=== PATIENT | male | born 1950 | race Caucasian/White ===

== ENCOUNTER → 2020-04-28 13:59 | Outpatient (CLI) | payer MEDICARE, SELFPAY ==
[2020-04-28 15:04] LABS: Basophils % 0.6 % (0.1-2.0); Eosinophils # 0.1 K/mm3 (0.0-0.4); Eosinophils % 2.4 % (0.1-12.0); Hematocrit 38.5 % (42.0-52.0); Hemoglobin 12.7 g/dL (14.1-18.0); Lymphocytes # 1.1 K/mm3 (0.7-4.5); Lymphocytes % 23.8 % (10-50); Mean Corpuscular HGB Conc 33.1 g/dL (31.8-35.4); Mean Corpuscular Hemoglobin 32.3 pg (27.0-31.2); Mean Corpuscular Volume 97.6 fl (80-94); Mean Platelet Volume 7.7 fl (7.4-10.4); Monocytes # 0.2 K/mm3 (0.1-1.0); Monocytes % 5.3 % (1.7-9.3); Platelet Count 144 K/mm3 (142-424); Red Blood Count 3.94 M/mm3 (4.60-6.20); White Blood Count 4.5 K/mm3 (4.8-10.8)
[2020-04-28 15:38] LABS: Alanine Aminotransferase 34 U/L (12-78); Albumin Level 4.3 g/dl (3.5-5.0); Albumin/Globulin Ratio 1.7 (1.1-1.8); Alkaline Phosphatase 72 U/L (38-126); Aspartate Amino Transferase 39 U/L (17-59); Bilirubin,Total 0.7 mg/dl (0.2-1.3); Blood Urea Nitrogen 26 mg/dl (9-20); Calcium 9.6 mg/dl (8.4-10.2); Carbon Dioxide 28 mmol/L (22.0-30.0); Chloride 102 mmol/L (98-107); Cholesterol 132 mg/dl (140-200); Estimated Glomerular Filt Rate 54 ml/min (>60); GFR (African American) 66 ML/MIN (>60); Globulin 2.6 g/dL (1.3-3.2); Glucose 106 mg/dl (74-100); HDL Cholesterol 44 mg/dl (40-60); Sodium 140 mmol/L (136-145); Total Protein,Serum 6.9 g/dl (6.3-8.2); Triglycerides 302 mg/dl (30-150); VLDL Cholesterol 60 mg/dL (0-40)
[2020-04-28 15:49] LABS: Direct LDL Cholesterol 58.26 mg/dL (100-129)
[2020-04-28 16:09] LABS: Prostate Specific Ag Screen 0.8 ng/ml (0.0-4.0)
[2020-04-28 17:48] LABS: Hemoglobin A1C 6.7 % (4.0-6.0)
[2020-04-28 21:55] LABS: INR 2.05 (0.9-1.1); Prothrombin Time 20.4 seconds (9.4-11.8)
== END ==
PROVIDERS: Visit Provider Family Medicine
DX: E11.9 Type 2 diabetes mellitus without complications (principal); I10 Essential (primary) hypertension; Z79.01 Long term (current) use of anticoagulants; N40.0 Benign prostatic hyperplasia without lower urinary tract symptoms; Z12.5 Encounter for screening for malignant neoplasm of prostate; Z79.84 Long term (current) use of oral hypoglycemic drugs
CPT/HCPCS: 36415; 80053; 80061; 83036; 85025; 85610; G0103

== ENCOUNTER → 2020-07-21 15:27 | Outpatient (CLI) | payer MEDICARE, SELFPAY | PROVIDERS: Visit Provider Family Medicine | DX: R10.30 Lower abdominal pain, unspecified (principal) | CPT/HCPCS: 87086 ==

== ENCOUNTER → 2020-07-30 08:19 | Outpatient (CLI) | payer MEDICARE, SELFPAY ==
--- NOTE | 2020-07-30 08:25 | CT_ITS ---
PROCEDURE: CT ABDOMEN PELVIS WO CON CLINICAL INDICATION: lower abd pain LLQ PAIN NO PRIOR COMPARISON: No exams were available for comparison TECHNIQUE: Axial images obtained with sagittal and coronal reformats. All CT scans at the facility use one or more dose reduction, viz: automated exposure control, ma/kV adjustment per patient size (including targeted exams where dose is matched to indication, i.e. head), or iterative reconstruction technique. FINDINGS: LOWER THORAX: Prior CABG. Coronary artery calcifications are noted. ABDOMEN & PELVIS: The liver, spleen, and pancreas has an unremarkable appearance. Minimal nodularity noted involving the right adrenal gland at 12 mm which may represent an adenoma. No renal or ureteral calculi. No hydronephrosis. No evidence of appendicitis. No intestinal obstruction or free air. There is diverticulosis of the descending and sigmoid colon. No evidence of diverticulitis. The prostate is prominent at 5 cm. No pelvic mass or abnormal fluid collection. There is a small umbilical hernia containing fat IMPRESSION: 1. No acute finding. 2. Colonic diverticulosis. No evidence of diverticulitis Dictated by: Tyron De Souza MD 07/31/2020 10:45 Tyron De Souza MD in [facility] 07/31/2020 10:45
== END ==
PROVIDERS: PCP Family Medicine; Visit Provider Family Medicine
DX: R10.30 Lower abdominal pain, unspecified (principal)
CPT/HCPCS: 74176

== ENCOUNTER → 2020-08-11 12:15 | Outpatient (CLI) | payer MEDICARE, SELFPAY ==
[2020-08-11 12:59] LABS: INR 1.54 (0.9-1.1); Prothrombin Time 16.4 seconds (9.4-11.8)
== END ==
PROVIDERS: Visit Provider Family Medicine
DX: R10.30 Lower abdominal pain, unspecified (principal); Z51.81 Encounter for therapeutic drug level monitoring; Z79.01 Long term (current) use of anticoagulants
CPT/HCPCS: 36415; 85610

== ENCOUNTER → 2020-11-11 12:22 | Outpatient (CLI) | payer MEDICARE, SELFPAY ==
[2020-11-11 14:57] LABS: INR 6.46 (0.9-1.1); Prothrombin Time 66.4 seconds (10.1-12.5)
== END ==
PROVIDERS: Visit Provider Family Medicine
DX: Z51.81 Encounter for therapeutic drug level monitoring (principal); Z79.01 Long term (current) use of anticoagulants; I48.91 Unspecified atrial fibrillation
CPT/HCPCS: 36415; 85610

== ENCOUNTER → 2020-11-17 10:53 | Outpatient (CLI) | payer MEDICARE, SELFPAY ==
[2020-11-17 11:30] LABS: Prothrombin Time 37.6 seconds (10.1-12.5)
== END ==
PROVIDERS: Visit Provider Family Medicine
DX: I48.91 Unspecified atrial fibrillation (principal)
CPT/HCPCS: 36415; 85610

== ENCOUNTER → 2020-11-24 14:05 | Outpatient (CLI) | payer MEDICARE, SELFPAY ==
[2020-11-24 15:30] LABS: INR 2.09 (0.9-1.1); Prothrombin Time 23.4 seconds (10.1-12.5)
== END ==
PROVIDERS: Visit Provider Emergency Medicine
DX: I48.91 Unspecified atrial fibrillation (principal); Z79.01 Long term (current) use of anticoagulants; Z51.81 Encounter for therapeutic drug level monitoring
CPT/HCPCS: 36415; 85610

== ENCOUNTER → 2020-12-24 15:04 | Outpatient (CLI) | payer MEDICARE, SELFPAY ==
[2020-12-24 18:35] LABS: INR 2.49 (0.9-1.1); Prothrombin Time 27.5 seconds (10.1-12.5)
== END ==
PROVIDERS: Visit Provider Family Medicine
DX: I48.91 Unspecified atrial fibrillation (principal); Z79.01 Long term (current) use of anticoagulants; Z51.81 Encounter for therapeutic drug level monitoring
CPT/HCPCS: 36415; 85610

== ENCOUNTER → 2021-04-23 16:56 | Outpatient (CLI) | payer MEDICARE, SELFPAY ==
[2021-04-23 18:05] LABS: Chloride 112 mmol/L (98-107)
[2021-04-23 18:06] LABS: Potassium 5.2 mmoL/L (3.5-5.1); Sodium 142 mmol/L (136-145)
[2021-04-23 18:08] LABS: Alanine Aminotransferase 33 U/L (12-78); Alkaline Phosphatase 86 U/L (38-126); Anion Gap 13.2 mEq/L (5-15); Aspartate Amino Transferase 32 U/L (17-59); Bilirubin,Total 0.4 mg/dl (0.2-1.3); Blood Urea Nitrogen 37 mg/dl (9-20); Carbon Dioxide 22 mmol/L (22.0-30.0); Estimated Glomerular Filt Rate 46 ml/min (>60); GFR (African American) 56 ML/MIN (>60)
[2021-04-23 18:09] LABS: Albumin Level 4.2 g/dl (3.5-5.0); Albumin/Globulin Ratio 1.5 (1.1-1.8); Calcium 9.6 mg/dl (8.4-10.2); Chol/HDL Ratio 3.3 (1-3.5); Cholesterol 140 mg/dl (140-200); Globulin 2.8 g/dL (1.3-3.2); Glucose 96 mg/dl (74-100); HDL Cholesterol 42 mg/dl (40-60); Triglycerides 349 mg/dl (30-150); VLDL Cholesterol 70 mg/dL (0-40)
[2021-04-23 18:15] LABS: Prothrombin Time 29.3 seconds (10.1-12.5)
[2021-04-23 18:16] LABS: INR 2.67 (0.9-1.1)
[2021-04-23 18:20] LABS: Direct LDL Cholesterol 52.11 mg/dL (100-129)
[2021-04-23 18:24] LABS: Hemoglobin A1C 7.1 % (4.0-6.0)
[2021-04-23 18:36] LABS: Basophils % 0.8 % (0.1-2.0); Eosinophils # 0.1 K/mm3 (0.0-0.4); Eosinophils % 1.7 % (0.1-12.0); Hemoglobin 11.9 g/dL (14.1-18.0); Lymphocytes # 0.9 K/mm3 (0.7-4.5); Lymphocytes % 17.8 % (10-50); Mean Corpuscular HGB Conc 39.7 g/dL (31.8-35.4); Mean Corpuscular Hemoglobin 38.3 pg (27.0-31.2); Mean Corpuscular Volume 96.4 fl (80-94); Mean Platelet Volume 9.6 fl (7.4-10.4); Monocytes # 0.3 K/mm3 (0.1-1.0); Monocytes % 5.6 % (1.7-9.3); Neutrophils # 3.6 K/mm3 (1.8-7.8); Neutrophils % 74.1 % (37.0-80.0); Platelet Count 137 K/mm3 (142-424); Red Blood Count 3.11 M/mm3 (4.60-6.20); Red Cell Distribution Width 15.3 % (11.5-17.5); White Blood Count 4.8 K/mm3 (4.8-10.8)
== END ==
PROVIDERS: Visit Provider Family Medicine
DX: E11.9 Type 2 diabetes mellitus without complications (principal); Z79.01 Long term (current) use of anticoagulants; Z01.89 Encounter for other specified special examinations; Z79.84 Long term (current) use of oral hypoglycemic drugs
CPT/HCPCS: 36415; 80053; 80061; 83036; 85025; 85610

== ENCOUNTER → 2021-06-17 14:08 | Outpatient (CLI) | payer MEDICARE, SELFPAY ==
--- NOTE | 2021-06-17 14:19 | XR_ITS ---
PROCEDURE: XR KNEE RT 4V CLINICAL INDICATION: knee pain COMPARISON: No exams were available for comparison FINDINGS: There are mild osteoarthritic changes involving all 3 compartments. Prominent prepatellar soft tissue swelling is noted the. Faint opacities are present in the prepatellar region the largest at 7 mm. These could be due to soft tissue areas of calcification versus foreign bodies. Along the anterior aspect of the patella laterally there is an area of bony exostosis measuring 13 x 6 mm. On the lateral view there are faint opacities in the popliteal region. This could be due to vascular calcification or small loose bodies in the popliteal region. There is mild chondrocalcinosis No obvious fracture or dislocation. Surgical clips are present along the medial and distal aspect of the thigh. IMPRESSION: Tricompartmental osteoarthritis with chondrocalcinosis No acute fracture. Prepatellar soft tissue swelling consistent with hematoma with faint soft tissue calcifications versus foreign bodies Dictated by: Tyron De Souza MD 06/17/2021 16:18 Tyron De Souza MD in [facility] 06/17/2021 16:18
--- NOTE | 2021-06-17 14:19 | XR_ITS ---
PROCEDURE: XR CHEST 2V CLINICAL HISTORY: weakness and fatigue COMPARISON: No exams were available for comparison FINDINGS: There has been a prior median sternotomy/CABG. Calcified granuloma is present in the left lower lobe. The lungs are clear without infiltrates, suspicious nodules, or pleural effusions. Degenerative changes thoracic spine IMPRESSION: No acute findings. Dictated by: Tyron De Souza MD 06/17/2021 16:00 Tyron De Souza MD in [facility] 06/17/2021 16:00
[2021-06-17 14:32] LABS: Basophils % 0.5 % (0.1-2.0); Eosinophils # 0.1 K/mm3 (0.0-0.4); Eosinophils % 1.1 % (0.1-12.0); Hematocrit 37.6 % (42.0-52.0); Hemoglobin 11.6 g/dL (14.1-18.0); Lymphocytes # 1.1 K/mm3 (0.7-4.5); Lymphocytes % 18.1 % (10-50); Mean Corpuscular HGB Conc 30.9 g/dL (31.8-35.4); Mean Corpuscular Hemoglobin 31.2 pg (27.0-31.2); Mean Corpuscular Volume 101.2 fl (80-94); Mean Platelet Volume 7.6 fl (7.4-10.4); Monocytes # 0.3 K/mm3 (0.1-1.0); Monocytes % 5.2 % (1.7-9.3); Neutrophils # 4.8 K/mm3 (1.8-7.8); Neutrophils % 75.1 % (37.0-80.0); Platelet Count 178 K/mm3 (142-424); Red Blood Count 3.71 M/mm3 (4.60-6.20); Red Cell Distribution Width 15.3 % (11.5-17.5); White Blood Count 6.3 K/mm3 (4.8-10.8)
[2021-06-17 14:54] LABS: INR 3.48 (0.9-1.1); Prothrombin Time 35.9 seconds (10.1-12.5)
[2021-06-17 15:49] LABS: Prostate Specific Ag Screen 0.4 ng/ml (0.0-4.0); Thyroid Stimulating Hormone 3.98 uIU/mL (0.465-4.68)
[2021-06-17 16:09] LABS: Alanine Aminotransferase 25 U/L (12-78); Albumin Level 4.2 g/dl (3.5-5.0); Albumin/Globulin Ratio 1.6 (1.1-1.8); Alkaline Phosphatase 66 U/L (38-126); Aspartate Amino Transferase 30 U/L (17-59); Bilirubin,Total 0.7 mg/dl (0.2-1.3); Blood Urea Nitrogen 49 mg/dl (9-20); Calcium 9.5 mg/dl (8.4-10.2); Carbon Dioxide 19 mmol/L (22.0-30.0); Chloride 110 mmol/L (98-107); Estimated Glomerular Filt Rate 31 ml/min (>60); GFR (African American) 38 ML/MIN (>60); Globulin 2.7 g/dL (1.3-3.2); Glucose 103 mg/dl (74-100); Sodium 135 mmol/L (136-145); Total Protein,Serum 6.9 g/dl (6.3-8.2)
[2021-06-17 16:19] LABS: NT Pro Brain Natriuretic Pep. 56.2 pg/mL (0-125)
[2021-06-17 16:51] LABS: Iron 84 ug/dL (49-181)
[2021-06-17 16:52] LABS: Anion Gap 12.9 mEq/L (5-15)
[2021-06-17 17:00] LABS: Potassium 6.9 mmoL/L (3.5-5.1)
== END ==
PROVIDERS: Visit Provider Family Medicine
DX: E11.9 Type 2 diabetes mellitus without complications (principal); Z12.5 Encounter for screening for malignant neoplasm of prostate; E87.6 Hypokalemia; I50.9 Heart failure, unspecified; R53.1 Weakness; M25.561 Pain in right knee; Z20.822 Contact with and (suspected) exposure to COVID-19; Z79.84 Long term (current) use of oral hypoglycemic drugs
CPT/HCPCS: 36415; 71046; 73564; 80053; 83540; 83880; 84443; 84550; 85025; 85610; 87086; G0103; C9803; U0003; U0005

== ENCOUNTER → 2021-06-29 16:56 | Outpatient (CLI) | payer MEDICARE, SELFPAY ==
[2021-06-29 18:38] LABS: Alanine Aminotransferase 32 U/L (12-78); Albumin/Globulin Ratio 1.5 (1.1-1.8); Alkaline Phosphatase 78 U/L (38-126); Aspartate Amino Transferase 34 U/L (17-59); Bilirubin,Total 0.6 mg/dl (0.2-1.3); Blood Urea Nitrogen 24 mg/dl (9-20); Calcium 8.9 mg/dl (8.4-10.2); Carbon Dioxide 26 mmol/L (22.0-30.0); Chloride 103 mmol/L (98-107); Estimated Glomerular Filt Rate 60 ml/min (>60); GFR (African American) 72 ML/MIN (>60); Globulin 2.6 g/dL (1.3-3.2); Glucose 106 mg/dl (74-100); Sodium 137 mmol/L (136-145); Total Protein,Serum 6.6 g/dl (6.3-8.2)
== END ==
PROVIDERS: Visit Provider Family Medicine
DX: E87.5 Hyperkalemia (principal)
CPT/HCPCS: 80053

== ENCOUNTER 2021-07-22 17:33 | Observation (INO) | payer MEDICARE, SELFPAY ==
[2021-07-22] VITALS (7 sets, daily range): BP systolic 140–180; BP diastolic 45–117; PULSE 59–74; RESP 16; TEMP 36.8–37.2; O2SAT 95–98; BMI 40.6; BMI 42.3
--- NOTE | 2021-07-22 17:49 | ECG_ITS ---
APPROVED REPORT Exam: Resting ECG HR:68 bpm ECG Measurements Heart Rate 68 AXES ID 146 P 54 QRSd 72 QRS -13 QT 398 T 63 QTc 423 Conclusion Normal sinus rhythm Nonspecific ST and T wave abnormality Abnormal ECG Electronically signed by : Jose Alberto Peterson MD 07/24/2021 08:38:59
--- NOTE | 2021-07-22 18:08 | HMH.EDGENADL ---
ED Disposition Clinical Impression: Congestive heart failure Qualifiers: Heart failure type: unspecified Heart failure chronicity: acute on chronic Qualified Code(s): I50.9 - Heart failure, unspecified Disposition: Admitted as Observation Condition on Discharge: Good Referrals: Dylon Izaguirre MD [Primary Care Provider] - - Critical Care Critical Care Time: No Attestation: On 07/22/21, the high probability of a clinically significant, sudden or life threatening deterioration of the following system(s) required my full and direct attention, intervention and personal management. The time I documented below is in addition to time spent performing reported procedures but includes the following listed in this critical care notation. Medical Decision Making - Ruben Inquiry Pt receiving controlled substance: No Vital Signs: 07/22/21 17:34 07/22/21 18:40 Temperature 98.9 F Temperature Source Oral Pulse Rate 74 Pulse Rate [Right] 71 Respiratory Rate 16 16 Blood Pressure 180/90 H Blood Pressure [Right Arm] 180/75 H Blood Pressure Mean [Right Arm] 110 Blood Pressure Source Automatic Cuff Blood Pressure Source [Right Arm] Automatic Cuff Blood Pressure Position Sitting Blood Pressure Position [Right Arm] Sitting 02 Sat by Pulse Oximetry 98 98 Oxygen Delivery Method Room Air Room Air - Lab Data Lab Results 07/22/21 18:03: SARS-CoV-2 (PCR) Not detected, Influenza A Untype (PCR) Not detected, Influenza Type B (PCR) Not detected 07/22/21 18:07: WBC 4.7 L, RBC 3.88 L, Hgb 11.9 L, Hct 35.6 L, MCV 91.8, MCH 30.7, MCHC 33.4, RDW 15.9, Plt Count 211, MPV 8.1, Neut % (Auto) 73.8, Lymph % (Auto) 18.4, [place] % (Auto) 5.0, Eos % (Auto) 2.2, Baso % (Auto) 0.7, Neut # (Auto) 3.5, Lymph # (Auto) 0.9, [place] # (Auto) 0.2, Eos # (Auto) 0.1, Baso # (Auto) 0.0 07/22/21 18:07: PT 22.4 H, INR 2.09 H, APTT 32.6 H 07/22/21 18:07: Sodium 141, Potassium 3.7, Chloride 105, Carbon Dioxide 31 H, Anion Gap 8.7, BUN 19, Creatinine 1.20, Estimated Creat Clear 98, Estimated GFR 60, Est GFR ( Amer) 72, Glucose 153 H, Calcium 9.3, Total Bilirubin 0.6, AST 43, ALT 39, Alkaline Phosphatase 88, Troponin I < 0.01, Total Protein 7.0, Albumin 4.2, Globulin 2.8, Albumin/Globulin Ratio 1.5 07/22/21 18:07: NT-Pro-B Natriuret Pep 422 H Result diagrams: 07/22/21 18:07 07/22/21 18:07 Orders (Tests/Meds): ED MEDICATIONS Discontinued Medications Generic Name Dose Route Start Last Admin Trade Name Freq PRN Reason Stop Dose Admin Furosemide 40 mg 07/22/21 20:09 07/22/21 20:10 Furosemide 40mg/4ml Vial IV 07/22/21 20:10 40 mg ONCE ONE Administration ORDERS Category Date Time Status Troponin I Q3H Lab 07/22/21 21:30 Ordered Troponin I Q3H Lab 07/23/21 00:30 Ordered - Radiology Data #1 Image(s): Chest Image Reviewed: Yes I reviewed the patient's radiology image Preliminary Findings: Abnormal (Prior sternotomy. Vascular congestion.) PROCEDURE INFORMATION: Exam: XR Chest Exam date and time: 07/22/2021 6:28 PM Age: 71 years old Clinical indication: Shortness of breath; Additional info: Soa/swelling feet and legs TECHNIQUE: Imaging protocol: XR of the chest. Views: 2 views. COMPARISON: CR XR CHEST 2V 06/17/2021 2:29 PM FINDINGS: Lungs: Central vascular congestion with mild interstitial edema. Mild left basilar atelectasis. No consolidation. Pleural spaces: No pleural effusion. No pneumothorax. Heart/Mediastinum: Mild cardiomegaly, similar to prior. Sequela of prior CABG. Aortic atherosclerosis. Bones/joints: Degenerative changes. IMPRESSION: Central vascular congestion with mild interstitial pulmonary edema. - ECG Data Tracing #1 EKG interpreted by Steven Cervantes MD: Rhythm: sinus Rate: 68 Sanders: normal Ectopy: none Conduction: normal ST Segment Changes: none T Wave Changes: Nonspecific Q Waves:
--- NOTE | 2021-07-22 18:28 | XR_ITS ---
PROCEDURE INFORMATION: Exam: XR Chest Exam date and time: 07/22/2021 6:28 PM Age: 71 years old Clinical indication: Shortness of breath; Additional info: Soa/swelling feet and legs TECHNIQUE: Imaging protocol: XR of the chest. Views: 2 views. COMPARISON: CR XR CHEST 2V 06/17/2021 2:29 PM FINDINGS: Lungs: Central vascular congestion with mild interstitial edema. Mild left basilar atelectasis. No consolidation. Pleural spaces: No pleural effusion. No pneumothorax. Heart/Mediastinum: Mild cardiomegaly, similar to prior. Sequela of prior CABG. Aortic atherosclerosis. Bones/joints: Degenerative changes. IMPRESSION: Central vascular congestion with mild interstitial pulmonary edema.
[2021-07-22 18:37] LABS: Basophils % 0.7 % (0.1-2.0); Eosinophils # 0.1 K/mm3 (0.0-0.4); Eosinophils % 2.2 % (0.1-12.0); Hematocrit 35.6 % (42.0-52.0); Hemoglobin 11.9 g/dL (14.1-18.0); Lymphocytes # 0.9 K/mm3 (0.7-4.5); Lymphocytes % 18.4 % (10-50); Mean Corpuscular HGB Conc 33.4 g/dL (31.8-35.4); Mean Corpuscular Hemoglobin 30.7 pg (27.0-31.2); Mean Corpuscular Volume 91.8 fl (80-94); Mean Platelet Volume 8.1 fl (7.4-10.4); Monocytes # 0.2 K/mm3 (0.1-1.0); Neutrophils # 3.5 K/mm3 (1.8-7.8); Neutrophils % 73.8 % (37.0-80.0); Platelet Count 211 K/mm3 (142-424); Red Blood Count 3.88 M/mm3 (4.60-6.20); Red Cell Distribution Width 15.9 % (11.5-17.5); White Blood Count 4.7 K/mm3 (4.8-10.8)
[2021-07-22 18:37] LABS: Coronavirus 19, PCR Not Detected (NotDetected); Influenza A, PCR Not Detected (NotDetected); Influenza B, PCR Not Detected (NotDetected)
[2021-07-22 18:42] LABS: Activated Partial Thrombo Time 32.6 seconds (22.8-30.6); INR 2.09 (0.9-1.1); Prothrombin Time 22.4 seconds (10.1-12.5)
[2021-07-22 18:54] LABS: Alanine Aminotransferase 39 U/L (12-78); Albumin Level 4.2 g/dl (3.5-5.0); Albumin/Globulin Ratio 1.5 (1.1-1.8); Alkaline Phosphatase 88 U/L (38-126); Anion Gap 8.7 mEq/L (5-15); Aspartate Amino Transferase 43 U/L (17-59); Bilirubin,Total 0.6 mg/dl (0.2-1.3); Blood Urea Nitrogen 19 mg/dl (9-20); Calcium 9.3 mg/dl (8.4-10.2); Carbon Dioxide 31 mmol/L (22.0-30.0); Chloride 105 mmol/L (98-107); Creatinine Clearance Estimated 98 mL/min (50-200); Estimated Glomerular Filt Rate 60 ml/min (>60); GFR (African American) 72 ML/MIN (>60); Globulin 2.8 g/dL (1.3-3.2); Glucose 153 mg/dl (74-100); Potassium 3.7 mmoL/L (3.5-5.1); Sodium 141 mmol/L (136-145)
[2021-07-22 19:05] LABS: NT Pro Brain Natriuretic Pep. 422 pg/mL (0-125)
[2021-07-22 19:16] LABS: Troponin I < 0.01 ng/ml (0.00-0.034)
--- NOTE | 2021-07-22 20:38 | PC.NURSE ---
house notified of need for admit
[2021-07-22 22:17] LABS: Troponin I < 0.01 ng/ml (0.00-0.034)
--- NOTE | 2021-07-22 22:32 | PC.NURSE ---
pt arrived to the floor at this time
[2021-07-23] VITALS: PULSE 50
[2021-07-23 04:00] VITALS: BP 161/87; PULSE 60; PULSE 61; RESP 16; TEMP 36.6; O2SAT 96
[2021-07-23 04:32] VITALS: BMI 42.0
[2021-07-23 05:31] LABS: POC Glucose,Bedside 158 (70-110)
--- NOTE | 2021-07-23 06:57 | P.CONPHA_ITS ---
[facility] Pharmacy VTE Monitoring - Patient Demographics Admission date: 07/22/21 Report Date: 07/23/21 Time: 06:57 Allergies/Adverse Reactions: Patient Allergies ciprofloxacin [From Cipro] Allergy (Unknown, Verified 06/29/21 13:21) ofloxacin [From Floxin] Allergy (Unknown, Verified 06/29/21 13:21) Pzqfbig-Bpt-Xgb Reductase Inhibitor Allergy (Unknown, Verified 06/29/21 13:21) penicillin V Adverse Reaction (Severe, Verified 06/29/21 13:21) Unknown allergy reaction Height: 1.75 m Weight: 128.82 kg Patient Problems: Current Active Problems Congestive heart failure (Acute) - VTE Risk Labs: VTE Related Lab Results Hgb 11.9 g/dL (14.1-18.0) L 07/22/21 18:07 Hct 35.6 % (42.0-52.0) L 07/22/21 18:07 Plt Count 211 K/mm3 (142-424) 07/22/21 18:07 PT 22.4 seconds (10.1-12.5) H 07/22/21 18:07 INR 2.09 (0.9-1.1) H 07/22/21 18:07 APTT 32.6 seconds (22.8-30.6) H 07/22/21 18:07 BUN 19 mg/dl (9-20) 07/22/21 18:07 Creatinine 1.20 mg/dl (0.66-1.25) 07/22/21 18:07 Estimated Creat Clear 98 mL/min (50-200) 07/22/21 18:07 - Prophylaxis VTE Prophylaxis Ordered?: Yes Types of VTE Prophylaxis: TEDS Knee High, Pharmacological Location of Applied Device: Bilateral Lower Extremeties Pharmacologic Type: Warfarin
[2021-07-23 07:00] LABS: Chloride 103 mmol/L (98-107); Potassium 3.5 mmoL/L (3.5-5.1); Sodium 143 mmol/L (136-145)
[2021-07-23 07:03] LABS: Anion Gap 12.5 mEq/L (5-15); Blood Urea Nitrogen 18 mg/dl (9-20); Calcium 8.9 mg/dl (8.4-10.2); Carbon Dioxide 31 mmol/L (22.0-30.0); Creatinine Clearance Estimated 59 mL/min (50-200); Estimated Glomerular Filt Rate 66 ml/min (>60); GFR (African American) 80 ML/MIN (>60); Glucose 151 mg/dl (74-100)
[2021-07-23 08:00] VITALS: BP 119/59; PULSE 60; RESP 18; TEMP 36.6; O2SAT 96
--- NOTE | 2021-07-23 08:20 | CA_ITS ---
APPROVED REPORT EXAM: Comprehensive 2D, Doppler, and color-flow Echocardiogram Assistant Professor Of Business: Sara Sanchez RVT Ht: 5 ft 8 in Wt: 284lbs BSA: 2.37 BP: 132/88 mmHg Indications: CHF,CABG,STENT,EDEMA,CAD,HTN,HX ABLATION,HX A-FIB,OBESITY 2D Dimensions LVOT 2.06 cm (M/F) 1.5-2.5 LA Volume 36.30 mL LA Volume Index 15.31 mL/m2 (M/F) 16-34 M-Mode Dimensions RVDd 3.01 cm (0.9-2.6) LA Diam 3.63 cm (1.9-4.0) LVDd 4.79 cm (3.5-5.7) Ao Diam 3.73 cm (2.0-3.7) LVDs 3.05 cm (3.5-5.7) IVSd 1.14 cm (0.6-1.1) PWd 0.97 cm (0.6-1.1) EF (Teich) 66.00% FS 36.30% EDV (Teich) 107.00 mL TAPSE 1.79 (<1.7) ESV (Teich) 36.40 mL LV Diastology E Decel Time 230.00 (160-240 msec) E/A Ratio 2.3 MED E' 6.60 (< 7 cm/sec) E'/MED E' Ratio 17.83 (>14) LAT E' 11.00 (<10 cm/sec) E/LAT E' Ratio 10.70 (>14) Aortic Valve AI PHT 1079.00 ms Mitral Valve MV E Max Kaden. 118.00 (40-130 cm/s) MV A Velocity 52.00 (40-130 cm/s) E/A Ratio 2.28 MV Decel. Time 230.00 (160-240 ms) MV PHT 67.00 ms Pulmonary Valve PV Peak Velocity 113.00 (50-150 cm/s) Tricuspid Valve TR P. Velocity 326.00 cm/s RAP Estimate 10.00 mmHg RVSP 52.60 mmHg Left Ventricle Left atrium is mildly enlarged, left ventricle is normal size, mild concentric left ventricular hypertrophy, visually estimated ejection fraction 55% with no regional wall motion abnormality, grade 1 diastolic dysfunction seen with tissue Doppler evidence of raise left atrial pressure. Right Ventricle Right atrium and right ventricle mildly enlarged with normal contractility. Aortic Valve Aortic valve is minimally thickened and fibrosed, there is no aortic stenosis, there is mild aortic insufficiency. Mitral Valve Mitral valve leaflets are minimally thickened, there is mild mitral regurgitation. Tricuspid Valve Tricuspid valve is grossly normal, there is trace tricuspid regurgitation, tricuspid regurgitation jet velocity is inadequate for calculation of the right ventricular systolic pressure. Pulmonic Valve Pulmonic valve is poorly visualized. Great Vessels Aortic root is normal size. Inferior vena cava is poorly visualized. Pericardium No significant pericardial effusion noted. Conclusion 1. Mild biatrial alignment, normal left ventricular size, mild concentric left ventricular hypertrophy, visually estimated ejection fraction 55% with no regional wall motion abnormality. Grade 1 diastolic dysfunction seen with tissue Doppler evidence of raise left atrial pressure. 2. Mildly enlarged right ventricle with normal contractility. 3. Mild aortic, mild mitral and trace tricuspid regurgitation. 4. No significant pericardial effusion noted. Electronically signed by : Stevie Tom MD 07/23/2021 15:48:29
--- NOTE | 2021-07-23 09:20 | HMH.CNCARD ---
History of Present Illness Consult date: 07/23/21 Requesting physician: Hemal Rutherford Consult reason: shortness of breath Chief complaint: CHF Additional Medical History:: 1. CAD A. 4 vessel CABG, approximately 2010, [facility] in [facility], Dr. Santiago Loredo. Coronary stenting, 2019, [place], [place] 2. History of atrial fibrillation with previous ablation therapy, approximately 2011, Dr. Estrella 3. Diabetes mellitus, type II diagnosed and treated approximately 2019 A. Hemoglobin A1c 7.1, 04/2021 4. Obesity 5. Ex-smoker, greater than 15 years ago 6. Hypertension 7. Chronic kidney disease, stage II with creatinine of 1.1, GFR 66 A. History of hyperkalemia on combination of lisinopril and spironolactone 8. Hyperlipidemia, on Repatha therapy 9. Obstructive sleep apnea, CPAP therapy 10. Congestive heart failure, likely diastolic in origin History of present illness: 71-year-old white male with known coronary artery disease as noted above presented to the emergency department with several days history of increasing shortness of breath and lower extremity edema. Patient was found to have evidence of congestive heart failure by chest x-ray and with elevated BNP and was admitted for evaluation and treatment. Patient did receive IV diuretic therapy overnight with some improvement in his symptoms this morning. He denies any chest pain, pressure or tightness. Troponins have returned normal times 2. EKG is sinus rhythm with no acute ST segment changes. Echocardiogram is in progress at this time. [facility] History Medical History: Reports:: Asthma, Atrial Fibrillation, Congestive Heart Failure, Diabetes Mellitus Type 2, Hyperlipidemia, Hypertension, Renal Insufficiency *Have you ever received a pneumonia vaccine?: No *Have you received a flu vaccine this season?: No Other Medical History: Reports: Arthritis Other Surgeries: Yes: Cardiac Surgery - *Social History Smoking Status: Former smoker Alcohol Intake: never Substance Use Type: denies use *Occupational Status:: employed Housing: house Household Members: none *Travel in the last 8 weeks: None Family Hx:: Cancer, Asthma Meds Home Medications Medication Instructions Recorded Confirmed Type aspirin 81 mg tablet,delayed 81 mg PO DAILY 04/28/20 07/22/21 History release evolocumab 140 mg/mL subcutaneous 140 mg SQ QOW 04/28/20 07/23/21 History pen injector furosemide 40 mg tablet 20 mg PO DAILY tab 04/28/20 07/23/21 History isosorbide mononitrate 30 mg 30 mg PO DAILY 04/28/20 07/23/21 History tablet,extended release 24 hr metoprolol succinate 25 mg 25 mg PO DAILY 04/28/20 07/23/21 History tablet,extended release 24 hr nitroglycerin 0.4 mg sublingual 0.4 mg SUBLINGUAL Q5-15M PRN 04/28/20 07/22/21 History tablet hydrocodone 5 mg-acetaminophen 325 1 tab PO QHS PRN #30 tab 06/17/21 07/22/21 Rx mg tablet Metformin HCl 500 mg PO BID 07/22/21 07/23/21 History Warfarin Sodium 2.5 mg PO DAILY 07/22/21 07/23/21 History Empagliflozin [Jardiance] 10 mg PO DAILY 07/23/21 07/23/21 History Spironolactone [Aldactone 25mg 50 mg PO DAILY 07/23/21 07/23/21 History Tab] Tamsulosin HCl 0.4 mg PO DAILY 07/23/21 07/23/21 History allopurinoL [Allopurinol 100mg 100 mg PO DAILY 07/23/21 07/23/21 History tablet] lisinopriL [Lisinopril] 20 mg PO BID 07/23/21 07/23/21 History Allergies Allergy/AdvReac Type Severity Reaction Status Date / Time ciprofloxacin [From Cipro] Allergy Unknown Verified 06/29/21 13:21 ofloxacin [From Floxin] Allergy Unknown Verified 06/29/21 13:21 Mmxyqsa-Xgh-Pmi Reductase Allergy Unknown Verified 06/29/21 13:21 Inhibitor penicillin V AdvReac Severe Unknown Verified 06/29/21 13:21 allergy reaction Exam Vital signs and Labs for Last 24 Hours: Temp Pulse Resp BP Pulse Ox 97.9 F 61 16 161/87 H 96 07/23/21 04:00 07/23/21 04:00 07/23/21 04:00 07/23/21 04:00
[2021-07-23 10:30] LABS: Magnesium 1.5 mg/dl (1.6-2.3)
[2021-07-23 11:09] VITALS: BMI 42.0
--- NOTE | 2021-07-23 11:43 | HMH.PHAINT ---
Confirmed home medications with [facility]
--- NOTE | 2021-07-23 12:30 | HMH.HP ---
*Admission Date: 07/22/21 *Chief complaint: congestive heart failure *History of present illness: Patient is a 71-year-old white male, well-known to my practice, who presented to the emergency room with increased peripheral edema dyspnea with exertion. 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 Patient has a history of coronary artery disease, status post four-vessel bypass in 2010. He has had subsequent stent deployments at [facility] in [place]. Patient also has history of atrial fibrillation, is status post cardioversion at [facility] in [place]. On a recent office visit here the patient was noted to be markedly weak, staggering gait, mental status changes. His lab work on that occasion marked aberrations in electrolyte status, marked hyperkalemia with evidence of renal failure. He was kept as an inpatient at [facility], seen in consultation with nephrology. He was given Kayexalate with a subsequent resolution of his hyperkalemia. His kidney function also markedly improved at that point. Patient has a history of significant gout with tophus formation. This has presented a dilemma with regard to his diuretic regimen. He knows to avoid NSAIDs. Upon presentation to the emergency room chest film was done subjective volume overload. Patient received IV Lasix with good output and some improvement in his symptoms. He is admitted for further evaluation and treatment. We will have cardiology look at him today, will look at an echo and await further recommendations. His congestive heart failure likely has a diastolic component. Patient has longstanding history of PATRICIA and is on CPAP. [facility] History Medical History: Reports:: Asthma, Atrial Fibrillation, Congestive Heart Failure, Diabetes Mellitus Type 2, Hyperlipidemia, Hypertension, Renal Insufficiency *Have you ever received a pneumonia vaccine?: No *Have you received a flu vaccine this season?: No Other Medical History: Reports: Arthritis Other Surgeries: Yes: Cardiac Surgery - *Social History Smoking Status: Former smoker Alcohol Intake: never Substance Use Type: denies use *Occupational Status:: employed Housing: house Household Members: none *Travel in the last 8 weeks: None Family Hx:: Cancer, Asthma Review of Systems - Constitutional Reports fatigue, Reports lack of energy, Reports weakness, Reports weight gain - Eyes Denies change in vision - ENT Denies dry mouth - *Cardiovascular Reports shortness of breath, Reports shortness of breath with activity, Reports generalized swelling, Reports irregular heart rhythm, Reports leg swelling, Denies chest pain - *Respiratory Reports shortness of breath, Denies chest congestion - *Gastrointestinal Denies abdominal pain - *Genitourinary Denies painful urination - *Musculoskeletal Reports abnormal walking, Reports joint pain, Reports muscle weakness, Reports stiffness - Integumentary/Breasts Reports change in skin color, Denies yellowing of the skin - *Neurologic Reports unsteadiness, Denies behavioral changes - Psychiatric Denies lack of enjoyment, Denies anxiety, Denies behavioral changes - Endocrine Denies cold intolerance - Hematologic/Lymphatic Reports easy bleeding, Reports easy bruising - Allergic/Immunologic Denies hives Meds Home Medications Medication Instructions Recorded Confirmed Type aspirin 81 mg tablet,delayed 81 mg PO DAILY 04/28/20 07/22/21 History release evolocumab 140 mg/mL subcutaneous 140 mg SQ QOW 04/28/20 07/23/21 History pen injector furosemide 40 mg tablet 20 mg PO DAILY tab 04/28/20 07/23/21 History isosorbide mononitrate 30 mg 30 mg PO DAILY 04/28/20 07/23/21 History tablet,extended release 24 hr metoprolol succinate 25 mg 25 mg PO DAILY 04/28/20 07/23/21 History tablet,extended release 24 hr nitroglycerin
--- NOTE | 2021-07-23 13:05 | CA_ITS ---
APPROVED REPORT Bilateral Lower Extremity Venous Study for Machine I Coremaker: CT Indications Lower Extremity Pain: Right Lower Extremity Edema: Right edema Risk Factors Obesity Medications Coumadin Aspirin Vein Imaging CFV (R): compressive, spontaneous, phasic, augmentation SFJ (R): compressive, spontaneous, phasic, augmentation FEM (R): compressive, spontaneous, phasic, augmentation POP (R): compressive, spontaneous, phasic, augmentation DFV (R): compressive, spontaneous, phasic, augmentation PTV (R): compressive, spontaneous, phasic, augmentation GSV (R): Not Visualized, harvested for CABG SSV (R): compressive, spontaneous, phasic, augmentation Peroneals (R):compressive, spontaneous, phasic, augmentation GAS (R): compressive, spontaneous, phasic, augmentation Findings RLE negative for DVT/SVT Vessels compressible No reflux noted. Conclusion RLE negative for DVT/SVT Vessels compressible No reflux noted. Electronically signed by : Tyron De Souza MD 07/23/2021 16:06:07
[2021-07-23 16:00] VITALS: BP 150/75; PULSE 62; RESP 24; TEMP 36.8; O2SAT 94
[2021-07-23 16:18] VITALS: PULSE 71
--- NOTE | 2021-07-23 17:41 | HMH.DCSUM ---
General - General Admission date:: 07/22/21 Discharge date: 07/23/21 HPI HPI: Patient is a 71-year-old white male, well-known to my practice, who presented to the emergency room with increased peripheral edema dyspnea with exertion. 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 Patient has a history of coronary artery disease, status post four-vessel bypass in 2010. He has had subsequent stent deployments at [facility] in [place]. Patient also has history of atrial fibrillation, is status post cardioversion at [facility] in [place]. On a recent office visit here the patient was noted to be markedly weak, staggering gait, mental status changes. His lab work on that occasion marked aberrations in electrolyte status, marked hyperkalemia with evidence of renal failure. He was kept as an inpatient at [facility], seen in consultation with nephrology. He was given Kayexalate with a subsequent resolution of his hyperkalemia. His kidney function also markedly improved at that point. Patient has a history of significant gout with tophus formation. This has presented a dilemma with regard to his diuretic regimen. He knows to avoid NSAIDs. Upon presentation to the emergency room chest film was done subjective volume overload. Patient received IV Lasix with good output and some improvement in his symptoms. He is admitted for further evaluation and treatment. We will have cardiology look at him today, will look at an echo and await further recommendations. His congestive heart failure likely has a diastolic component. Patient has longstanding history of PATRICIA and is on CPAP. Hospital Course Hospital Course: Patient was admitted to our service and diuresed with IV Lasix. He was seen in consultation by cardiology services, and an echo was performed. Showed an ejection fraction of 55%, mild biatrial enlargement and a grade 1 diastolic dysfunction. Patient is noted to have peripheral edema, discrepancies in calf circumference right greater than left. This is a chronic finding. We did a venous duplex which did not reveal evidence of venous thrombosis. Patient was noted to have low magnesium, this was replaced. Cardiology had discussed adding Farxiga and Avapro to the regimen. Both for cardiovascular risk reduction and afterload reduction. Patient is status post four-vessel bypass in 2010 with a subsequent stent deployment. He has had no ischemic chest pain. Patient has history of atrial fibrillation, status post epilation at [facility]. He was maintained in normal sinus rhythm at a controlled rate. In terms of discharge planning we discussed patient changes as delineated above. We also discussed undulation of sodium intake and cardiac rehab. We also discussed the importance of regular follow-up to fine-tune his volume and electrolyte status. Objective Vital signs: Temp Pulse Resp BP Pulse Ox 97.8 F 71 18 119/59 L 96 07/23/21 08:00 07/23/21 16:18 07/23/21 08:00 07/23/21 08:00 07/23/21 08:00 no acute distress, morbidly obese, chronically ill appearing - *Routine HEENT Exam Head: Present: normocephalic Eye: Present: EOMI, PERRL ENT: Present: mucous membranes moist - *Routine Neck Exam Present: supple - *Routine Respiratory Exam Present: CTA bilaterally - *Routine Cardiovascular Exam Present: RRR - *Routine Abdominal Exam Present: soft, normoactive bowel sounds. Absent: tenderness - *Routine Extremities Exam Present: edema. Absent: cyanosis, extremity cold to touch - *Routine Skin Exam Present: warm. Absent: rash Results Labs on day of discharge: Labs from last 24 hours 07/23/21 07/23/21 07/23/21 06:40 06:40 05:19 WBC RBC Hgb Hct MCV MCH MCHC RDW Plt Count MPV Neut % (Auto) Lymph % (Auto
[2021-07-24 21:33] LABS: POC Glucose,Bedside 230 (70-110)
[2021-07-24 21:33] LABS: POC Glucose,Bedside 171 (70-110)
== END 2021-07-23 19:05 | disposition home or self-care (01) ==
LOC: ER 20:33 → 2ND 21:27
PROVIDERS: Physician Assistant; Admitting Provider Family Medicine; Emergency Provider Emergency Medicine; PCP Family Medicine; Visit Provider Family Medicine
DX: I13.0 Hypertensive heart and chronic kidney disease with heart failure and stage 1 through stage 4 chronic kidney disease, or unspecified chronic kidney disease (principal); I50.33 Acute on chronic diastolic (congestive) heart failure; Z95.5 Presence of coronary angioplasty implant and graft; Z95.1 Presence of aortocoronary bypass graft; I48.0 Paroxysmal atrial fibrillation; Z79.01 Long term (current) use of anticoagulants; E11.22 Type 2 diabetes mellitus with diabetic chronic kidney disease; Z87.891 Personal history of nicotine dependence; N18.2 Chronic kidney disease, stage 2 (mild); E66.01 Morbid (severe) obesity due to excess calories; Z68.41 Body mass index [BMI] 40.0-44.9, adult; Z79.84 Long term (current) use of oral hypoglycemic drugs; Z79.899 Other long term (current) drug therapy; Z20.822 Contact with and (suspected) exposure to COVID-19; R06.9 Unspecified abnormalities of breathing
CPT/HCPCS: G0378; 71046; 80048; 80053; 82962; 83735; 83880; 84484; 85025; 85610; 85730; 93005; 93306; 93971; 96374; 96375; 99284; C9803; U0003; U0005

== ENCOUNTER → 2021-08-03 19:52 | Outpatient (CLI) | payer MEDICARE, SELFPAY ==
[2021-08-03 20:47] LABS: Anion Gap 11.9 mEq/L (5-15); Blood Urea Nitrogen 25 mg/dl (9-20); Calcium 9.4 mg/dl (8.4-10.2); Carbon Dioxide 30 mmol/L (22.0-30.0); Chloride 99 mmol/L (98-107); Estimated Glomerular Filt Rate 66 ml/min (>60); GFR (African American) 80 ML/MIN (>60); Glucose 204 mg/dl (74-100); Potassium 3.9 mmoL/L (3.5-5.1); Sodium 137 mmol/L (136-145)
== END ==
PROVIDERS: Visit Provider Family Medicine
DX: I50.9 Heart failure, unspecified (principal)
CPT/HCPCS: 80048

== ENCOUNTER → 2021-10-05 13:53 | Outpatient (CLI) | payer MEDICARE, SELFPAY ==
[2021-10-05 15:24] LABS: INR 1.41 (0.9-1.1); Prothrombin Time 15.5 seconds (10.1-12.5)
[2021-10-05 15:48] LABS: Chloride 102 mmol/L (98-107); Sodium 137 mmol/L (136-145)
[2021-10-05 15:51] LABS: Alanine Aminotransferase 51 U/L (12-78); Albumin Level 4.2 g/dl (3.5-5.0); Albumin/Globulin Ratio 1.6 (1.1-1.8); Alkaline Phosphatase 95 U/L (38-126); Aspartate Amino Transferase 60 U/L (17-59); Bilirubin,Total 0.7 mg/dl (0.2-1.3); Blood Urea Nitrogen 24 mg/dl (9-20); Calcium 8.6 mg/dl (8.4-10.2); Carbon Dioxide 29 mmol/L (22.0-30.0); Estimated Glomerular Filt Rate 66 ml/min (>60); GFR (African American) 80 ML/MIN (>60); Globulin 2.7 g/dL (1.3-3.2); Glucose 116 mg/dl (74-100); Total Protein,Serum 6.9 g/dl (6.3-8.2)
[2021-10-05 16:55] LABS: Uric Acid 7.6 mg/dl (3.5-8.5)
[2021-10-05 18:46] LABS: Hemoglobin A1C 7.2 % (4.0-6.0)
== END ==
PROVIDERS: Visit Provider Family Medicine
DX: K29.70 Gastritis, unspecified, without bleeding (principal); I10 Essential (primary) hypertension; E11.9 Type 2 diabetes mellitus without complications; Z79.84 Long term (current) use of oral hypoglycemic drugs
CPT/HCPCS: 36415; 80053; 83036; 84550; 85610

== ENCOUNTER → 2021-11-11 13:17 | Outpatient (CLI) | payer MEDICARE, SELFPAY ==
[2021-11-11 15:03] LABS: INR 2.74 (0.9-1.1); Prothrombin Time 28.7 seconds (10.1-12.5)
== END ==
PROVIDERS: Visit Provider Family Medicine
DX: K29.70 Gastritis, unspecified, without bleeding (principal); Z51.81 Encounter for therapeutic drug level monitoring; Z79.01 Long term (current) use of anticoagulants
CPT/HCPCS: 36415; 85610

== ENCOUNTER → 2022-05-10 15:07 | Outpatient (CLI) | payer MEDICARE, SELFPAY ==
--- NOTE | 2022-05-10 15:13 | XR_ITS ---
FINAL REPORT CLINICAL HISTORY: pain, no injury FINDINGS: LUMBAR SPINE Four views were obtained. There is no acute fracture. There is mild anterolisthesis of L4 on L5. There is mild diffuse degenerative disc disease. There is severe facet arthropathy in the lower lumbar spine. There is no soft tissue abnormality. IMPRESSION: Diffuse degenerative disc disease with severe facet arthropathy in the lower lumbar spine. Reviewed, Interpreted and Dictated by Megan Brasher MD Transcribed by Diane Spicer Authenticated and [facility]
--- NOTE | 2022-05-10 15:13 | XR_ITS ---
FINAL REPORT CLINICAL HISTORY: pain x 2 weeks, no injury FINDINGS: RIGHT HIP Two views of the right hi including an AP pelvis p demonstrate no acute fracture or dislocation. The joint spaces appear normal. The visualized bony structures are well aligned. No soft tissue abnormality is seen. IMPRESSION: No acute bony abnormality. Reviewed, Interpreted and Dictated by Megan Brasher MD Transcribed by Diane Spicer Authenticated and [facility]
== END ==
PROVIDERS: PCP Family Medicine; Visit Provider Family Medicine
DX: M15.4 Erosive (osteo)arthritis (principal)
CPT/HCPCS: 72110; 73502

== ENCOUNTER → 2022-09-06 07:24 | Outpatient (CLI) | payer MEDICARE, SELFPAY ==
[2022-09-06 07:53] LABS: Prothrombin Time 23.7 seconds (10.1-12.5)
== END ==
PROVIDERS: Specialist; PCP Family Medicine; Visit Provider Family Medicine
DX: Z51.81 Encounter for therapeutic drug level monitoring (principal); Z79.01 Long term (current) use of anticoagulants
CPT/HCPCS: 36415; 85610

== ENCOUNTER → 2022-09-26 19:57 | Outpatient (CLI) | payer MEDICARE, SELFPAY ==
--- NOTE | 2022-09-26 20:33 | XR_ITS ---
PROCEDURE INFORMATION: Exam: XR Right Hand Exam date and time: 09/26/2022 8:26 PM Age: 72 years old Clinical indication: Pain; Hand; Right; Additional info: Hand pain TECHNIQUE: Imaging protocol: Radiologic exam of the Right hand. Views: 3 or more views. COMPARISON: No relevant prior studies available. FINDINGS: Bones/joints: Large circumscribed erosions involve the 3rd distal interphalangeal joint. Smaller marginal erosions are seen throughout the hand, most severely affecting the proximal interphalangeal joints and 5th metacarpophalangeal joint. There are subtle periarticular calcifications surrounding the 5th MCP. There appears to be a large erosive process centered at the scapholunate interval. Erosion noted at the tip of the radial styloid, and involving the ulnar fovea. Heterogeneous calcifications are seen in the region the triangular fibrocartilage complex. Soft tissues: Fusiform soft tissue swelling. IMPRESSION: Exam demonstrates multifocal erosive disease most severely affecting the 3rd distal interphalangeal joint. In contrast images of the contralateral hand, there are periarticular calcifications visible which change the differential diagnosis. Crystalline arthropathy such as gout is considered the leading differential consideration followed by inflammatory or infectious arthropathies.
--- NOTE | 2022-09-26 20:33 | XR_ITS ---
PROCEDURE INFORMATION: Exam: XR Left Hand Exam date and time: 09/26/2022 8:24 PM Age: 72 years old Clinical indication: Pain; Hand; Left; Additional info: Hand pain TECHNIQUE: Imaging protocol: Radiologic exam of the Left hand. Views: 3 or more views. COMPARISON: No relevant prior studies available. FINDINGS: Bones/joints: Subtle demineralization and articular erosions are seen along the proximal phalangeal heads most prominent laterally. There is widening of the scapholunate interval with regional demineralization which may reflect erosive disease and scapholunate ligament laxity. No fracture. No abnormal calcifications. Soft tissues: There is fusiform soft tissue swelling of the fingers, most prominently affecting the 2nd and 4th fingers. IMPRESSION: Exam demonstrates findings of erosive arthropathy. Differential diagnosis includes atypical psoriatic arthritis and gout. Infectious arthropathy or amyloidosis are considered less likely.
== END ==
PROVIDERS: PCP Family Medicine; Visit Provider Orthopaedic Surgery
DX: M79.642 Pain in left hand (principal); M79.641 Pain in right hand
CPT/HCPCS: 73130

== ENCOUNTER → 2022-10-17 20:25 | Outpatient (CLI) | payer MEDICARE, SELFPAY ==
[2022-10-17 21:18] LABS: Microscopic, Urine URINE MICROSCOPIC (MICROSCOPIC)
[2022-10-17 21:20] LABS: Appearance,Urine CLEAR (Clear); Bilirubin,Urine Negative (Negative); Blood, Urine Negative (Negative); Color,Urine YELLOW (Yellow); Glucose,Urine (UA) 3+ (Negative); Ketones,Urine Negative (Negative); Leukocyte Esterase,Urine Negative (Negative); Nitrate,Urine Negative (Negative); PH,Urine 5.5 (5.0-8.5); Protein,Urine Negative (Negative); Specific Gravity, Urine 1.015 (1.005-1.030); Urobilinogen,Urine 0.2 EU/dl (0.2)
[2022-10-17 21:21] LABS: Basophils # 0.1 K/mm3 (0-0.2); Basophils % 1.1 % (0.1-2.0); Eosinophils # 0.1 K/mm3 (0.0-0.4); Hematocrit 42.7 % (42.0-52.0); Hemoglobin 13.9 g/dL (14.1-18.0); Lymphocytes # 0.9 K/mm3 (0.7-4.5); Lymphocytes % 21.3 % (10-50); Mean Corpuscular HGB Conc 32.6 g/dL (31.8-35.4); Mean Platelet Volume 7.8 fl (7.4-10.4); Monocytes # 0.2 K/mm3 (0.1-1.0); Monocytes % 5.2 % (1.7-9.3); Neutrophils % 70.4 % (37.0-80.0); Platelet Count 160 K/mm3 (142-424); Red Blood Count 4.49 M/mm3 (4.60-6.20); White Blood Count 4.2 K/mm3 (4.8-10.8)
[2022-10-17 21:28] LABS: Chloride 104 mmol/L (98-107); Sodium 140 mmol/L (136-145)
[2022-10-17 21:30] LABS: Alanine Aminotransferase 71 U/L (12-78); Blood Urea Nitrogen 25 mg/dl (9-20); Estimated Glomerular Filt Rate 54 ml/min (>60); GFR (African American) 65 ML/MIN (>60)
[2022-10-17 21:31] LABS: Albumin Level 4.1 g/dl (3.5-5.0); Albumin/Globulin Ratio 1.3 (1.1-1.8); Alkaline Phosphatase 116 U/L (38-126); Aspartate Amino Transferase 58 U/L (17-59); Bilirubin,Total 0.6 mg/dl (0.2-1.3); Calcium 8.8 mg/dl (8.4-10.2); Carbon Dioxide 29 mmol/L (22.0-30.0); Globulin 3.1 g/dL (1.3-3.2); Glucose 171 mg/dl (74-100); Total Protein,Serum 7.2 g/dl (6.3-8.2)
[2022-10-17 21:57] LABS: Squamous Epithelial Cell,Urine Occasional #/hpf (0-5); WBC,Urine Occasional #/hpf (0-3)
== END ==
PROVIDERS: PCP Family Medicine; Visit Provider Orthopaedic Surgery
DX: Z01.818 Encounter for other preprocedural examination (principal); I25.10 Atherosclerotic heart disease of native coronary artery without angina pectoris
CPT/HCPCS: 36415; 80053; 81001; 85025

== ENCOUNTER 2022-10-28 07:13 | Day surgery (SDC) | payer MEDICARE, SELFPAY ==
[2022-10-28] VITALS (10 sets, daily range): BP systolic 146–192; BP diastolic 58–96; PULSE 53–66; RESP 12–18; TEMP 36.2–37.2; O2SAT 92–100; BMI 40.8; BMI 39.4
[2022-10-28 08:13] LABS: POC Glucose,Bedside 177 (70-110)
--- NOTE | 2022-10-28 08:18 | XR_ITS ---
FINAL REPORT CLINICAL HISTORY: pre op testing, HTN, CAD COMPARISON: 07/22/2021 FINDINGS: A single portable view of the chest was obtained. There are postoperative changes from median sternotomy. The heart size and pulmonary vascularity are within normal limits. The mediastinum is within normal limits. No acute pulmonary abnormality is identified. There are degenerative changes of both shoulders. IMPRESSION: No active cardiopulmonary disease. Reviewed, Interpreted and Dictated by lAmas Freeman III, MD Transcribed by Diane Spicer Authenticated and [facility]
--- NOTE | 2022-10-28 08:19 | ECG_ITS ---
APPROVED REPORT Exam: Resting ECG HR:54 bpm ECG Measurements Heart Rate 54 AXES KS 162 P 45 QRSd 102 QRS 23 QT 454 T 110 QTc 441 Conclusion SINUS BRADYCARDIA NONSPECIFIC ST & T-WAVE ABNORMALITY ABNORMAL ECG UNCONFIRMED REPORT Electronically signed by : Jose Alberto Peterson MD 10/28/2022 17:18:38
--- NOTE | 2022-10-28 08:45 | P.PN_ITS ---
[facility] Disclaimer: The information contained in this section may have been updated after the patient was seen, as this information can be updated by other users. Medical History Diabetes mellitus, type 2 Edema History of chest pain Hyperlipidemia Hypertension Surgical History History of colonoscopy Family History Other Family history of COPD (chronic obstructive pulmonary disease) Family history of cancer Family history of congenital heart defect Social History Smoking Status: Former smoker alcohol intake: never substance use type: denies use current occupational status: employed Travel in the last 8 weeks: None household members: none housing: house lives independently: Yes marital status: education level: master's degree service: No alf: No caffeine: Yes special johanna needs: No agree to transfusion: No do you feel safe at home: Yes victim of physical abuse: No victim of emotional abuse: No victim of sexual abuse: No would you like helpful sources: No [facility] Anesthesia Checklist Patient Identification Patient Identification: Arm Band and Verbal (Name & ) Structural Data Admitted From: Home Planned Operative Procedure/s: CTR Consent for Planned Operative Procedure(s) Verified: Yes NPO Status Verified Time NPO: 00:00 Additional verifications Anesthesia Reactions: No Hx Blood Transfusions: No Blood Transfusion Reaction: No Airway Assessment C-Spine Mobility Assessed: Yes TMJ Mobility Assessed: Yes Dentition: Good Dentition Neurological Assessment Level of Consciousness: Awake Hx Seizures: No Numbness or tingling in extremities: No Anesthesia Plan Anesthesia Risk discussed: Yes Anesthesia Plan: Verified ASA Class: III Anesthesia Type: General
--- NOTE | 2022-10-28 10:16 | P.PNANES_ITS ---
[facility] Anesthesia Record Part I Anesthesia Record I Intake, IV Amount: 200 Estimated blood loss (mL): 2 Urine output (mL): 0 Blood Pressure: 152/91 SaO2: 92 Pulse Rate: 66 Respiratory Rate: 12 Temperature: 97.7 F Patient is:: Drowsy and Oral/Nasal airway Stable to PACU at:: 10:16
[2022-10-28 10:51] LABS: POC Glucose,Bedside 166 (70-110)
--- NOTE | 2022-10-28 13:00 | EXP.OP.NOTE ---
Date of procedure: 10/28/22 Pre-op Diagnosis:: Bilateral carpal tunnel syndrome Post-op Diagnosis:: Same Procedure performed:: 47105: Right endoscopic carpal tunnel release 49985: Left endoscopic carpal tunnel release Surgeon:: Ramón Wilson JR, MD COAGULATING DRYING SUPERVISOR:: Ruth Kam Anesthesia: MAC Estimated blood loss (mL): 3 Clinical Note:: 72-year-old male with bilateral carpal tunnel syndrome refractory to conservative measures. He was interested in more durable intervention. After discussion of risk, benefits, alternatives, I recommended bilateral endoscopic carpal tunnel release. We discussed staged procedures, but he cannot take a significant amount of time off work. Plan for bilateral carpal tunnel release. We discussed the risk and benefits of surgery. Risks included but were not limited to pain, bleeding, infection, damage to adjacent structures, need for further surgery, wound healing complications, loss of limb, . Patient expressed verbal consent and written consent was obtained for the above procedure. Operative findings:: Transverse carpal ligaments released confirmed endoscopically, under direct visualization as well as via palpation. Operative note:: Patient was identified in preoperative holding. Operative sites were marked in indelible ink. History, physical, consent were reviewed and updated. Patient was surrendered to the anesthesia team, taken to the operative suite, placed supine on a well-padded operative table. A nonsterile tourniquet placed on the proximal brachium. Anesthesia was induced. The operative extremity was prepped and draped in the usual sterile fashion. The operative team donned sterile gowns and gloves and a timeout was called. All in attendance agreed regarding the patient's identity, procedure, operative site. Weight-based dose of antibiotics was given prior to incision. I turned my attention to the right upper extremity. I made a transverse incision at the proximal wrist crease proximal to the transverse carpal ligament. I bluntly dissected through skin and subcutaneous tissue with care taken to avoid injuring the palmaris longus. I transected the fascia, inserted a dilating probe deep to the transverse carpal ligament and noted its depth distal to the transverse carpal ligament. I then inserted a cannula and scope, visualize the fibers of the transverse carpal ligament. I took to the distal aspect of the transverse carpal ligament to confirm its location, then with a curved blade under endoscopic visualization, transected the fibers of the transverse carpal ligament and noted that they retracted medially and laterally. I removed the cannula, achieved hemostasis, closed with Monocryl, Prineo and Dermabond. I made a transverse incision at the proximal wrist crease proximal to the transverse carpal ligament. I bluntly dissected through skin and subcutaneous tissue with care taken to avoid injuring the palmaris longus. I transected the fascia, inserted a dilating probe deep to the transverse carpal ligament and noted its depth distal to the transverse carpal ligament. I then inserted a cannula and scope, visualize the fibers of the transverse carpal ligament. I took to the distal aspect of the transverse carpal ligament to confirm its location, then with a curved blade under endoscopic visualization, transected the fibers of the transverse carpal ligament and noted that they retracted medially and laterally. I removed the cannula, achieved hemostasis, closed with Monocryl, Prineo and Dermabond. Dressings were applied. Counts were correct x2. There were no apparent complications. I was present scrubbed for the entire case. Postoperatively, plan to leave dressing in place for 5 days, then remove all but Prineo. Okay to shower but do not soak wound at that point. Finger mobility, limit weightbearing to 10 pounds until follow-up in 2 weeks at which point I anticipate initiating physical therapy. Condition
--- NOTE | 2022-10-28 13:05 | P.PNANES_ITS ---
[facility] Anesthesia Record Part II Anesthesia Record Part II Discharge Time: 10:46 Destination: Surgical Day Care (OP Surgery) PACU nurse assessment reviewed?: Yes Patient Condition:: Good Anesthesia Complications:: None Swallowing reflex intact?: Yes Cyanosis?: No Blood Pressure: 162/58 Pulse Rate: 55 Temperature: 97.7 F Mental Status: Alert & Oriented Pain level:: 0 Nausea and/or vomitting:: None Intake, IV Amount: 0
== END 2022-10-28 11:25 | disposition home or self-care (01) ==
PROVIDERS: PCP Family Medicine; Visit Provider Orthopaedic Surgery
PROC: (CPT 64721; principal; 2022-10-28 08:45)
DX: G56.03 Carpal tunnel syndrome, bilateral upper limbs (principal); I25.10 Atherosclerotic heart disease of native coronary artery without angina pectoris; Z79.899 Other long term (current) drug therapy; E11.9 Type 2 diabetes mellitus without complications; Z87.891 Personal history of nicotine dependence
CPT/HCPCS: 64721; 71045; 82962; 93005; 96374

== ENCOUNTER → 2023-04-26 08:42 | Outpatient (CLI) | payer MEDICARE, SELFPAY ==
[2023-04-07 18:25] LABS: Alanine Aminotransferase 52 U/L (12-78); Albumin Level 3.9 g/dl (3.5-5.0); Albumin/Globulin Ratio 1.3 (1.1-1.8); Alkaline Phosphatase 111 U/L (38-126); Aspartate Amino Transferase 59 U/L (17-59); Basophils % 0.2 % (0.1-2.0); Bilirubin,Total 0.7 mg/dl (0.2-1.3); Blood Urea Nitrogen 24 mg/dl (9-20); Calcium 9.1 mg/dl (8.4-10.2); Carbon Dioxide 26 mmol/L (22.0-30.0); Chloride 106 mmol/L (98-107); Chol/HDL Ratio 3.3 (1-3.5); Cholesterol 122 mg/dl (140-200); Eosinophils # 0.1 K/mm3 (0.0-0.4); Eosinophils % 1.4 % (0.1-12.0); Estimated Glomerular Filt Rate 73 ml/min (>60); GFR (African American) 88 ML/MIN (>60); Glucose 132 mg/dl (74-100); HDL Cholesterol 37 mg/dl (40-60); Hematocrit 43.1 % (42.0-52.0); Hemoglobin 14.2 g/dL (14.1-18.0); Lymphocytes % 20.9 % (10-50); Mean Corpuscular HGB Conc 32.8 g/dL (31.8-35.4); Mean Corpuscular Hemoglobin 30.2 pg (27.0-31.2); Monocytes # 0.3 K/mm3 (0.1-1.0); Monocytes % 6.1 % (1.7-9.3); Neutrophils # 3.2 K/mm3 (1.8-7.8); Neutrophils % 71.4 % (37.0-80.0); Platelet Count 133 K/mm3 (142-424); Red Blood Count 4.69 M/mm3 (4.60-6.20); Red Cell Distribution Width 16.4 % (11.5-17.5); Sodium 142 mmol/L (136-145); Total Protein,Serum 6.9 g/dl (6.3-8.2); Triglycerides 331 mg/dl (30-150); Uric Acid 6.4 mg/dl (3.5-8.5); VLDL Cholesterol 66 mg/dL (0-40); White Blood Count 4.5 K/mm3 (4.8-10.8)
[2023-04-07 18:36] LABS: Direct LDL Cholesterol 44.54 mg/dL (100-129)
[2023-04-07 18:55] LABS: Prostate Specific Ag Screen 1.4 ng/ml (0.0-4.0)
== END ==
PROVIDERS: PCP Family Medicine; Visit Provider Family Medicine
DX: I25.10 Atherosclerotic heart disease of native coronary artery without angina pectoris (principal); Z09 Encounter for follow-up examination after completed treatment for conditions other than malignant neoplasm; Z12.5 Encounter for screening for malignant neoplasm of prostate
CPT/HCPCS: 80053; 80061; 84550; 85025; G0103

== ENCOUNTER 2023-09-19 22:07 | Outpatient (CLI) | payer MEDICARE, SELFPAY ==
[2023-09-19 19:23] LABS: Basophils % 0.6 % (0.1-2.0); Eosinophils # 0.1 K/mm3 (0.0-0.4); Eosinophils % 1.2 % (0.1-12.0); Hematocrit 45.1 % (42.0-52.0); Hemoglobin 14.9 g/dL (14.1-18.0); Lymphocytes # 0.9 K/mm3 (0.7-4.5); Lymphocytes % 19.3 % (10-50); Mean Corpuscular HGB Conc 33.1 g/dL (31.8-35.4); Mean Corpuscular Hemoglobin 31.4 pg (27.0-31.2); Mean Corpuscular Volume 94.8 fl (80-94); Mean Platelet Volume 9.4 fl (7.4-10.4); Monocytes # 0.3 K/mm3 (0.1-1.0); Monocytes % 6.7 % (1.7-9.3); Neutrophils # 3.2 K/mm3 (1.8-7.8); Neutrophils % 72.2 % (37.0-80.0); Platelet Count 153 K/mm3 (142-424); Red Blood Count 4.76 M/mm3 (4.60-6.20); Red Cell Distribution Width 15.5 % (11.5-17.5); White Blood Count 4.5 K/mm3 (4.8-10.8)
[2023-09-19 19:37] LABS: Creatinine,Urine Random 105 mg/dL (Not Estab.); Microalbumin < 6.000 mg/L (0-16.7)
[2023-09-19 19:53] LABS: Hemoglobin A1C 6.8 % (4.0-6.0)
[2023-09-19 20:00] LABS: Alanine Aminotransferase 55 U/L (12-78); Albumin Level 3.9 g/dl (3.5-5.0); Albumin/Globulin Ratio 1.4 (1.1-1.8); Alkaline Phosphatase 111 U/L (38-126); Anion Gap 11.1 mEq/L (5-15); Aspartate Amino Transferase 52 U/L (17-59); Bilirubin,Total 0.6 mg/dl (0.2-1.3); Blood Urea Nitrogen 23 mg/dl (9-20); Carbon Dioxide 30 mmol/L (22.0-30.0); Chloride 105 mmol/L (98-107); Chol/HDL Ratio 3.3 (1-3.5); Cholesterol 124 mg/dl (140-200); Estimated Glomerular Filt Rate 59 ml/min (>60); GFR (African American) 72 ML/MIN (>60); Globulin 2.7 g/dL (1.3-3.2); Glucose 117 mg/dl (74-100); HDL Cholesterol 38 mg/dl (40-60); Potassium 4.1 mmoL/L (3.5-5.1); Sodium 142 mmol/L (136-145); Total Protein,Serum 6.6 g/dl (6.3-8.2); Triglycerides 308 mg/dl (30-150); Uric Acid 6.8 mg/dl (3.5-8.5); VLDL Cholesterol 62 mg/dL (0-40)
[2023-09-19 20:12] LABS: Direct LDL Cholesterol 48.45 mg/dL (100-129)
[2023-09-19 20:31] LABS: Thyroid Stimulating Hormone 3.71 uIU/mL (0.465-4.68)
== END 2023-09-19 23:59 ==
LOC: LAB.DROPOF 22:07
PROVIDERS: PCP Nurse Practitioner; Visit Provider Nurse Practitioner
DX: E11.9 Type 2 diabetes mellitus without complications (principal); I10 Essential (primary) hypertension; I25.10 Atherosclerotic heart disease of native coronary artery without angina pectoris; M10.9 Gout, unspecified; Z79.84 Long term (current) use of oral hypoglycemic drugs
CPT/HCPCS: 80053; 80061; 82043; 82570; 83036; 84443; 84550; 85025

== ENCOUNTER 2024-03-05 21:31 | Emergency (ER) | payer MEDICARE, SELFPAY ==
[2024-03-05 21:32] VITALS: BP 123/107; PULSE 63; RESP 20; TEMP 36.9; O2SAT 97; BMI 38.4
--- NOTE | 2024-03-05 22:03 | CT_ITS ---
PROCEDURE INFORMATION: Exam: CT Abdomen And Pelvis With Contrast Exam date and time: 03/05/2024 10:54 PM Age: 73 years old Clinical indication: Other: Difficulty urinating TECHNIQUE: Imaging protocol: Computed tomography of the abdomen and pelvis with contrast. Radiation optimization: All CT scans at this facility use at least one of these dose optimization techniques: automated exposure control; mA and/or kV adjustment per patient size (includes targeted exams where dose is matched to clinical indication); or iterative reconstruction. Contrast material: ISOVUE; Contrast volume: 75 ml; Contrast route: IV; COMPARISON: CT ABDOMEN PELVIS WO CON 07/30/2020 8:45 AM FINDINGS: Lungs: Lung bases are clear. Liver: Fatty liver changes with associated hepatomegaly measuring 17.5 cm. Liver otherwise unremarkable. Gallbladder and biliary ducts: Gallbladder is contracted which limits assessment but otherwise unremarkable. No evident bile duct dilatation. Pancreas: Normal. No ductal dilation. Spleen: Normal. No splenomegaly. Adrenal glands: Normal. No mass. Kidneys and ureters: Indeterminate 12 mm low-density lesion in the lateral midpole of the left kidney on axial image 58 of series 3 with a density of 25. A 11 mm indeterminate low-density lesion posterior mid left kidney on image 54 with a density of 27. Additional fluid density lesions both kidneys compatible with cysts. No follow-up for these lesions advised. Bilateral renal scarring. Stomach and bowel: Unremarkable. No obstruction. No mucosal thickening. Appendix: Appendix is normal. No evidence of appendicitis. Intraperitoneal space: Unremarkable. No free air. No significant fluid collection. Vasculature: Unremarkable. No abdominal aortic aneurysm. Lymph nodes: Unremarkable. No enlarged lymph nodes. Urinary bladder: Unremarkable as visualized. Reproductive: Unremarkable as visualized. Bones/joints: Unremarkable. No acute fracture. Soft tissues: Unremarkable. IMPRESSION: 1. No acute abnormalities of the abdomen and pelvis. Nonemergent findings as above. 2. Indeterminate low-density lesions in the left kidney largest measuring 12 mm. Recommend non-emergent MRI without and with contrast or non-emergent CT without and with contrast. MRI is preferred for masses under 1.5 cm. COMMENTS: Consistent with the [place] [employer]'s Incidental Findings Committee white paper (J Am Charlotte Radiol 2018): Any incidental renal lesion less than 1 cm or classified as too small to characterize, or any incidental cystic renal lesion characterized as simple-appearing, is likely benign. No follow-up imaging is recommended for these lesions per consensus recommendations based on imaging criteria.
[2024-03-05 22:15] VITALS: BP 146/82; PULSE 64; O2SAT 95
[2024-03-05] MEDS: RINGERS SOLUTION,LACTATED 500 ML 999 ML IV (22:20)
--- NOTE | 2024-03-05 22:22 | PC.NURSE ---
M Moreno at bedside with US
[2024-03-05 22:25] LABS: Basophils % 0.9 % (0.1-2.0); Eosinophils % 0.6 % (0.1-12.0); Hematocrit 42.5 % (42.0-52.0); Hemoglobin 13.7 g/dL (14.1-18.0); Lymphocytes # 0.8 K/mm3 (0.7-4.5); Lymphocytes % 15.8 % (10-50); Mean Corpuscular HGB Conc 32.2 g/dL (31.8-35.4); Mean Corpuscular Hemoglobin 31.1 pg (27.0-31.2); Mean Corpuscular Volume 96.4 fl (80-94); Mean Platelet Volume 7.7 fl (7.4-10.4); Monocytes # 0.3 K/mm3 (0.1-1.0); Monocytes % 5.8 % (1.7-9.3); Platelet Count 136 K/mm3 (142-424); Red Cell Distribution Width 16.6 % (11.5-17.5); White Blood Count 5.2 K/mm3 (4.8-10.8)
[2024-03-05 22:30] LABS: Chloride 105 mmol/L (98-107); Sodium 139 mmol/L (136-145)
[2024-03-05 22:33] LABS: Alanine Aminotransferase 39 U/L (12-78); Albumin Level 3.9 g/dl (3.5-5.0); Albumin/Globulin Ratio 1.3 (1.1-1.8); Alkaline Phosphatase 94 U/L (38-126); Aspartate Amino Transferase 44 U/L (17-59); Bilirubin,Total 0.8 mg/dl (0.2-1.3); Blood Urea Nitrogen 31 mg/dl (9-20); Carbon Dioxide 31 mmol/L (22.0-30.0); Creatinine Clearance Estimated 77 mL/min (50-200); Estimated Glomerular Filt Rate 50 ml/min (>60); GFR (African American) 60 ML/MIN (>60); Globulin 3.1 g/dL (1.3-3.2)
[2024-03-05 22:34] LABS: Calcium 8.8 mg/dl (8.4-10.2); Glucose 151 mg/dl (74-100)
[2024-03-05 22:35] LABS: INR 1.34 (0.9-1.1); Prothrombin Time 14.6 seconds (10.1-12.5)
--- NOTE | 2024-03-05 22:36 | ED_ITS ---
Discharge Plan Disposition Patient Disposition: Home, Self-Care Prescriptions Prescriptions: No Action evolocumab 140 mg/mL pen injector 140 mg SQ QOW metoprolol succinate 25 mg tablet extended release 24 hr 25 mg PO DAILY aspirin [Adult Low Dose Aspirin] 81 mg tablet,delayed release (DR/EC) 81 mg PO DAILY nitroglycerin 0.4 mg tablet, sublingual 0.4 mg SUBLINGUAL Q5-15M PRN (Reason: Chest Pain) Rx Instructions: do not exceed 3 doses per episode hydrocodone-acetaminophen 5-325 mg tablet 1 tab PO BID PRN (Reason: pain) Qty: 60 0RF gabapentin 300 mg capsule 300 mg PO TID Qty: 90 5RF allopurinol 100 mg tablet See Rx Instructions .ROUTE .COMPLEX Qty: 90 0RF Dose Instruction: TAKE 1 TABLET BY MOUTH DAILY FOR GOUT. Rx Instructions: TAKE 1 TABLET BY MOUTH DAILY FOR GOUT. metformin 500 mg tablet See Rx Instructions .ROUTE .COMPLEX Qty: 180 0RF Dose Instruction: TAKE ONE (1) TABLET BY MOUTH TWO TIMES A DAY. Rx Instructions: TAKE ONE (1) TABLET BY MOUTH TWO TIMES A DAY. irbesartan 150 mg tablet See Rx Instructions .ROUTE .COMPLEX Qty: 90 0RF Rx Instructions: TAKE 1 qd warfarin 5 mg tablet See Rx Instructions .ROUTE .COMPLEX Qty: 45 0RF Dose Instruction: TAKE 1/2 TABLET BY MOUTH DAILY. Rx Instructions: TAKE 1/2 TABLET BY MOUTH DAILY. furosemide 40 mg tablet See Rx Instructions .ROUTE .COMPLEX Qty: 90 0RF Dose Instruction: TAKE 1 TABLET BY MOUTH ONCE DAILY FOR FLUID. Rx Instructions: TAKE 1 TABLET BY MOUTH ONCE DAILY FOR FLUID. oxycodone-acetaminophen [Percocet] 5-325 mg tablet 1 tab PO TID PRN (Reason: pain) Qty: 90 0RF tamsulosin 0.4 mg capsule See Rx Instructions .ROUTE .COMPLEX Rx Instructions: TAKE 1 CAPSULE BY MOUTH NIGHTLY AT BEDTIME. magnesium oxide 500 mg tablet 500 mg PO BID Farxiga 5 mg tablet See Rx Instructions .ROUTE .COMPLEX Rx Instructions: TAKE 1 TABLET BY MOUTH DAILY. Referrals Follow up/Referrals: Dylon Izaguirre MD [Primary Care Provider] - See instructions Activity Restrictions/Add. Instructions Additional Instructions/Restrictions: You were given a long-acting injectable antibiotic that should treat the cellulitis. Please monitor the area for improvement. Please follow-up with your primary care provider for further assessment of your urinary issues. If you become unable to pee, recommend returning to the ER. The CT scan showed a couple of small spots on the left kidney. It is unclear what they are. Recommend that you follow-up with your PCP for dedicated CT or MRI of the area for further assessment. Clinical Impressions Clinical Impression: Cellulitis, Abnormal finding on diagnostic imaging of left kidney, Urinary hesitancy Instructions Patient Instructions: DI for Cellulitis -- Adult Discharge ED Provider: Ba Wilson General Adult HPI <Lashawn Moreno MD - Last Filed: 03/05/24 23:18> General Chief complaint: Skin/Abscess/Foreign Body Stated complaint: sent by Dr. Izaguirre- cellulitis, poss UTI Time Seen by Provider: 03/05/24 21:51 Mode of Arrival: Ambulatory Source of Information: Patient Limitations: No Limitations Description of Symptoms (Recalled from ER Triage Doc. by RN): pt is here sent from pcp office with concerns of right thigh cellulitis and a possible kidney infection, pt states the area of concern is where he had a vein taken for CABG several years ago History of Present Illness HPI narrative: 73-year-old male presents to the ER for concerns of right thigh cellulitis from primary care physician. He has not actually seen his PCP, however he is called his PCP about developing right thigh redness and pain. PCP directed him to the ER. Patient states he has not had known fever, he does have a history of CAD with CABG and his vein graft came from the area of redness on his thigh several years ago. He has a scar in this location. He denies any trauma or known open wound in the area. No other systemic symptoms. He is a diabetic. This has been slowly developing over the last 2 to 3 weeks. Patient also reports recently having difficulty urinating, he states he feels like he needs to go to the bathroom all the time, however he only urinates a small amount and has difficulty starting his stream. He denies dysuria, no lower abdominal pain, no known history of prostate problems reportedly however review of prescription history demonstrates prescription for tamsulosin. Related Data Home Medications Medication Instructions Recorded Confirmed aspirin 81 mg tablet,delayed 81 mg PO DAILY Blood thinner 04/28/20 10/02/23 release (Adult Low Dose Aspirin) evolocumab 140 mg/mL subcutaneous 140 mg SQ QOW Cholesterol 04/28/20 10/02/23 pen injector metoprolol succinate 25 mg 25 mg PO DAILY beta feliberto 04/28/20 10/02/23 tablet,extended release 24 hr nitroglycerin 0.4 mg sublingual 0.4 mg sublingual Q5-15M PRN Chest 04/28/20 10/02/23 tablet Pain dapagliflozin propanediol 5 mg See Rx Instructions .Route 10/28/22 10/02/23 tablet (Farxiga) .COMPLEX Diabetes magnesium oxide 500 mg PO BID Supplement 10/28/22 10/02/23 tamsulosin 0.4 mg capsule See Rx Instructions .Route 10/28/22 10/02/23 .COMPLEX prostate Previous Rx's Medication Instructions Recorded hydrocodone 5 mg-acetaminophen 325 1 tab PO BID PRN pain #60 tabs 06/30/23 mg tablet gabapentin 300 mg capsule 300 mg PO TID Pain #90 caps 10/02/23 allopurinol 100 mg tablet See Rx Instructions .Route 12/22/23 .COMPLEX #90 tabs furosemide 40 mg tablet See Rx Instructions .Route 01/17/24 .COMPLEX #90 tabs irbesartan 150 mg tablet See Rx Instructions .Route 01/17/24 .COMPLEX htn #90 tabs metformin 500 mg tablet See Rx Instructions .Route 01/17/24 .COMPLEX #180 tabs warfarin 5 mg tablet See Rx Instructions .Route 01/17/24 .COMPLEX #45 tabs oxycodone-acetaminophen 5 mg-325 1 tab PO TID PRN pain #90 tabs 03/01/24 mg tablet (Percocet) Allergies Allergy/AdvReac Type Severity Reaction Status Date / Time ciprofloxacin [From Cipro] Allergy Unknown Verified 10/02/23 08:27 ofloxacin [From Floxin] Allergy Unknown Verified 10/02/23 08:27 Zibesrn-XKU-WgI Reductase Allergy Unknown Verified 10/02/23 08:27 Inhibitor [Hdbdcor-Qod-Isg Reductase Inhibitor] penicillin V AdvReac Severe Unknown Verified 10/02/23 08:27 allergy reaction [facility] <Lashawn Moreno MD - Last Filed: 03/05/24 23:18> [facility] Disclaimer: The information contained in this section may have been updated after the patient was seen, as this information can be updated by other users. Medical History Diabetes mellitus, type 2 Edema History of chest pain Hyperlipidemia Hypertension Surgical History History of colonoscopy Family History Other Family history of COPD (chronic obstructive pulmonary disease) Family history of cancer Family history of congenital heart defect Social History Smoking Status: Never smoker alcohol intake: never substance use type: denies use current occupational status: employed Travel in the last 8 weeks: None household members: none housing: house lives independently: Yes marital status: education level: master's degree service: No intermediate: No caffeine: Yes special johanna needs: No agree to transfusion: No do you feel safe at home: Yes victim of physical abuse: No victim of emotional abuse: No victim of sexual abuse: No would you like helpful sources: No <Lashawn Moreno MD - Last Filed: 03/05/24 23:18> ROS Obtained: Yes All systems reviewed & no additional complaints except as documented Constitutional Constitutional: Denies chills, Denies fever(s), Denies headache(s) and Denies weakness Eyes Eyes: Denies change in vision ENT Ears, Nose, Mouth, and Throat: Denies dizziness, Denies headache(s), Denies nasal congestion and Denies sore throat Cardiovascular Cardiovascular: Denies chest pain, Denies dyspnea and Denies leg edema Respiratory Respiratory: Denies cough and Denies dyspnea Gastrointestinal Gastrointestingal: Denies constipation, diarrhea, nausea or vomiting Genitourinary Male Genitourinary: Reports difficulty urinating Musculoskeletal Musculoskeletal: Denies arthralgias, Denies myalgias, Denies numbness and Denies tingling Integumentary/Breasts Skin/Breast: Denies change in pigmentation, Reports redness, Denies non-healing lesions and Reports rash Neurologic Neurologic: Denies dizziness, Denies headache(s), Denies numbness, Denies tingling and Denies weakness Physical Exam <Lashawn Moreno MD - Last Filed: 03/05/24 23:18> General General appearance: alert and in no apparent distress Head Head exam: atraumatic and normocephalic Eye Eye exam: Present PERRL and EOMI ENT ENT exam: Present mucous membranes moist Neck Neck exam: Present normal inspection and full ROM Chest Chest inspection: Present symmetric chest wall rise Respiratory Respiratory exam: Present normal lung sounds bilaterally; Absent respiratory distress, wheezes or stridor Cardiovascular Cardiovascular exam: Present regular rate and normal rhythm Abdominal Exam Abdominal exam: Present soft; Absent distention or tenderness exam: Absent testicular tenderness Extremities Exam Extremities exam: Present full ROM Neurological Exam Neurological exam: Present alert and oriented X3; Absent motor sensory deficit Psychiatric Psychiatric exam: Present normal affect and normal mood Skin Skin exam: Present warm, dry and erythema (10 cm diameter of erythema with induration on the right distal medial thigh, tender to palpation, warm to the touch, no fluctuance) Medical Decision Making <Lashawn Moreno MD - Last Filed: 03/05/24 23:18> Ruben Inquiry Pt receiving controlled substance: No Vital Signs: 03/05/24 21:32 03/05/24 22:15 Temperature 98.5 F Temperature Source Oral Pulse Rate 64 Pulse Rate [Right Radial] 63 Respiratory Rate 20 Blood Pressure 146/82 H Blood Pressure [Right Arm] 123/107 H Blood Pressure Mean [Right Arm] 112 02 Sat by Pulse Oximetry 97 95 Oxygen Delivery Method Room Air Lab Data Lab Results 03/05/24 22:15: WBC 5.2, RBC 4.40 L, Hgb 13.7 L, Hct 42.5, MCV 96.4 H, MCH 31.1, MCHC 32.2, RDW 16.6, Plt Count 136 L, MPV 7.7, Neut % (Auto) 77.0, Lymph % (Auto) 15.8, [place] % (Auto) 5.8, Eos % (Auto) 0.6, Baso % (Auto) 0.9, Neut # (Auto) 4.0, Lymph # (Auto) 0.8, [place] # (Auto) 0.3, Eos # (Auto) 0.0, Baso # (Auto) 0.0, ESR 42 H, PT 14.6 H, INR 1.34 H, Sodium 139, Potassium 4.0, Chloride 105, Carbon Dioxide 31 H, Anion Gap 7.0, BUN 31 H, Creatinine 1.40 H, Estimated Creat Clear 77, Estimated GFR 50 L, Est GFR ( Amer) 60, Glucose 151 H, Calcium 8.8, Total Bilirubin 0.8, AST 44, ALT 39, Alkaline Phosphatase 94, C- Reactive Protein 53.7 H, Total Protein 7.0, Albumin 3.9, Globulin 3.1, Albumin/Globulin Ratio 1.3 03/05/24 23:11: Urine Color Yellow, Urine Appearance Clear, Urine pH 5.5, Ur Specific [place] 1.020, Urine Protein Negative, Urine Glucose (UA) 2+, Urine Ketones Negative, Urine Blood Negative, Urine Nitrate Negative, Urine Bilirubin Negative, Urine Urobilinogen 0.2, Ur Leukocyte Esterase Negative, Urine RBC 3-5, Urine WBC 3-5, Ur Squamous Epith Cells 5-10, Urine Bacteria 1+, Hyaline Casts Occ, Urine Mucus 1+ 03/05/24 22:15 03/05/24 22:15 Orders (Tests/Meds): ED MEDICATIONS Generic Name Dose Route Start Last Admin Trade Name Freq PRN Reason Stop Dose Admin Vancomycin HCl 2,500 mg/ 250 mls @ 125 mls/hr 03/05/24 22:45 03/05/24 22:45 Sodium Chloride IV 03/06/24 00:44 Not Given ONCE ONE Sodium Chloride 10 ml 03/05/24 22:58 03/05/24 22:59 Sodium Chloride 0.9% 10ml Syr (Rad Only) IV 04/04/24 22:57 10 ml NEEDED PRN Administration Maintain IV Site Discontinued Medications Generic Name Dose Route Start Last Admin Trade Name Freq PRN Reason Stop Dose Admin Lactated Ringer's 500 mls @ 999 mls/hr 03/05/24 22:05 03/05/24 22:20 Lactated Ringer's 500ml IV 03/05/24 22:35 999 mls/hr .Q31M ONE Administration Dalbavancin 1,500 mg/ Dextrose 250 mls @ 500 mls/hr 03/05/24 23:10 03/05/24 23:21 IV 03/05/24 23:11 500 mls/hr ONCE ONE Administration Iopamidol 75 ml 03/05/24 22:58 03/05/24 22:59 Iopamidol-370 (76%);100ml Bottle IV 03/05/24 22:59 75 ml ONCE ONE Administration Miscellaneous 1 each 03/05/24 22:45 03/05/24 22:41 Vancomycin Consult Request NOTAPPLIC 04/04/24 22:44 Not Given [facility] ORDERS Category Date Time Status CT abdomen pelvis w con Stat Cat Scan 03/05/24 22:03 Completed POCUS Point of Care (ER Only) Stat Exams 03/05/24 22:05 Taken CBC w/Auto Diff [Complete Blood Count Auto Diff] Stat Lab 03/05/24 22:15 Completed CMP [Comprehensive Metabolic Panel] Stat Lab 03/05/24 22:15 Completed CRP [C-Reactive Protein] Stat Lab 03/05/24 22:15 Completed ESR [Erythrocyte Sedimentation Rate] Stat Lab 03/05/24 22:15 Completed PT INR [Prothrombin Time INR] Stat Lab 03/05/24 22:15 Completed Urinalysis and Microscopic Stat Lab 03/05/24 23:11 Completed Blood Culture Stat Micro 03/05/24 22:15 Received Medical Decision Narrative: In summary, this 73-year-old male presents to the emergency department today with right thigh redness, pain, difficulty urinating. On initial evaluation patient is hemodynamically stable, afebrile, nontender, nonacute abdomen, findings consistent with cellulitis on the right thigh. Differential diagnosis includes but is not limited to cellulitis, abscess, DVT, superficial thrombophlebitis, subtherapeutic INR, urinary tract infection, prostate enlargement, other urinary obstruction. Based on these concerns, I ordered serum labs, [id number] ultrasound, CT imaging. Patient received IV fluids for treatment. Labs personally reviewed demonstrate no leukocytosis, mild anemia, nonactionable, INR slightly elevated but subtherapeutic, CMP with no actionable electrolyte abnormalities, mildly elevated creatinine however this does not meet criteria for AMY. [id number] ultrasound personally performed and interpreted does not demonstrate findings of DVT, findings are consistent with cellulitis. I considered superficial thrombophlebitis, however patient just has scar tissue in this region, there is not actually a superficial vein here since it has been previously removed for CABG grafting. Patient received Dalvance for treatment of cellulitis. CT imaging and urinalysis pending at the time of physician handoff. Patient handed off to Dr. Wilson for continued management and disposition. <Ba Wilson MD - Last Filed: 03/05/24 23:57> Vital Signs: 03/05/24 21:32 03/05/24 22:15 Temperature 98.5 F Temperature Source Oral Pulse Rate 64 Pulse Rate [Right Radial] 63 Respiratory Rate 20 Blood Pressure 146/82 H Blood Pressure [Right Arm] 123/107 H Blood Pressure Mean [Right Arm] 112 02 Sat by Pulse Oximetry 97 95 Oxygen Delivery Method Room Air Lab Data Lab Results 03/05/24 22:15: WBC 5.2, RBC 4.40 L, Hgb 13.7 L, Hct 42.5, MCV 96.4 H, MCH 31.1, MCHC 32.2, RDW 16.6, Plt Count 136 L, MPV 7.7, Neut % (Auto) 77.0, Lymph % (Auto) 15.8, [place] % (Auto) 5.8, Eos % (Auto) 0.6, Baso % (Auto) 0.9, Neut # (Auto) 4.0, Lymph # (Auto) 0.8, [place] # (Auto) 0.3, Eos # (Auto) 0.0, Baso # (Auto) 0.0, ESR 42 H, PT 14.6 H, INR 1.34 H, Sodium 139, Potassium 4.0, Chloride 105, Carbon Dioxide 31 H, Anion Gap 7.0, BUN 31 H, Creatinine 1.40 H, Estimated Creat Clear 77, Estimated GFR 50 L, Est GFR ( Amer) 60, Glucose 151 H, Calcium 8.8, Total Bilirubin 0.8, AST 44, ALT 39, Alkaline Phosphatase 94, C- Reactive Protein 53.7 H, Total Protein 7.0, Albumin 3.9, Globulin 3.1, Albumin/Globulin Ratio 1.3 03/05/24 23:11: Urine Color Yellow, Urine Appearance Clear, Urine pH 5.5, Ur Specific [place] 1.020, Urine Protein Negative, Urine Glucose (UA) 2+, Urine Ketones Negative, Urine Blood Negative, Urine Nitrate Negative, Urine Bilirubin Negative, Urine Urobilinogen 0.2, Ur Leukocyte Esterase Negative, Urine RBC 3-5, Urine WBC 3-5, Ur Squamous Epith Cells 5-10, Urine Bacteria 1+, Hyaline Casts Occ, Urine Mucus 1+ Orders (Tests/Meds): ED MEDICATIONS Generic Name Dose Route Start Last Admin Trade Name Freq PRN Reason Stop Dose Admin Vancomycin HCl 2,500 mg/ 250 mls @ 125 mls/hr 03/05/24 22:45 03/05/24 22:45 Sodium Chloride IV 03/06/24 00:44 Not Given ONCE ONE Sodium Chloride 10 ml 03/05/24 22:58 03/05/24 22:59 Sodium Chloride 0.9% 10ml Syr (Rad Only) IV 04/04/24 22:57 10 ml NEEDED PRN Administration Maintain IV Site Discontinued Medications Generic Name Dose Route Start Last Admin Trade Name Lucy PRN Reason Stop Dose Admin Lactated Ringer's 500 mls @ 999 mls/hr 03/05/24 22:05 03/05/24 22:20 Lactated Ringer's 500ml IV 03/05/24 22:35 999 mls/hr .Q31M ONE Administration Dalbavancin 1,500 mg/ Dextrose 250 mls @ 500 mls/hr 03/05/24 23:10 03/05/24 23:21 IV 03/05/24 23:11 500 mls/hr ONCE ONE Administration Iopamidol 75 ml 03/05/24 22:58 03/05/24 22:59 Iopamidol-370 (76%);100ml Bottle IV 03/05/24 22:59 75 ml ONCE ONE Administration Miscellaneous 1 each 03/05/24 22:45 03/05/24 22:41 Vancomycin Consult Request NOTAPPLIC 04/04/24 22:44 Not Given [facility]DERS Category Date Time Status CT abdomen pelvis w con Stat Cat Scan 03/05/24 22:03 Completed POCUS Point of Care (ER Only) Stat Exams 03/05/24 22:05 Taken CBC w/Auto Diff [Complete Blood Count Auto Diff] Stat Lab 03/05/24 22:15 Completed CMP [Comprehensive Metabolic Panel] Stat Lab 03/05/24 22:15 Completed CRP [C-Reactive Protein] Stat Lab 03/05/24 22:15 Completed ESR [Erythrocyte Sedimentation Rate] Stat Lab 03/05/24 22:15 Completed PT INR [Prothrombin Time INR] Stat Lab 03/05/24 22:15 Completed Urinalysis and Microscopic Stat Lab 03/05/24 23:11 Completed Blood Culture Stat Micro 03/05/24 22:15 Received Medical Decision Narrative: In summary, this 73-year-old male presents to the emergency department today with right thigh redness, pain, difficulty urinating. On initial evaluation patient is hemodynamically stable, afebrile, nontender, nonacute abdomen, findings consistent with cellulitis on the right thigh. Differential diagnosis includes but is not limited to cellulitis, abscess, DVT, superficial thrombophlebitis, subtherapeutic INR, urinary tract infection, prostate enlargement, other urinary obstruction. Based on these concerns, I ordered serum labs, [id number] ultrasound, CT imaging. Patient received IV fluids for treatment. Labs personally reviewed demonstrate no leukocytosis, mild anemia, nonactionable, INR slightly elevated but subtherapeutic, CMP with no actionable electrolyte abnormalities, mildly elevated creatinine however this does not meet criteria for AMY. [id number] ultrasound personally performed and interpreted does not demonstrate findings of DVT, findings are consistent with cellulitis. I considered superficial thrombophlebitis, however patient just has scar tissue in this region, there is not actually a superficial vein here since it has been previously removed for CABG grafting. Patient received Dalvance for treatment of cellulitis. CT imaging and urinalysis pending at the time of physician handoff. Patient handed off to Dr. Wilson for continued management and disposition. Steve RUSSELL: I assumed care of the patient at the time of handoff from the prior provider. On reassessment, CT imaging independently interpreted by me and shows no evidence of obstructive mass or other lesion in the pelvis. Does show a couple of small spots on the left kidney that will require follow-up imaging. I discussed these results with the patient and he will see PCP regarding them. Urinalysis does not appear consistent with acute infection at this time, especially given patient is not having dysuria fever etc. Patient was discharged in stable condition after completing Dalvance treatment. Procedures <Lashawn Moreno MD - Last Filed: 03/05/24 23:18> Miscellaneous Procedure Procedure Performed: Limited DVT ultrasound Indication: Limited compression ultrasonography of the [right lower extremity was performed to evaluate for non-compressibility of the deep veins in the patient. The ultrasound was performed with the following indications, as noted in the H&P: Right leg redness Identified structures: Right [common femoral vein, femoral vein, popliteal vein were examined.] Findings: Lower extremity Right CFV: Good compressibility Right FV: Good compressibility Right Popliteal vein: Good compressibility Impression: Normal right DVT ultrasound Images were saved to permanent archive The study was technically adequate CPT: 91029-35-IT This study was performed by me, and I personally interpreted all images/videos. Based on my clinical judgement, these images were adequate and did not necessitate further imaging. Indication: Soft tissue redness and swelling Identified structures: Right medial thigh Findings: Cellulitis, no subcu air, no abscess Impression: Cellulitis Images were saved to the permanent archive. The study was technically adequate. Soft tissue CPT codes Lower extremity: 53817-50 This study was performed by me, and I personally interpreted all images/videos. Based on my clinical judgment, these images were adequate and did not necessitate further imaging. Critical Care <Lashawn Moreno MD - Last Filed: 03/05/24 23:18> Critical Care Time Critical Care Time: No
[2024-03-05 22:39] LABS: C-Reactive Protein 53.7 mg/L (0-4)
[2024-03-05] MEDS: IOPAMIDOL-370 (76%);100ML BOTTLE 75 ML IV (22:59)
[2024-03-05] MEDS: SODIUM CHLORIDE 0.9% 10ML SYR (RAD ONLY) 10 ML IV (22:59)
--- NOTE | 2024-03-05 23:12 | PC.NURSE ---
urine specimen obtained and sent to lab at this time
[2024-03-05 23:14] LABS: Erythrocyte Sedimentation Rate 42 mm/hr (0-20)
[2024-03-05 23:17] LABS: Microscopic, Urine URINE MICROSCOPIC (MICROSCOPIC)
[2024-03-05 23:18] LABS: Appearance,Urine CLEAR (Clear); Bilirubin,Urine Negative (Negative); Blood, Urine Negative (Negative); Color,Urine YELLOW (Yellow); Glucose,Urine (UA) 2+ (Negative); Ketones,Urine Negative (Negative); Leukocyte Esterase,Urine Negative (Negative); Nitrate,Urine Negative (Negative); PH,Urine 5.5 (5.0-8.5); Protein,Urine Negative (Negative); Urobilinogen,Urine 0.2 EU/dl (0.2)
[2024-03-05] MEDS: DALBAVANCIN HCL 1,500 MG in DEXTROSE 5 % IN WATER 250 ML 500 MG IV (23:21)
[2024-03-05 23:28] LABS: Bacteria,Urine 1+ /lpf; Hyaline Casts,Urine OCC #/lpf (0); Mucus,Urine 1+ /lpf
--- NOTE | 2024-03-05 23:52 | PC.NURSE ---
Dr. Wilson at bedside to discuss results and POC
[2024-03-05 23:55] VITALS: BP 143/77; PULSE 56; RESP 18; TEMP 36.9; O2SAT 96
== END 2024-03-06 00:25 | disposition home or self-care (01) ==
PROVIDERS: Emergency Medicine; Emergency Provider Emergency Medicine; PCP Family Medicine
DX: L03.115 Cellulitis of right lower limb (principal); M79.651 Pain in right thigh; R39.11 Hesitancy of micturition; R93.422 Abnormal radiologic findings on diagnostic imaging of left kidney; E11.9 Type 2 diabetes mellitus without complications; E78.5 Hyperlipidemia, unspecified; I10 Essential (primary) hypertension; Z95.1 Presence of aortocoronary bypass graft; Z79.84 Long term (current) use of oral hypoglycemic drugs
CPT/HCPCS: 74177; 80053; 81001; 85025; 85610; 85651; 86140; 87040; 96365; 96366; 96375; 99285; J0875; J7060; J7120; Q9967

== ENCOUNTER 2024-04-22 08:08 | Outpatient (CLI) | payer MEDICARE, SELFPAY ==
--- NOTE | 2024-04-22 08:09 | MR_ITS ---
FINAL REPORT CLINICAL HISTORY: Lesions on kidneys COMPARISON: CT abdomen pelvis 03/05/2024 FINDINGS: Multiplanar MR imaging of the abdomen was performed without and with contrast. Multiple artifacts are present, some due to motion, making evaluation more difficult. Images of the liver reveal no evidence of mass. There is no evidence of biliary ductal dilatation. The gallbladder has an unremarkable appearance. There is mild bilateral renal scarring. There is no evidence of hydronephrosis. Multiple small masses are seen in both kidneys. It is difficult to accurately characterize these secondary to artifact, but these do not show evidence of contrast-enhancement and most likely represent multiple small cysts. There is no dominant renal mass. No other mass or adenopathy identified. There are no abnormal fluid collections. No abnormal contrast enhancement is seen on the postcontrast images. IMPRESSION: Multiple small bilateral renal masses, all likely representing small cysts. If indicated, follow-up CT or MRI in 12 months could be obtained to evaluate for stability. Reviewed, Interpreted and Dictated by Almas Freeman III, MD Transcribed by Isela Graff Authenticated and [facility]
[2024-04-22 09:01] LABS: Blood Urea Nitrogen 27 mg/dl (9-20); Estimated Glomerular Filt Rate 65 ml/min (>60); GFR (African American) 79 ML/MIN (>60)
[2024-04-22] MEDS: SODIUM CHLORIDE 0.9% 10ML SYR (RAD ONLY) 10 ML IV (10:12)
[2024-04-22] MEDS: GADOTERIDOL INJ 10ML SYRINGE 5 ML IV (10:12)
[2024-04-22] MEDS: 0.9 % SODIUM CHLORIDE 50 ML VIAL 20 ML IV (10:12)
[2024-04-22] MEDS: GADOTERIDOL INJ 20ML SYRINGE 20 ML IV (10:12)
== END 2024-04-22 23:59 | disposition home or self-care (01) ==
LOC: RAD 08:09
PROVIDERS: PCP Family Medicine; Visit Provider Family Medicine
DX: R93.422 Abnormal radiologic findings on diagnostic imaging of left kidney (principal)
CPT/HCPCS: 36415; 74183; 82565; 84520; A9576

== ENCOUNTER 2024-12-06 07:49 | Outpatient (CLI) | payer MEDICARE, SELFPAY ==
[2024-12-06 18:04] LABS: Albumin Level 3.9 g/dl (3.5-5.0); Chloride 105 mmol/L (98-107); Sodium 143 mmol/L (136-145)
[2024-12-06 18:07] LABS: Alanine Aminotransferase 31 U/L (12-78); Albumin/Globulin Ratio 1.3 (1.1-1.8); Alkaline Phosphatase 97 U/L (38-126); Aspartate Amino Transferase 34 U/L (17-59); Bilirubin,Total 0.5 mg/dl (0.2-1.3); Blood Urea Nitrogen 24 mg/dl (9-20); Calcium 9.2 mg/dl (8.4-10.2); Carbon Dioxide 30 mmol/L (22.0-30.0); Chol/HDL Ratio 2.6 (1-3.5); Cholesterol 123 mg/dl (140-200); Estimated Glomerular Filt Rate 54 ml/min (>60); GFR (African American) 65 ML/MIN (>60); Globulin 3.1 g/dL (1.3-3.2); Glucose 125 mg/dl (74-100); HDL Cholesterol 47 mg/dl (40-60); Triglycerides 310 mg/dl (30-150); VLDL Cholesterol 62 mg/dL (0-40)
[2024-12-06 18:19] LABS: Direct LDL Cholesterol 42.64 mg/dL (100-129)
[2024-12-06 19:57] LABS: Prostate Specific Ag Screen 1.6 ng/ml (0.0-4.0)
== END 2024-12-06 23:59 | disposition home or self-care (01) ==
LOC: LAB.DROPOF 12-07 07:50
PROVIDERS: PCP Family Medicine; Visit Provider Family Medicine
DX: I10 Essential (primary) hypertension (principal); E11.9 Type 2 diabetes mellitus without complications; Z12.5 Encounter for screening for malignant neoplasm of prostate
CPT/HCPCS: 80053; 80061; G0103

== ENCOUNTER 2025-01-24 12:32 | Outpatient (CLI) | payer MEDICARE, SELFPAY ==
--- OUTSIDE RECORDS SUMMARY | 2024-01-23 08:05 | XMS_ITS | Encounter Summary ---
Author Organization [place] [address] Care Team Providers Care Sketch Liner Name Role Phone Dylon Izaguirre MD Primary Care Provider [phone] Encounter Details Date Type Department Care Team (Latest Contact Info) Description 01/23/2024 8:05 AM EDT Hospital Encounter [facility] [address] 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 No 07/22/2024 Overall Financial Resource Strain (CARDIA) Answe r Date Recorded How hard is it for you to pa y for the very basics like food, housing, medical care, and heating? Not very hard 07/22/2024 PHQ-2 Answer Date Recorded PHQ-2 Total Score 1 07/22/2024 [facility] [place] [facility] - Occupational Stress [...] money to get more. Never true 07/22/2024 [facility] IP Transportation Answer D ate Recorded In [...] 07/22/2024 8:54 AM Markos Trent RN * [place] Suicide Severity Rating Scale (Q shift for [...] Care Team (Late st Contact Info) Description 01/28/2025 8:00 AM EDT Appointment [facility] [address] [place] [address] Aleksey Hunt DPM [address] [place] [address] 02/24/2025 1:00 PM EDT Clinical Support [facility] [address] [place] [address] 02/28/2025 8:00 AM EDT Office Visit [facility] [address] [place] [address] Blair Cordon MD [address] [place] [address] documented as of this encounter Goals Goal Patient Goal Type Associated Problems Recent Progress Patient-Stated? Author Wound Healing General Not on track(2024 2:05 PM EDT) Angela Aguilera, RN Note: Wound Care Goals-right medial malleolus [...] peripheral neuropathy weekly. Refer to PCP and/or Plug Cutting Machine Operator, Vascular Specialist as indicated. Monitor patient compliance with wound care, diabetes management and proper offloading. 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, unspecified whether angina present, unspecified whether picayune or transplanted heart documented in this encounter Additional Health Concerns Infection Onset Date Last Indicated Resolved Time R/O COVID-19 07/22/2024 07/22/2024 07/22/2024 2:12 PM EST COVID-19 07/22/2024 07/22/2024 08/11/2024 10:1 3 PM EST Assessment Noted Time A fall risk assessment has been complete d for the patient 02/07/2019 11:25 AM EDT documented as of this encounter Care Teams Sketch Liner Relationship Specialty Start Date End Date Dylon Izaguirre MD [address] [place] [address] PCP - General Family Medicine 09/05/23 documented as of this encounter
--- OUTSIDE RECORDS SUMMARY | 2024-11-29 08:01 | XMS_ITS | Encounter Summary ---
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, with fat layer exposed (HCC) Diabetic ulcer of right lower leg associated with type 2 diabetes mellitus, with fat layer exposed (HCC) Procedures [facility] PRIMARY DRESSING Darek Najera MD [facility] [place] [address] Phone: tel: fax: Referral ID Status Reason Start Date Expiration Date V isits Requested Visits Authorized [id number] Pending Review 11/29/2024 11/29/2025 1 1 Reason for Visit * Reason Comments Dressing Change * Consultation (Routine) - Authorization Not Needed Specialty Diagnoses / Procedures Referred By Patrick amador Referred To Contact Wound Care Diagnoses Wound Care Procedures WI DEBRIDEMENT SUBCUTANEOUS TISSUE 1ST 20 SQ CM/< WI DEBRIDEMENT MUSCLE &/FASCIA 1ST 20 SQ CM/< WI DEBRIDEMENT BONE 1ST 20 SQ CM/< WI DEBRIDEMENT SUBCUTANEOUS TISSUE EA ADDL 20 SQ CM WI DEBRIDEMENT MUSCLE &/FASCIA EA ADDL 20 SQ CM WI DEBRIDEMENT BONE EACH ADDITIONAL 20 SQ CM WI DEBRIDEMENT OPEN WOUND FIRST 20 SQ CM/< WI DEBRIDEMENT OPN WND EA ADDL 20 SQ CM/PRT THEREOF [facility] [address] [place] [address] Phone: tel: fax: Referral ID Status Reason Start Date Expiration Date Visits Requested Visits Authorized [id number] Authorization Not Needed Specialty Services Required 5 09/05/2025 99 99 Encounter Details Date Type Department Care Team (Latest Contact Info) Description 11/29/2024 8:01 AM EDT - 11/29/2024 11:59 PM EDT Hospital Encounter [facility] W[facility] 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, with fat layer exposed (HCC) (Primary Dx); Diabetic ulcer of right lower leg associated with type 2 diabetes mellitus, with fat layer exposed (HCC) Discharge Disposition: Home or Self Care Social History Tobacco Use Types Packs/Day Years Used Date Smoking Tobacco: Former Cigarettes 0.5 9 0 01/17/1973 - 01/17/1982 Smokeless Tobacco: Former Snuff Quit: 01/12/2005 Tobacco Cessation:Counseling Given: Not Answered Alcohol Use Standard Drinks/Week Comments No 0 (1 standard drink = 0.6 oz pur e alcohol) [facility] Utilities Answer Date Recorded In the past 12 months has e [place] gas, oil, or water [employer] threatened to shut off services in your home? No 07/22/2024 Overall Financial Resource Strain (CARDIA) Answe r Date Recorded How hard is it for you to pa y for the very basics like food, housing, medical care, and heating? Not very hard 07/22/2024 PHQ-2 Answer Date Recorded PHQ-2 Total Score 1 07/22/2024 [facility] [place] [facility] - Occupational Stress [...] money to get more. Never true 07/22/2024 [facility] IP Transportation Answer D ate Recorded In [...] on file documented as of this encounter Last Filed Vital Signs Vital Sign Reading Time Taken Comments Blood Pressure 150/83 11/29/2024 8:04 AM EDT Pulse 67 11/29/2024 8:04 AM EDT Temperature 36.5 C (97.7 F) 11/29/2024 8:04 AM EDT Respiratory Rate 16 11/29/2024 8:04 AM EDT Oxygen Saturation - - Inhaled Oxygen Concentration - - Weight - - Height - - Body Mass Index - - documented in this encounter Medications at Time of Discharge acetaminophen (TYLENOL) 500 mg Oral Tablet Take 1 Tablet by mouth as needed for Pain. allopurinoL (ZYLOPRIM) 100 mg Oral Tablet Take 100 mg by mouth daily. 04/26/2022 aspirin 81 mg tablet Take 81 mg by mouth daily. doxycycline monohydrate (MONODOX) 100 mg Oral Capsule Take 1 Capsule by mouth daily. 30 Capsule 11/12/2024 evolocumab 140 mg/mL SubQ Pen Injector Subcutaneous (Inject under the skin) 140 mg every 14 days. FARXIGA 10 mg Oral Tablet Take 10 mg by mouth daily. 03/06/2023 fUROsemide (LASIX) 40 mg Oral Tablet Take 40 mg by mouth daily. gabapentin (NEURONTIN) 300 mg Oral Capsule Take 300 mg by mouth 3 times daily as needed. 10/02/2023 HYDROcodone-aceta minophen (NORCO) 5-325 mg Oral Tablet Take 1 Tablet by mouth every 4 hours as needed for Major Surgery/Trauma (G89.18) for up to 12 doses. 12 Tablet 11/27/2023 irbesartan (AVAPRO) 150 mg Oral Tablet Take 150 mg by mouth daily. metFORMIN (GLUCOPHAGE) 500 mg Oral Tablet Take 500 mg by mouth 2 times daily. 04/26/2022 metoprolol succinate (TOPROL-XL) 25 mg Oral Tablet Sustained Release 24 hr TAKE DOS 01/10/2019 nitroGLYCERIN (NITROSTAT) 0.4 mg SL Tablet, Sublingual Place 0.4 mg under the tongue every 5 minutes as needed for Chest pain. 04/28/2020 oxyCODONE-acetami nophen (PERCOCET) 5-325 mg Oral Tablet 10/05/2024 pentoxifylline (TRENTAL) 400 mg Oral Tablet Sustained Release TAKE 1 TABLET BY MOUTH 2 TIMES DAILY. 60 Tablet 10/17/2024 TRULICITY 0.75 mg/0.5 mL SubQ Pen Injector Subcutaneous (Inject under the skin) 0.75 mg once a week. 07/25/2023 warfarin (COUMADIN) 5 mg tablet Take 1 Tab by mouth daily. 30 Tab 12 04/09/2013 documented as of this encounter Discharge Disposition Disposition Code Departure Means Destination Home or Self Care documented in this encounter Progress Notes * Elyssa Rubio RN - 11/29/2024 8:15 AM EDT Pt presents to the Wound care Center for Nurse visit. Reason for nurse visit: Dressing change: Standard multilayer compression wrap applied per physician order. Lower leg and foot cleaned and dried. Primary dressing applied. Absorptive foam layer applied in spiral technique from top of foot at the base of the 5th digit to the ankle forming 1 figure of 8 around the back of the heel/ankle. Continued 50 % spiral wrapping up the leg to just below knee. Cohesive compression layer applied using spiral technique from the top of the foot at the base of the 5th digit to the ankleforming 2 figure of 8's around the back of the heel/ankle while maintaining even tension by stretching the visual indicators from ovals to circles with 50% overlap to just below knee. Proper fit assessed by gently pressing over entire application to ensure a strong deshpande and reduce slippage. BLE documented in this encounter Miscellaneous Notes * Patient Instructions - Elyssa Rubio RN - 11/29/2024 8:15 AM EDT HOME-CARE INSTRUCTIONS FOLLOWING YOUR WOUND CARE VISIT: Please thoroughly read through your after visit summary for your Home-Care instructions related to your visit with us. Our wound care clinic team strives to heal your wound as quickly as possible with you as a huge part of that team. Phone numbers are listed at the end of your paperwork for who to call if you have any issues at home. We hope your wound care visit was excellent! If there were any issues during your visit, please askto speak with a member of the leadership team. Please keep in mind your follow up visits will take an average of 1 hour per visit from start to finish. Follow up in the Wound Care Center next Monday with Dr. Hunt Nurse visit this Monday for wrap change Continue Doxycycline as directed JUVENAL #4 placed ( 11/12/24) PLEASE DO NOT DISTURB ADAPTIC AND SILVER TO WOUND BEDS- REPLACE THE SILVER AT NURSE VISIT, REPLACE ADAPTIC IF ITS TOO GOOEY Abd pad, kerlix - right and left leg Compression Wraps Location:Coflex Bilaterally Type:MultiLayer Compression Frequency: leave on for 7 days, no more than 10 days Your doctor has ordered compression therapy for your wound. Compression bandages reduce the swelling, or edema, in your legs and prevent it from returning. The wound care staff will apply your compression wrap. It must be removed and re- applied at least weekly. As the swelling decreases, the boot no longer provides adequate compression and you need a new one. Once applied, you need to know how totake care of your compression wrap. The wrap must stay clean and dry. Do not get it wet in the shower or tub. You may do a partial bath; use plastic protectors like the ones made to cover casts, or you can cover the wrap with a large plastic bag, closed at the top, so that no water can get in. If you use plastic ones, be sure the cover has a special bottom so you do not slip Avoid standing in one place for long periods of time. If you must enrobing machine corder one place, shift your weight and change positions often. If you have congestive heart failure, consult your doctor before following the next two recommendations for leg elevation. When sitting, elevate your leg above the level of your heart. A recliner makes this easier. You canalso prop your leg up on a stool with pillows on top to get the correct height. At night, elevate your legs on pillows, or put blocks under the foot of your bed. Your legs should be higher than your heart. Your wrap may need to be changed if the following happens: Your wrap starts falling down. Your wrap gets wet. Drainage from your wound starts coming through the wrap. For any of these reasons call the wound care center for guidance from a nurse. If you are instructed to remove your wrap, take it off by unrolling it one layer at a time or use blunt or round tip scissors. Do not use sharp scissors. If your wrap becomes painful, wound drainage smells very bad, you notice an increase in swelling ofyour toes, numbness or tingling, or purple color to your toes, call the Wound Care Center. If it isafter hours, call your primary doctor for instructions or go to the nearest Emergency Room. Follow Up Instructions Check wound and surrounding skin for signs and symptoms of infection, such as fever, increase in redness, increase in amount of drainage or a foul odor from the drainage. Should you experience any ofthe above symptoms, notice a significant change in the wound, or have questions or problems following these instructions, please contact the Wound Care Center. Phones operate 8:00 am-4:30 pm Monday through Monday. If you call after normal business hours and leave a message; it will not be returned until the next business day. We do not have an on-call answering service or physician. If you have a problem after hours that can not wait, please call your primary doctor, go to urgent care or the nearest emergency room. If you smoke it is important for your wound care to stop smoking. Cigarette smoking and nicotine can restrict blood flow to the wound and slow healing. Take a multivitamin daily as prescribed and follow a nutritious diet. Increase the protein in your diet if you do not have restrictions. You may be contacted by mail or e-mail to participate in a patient satisfaction survey regarding your visit today. We value your opinion and depend on your feedback to make improvements and provide the best possible experience. Your time in completing this survey is greatly appreciated. If you haveany issues during your visit with us please feel free to contact the nursing leadership at any of our offices. We want your visits in outpatient wound care to be excellent. If there are any issues during your visit please ask to speak with a member of the nursing leadership team and we will address issues on the spot. You can also feel free to reach out to our nursing unit coordinator, Yolanda Garcia at [phone] for any discussion. WHO TO CALL FOR PROBLEMS: Please call the OP wound care center with any problems or issues you may have after your visit or though the week. Each patient is assigned a case management assistant who can assist with issues you may be having. Monica Nam is your case management assistant Individual office numbers are listed below. Press 1 for immediate or schedule needs, press 2 for the nursing line. The nurse line is for non-emergent needs and will be answered within 24 hours duringbusiness days. If you have a more immediate concern, press option #1. Office numbers: [phone] [place] [phone] Kristopher- [phone] If you have an urgent or emergent need after hours our office line will direct you to an option fornursing triage. Live nurses can assist you with your wound care issue. Protein is essential for wound healing. Protein can be found in meat, fish, yogurt, nuts, and peanut butter. Try to consume 60-100 grams of protein a day, unless instructed otherwise by your physician. Read your labels carefully. You can find additional information in your wound care information folder. documented in this encounter Plan of Treatment Upcoming Encounters Date Type Department Care Team (Late st Contact Info) Description 01/28/2025 8:00 AM EDT Appointment [facility] Wound Care Center [place] [address] [place] [address] Aleksey Hunt DPM [address] [place] [address] 02/24/2025 1:00 PM EDT Clinical Support [facility] [place] [address] [place] [address] 02/28/2025 8:00 AM EDT Office Visit [facility] [place] [address] [place] [address] Blair Cordon MD [address] [place] [address] documented as of this encounter Goals Goal Patient Goal Type Associated Problems Recent Progress Patient-Stated? Author Wound Healing General Not on track(2024 2:05 PM EDT) Angela Aguilera RN Note: Wound [...] peripheral neuropathy weekly. Refer to PCP and/or Campaign Marketing Specialist, Vascular Specialist as indicated. Monitor patient compliance with wound care, diabetes management and proper offloading. 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, with fat layer exposed (HCC)- Primary Diabetic ulcer of right lower leg associated with type 2 diabetes mellitus, with fat layer exposed (HCC) documented in this encounter Orders Nursing Count Last Ordered Date First Orde red Date AMB WCC PRIMARY DRESSING 1 11/29/2024 documented in this encounter Additional Health Concerns Assessment Noted Time PHQ-9 Depression Total Score: 1 07/22/20 24 3:29 PM EST A fall risk assessment has been complete d for the patient 02/07/2019 11:25 AM EDT PHQ-2 Depression Total Score: 1 07/22/20 24 3:29 PM EST documented as of this encounter Care Teams Rn Er Relationship Specialty Start Date End Date Dylon Izaguirre MD [address] [place] [address] PCP - General Family Medicine 09/05/23 documented as of this encounter
--- OUTSIDE RECORDS SUMMARY | 2024-12-03 07:28 | XMS_ITS | Encounter Summary ---
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, with fat layer exposed (HCC) Venous insufficiency of both lower extremities Diabetic ulcer of right lower leg associated with type 2 diabetes mellitus, with fat layer exposed (HCC) PVD (peripheral vascular disease) Chronic venous htn w ulcer and inflam of bilateral low extrm (HCC) Procedures [facility] PRIMARY DRESSING Aleksey Hunt DPM [address] [address] Phone: tel: fax: Referral ID Status Reason Start Date Expiration Date V isits Requested Visits Authorized [id number] Pending Review 12/03/2024 12/03/2025 1 1 Reason for Visit * Reason Comments Wound Check * Consultation (Routine) - Authorization Not Needed Specialty Diagnoses / Procedures Referred By Patrick amador Referred To Contact Wound Care Diagnoses Wound Care Procedures MI DEBRIDEMENT SUBCUTANEOUS TISSUE 1ST 20 SQ CM/< MI DEBRIDEMENT MUSCLE &/FASCIA 1ST 20 SQ CM/< MI DEBRIDEMENT BONE 1ST 20 SQ CM/< MI DEBRIDEMENT SUBCUTANEOUS TISSUE EA ADDL 20 SQ CM MI DEBRIDEMENT MUSCLE &/FASCIA EA ADDL 20 SQ CM MI DEBRIDEMENT BONE EACH ADDITIONAL 20 SQ CM MI DEBRIDEMENT OPEN WOUND FIRST 20 SQ CM/< MI DEBRIDEMENT OPN WND EA ADDL 20 SQ CM/PRT THEREOF [facility] Wound Care Center [place] [address] [place] [address] Phone: tel: fax: Referral ID Status Reason Start Date Expiration Date Visits Requested Visits Authorized [id number] Authorization Not Needed Specialty Services Required 09/05/2025 99 99 Encounter Details Date Type Department Care Team (Latest Contact Info) Description 12/03/2024 7:28 AM EDT - 12/03/2024 11:59 PM EDT Hospital Encounter [facility] Wound Care Center [place] [address] 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, with fat layer exposed (HCC); Venous insufficiency of both lower extremities; Diabetic ulcer of right lower leg associated with type 2 diabetes mellitus, with fat layer exposed (HCC); PVD (peripheral vascular disease); Chronic venous htn w ulcer and inflam of bilateral low extrm (HCC) Discharge Disposition: Home or Self Care Social History Tobacco Use Types Packs/Day Years Used Date Smoking Tobacco: Former Cigarettes 0.5 9 0 01/17/1973 - 01/17/1982 Smokeless Tobacco: Former Snuff Quit: 01/12/2005 Alcohol Use Standard Drinks/Week Comments No 0 (1 standard drink = 0.6 oz pur e alcohol) [facility] Utilities Answer Date Recorded In the past 12 months has [employer], gas, oil, or water [employer] threatened to shut off services in your home? No 07/22/2024 Overall Financial Resource Strain (CARDIA) Answe r Date Recorded How hard is it for you to pa y for the very basics like food, housing, medical care, and heating? Not very hard 07/22/2024 PHQ-2 Answer Date Recorded PHQ-2 Total Score 1 07/22/2024 [facility] - Occupational Stress Questionnaire Answer Date Recorded [...] money to get more. Never true 07/22/2024 [facility] IP Transportation Answer D ate Recorded In [...] Sign Reading Time Taken Comments Blood Pressure 164/93 12/03/2024 7:52 AM EDT Pulse 66 12/03/2024 7:52 AM EDT Temperature 36.2 C (97.1 F) 12/03/2024 7:52 AM EDT Respiratory Rate 18 12/03/2024 7:52 AM EDT Oxygen Saturation - - Inhaled [...] documented in this encounter Progress Notes * Aleksey Hunt DPM - 12/03/2024 7:45 AM EDT Images from the original note were not included. Date of Visit:12/03/2024 Progress Note HPI Jose Alberto Seaman is a 74 y.o. year old male patient who presents today for wound evaluation and follow-up. Patient has a bilateral ankle combined venous and diabetic ulcer(s) which is (are) located on the each leg. Symptoms include none. Patients past medical, family and social histories were reviewed and updated. There were no changesexcept as noted. ROS See HPI for further details. Relevant review of systems otherwise negative. Physical Exam Vitals: 12/03/24 0752 BP: (!) 164/93 Pulse: 66 Resp: 18 Temp: 97.1 ??F (36.2 ??C) TempSrc: Forehead Ulcer Progress and Procedure Please refer to the LDA for details of ulcer progress and procedure. Assessment and Plan Jose Alberto was seen today for wound check. 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 Continue standard ulcer therapy of this Diabetic ulcer of lower extremity may include lab work: n/a,imaging:n/a, vascular testing:n/a, and interventions of: Staged debridement, Edema control/ compression, Off- loading, and Appropriate dressing selection. 2. If, after 30 days of standard ulcertherapy, no significant wound area reduction has been achieved, potential advanced therapies to be considered for the treatment of this ulcer include:Cellular and tissue based products. 3. Discussed appropriate care of this ulcer: Glucose management and Prevention of reoccurrence. 4. Patient instructions were given 5. Follow- up 1 week. Right almost healed. Left improving. Still with significant amount of graft in place. documented in this encounter Miscellaneous Notes * Patient Instructions - Monica Hu RN - 12/03/2024 7:45 AM EDT HOME-CARE INSTRUCTIONS FOLLOWING YOUR WOUND [...] Once applied, you need to know how to take care of your compression wrap. The wrap [...] long periods of time. If you must interactive art director one place, shift your weight and change [...] this survey is greatly appreciated. If you have any issues during your visit with us please [...] feel free to reach out to our intensive care unit registered nurse, Yolanda Garcia at [phone] for any discussion. WHO TO CALL FOR PROBLEMS: Please call the OP wound care center with any problems or issues you may have after your visit or though the week. Each patient is assigned a supervisor case loading who can assist with issues you may be having. Monica Nam is your supervisor case loading Individual office numbers are listed below. Press 1 for immediate or schedule needs, press 2 for the nursing line. The nurse line is for non-emergent needs and will be answered within 24 hours duringbusiness days. If you have a more immediate concern, press option #1. Office numbers: [phone] [place] [phone] [place]- [phone] If you have an urgent or emergent [...] Info) Description 01/28/2025 8:00 AM EDT Appointment [facility] Wound Care Center [address] [place] [address] Aleksey Hunt, UMESH [address] [place] [address] 02/24/2025 1:00 PM EDT Clinical Support [facility] [place] [address] [place] [address] 02/28/2025 8:00 AM EDT Office Visit [facility] [place] [address] [place] [address] Blair Cordon MD [address] [place] [address] documented as of this encounter [...] peripheral neuropathy weekly. Refer to PCP and/or Self Sealing Fuel Tank Repairer, Vascular Specialist as indicated. Monitor patient compliance with wound care, diabetes management and proper offloading. 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, with fat layer exposed (HCC) Venous insufficiency of both lower extremities Diabetic ulcer of right lower leg associated with type 2 diabetes mellitus, with fat layer exposed (HCC) PVD (peripheral vascular disease) Peripheral vascular disease, unspecified Chronic venous htn w ulcer and inflam of bilateral low extrm (HCC) documented in this encounter Orders Nursing Count Last Ordered Date First Orde red Date [facility] PRIMARY DRESSING 1 12/03/2024 documented in this encounter Additional Health Concerns Assessment Noted Time PHQ-9 Depression Total Score: 1 07/22/20 24 3:29 PM EST A fall risk assessment has been complete d for the patient 02/07/2019 11:25 AM EDT PHQ-2 Depression Total Score: 1 07/22/20 24 3:29 PM EST documented as of this encounter Care Teams Toll Collector Supervisor Relationship Specialty Start Date End Date Dylon Izaguirre MD [address] [place] [address] PCP - General Family Medicine 09/05/23 documented as of this encounter
--- OUTSIDE RECORDS SUMMARY | 2024-12-06 08:03 | XMS_ITS | Encounter Summary ---
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, with fat layer exposed (HCC) Diabetic ulcer of right lower leg associated with type 2 diabetes mellitus, with fat layer exposed (HCC) Venous insufficiency of both lower extremities PVD (peripheral vascular disease) Chronic venous htn w ulcer and inflam of bilateral low extrm (HCC) Procedures AMB [facility] PRIMARY DRESSING Darek Najera MD [facility] [place] [address] Phone: tel: fax: Referral ID Status Reason Start Date Expiration Date V isits Requested Visits Authorized [id number] Pending Review 12/06/2024 12/06/2025 1 1 Reason for Visit * Reason Comments Dressing Change * Consultation (Routine) - Authorization Not Needed Specialty Diagnoses / Procedures Referred By Patrick amador Referred To Contact Wound Care Diagnoses Wound Care Procedures OK DEBRIDEMENT SUBCUTANEOUS TISSUE 1ST 20 SQ CM/< OK DEBRIDEMENT MUSCLE &/FASCIA 1ST 20 SQ CM/< OK DEBRIDEMENT BONE 1ST 20 SQ CM/< OK DEBRIDEMENT SUBCUTANEOUS TISSUE EA ADDL 20 SQ CM OK DEBRIDEMENT MUSCLE &/FASCIA EA ADDL 20 SQ CM OK DEBRIDEMENT BONE EACH ADDITIONAL 20 SQ CM OK DEBRIDEMENT OPEN WOUND FIRST 20 SQ CM/< OK DEBRIDEMENT OPN WND EA ADDL 20 SQ CM/PRT THEREOF [facility] [place] [address] [place] [address] Phone: tel: fax: Referral ID Status Reason Start Date Expiration Date Visits Requested Visits Authorized [id number] Authorization Not Needed Specialty Services Required 09/05/2025 99 99 Encounter Details Date Type Department Care Team (Latest Contact Info) Description 12/06/2024 8:03 AM EDT - 12/06/2024 11:59 PM EDT Hospital Encounter [facility] [place] [address] 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, with fat layer exposed (HCC) (Primary Dx); Diabetic ulcer of right lower leg associated with type 2 diabetes mellitus, with fat layer exposed (HCC); Venous insufficiency of both lower extremities; PVD (peripheral vascular disease); Chronic venous htn w ulcer and inflam of bilateral low extrm (HCC) Discharge Disposition: Home or Self Care Social History Tobacco Use Types Packs/Day Years Used Date Smoking Tobacco: Former Cigarettes 0.5 9 0 01/17/1973 - 01/17/1982 Smokeless Tobacco: Former Snuff Quit: 01/12/2005 Alcohol Use Standard Drinks/Week Comments No 0 (1 standard drink = 0.6 oz pur e alcohol) [facility] Utilities Answer Date Recorded In the past 12 months has [employer], gas, oil, or water [employer] threatened to shut off services in your home? No 07/22/2024 Overall Financial Resource Strain (CARDIA) Answe r Date Recorded How hard is it for you to pa y for the very basics like food, housing, medical care, and heating? Not very hard 07/22/2024 PHQ-2 Answer Date Recorded PHQ-2 Total Score 1 07/22/[address] [facility] - Occupational Stress Questionnaire Answer Date Recorded [...] money to get more. Never true 07/22/2024 [facility] IP Transportation Answer D ate Recorded In [...] Sign Reading Time Taken Comments Blood Pressure 153/79 12/06/2024 8:07 AM EDT Pulse 71 12/06/2024 8:07 AM EDT Temperature 36.1 C (97 F) 12/06/2024 8:07 AM EDT Respiratory Rate 16 12/06/2024 8:07 AM EDT Oxygen Saturation - - Inhaled [...] documented in this encounter Progress Notes * Lily Sanchez LPN - 12/06/2024 8:15 AM EDT Pt presents to the Wound care Center for Nurse visit. Reason for nurse visit:r/t wrap change Dressing change: Standard multilayer compression wrap applied [...] ensure a strong deshpande and reduce slippage. documented in this encounter Miscellaneous Notes * Patient Instructions - Lily Sanchez LPN - 12/06/2024 8:15 AM EDT HOME-CARE INSTRUCTIONS FOLLOWING YOUR [...] long periods of time. If you must saddle stitching machine operator one place, shift your weight and change [...] feel free to reach out to our unit clerk, Yolanda Garcia at [phone] for any discussion. WHO TO CALL FOR PROBLEMS: Please call the OP wound care center with any problems or issues you may have after your visit or though the week. Each patient is assigned a supportive employment case manager who can assist with issues you may be having. Monica Nam is your supportive employment case manager Individual office numbers are listed below. Press 1 for immediate or schedule needs, press 2 for the nursing line. The nurse line is for non-emergent needs and will be answered within 24 hours duringbusiness days. If you have a more immediate concern, press option #1. Office numbers: [phone] Ft[address] DesaiDgnmvi-[phone] [facility] [phone] If you have an urgent or emergent [...] Info) Description 01/28/2025 8:00 AM EDT Appointment [facility] [address] [place] [address] Aleksey Hunt DPM [address] [place], [place] [id number] 02/24/2025 1:00 PM EDT Clinical Support [facility] [place] [address] [place] [address] 02/28/2025 8:00 AM EDT Office Visit [facility] [place] [address] [place] [address] Blair Cordon MD [address] [place] [address] documented as of this encounter [...] peripheral neuropathy weekly. Refer to PCP and/or Hand Therapist, Vascular Specialist as indicated. Monitor patient compliance [...] (HCC) Venous insufficiency of both lower extremities PVD (peripheral vascular disease) Peripheral vascular disease, unspecified Chronic venous htn w ulcer and inflam of bilateral low extrm (HCC) documented in this encounter Orders Nursing Count Last Ordered Date First Orde red Date AMB [facility] PRIMARY DRESSING 1 12/06/2024 documented in this encounter Additional Health Concerns Assessment Noted Time PHQ-9 Depression Total Score: 1 07/22/20 24 3:29 PM EST A fall risk assessment has been complete d for the patient 02/07/2019 11:25 AM EDT PHQ-2 Depression Total Score: 1 07/22/20 24 3:29 PM EST documented as of this encounter Care Teams Lunchroom Supervisor Relationship Specialty Start Date End Date Dylon Izaguirre MD [address] [place] [address] PCP - General Family Medicine 09/05/23 documented as of this encounter
--- OUTSIDE RECORDS SUMMARY | 2024-12-10 07:33 | XMS_ITS | Encounter Summary ---
Author Organization [place] [address] Care Team Providers Care Wallpaper Hanger Name Role Phone Dylon Izaguirre MD Primary Care Provider [phone] Reason for Referral * (Routine) - Pending [...] of bilateral low extrm (HCC) Procedures AMB [facility] PRIMARY DRESSING Aleksey Hunt DPM [address] [address] Phone: tel: fax: Referral ID Status Reason Start Date Expiration Date V isits Requested Visits Authorized [id number] Pending Review 12/10/2024 12/10/2025 1 1 Reason for Visit * Reason Comments Wound Check * Consultation (Routine) - Authorization Not Needed Specialty Diagnoses / Procedures Referred By Patrick amador Referred To Contact Wound Care Diagnoses Wound Care Procedures [place] DEBRIDEMENT SUBCUTANEOUS TISSUE 1ST 20 SQ CM/< UT DEBRIDEMENT MUSCLE &/FASCIA 1ST 20 SQ CM/< UT DEBRIDEMENT BONE 1ST 20 SQ CM/< UT DEBRIDEMENT SUBCUTANEOUS TISSUE EA ADDL 20 SQ CM UT DEBRIDEMENT MUSCLE &/FASCIA EA ADDL 20 SQ CM UT DEBRIDEMENT BONE EACH ADDITIONAL 20 SQ CM UT DEBRIDEMENT OPEN WOUND FIRST 20 SQ CM/< UT DEBRIDEMENT OPN WND EA ADDL 20 SQ CM/PRT THEREOF [facility] [place] [address] [place] [address] Phone: tel: fax: Referral ID Status Reason Start Date Expiration Date Visits Requested Visits Authorized [id number] Authorization Not Needed Specialty Services Required 09/05/2025 99 99 Encounter Details Date Type Department Care Team (Latest Contact Info) Description 12/10/2024 7:33 AM EDT - 12/10/2024 11:59 PM EDT Hospital Encounter [facility] [place] [address] [place] [address] Aleksey Hunt, UMESH [address] [place] [address] Diabetic ulcer of left lower leg associated [...] drink = 0.6 oz pur e alcohol) [facility] Utilities Answer Date Recorded In the past 12 months has e [employer], gas, oil, or water [employer] threatened to shut off services in your home? No 07/22/2024 Overall Financial Resource Strain (CARDIA) Answe r Date Recorded How hard is it for you to pa y for the very basics like food, housing, medical care, and heating? Not very hard 07/22/2024 PHQ-2 Answer Date Recorded PHQ-2 Total Score 1 07/22/2024 [facility] - Occupational Stress Questionnaire Answer Date Recorded [...] Never true 07/22/2024 [facility] IP Transportation Answer D ate [...] Sign Reading Time Taken Comments Blood Pressure 106/64 12/10/2024 7:51 AM EDT Pulse 75 12/10/2024 7:51 AM EDT Temperature 36.3 C (97.3 F) 12/10/2024 7:51 AM EDT Respiratory Rate 16 12/10/2024 7:51 AM EDT Oxygen Saturation - - Inhaled [...] Progress Notes * Aleksey Hunt DPM - 12/10/2024 7:45 AM EDT Images from the original note were not included. Date of Visit:12/10/2024 Progress Note HPI Jose Alberto Seaman is a 74 y.o. year old male patient who presents today for wound evaluation and follow-up. 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 Symptoms include pain reduced especially left. Patients past medical, family and social histories were reviewed and updated. There were no changesexcept as noted. ROS See HPI for further details. Relevant review of systems otherwise negative. Physical Exam Vitals: 12/10/24 0751 BP: 106/64 Pulse: 75 Resp: 16 Temp: 97.3 ??F (36.3 ??C) TempSrc: Forehead Ulcer Progress and Procedure Please refer to the LDA for details of ulcer progress and procedure. Assessment and Plan Jose Alberto was seen today for wound check. 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 Continue standard ulcer therapy of this Diabetic ulcer of lower extremity and Venous ulcer may include lab work: n/a,imaging:n/a, vascular testing:n/a, [...] Follow- up 1 week. Right almost healed. Looks great. May resume compression stockings on the right with daily Xeroform and light gauze bandage. Despite measurements left markedly improved, overall appearance, good graft take. Continue compression wraps. documented in this encounter Miscellaneous Notes * Patient Instructions - Britni Agrawal LPN - 12/10/2024 7:45 AM EDT HOME-CARE INSTRUCTIONS FOLLOWING YOUR [...] ( 11/12/24) PLEASE DO NOT DISTURB ADAPTIC TO RIGHT LOWER LEG,COVER WITH GAUZE AND TAPE-COMPRESSION STOCKING ADAPTIC AND SILVER TO WOUND BEDS- REPLACE THE SILVER AT NURSE VISIT, REPLACE ADAPTIC IF ITS TOO GOOEY Abd pad, kerlix - left leg Compression Wraps Location:Coflex LEFT LEG Type:MultiLayer Compression Frequency: leave on for 7 [...] long periods of time. If you must washing tub operator one place, shift your weight and [...] feel free to reach out to our refinery operator reforming unit, Yolanda Garcia at [phone] for any discussion. WHO TO CALL FOR PROBLEMS: Please call the OP wound care center with any problems or issues you may have after your visit or though the week. Each patient is assigned a caser who can assist with issues you may be having. Monica Nam is your caser Individual office numbers are listed below. Press 1 for immediate or schedule needs, press 2 for the nursing line. The nurse line is for non-emergent needs and will be answered within 24 hours duringbus days. If you have a more immediate concern, press option #1. Office numbers: [phone] [place] DesaiYxpuvy-[phone] Kristopher- [phone] If you have an urgent or emergent [...] [facility] [place] [address] [place] [address] Aleksey Hunt DPM [address] [place] [address] 02/24/2025 1:00 PM EDT Clinical Support [facility] [place] [address] [place] [address] 02/28/2025 8:00 AM EDT Office Visit [facility] [place] [address] [place] [address] Blair Cordon MD [address] [place] [address] documented as of this encounter [...] peripheral neuropathy weekly. Refer to PCP and/or Impregnating Tank Operator, Vascular Specialist as indicated. Monitor patient [...] low extrm (HCC) documented in this encounter Administered Medications Inactive Administered Medications - up to 1 most recent administrations Medication Order MAR Action Action Date Dose Rate Site lidocaine (XYLOCAINE) 5 % ointment Topical, ONCE, 1 dose, On Mon12/10/24 at 0815, Application site: faustino lower legs Given 12/10/2024 8:06 AM EDT documented in this encounter Orders Medications Ordered That Desmond ht Not Have Been Administered Count Last Ordered Date First Ordered Date lidocaine (XYLOCAINE) 5 % ointment 1 2024 Nursing Count Last Ordered Date First Orde red Date AMB [facility] PRIMARY DRESSING 1 12/10/2024 documented in this encounter Additional Health Concerns Assessment Noted Time PHQ-9 Depression Total Score: 1 07/22/20 24 3:29 PM EST A fall risk assessment has been complete d for the patient 02/07/2019 11:25 AM EDT PHQ-2 Depression Total Score: 1 07/22/20 24 3:29 PM EST documented as of this encounter Care Teams Wallpaper Hanger Relationship Specialty Start Date End Date Dylon Izaguirre MD [address] [place] [address] PCP - General Family Medicine 09/05/23 documented as of this encounter
--- OUTSIDE RECORDS SUMMARY | 2024-12-13 08:14 | XMS_ITS | Encounter Summary ---
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 [address] Phone: tel: fax: Referral ID Status Reason Start Date Expiration Date V isits Requested Visits Authorized [id number] Pending Review 12/13/2024 12/13/2025 1 1 Reason for Visit * Reason Comments Wound Check * Consultation (Routine) - Authorization Not Needed Specialty Diagnoses / Procedures Referred By Contac t Referred To Contact Wound Care Diagnoses Wound Care Procedures [place] DEBRIDEMENT SUBCUTANEOUS TISSUE 1ST 20 SQ CM/< IL DEBRIDEMENT MUSCLE &/FASCIA 1ST 20 SQ CM/< IL DEBRIDEMENT BONE 1ST 20 SQ CM/< IL DEBRIDEMENT SUBCUTANEOUS TISSUE EA ADDL 20 SQ CM IL DEBRIDEMENT MUSCLE &/FASCIA EA ADDL 20 SQ CM IL DEBRIDEMENT BONE EACH ADDITIONAL 20 SQ CM IL DEBRIDEMENT OPEN WOUND FIRST 20 SQ CM/< IL DEBRIDEMENT OPN WND EA ADDL 20 SQ CM/PRT THEREOF [facility] Wound Care [facility] [place] [address] [place] [address] Phone: tel: fax: Referral ID Status Reason Start Date Expiration Date Visits Requested Visits Authorized [id number] Authorization Not Needed Specialty Services Required 09/05/2025 99 99 Encounter Details Date Type Department Care Team (Latest Contact Info) Description 12/13/2024 8:14 AM EDT - 12/13/2024 11:59 PM EDT Hospital Encounter [facility] [address] 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, with fat layer exposed (HCC) (Primary Dx); Venous insufficiency of both lower extremities; PVD (peripheral vascular disease) Discharge Disposition: Home or Self Care Social History Tobacco Use Types Packs/Day Years Used Date Smoking Tobacco: Former Cigarettes 0.5 9 0 01/17/1973 - 01/17/1982 Smokeless Tobacco: Former Snuff Quit: 01/12/2005 Alcohol Use Standard Drinks/Week Comments No 0 (1 standard drink = 0.6 oz pur e alcohol) [facility] Utilities Answer Date Recorded In the past 12 months has th e electric, gas, oil, or water company threatened to shut off services in your home? No 07/22/2024 Overall Financial Resource Strain (CARDIA) Answe r Date Recorded How hard is it for you to pa y for the very basics like food, housing, medical care, and heating? Not very hard 07/22/2024 PHQ-2 Answer Date Recorded PHQ-2 Total Score 1 07/22/2024 [facility] - Occupational Stress [...] money to get more. Never true 07/22/2024 [facility] CMS IP Transportation Answer D ate Recorded [...] Sign Reading Time Taken Comments Blood Pressure 148/71 12/13/2024 8:17 AM EDT Pulse 69 12/13/2024 8:17 AM EDT Temperature 36.3 C (97.4 F) 12/13/2024 8:17 AM EDT Respiratory Rate 16 12/13/2024 8:17 AM EDT Oxygen Saturation - - Inhaled [...] documented in this encounter Progress Notes * Monica Hu, RN - 12/13/2024 8:45 AM EDT Pt presents to the Wound [...] Miscellaneous Notes * Patient Instructions - Monica Hu, RN - 12/13/2024 8:45 AM EDT HOME-CARE INSTRUCTIONS FOLLOWING YOUR WOUND [...] Care Center next Monday with Dr. Hunt Continue Doxycycline as directed JUVENAL #4 placed [...] long periods of time. If you must invisible braces orthodontist one place, shift your weight and change [...] free to reach out to our unit support representative, Yolanda Garcia at [phone] for any discussion. WHO TO CALL FOR PROBLEMS: Please call the OP wound care center with any problems or issues you may have after your visit or though the week. Each patient is assigned a case sealer who can assist with issues you may be having. Monica Nam is your case sealer Individual office numbers are listed below. Press 1 for immediate or schedule needs, press 2 for the nursing line. The nurse line is for non-emergent needs and will be answered within 24 hours duringbus days. If you have a more immediate concern, press option #1. Office numbers: [phone] [place]ep Pjilnr-[phone] Kristopher- [phone] If you have an urgent or emergent [...] information in your wound care information folder. * Addendum Note - Ceci Mosqueda RN - 12/13/2024 8:45 AM EDTEncounter addended by: Ceci Mosqueda, RN on: 12/13/2024 1:26 PM Actions taken: Order list changed, Diagnosis association updated documented in this encounter Plan of Treatment Upcoming Encounters Date Type Department Care Team (Late st Contact Info) Description 01/28/2025 8:00 AM EDT Appointment [facility] Wound Care [facility] [place] [address] [place] [address] Aleksey Hunt DPM [address] [place] [address] 02/24/2025 1:00 PM EDT Clinical Support [facility] [place] [address] [place] [id number] 02/28/2025 8:00 AM EDT Office Visit [facility] [place] [address] [place] [address] Blair Cordon MD [address] [place] [address] documented as of this encounter [...] peripheral neuropathy weekly. Refer to PCP and/or Commissary Clerk, Vascular Specialist as indicated. Monitor patient compliance with wound care, diabetes management and proper offloading. 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, with fat layer exposed (HCC)- Primary Venous insufficiency of both lower extremities PVD (peripheral vascular disease) Peripheral vascular disease, unspecified documented in this encounter Orders Nursing Count Last Ordered Date First Orde red Date AMB [facility] PRIMARY DRESSING 2 12/13/2024 documented in this encounter Additional Health Concerns Assessment Noted Time PHQ-9 Depression Total Score: 1 07/22/20 24 3:29 PM EST A fall risk assessment has been complete d for the patient 02/07/2019 11:25 AM EDT PHQ-2 Depression Total Score: 1 07/22/20 24 3:29 PM EST documented as of this encounter Care Teams Lift Builder Whole Relationship Specialty Start Date End Date Dylon Izaguirre MD [address] [place] [address] PCP - General Family Medicine 09/05/23 documented as of this encounter
--- OUTSIDE RECORDS SUMMARY | 2024-12-16 15:00 | XMS_ITS | Encounter Summary ---
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 (CODE) (HCC) Procedures MS INJECTION SCLEROSANT MULTIPLE INCMPTNT VEINS Blair Cordon MD [address] [place] [address] Phone: tel: fax: Referral ID Status Reason Start Date Expiration Date V isits Requested Visits Authorized [id number] Pending Review 12/16/2024 12/16/2025 1 1 Reason for Visit * Consultation (Routine) - Authorization Not Needed Specialty Diagnoses / Procedures Referred By Contac t Referred To Contact Diagnoses Symptomatic varicose veins, bilateral Procedures Left duplicate GSV USGFS Blair Cordon MD [address] [place] [address] Phone: tel: fax: [facility] [address] [place] [address] Referral ID Status Reason Start Date Expiration Date Visits Requested Visits Authorized [id number] Authorization Not Needed 11/11/2024 11/11/2025 1 1 Encounter Details Date Type Department Care Team (Latest Contact Info) Description 12/16/2024 3:00 PM EDT Procedure visit [facility] [address] [place] [address] Blair Cordon MD [address] [place] [id number] 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 No 07/22/2024 Overall Financial Resource Strain (CARDIA) Answe r Date Recorded How hard is it for you to pa y for the very basics like food, housing, medical care, and heating? Not very hard 07/22/2024 PHQ-2 Answer Date Recorded PHQ-2 Total Score 1 07/22/2024 [facility] of Occupat ional Health - Occupational Stress [...] money to get more. Never true 07/22/2024 [facility] IP Transportation Answer D ate Recorded [...] on file documented as of this encounter Progress Notes * Traci Sims MA - 12/16/2024 3:00 PM EDT left GSV -Varithena 18mL of 1% Polidocanol Varithena Compression stockings applied No sedation Instructions reviewed Office will call in 1 week * Blair Cordon MD - 12/16/2024 3:00 PM EDT Images from the original note were not included. ULTRASOUND GUIDED VARITHENA FOAM SCLEROTHERAPY, Left LOWER EXTREMITY INDICATIONS: Painful refluxing varicose veins, Left lower extremity. PROCEDURE: Following discussion of the risks, alternatives, and benefits of the procedure, informedwritten consent was obtained. The left leg was prepped and draped in sterile fashion. The varicose vein was accessed under ultrasound guidance with a 25-gauge butterfly needle. The vein was patent. Apermanent image was obtained. Sterile barrier technique utilized. There was a return of blood when aspirated. This was followed by slow injection of Varithena foam sclerosant. A total of 6mL of sclerosant was injected under ultrasound visualization. Ultrasound compression and leg elevation were utilized to direct flow of sclerosant. Permanent images were obtained. The GSV Varicose vein was then accessed distally with a 25 G butterfly needle. This was followed by slow injection of Varithena foamsclerosant. A total of 6mL of sclerosant was injected under ultrasound visualization. Ultrasound compression and leg elevation were utilized to direct flow of sclerosant. Permanent images were obtained. Attention was then turned to the varicosities in the calf. This was followed by slow injection of Varithena foam sclerosant. A total of 6mL of sclerosant was injected under ultrasound visualization. Ultrasound compression and leg elevation were utilized to direct flow of sclerosant. Permanent images were obtained. The vein was accessed under ultrasound guidance. Permanent images of all accesses were obtained. A compression bandage was applied followed by application of compression stockings. The patient wasambulated. No neurologic issue. The patient was discharged in stable condition. IMPRESSION:Technically successful varithena ultrasound-guided foam sclerotherapy documented in this encounter Miscellaneous Notes * Patient Instructions - Suri Orozco RT - 12/16/2024 3:00 PM EDT Varithena Discharge Instructions DAY OF SURGERY Keep your leg elevated when sitting for the first 3-4 days after the procedure Keep your post-treatment bandages dry and in place for 48 hours Apply ice often for the first 24 hours and then as needed. (This really helps!!!) Resume normal activity except restrictions as described below. Activity: While awake, get up hourly and walk around for 2-4 minutes for the first 5 days after theprocedure. When riding in a car, stop hourly and walk around for 2-4 minutes. Avoid long periods of inactivity. Bathing: Sponge bath only for the first 48 hours. Then you can take showers. Do not soak in a bath or hot tub for 7 days. Return to work/school: When able. Active sports or aerobic exercise: May resume 7 days after the procedure. (Walking is ENCOURAGED!) Avoid heavy exercise for one week Sexual Activity: Whenever comfortable. Lifting Precautions: None DIET: Resume normal diet. SPECIAL INSTRUCTIONS Wear compression hose and compression pads continuously for 48 hours. After 48 hours wear compression hose only around the clock for the next 5 days and then for 7 days just during the day. Bruising of your legs may occur. Any questions or concerns call us at . You may feel a pulling sensation along the course of the vein for 5-7 days after the procedure. documented in this encounter Plan of Treatment Upcoming Encounters Date Type Department Care Team (Late st Contact Info) Description 01/28/2025 8:00 AM EDT Appointment [facility] [place] [address] 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 Refer to PCP and/or Perl Programmer, Vascular Specialist as indicated. Monitor patient compliance with wound care, diabetes management and proper offloading. 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 (CODE) (HCC) Given 12/16/2024 3:10 PM EDT documented in this encounter Orders Medications Ordered That Desmond ht Not Have Been Administered Count Last Ordered Date First Ordered Date polidocanoL 1 % (20 mg/2 mL) Soln 1 025 documented in this encounter Additional Health Concerns Assessment Noted Time PHQ-9 Depression Total Score: 1 07/22/20 3:29 PM EST A fall risk assessment has been complete d for the patient 02/07/2019 11:25 AM EDT PHQ-2 Depression Total Score: 1 07/22/20 3:29 PM EST documented as of this encounter Care Teams Secondary Teacher Relationship Specialty Start Date End Date Dylon Izaguirre MD [address] [place] [address] PCP - General Family Medicine 09/05/23 documented as of this encounter
--- OUTSIDE RECORDS SUMMARY | 2024-12-17 08:28 | XMS_ITS | Encounter Summary ---
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, with fat layer exposed (HCC) Venous insufficiency of both lower extremities PVD (peripheral vascular disease) Procedures [facility] PRIMARY DRESSING Aleksey Hunt DPM [address] [address] Phone: tel: fax: Referral ID Status Reason Start Date Expiration Date V isits Requested Visits Authorized [id number] Pending Review 12/17/2024 12/17/2025 1 1 Reason for Visit * Reason Comments Wound Check * Consultation (Routine) - Authorization Not Needed Specialty Diagnoses / Procedures Referred By Patrick amador Referred To Contact Wound Care Diagnoses Wound Care Procedures OR DEBRIDEMENT SUBCUTANEOUS TISSUE 1ST 20 SQ CM/< OR DEBRIDEMENT MUSCLE &/FASCIA 1ST 20 SQ CM/< OR DEBRIDEMENT BONE 1ST 20 SQ CM/< OR DEBRIDEMENT SUBCUTANEOUS TISSUE EA ADDL 20 SQ CM OR DEBRIDEMENT MUSCLE &/FASCIA EA ADDL 20 SQ CM OR DEBRIDEMENT BONE EACH ADDITIONAL 20 SQ CM OR DEBRIDEMENT OPEN WOUND FIRST 20 SQ CM/< OR DEBRIDEMENT OPN WND EA ADDL 20 SQ CM/PRT THEREOF [facility] [address] [place] [address] Phone: tel: fax: Referral ID Status Reason Start Date Expiration Date Visits Requested Visits Authorized [id number] Authorization Not Needed Specialty Services Required 5 09/05/2025 99 99 Encounter Details Date Type Department Care Team (Latest Contact Info) Description 12/17/2024 8:28 AM EDT - 12/17/2024 11:59 PM EDT Hospital Encounter [facility] [place] [address] [place] [address] Aleksey Hunt, UMESH [address] [place] [address] Diabetic ulcer of left lower leg associated [...] drink = 0.6 oz pur e alcohol) [facility] Utilities Answer Date Recorded In the past 12 months has e [employer], gas, oil, or water [employer] threatened to shut off services in your home? No 07/22/2024 Overall Financial Resource Strain (CARDIA) Answe r Date Recorded How hard is it for you to pa y for the very basics like food, housing, medical care, and heating? Not very hard 07/22/2024 PHQ-2 Answer Date Recorded PHQ-2 Total Score 1 07/22/2024 [facility] [place] of Occupat ional Health - Occupational Stress [...] money to get more. Never true 07/22/2024 [facility] IP Transportation Answer D ate [...] Sign Reading Time Taken Comments Blood Pressure 142/78 12/17/2024 8:38 AM EDT Pulse 65 12/17/2024 8:38 AM EDT Temperature 36.7 C (98 F) 12/17/2024 8:38 AM EDT Respiratory Rate 18 12/17/2024 8:38 AM EDT Oxygen Saturation - - Inhaled [...] Progress Notes * Aleksey Hunt DPM - 12/17/2024 8:30 AM EDT Images from the original note were not included. Date of Visit:12/17/2024 Progress Note HPI Jose Alberto Seaman is a 74 y.o. year old male patient who presents today for wound evaluation and follow-up. Patient has a left ankle combined diabetic and venous ulcer(s) which is (are) located on the left leg. Symptoms include none. Patients past medical, family and social histories were reviewed and updated. There were no changesexcept as noted. ROS See HPI for further details. Relevant review of systems otherwise negative. Physical Exam Vitals: 12/17/24 0838 BP: 142/78 Pulse: 65 Resp: 18 Temp: 98 ??F (36.7 ??C) TempS: Oral Ulcer Progress and Procedure Please refer to the LDA for details of ulcer progress and procedure. Assessment and Plan Jose Alberto was seen today for wound check. 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 PRIMARY DRESSING Venous insufficiency of both lower extremities - [facility] PRIMARY DRESSING PVD (peripheral vascular disease) - [facility] PRIMARY DRESSING 1. Continue [...] given 5. Follow- up 1 week. Right ankle ulcer healed. Continue compression stockings. Left ankle ulcer improved. Will plan on repeat TheraSkin application next week. documented in this encounter Miscellaneous Notes * Patient Instructions - Monica Hu RN - 12/17/2024 8:30 AM EDT HOME-CARE INSTRUCTIONS FOLLOWING YOUR WOUND [...] with Dr. Hunt Continue Doxycycline as directed THERASKIN #4 placed ( 11/12/24) PLEASE DO NOT DISTURB ADAPTIC TO RIGHT LOWER LEG,COVER WITH GAUZE AND TAPE-COMPRESSION STOCKING ADAPTIC AND SILVER TO WOUND BEDS- REPLACE THE SILVER AT NURSE VISIT, REPLACE ADAPTIC IF ITS TOO GOOEY Abd pad, tannerx - left leg Compression Wraps Location:[facility] LEFT [...] long periods of time. If you must purchasing engineer one place, shift your weight and change [...] free to reach out to our unit control clerk, Yolanda Garcia at [phone] for any discussion. WHO TO CALL FOR PROBLEMS: Please call the OP wound care center with any problems or issues you may have after your visit or though the week. Each patient is assigned a rehabilitation caseworker who can assist with issues you may be having. Monica Nam is your rehabilitation caseworker Individual office numbers are listed below. Press 1 for immediate or schedule needs, press 2 for the nursing line. The nurse line is for non-emergent needs and will be answered within 24 hours duringbusiness days. If you have a more immediate concern, press option #1. Office numbers: [phone] [place]-[phone] [facility] [phone] If you have an urgent or emergent [...] care information folder. * Addendum Note - Monica Hu, RN - 12/17/2024 8:30 AM EDTEncounter addended by: Monica Hu, RN on: 12/17/2024 1:46 PM Actions taken: Patient Goal modified, Flowsheet accepted, Charge Capture section accepted documented in this encounter Plan of Treatment Upcoming Encounters Date Type Department Care Team (Late st Contact Info) Description 01/28/2025 8:00 AM EDT Appointment [facility] [address] [place] [address] Aleksey uHnt DPM [address] [place] [address] 02/24/2025 1:00 PM EDT Clinical Support [facility] [place] [address] [place] [address] 02/28/2025 8:00 AM EDT Office Visit [facility] [address] [place] [address] Blair Cordon MD [address] [place] [address] documented as of this encounter [...] peripheral neuropathy weekly. Refer to PCP and/or Strap Cutting Machine Operator, Vascular Specialist as indicated. [...] red Date [facility] PRIMARY DRESSING 1 12/17/2024 documented in this encounter Additional Health Concerns Assessment Noted Time PHQ-9 Depression Total Score: 1 07/22/20 24 3:29 PM EST A fall risk assessment has been complete d for the patient 02/07/2019 11:25 AM EDT PHQ-2 Depression Total Score: 1 07/22/20 24 3:29 PM EST documented as of this encounter Care Teams Rollway Worker Relationship Specialty Start Date End Date Dylon Izaguirre MD [address] [place] [address] PCP - General Family Medicine 09/05/23 documented as of this encounter
--- OUTSIDE RECORDS SUMMARY | 2024-12-20 07:19 | XMS_ITS | Encounter Summary ---
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 [address] Phone: tel: fax: Referral ID Status Reason Start Date Expiration Date V isits Requested Visits Authorized [id number] Pending Review 12/20/2024 12/20/2025 1 1 Reason for Visit * Reason Comments Dressing Change * Consultation (Routine) - Authorization Not Needed Specialty Diagnoses / Procedures Referred By Patrick amador Referred To Contact Wound Care Diagnoses Wound Care Procedures MS DEBRIDEMENT SUBCUTANEOUS TISSUE 1ST 20 SQ CM/< MS DEBRIDEMENT MUSCLE &/FASCIA 1ST 20 SQ CM/< MS DEBRIDEMENT BONE 1ST 20 SQ CM/< MS DEBRIDEMENT SUBCUTANEOUS TISSUE EA ADDL 20 SQ CM MS DEBRIDEMENT MUSCLE &/FASCIA EA ADDL 20 SQ CM MS DEBRIDEMENT BONE EACH ADDITIONAL 20 SQ CM MS DEBRIDEMENT OPEN WOUND FIRST 20 SQ CM/< MS DEBRIDEMENT OPN WND EA ADDL 20 SQ CM/PRT THEREOF [facility] [address] [place] [address] Phone: tel: fax: Referral ID Status Reason Start Date Expiration Date Visits Requested Visits Authorized [id number] Authorization Not Needed Specialty Services Required 5 09/05/2025 99 99 Encounter Details Date Type Department Care Team (Latest Contact Info) Description 12/20/2024 7:19 AM EDT - 12/20/2024 11:59 PM EDT Hospital Encounter [facility] [place] [place] [address] Darek Najera MD [facility] [place] [address] Diabetic ulcer of left lower [...] drink = 0.6 oz pur e alcohol) [facility] Utilities Answer Date Recorded In the past 12 months has e [employer], gas, oil, or water [employer] threatened to shut off services in your home? No 07/22/2024 Overall Financial Resource Strain (CARDIA) Answe r Date Recorded How hard is it for you to pa y for the very basics like food, housing, medical care, and heating? Not very hard 07/22/2024 PHQ-2 Answer Date Recorded PHQ-2 Total Score 1 07/22/2024 [facility] [place] of Occupat ional Health - Occupational Stress [...] money to get more. Never true 07/22/2024 [facility] IP Transportation Answer D ate Recorded In [...] Sign Reading Time Taken Comments Blood Pressure 128/79 12/20/2024 7:52 AM EDT Pulse 73 12/20/2024 7:52 AM EDT Temperature 36.6 C (97.8 F) 12/20/2024 7:52 AM EDT Respiratory Rate 16 12/20/2024 7:52 AM EDT Oxygen Saturation - - [...] in this encounter Progress Notes * Monica Hu RN - 12/20/2024 7:45 AM EDT Pt presents to the Wound [...] Patient Instructions - Monica Hu, RN - 12/20/2024 7:45 AM EDT HOME-CARE INSTRUCTIONS FOLLOWING YOUR [...] long periods of time. If you must ict systems test engineer one place, shift your weight and [...] feel free to reach out to our community health educator, Yolanda Jose at [phone] for any discussion. WHO TO CALL FOR PROBLEMS: Please call the OP wound care center with any problems or issues you may have after your visit or though the week. Each patient is assigned a window caser who can assist with issues you may be having. Monica Nam is your window caser Individual office numbers are listed below. Press 1 for immediate or schedule needs, press 2 for the nursing line. The nurse line is for non-emergent needs and will be answered within 24 hours duringbusiness days. If you have a more immediate concern, press option #1. Office numbers: [phone] Zeynep [place]Viomco-[phone] [facility] [phone] If you have an urgent or emergent [...] Info) Description 01/28/2025 8:00 AM EDT Appointment [facility] [address] [place] [address] Aleksey Hunt DPM [address] [facility] [address] 02/24/2025 1:00 PM EDT Clinical Support [facility] [place] [address] [place] [address] 02/28/2025 8:00 AM EDT Office Visit [facility] [place] [address] [place] [address] Blair Cordon MD [address] [place] [id number] documented as of this encounter Goals Goal [...] peripheral neuropathy weekly. Refer to PCP and/or Transfer Professor, Vascular Specialist as indicated. Monitor patient compliance [...] red Date AMB WCC PRIMARY DRESSING 1 12/20/2024 documented in this encounter Additional Health Concerns Assessment Noted Time PHQ-9 Depression Total Score: 1 07/22/20 24 3:29 PM EST A fall risk assessment has been complete d for the patient 02/07/2019 11:25 AM EDT PHQ-2 Depression Total Score: 1 07/22/20 24 3:29 PM EST documented as of this encounter Care Teams Office Machine Service Supervisor Relationship Specialty Start Date End Date Dylon Izaguirre MD [address] [place] [address] PCP - General Family Medicine 09/05/23 documented as of this encounter
--- OUTSIDE RECORDS SUMMARY | 2024-12-24 08:14 | XMS_ITS | Encounter Summary ---
Author [place] [address] Care Team Providers Care Senior Rd Engineer Name Role Phone Dylon Izaguirre MD Primary Care Provider [phone] Reason for Referral * (Routine) - Pending [...] of bilateral low extrm (HCC) Procedures AMB [facility] PRIMARY DRESSING Aleksey Hunt DPM [address] [place] [address] Phone: tel: fax: Referral ID Status Reason Start Date Expiration Date V isits Requested Visits Authorized [id number] Pending Review 12/24/2024 12/24/2025 1 1 Reason for Visit * Reason Comments Wound Check * Consultation (Routine) - Authorization Not Needed Specialty Diagnoses / Procedures Referred By Patrick amador Referred To Contact Wound Care Diagnoses Wound Care Procedures [place] DEBRIDEMENT SUBCUTANEOUS TISSUE 1ST 20 SQ CM/< [place] DEBRIDEMENT MUSCLE &/FASCIA 1ST 20 SQ CM/< [place] DEBRIDEMENT BONE 1ST 20 SQ CM/< [place] DEBRIDEMENT SUBCUTANEOUS TISSUE EA ADDL 20 SQ CM [place] DE[place]EMENT MUSCLE &/FASCIA EA ADDL 20 SQ CM [place] DE[place]IDEMENT BONE EACH ADDITIONAL 20 SQ CM [place] DE[place]IDEMENT OPEN WOUND FIRST 20 SQ CM/< [place] DEBRIDEMENT OPN WND EA ADDL 20 SQ CM/PRT THEREOF [facility] Wound Care Center [place] [address] [place] [address] Phone: tel: fax: Referral ID Status Reason Start Date Expiration Date Visits Requested Visits Authorized [id number] Authorization Not Needed Specialty Services Required 09/05/2025 99 99 Encounter Details Date Type Department Care Team (Latest Contact Info) Description 12/24/2024 8:14 AM EDT - 12/24/2024 11:59 PM EDT Hospital Encounter [facility] Wound Care Center [address] 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 No 07/22/2024 Overall Financial Resource Strain (CARDIA) Answe r Date Recorded How hard is it for you to pa y for the very basics like food, housing, medical care, and heating? Not very hard 07/22/2024 PHQ-2 Answer Date Recorded PHQ-2 Total Score 1 07/22/2024 [facility] - Occupational Stress Questionnaire Answer Date [...] money to get more. Never true 07/22/2024 [facility] IP Transportation Answer D ate Recorded [...] Sign Reading Time Taken Comments Blood Pressure 150/77 12/24/2024 8:17 AM EDT Pulse 65 12/24/2024 8:17 AM EDT Temperature 36.3 C (97.3 F) 12/24/2024 8:17 AM EDT Respiratory Rate 16 12/24/2024 8:17 AM EDT Oxygen Saturation - - [...] Progress Notes * Aleksey Hunt DPM - 12/24/2024 8:15 AM EDT Images from the original note were not included. Date of Visit:12/24/2024 Progress Note VENKAT Seaman is a 74 y.o. year old male patient who presents today for wound evaluation and follow-up. 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 Symptoms include none. Patients past medical, family and social histories were reviewed and updated. There were no changesexcept as noted. ROS See HPI for further details. Relevant review of systems otherwise negative. Physical Exam Vitals: 12/24/24 0817 BP: 150/77 Pulse: 65 Resp: 16 Temp: 97.3 ??F (36.3 ??C) [...] interventions of: Staged debridement, Edema control/ compression, and Appropriate dressing selection. 2. If, after 30 days of standard ulcertherapy, no significant wound area reduction has been achieved, potential advanced therapies to be considered for the treatment of this ulcer include:Cellular and tissue based products. 3. Discussed appropriate care of this ulcer: Glucose management, Weight loss, and Prevention of reoccurrence. 4. Patient instructions were given 5. Follow- up 1 week. Improving. Repeat TheraSkin. I have discussed the risks, benefits and alternatives of TheraSkin with patient. Patient has agreedto proceed with procedure. Product applied per dockmaster???s recommendation and secured with Dermabond and with non-adherent dressing/ steri-strips and dry, sterile dressing. Patient tolerated procedure well. Advised in post-procedure care. documented in this encounter Miscellaneous Notes * Patient Instructions - Monica Hu RN - 12/24/2024 8:15 AM EDT HOME-CARE INSTRUCTIONS FOLLOWING YOUR [...] Dr. Hunt Continue Doxycycline as directed JUVENAL #5 placed ( 12/24/24) PLEASE DO NOT DISTURB ADAPTIC TO RIGHT [...] long periods of time. If you must chain builder one place, shift your weight and change [...] to reach out to our refinery operator vapor recovery unit, Yolanda Garcia at [phone] for any discussion. WHO TO CALL FOR PROBLEMS: Please call the OP wound care center with any problems or issues you may have after your visit or though the week. Each patient is assigned a medical case manager who can assist with issues you may be having. Monica Nam is your medical case manager Individual office numbers are listed below. Press 1 for immediate or schedule needs, press 2 for the nursing line. The nurse line is for non-emergent needs and will be answered within 24 hours duringbusiness days. If you have a more immediate concern, press option #1. Office numbers: [phone] Ft[place] DesaiFoooyw-[phone] Kristopher- [phone] If you have an urgent or emergent [...] Addendum Note - Monica Hu, RN - 12/24/2024 8:15 AM EDTEncounter addended by: Monica Hu, RN on: 12/24/2024 1:59 PM Actions taken: Patient Goal modified, Flowsheet accepted, Charge Capture section accepted * Addendum Note - Mika Cohen - 12/24/2024 8:15 AM EDTEncounter addended by: Mika Cohen on: 01/07/2025 1:24 PM Actions taken: Charge Capture section accepted documented in this encounter Plan of Treatment Upcoming Encounters Date Type Department Care Team (Late st Contact Info) Description 01/28/2025 8:00 AM EDT Appointment [facility] Wound Care Center [place] [address] 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 Author Wound Healing General Not on track(2024 2:05 PM EDT) Angela Aguilera, MEIR Note: Wound Care Goals-right medial malleolus Patient [...] peripheral neuropathy weekly. Refer to PCP and/or Media Reconciliation Specialist, Vascular Specialist as indicated. Monitor patient compliance with wound care, diabetes management and proper offloading. 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, with fat layer exposed (HCC)- Primary Venous insufficiency of both lower extremities Diabetic [...] % ointment Topical, ONCE, 1 dose, On Mon12/24/24 at 0845, Application site: leg Given 12/24/2024 8:36 AM EDT documented in this encounter Orders Medications Ordered That Desmond ht Not Have Been Administered Count Last Ordered Date First Ordered Date lidocaine (XYLOCAINE) 5 % ointment 1 2024 Nursing Count Last Ordered Date First Orde red Date AMB C PRIMARY DRESSING 1 12/24/2024 documented in this encounter Additional Health Concerns Assessment Noted Time PHQ-9 Depression Total Score: 1 07/22/20 24 3:29 PM EST A fall risk assessment has been complete d for the patient 02/07/2019 11:25 AM EDT PHQ-2 Depression Total Score: 1 07/22/20 24 3:29 PM EST documented as of this encounter Care Teams Senior Rd Engineer Relationship Specialty Start Date End Date Dylon Izaguirre MD [address] [place], [place] [id number] PCP - General Family Medicine 09/05/23 documented as of this encounter
--- OUTSIDE RECORDS SUMMARY | 2024-12-27 07:37 | XMS_ITS | Encounter Summary ---
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 PRIMARY DRESSING Darek Najera MD [facility] [address] [place] [address] Phone: tel: fax: Referral ID Status Reason Start Date Expiration Date V isits Requested Visits Authorized [id number] Pending Review 12/27/2024 12/27/2025 1 1 Reason for Visit * Reason [...] WND EA ADDL 20 SQ CM/PRT THEREOF [facility] Wound Care Center [place] [address] [address] Phone: tel: fax: Referral ID Status Reason Start Date Expiration Date Visits Requested Visits Authorized [id number] Authorization Not Needed Specialty Services Required 5 09/05/2025 99 99 Encounter Details Date Type Department Care Team (Latest Contact Info) Description 12/27/2024 7:37 AM EDT - 12/27/2024 11:59 PM EDT Hospital Encounter [facility] Wound Care [facility] [place] [address] Darek Najera MD [facility] [place] [address] Diabetic ulcer of left lower [...] drink = 0.6 oz pur e alcohol) [facility] Utilities Answer Date Recorded In the past 12 months has e [employer], gas, oil, or water [employer] threatened to shut off services in your home? No 07/22/2024 Overall Financial Resource Strain (CARDIA) Answe r Date Recorded How hard is it for you to pa y for the very basics like food, housing, medical care, and heating? Not very hard 07/22/2024 PHQ-2 Answer Date Recorded PHQ-2 Total Score 1 07/22/2024 [facility] [place] of Occupat ional Health - Occupational Stress [...] money to get more. Never true 07/22/2024 [facility] IP Transportation Answer D ate Recorded [...] Sign Reading Time Taken Comments Blood Pressure 133/74 12/27/2024 7:52 AM EDT Pulse 72 12/27/2024 7:52 AM EDT Temperature 36.7 C (98 F) 12/27/2024 7:52 AM EDT Respiratory Rate 17 12/27/2024 7:52 AM EDT Oxygen Saturation - - [...] documented in this encounter Progress Notes * Catracho Hanley RN - 12/27/2024 7:45 AM EDT Pt presents to the Wound care Center for Nurse visit. Reason for nurse visit: dressing change Dressing change: Standard multilayer compression wrap [...] encounter Miscellaneous Notes * Patient Instructions - Catracho Hanley RN - 12/27/2024 7:45 AM EDT HOME-CARE INSTRUCTIONS FOLLOWING YOUR [...] with Dr. Hunt Continue Doxycycline as directed ABRAHAMASKIN #5 placed ( 12/24/24) PLEASE DO NOT [...] long periods of time. If you must machining manager one place, shift your weight and change [...] feel free to reach out to our united states marshal, Yolanda Garcia at [phone] for any discussion. WHO TO CALL FOR PROBLEMS: Please call the OP wound care center with any problems or issues you may have after your visit or though the week. Each patient is assigned a high risk case manager who can assist with issues you may be having. Monica Nam is your high risk case manager Individual office numbers are listed below. Press 1 for immediate or schedule needs, press 2 for the nursing line. The nurse line is for non-emergent needs and will be answered within 24 hours duringbusiness days. If you have a more immediate concern, press option #1. Office numbers: [phone] . [phone] [facility] [phone] If you have an urgent or emergent [...] Info) Description 01/28/2025 8:00 AM EDT Appointment [facility] Wound Care Center [place] [address] [place] [address] Aleksey Hunt DPM [address] [place], [place] [address] [address] 02/24/2025 1:00 PM EDT Clinical Support [facility] [place] [address] [place] [address] 02/28/2025 8:00 AM EDT Office Visit [facility] [place] [address] [place] [address] Blair Cordon MD [address] [place] [id number] documented as of this encounter Goals Goal [...] peripheral neuropathy weekly. Refer to PCP and/or Timber Mill Worker, Vascular Specialist as indicated. Monitor patient compliance [...] red Date AMB [facility] PRIMARY DRESSING 1 12/27/2024 documented in this encounter Additional Health Concerns Assessment Noted Time PHQ-9 Depression Total Score: 1 07/22/20 24 3:29 PM EST A fall risk assessment has been complete d for the patient 02/07/2019 11:25 AM EDT PHQ-2 Depression Total Score: 1 07/22/20 24 3:29 PM EST documented as of this encounter Care Teams Apiculture Teacher Relationship Specialty Start Date End Date Dylon Izaguirre MD [address] [place] [address] PCP - General Family Medicine 09/05/23 documented as of this encounter
--- OUTSIDE RECORDS SUMMARY | 2024-12-31 07:45 | XMS_ITS | Encounter Summary ---
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, with fat layer exposed (HCC) Venous insufficiency of both lower extremities PVD (peripheral vascular disease) Procedures [facility] PRIMARY DRESSING Aleksey Hunt DPM [address] [place] [address] Phone: tel: fax: Referral ID Status Reason Start Date Expiration Date V isits Requested Visits Authorized [id number] Pending Review 12/31/2024 12/31/2025 1 1 Reason for Visit * Reason Comments Wound Check * Consultation (Routine) - Authorization Not Needed Specialty Diagnoses / Procedures Referred By Patrick amador Referred To Contact Wound Care Diagnoses Wound Care Procedures [place] DEBRIDEMENT SUBCUTANEOUS TISSUE 1ST 20 SQ CM/< [place] DEBRIDEMENT MUSCLE &/FASCIA 1ST 20 SQ CM/< [place] DEBRIDEMENT BONE 1ST 20 SQ CM/< [place] DEBRIDEMENT SUBCUTANEOUS TISSUE EA ADDL 20 SQ CM [place] DEBRIDEMENT MUSCLE &/FASCIA EA ADDL 20 SQ CM [place] DEBRIDEMENT BONE EACH ADDITIONAL 20 SQ CM [place] DEBRIDEMENT OPEN WOUND FIRST 20 SQ CM/< [place] DEBRIDEMENT OPN WND EA ADDL 20 SQ CM/PRT THEREOF [facility] Wound Care Center [place] [address] [place] [address] Phone: tel: fax: Referral ID Status Reason Start Date Expiration Date Visits Requested Visits Authorized [id number] Authorization Not Needed Specialty Services Required 5 09/05/2025 99 99 Encounter Details Date Type Department Care Team (Latest Contact Info) Description 12/31/2024 7:45 AM EDT - 12/31/2024 11:59 PM EDT Hospital Encounter [facility] Wound Care Center [place] [address] Aleksey Hunt, UMESH [address] [place] [address] Diabetic ulcer of left lower leg associated [...] drink = 0.6 oz pur e alcohol) [facility] Utilities Answer Date Recorded In the past 12 months has e [employer], gas, oil, or water [employer] threatened to shut off services in your home? No 07/22/2024 Overall Financial Resource Strain (CARDIA) Answe r Date Recorded How hard is it for you to pa y for the very basics like food, housing, medical care, and heating? Not very hard 07/22/2024 PHQ-2 Answer Date Recorded PHQ-2 Total Score 1 07/22/2024 [facility] [place] of Occupat ional Health - Occupational Stress [...] money to get more. Never true 07/22/2024 [facility] IP Transportation Answer D ate Recorded [...] Sign Reading Time Taken Comments Blood Pressure 129/70 12/31/2024 7:54 AM EDT Pulse 72 12/31/2024 7:54 AM EDT Temperature 36.3 C (97.4 F) 12/31/2024 7:54 AM EDT Respiratory Rate 18 12/31/2024 7:54 AM EDT Oxygen Saturation - - Inhaled [...] Progress Notes * Aleksey Hunt DPM - 12/31/2024 7:45 AM EDT Images from the original note were not included. Date of Visit:12/31/2024 Progress Note HPI Jose Alberto Seaman is a 74 y.o. year old male patient who presents today for wound evaluation and follow-up. Patient has a left ankle chronic Diabetic/venous ulcer(s) which is (are) located on the left leg. Symptoms include none. Patients past medical, family and social histories were reviewed and updated. There were no changesexcept as noted. ROS See HPI for further details. Relevant review of systems otherwise negative. Physical Exam Vitals: 12/31/24 0754 BP: 129/70 Pulse: 72 Resp: 18 Temp: 97.4 ??F (36.3 ??C) TempSrc: Forehead Ulcer Progress [...] vascular disease) - AMB [facility] PRIMARY DRESSING Other orders [...] were given 5. Follow- up 1 week. Some graft take. Applied steristrips. documented in this encounter Miscellaneous Notes * Patient Instructions - Monica Hu RN - 12/31/2024 7:45 AM EDT HOME-CARE INSTRUCTIONS FOLLOWING YOUR [...] next Monday with Dr. Hunt Nurse visit on Monday Continue Doxycycline as directed ABRAHAMASKIN #5 placed ( 12/24/24) PLEASE DO NOT DISTURB ADAPTIC TO RIGHT LOWER LEG,COVER WITH GAUZE AND TAPE-COMPRESSION STOCKING ADAPTIC AND SILVER TO WOUND BEDS- REPLACE THE SILVER AT NURSE VISIT, REPLACE ADAPTIC IF ITS TOO GOOEY -you may replace steri strips too Abd pad, kerlix - left leg Compression [...] long periods of time. If you must cinder crew worker one place, shift your weight and change [...] feel free to reach out to our vulcanized fiber unit operator, Yolanda Garcia at [phone] for any discussion. WHO TO CALL FOR PROBLEMS: Please call the OP wound care center with any problems or issues you may have after your visit or though the week. Each patient is assigned a showcase maker who can assist with issues you may be having. Monica Nam is your showcase maker Individual office numbers are listed below. Press 1 for immediate or schedule needs, press 2 for the nursing line. The nurse line is for non-emergent needs and will be answered within 24 hours duringbusiness days. If you have a more immediate concern, press option #1. Office numbers: [phone] [place]aiYpkngv-[phone] [facility] [phone] If you have an urgent or emergent [...] Info) Description 01/28/2025 8:00 AM EDT Appointment [facility] Wound Care Center [place] [address] [place] [address] Aleksey Hunt DPM [facility] [place] [address] 02/24/2025 1:00 PM EDT Clinical Support [facility] [place] [place] [address] [place] [address] 02/28/2025 8:00 AM EDT Office Visit [facility] [place] [address] [place] [address] Blair Cordon MD [address] [place] [phone] documented as of this encounter Goals Goal [...] peripheral neuropathy weekly. Refer to PCP and/or Chairman, Vascular Specialist as indicated. Monitor patient compliance with wound care, diabetes management and proper offloading. 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, with fat layer exposed (HCC) Venous insufficiency of both lower extremities PVD (peripheral vascular disease) Peripheral vascular disease, unspecified documented in this encounter Orders Medications Ordered That Desmond ht Not Have Been Administered Count Last Ordered Date First Ordered Date lidocaine (XYLOCAINE) 5 % ointment 1 2024 Nursing Count Last Ordered Date First Orde red Date AMB [facility] PRIMARY DRESSING 1 12/31/2024 documented in this encounter Additional Health Concerns Assessment Noted Time PHQ-9 Depression Total Score: 1 07/22/20 24 3:29 PM EST A fall risk assessment has been complete d for the patient 02/07/2019 11:25 AM EDT PHQ-2 Depression Total Score: 1 07/22/20 24 3:29 PM EST documented as of this encounter Care Teams Compensation And Benefits Analyst Relationship Specialty Start Date End Date Dylon Izaguirre MD [address] [place] [address] PCP - General Family Medicine 09/05/23 documented as of this encounter
--- OUTSIDE RECORDS SUMMARY | 2025-01-03 07:43 | XMS_ITS | Encounter Summary ---
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 [address] Phone: tel: fax: Referral ID Status Reason Start Date Expiration Date V isits Requested Visits Authorized [id number] Pending Review 01/03/2025 01/03/2026 1 1 Reason for Visit * Reason Comments Dressing Change * Consultation (Routine) - Authorization Not Needed Specialty Diagnoses / Procedures Referred By Contac t Referred To Contact Wound Care Diagnoses Wound Care Procedures [place] DEBRIDEMENT SUBCUTANEOUS TISSUE 1ST 20 SQ CM/< [place] DEBRIDEMENT MUSCLE &/FASCIA 1ST 20 SQ CM/< [place] DEBRIDEMENT BONE 1ST 20 SQ CM/< [place] DEBRIDEMENT SUBCUTANEOUS TISSUE EA ADDL 20 SQ CM [place] DEBRIDEMENT MUSCLE &/FASCIA EA ADDL 20 SQ CM [place] DEBRIDEMENT BONE EACH ADDITIONAL 20 SQ CM [place] DEBRIDEMENT OPEN WOUND FIRST 20 SQ CM/< [place] DEBRIDEMENT OPN WND EA ADDL 20 SQ CM/PRT THEREOF [facility] [address] [place] [address] Phone: tel: fax: Referral ID Status Reason Start Date Expiration Date Visits Requested Visits Authorized [id number] Authorization Not Needed Specialty Services Required 09/05/2025 99 99 Encounter Details Date Type Department Care Team (Latest Contact Info) Description 01/03/2025 7:43 AM EDT - 01/03/2025 11:59 PM EDT Hospital Encounter [facility] [address] 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 No 07/22/2024 Overall Financial Resource Strain (CARDIA) Answe r Date Recorded How hard is it for you to pa y for the very basics like food, housing, medical care, and heating? Not very hard 07/22/2024 PHQ-2 Answer Date Recorded PHQ-2 Total Score 1 07/22/2024 [facility] - Occupational Stress Questionnaire Answer Date [...] money to get more. Never true 07/22/2024 [facility] IP Transportation Answer D ate Recorded [...] Sign Reading Time Taken Comments Blood Pressure 156/73 01/03/2025 7:46 AM EDT Pulse 66 01/03/2025 7:46 AM EDT Temperature 36.6 C (97.9 F) 01/03/2025 7:46 AM EDT Respiratory Rate 18 01/03/2025 7:46 AM EDT Oxygen Saturation - - Inhaled [...] documented in this encounter Progress Notes * Irlanda Littlejohn LPN - 01/03/2025 7:45 AM EDT Pt presents to the [...] encounter Miscellaneous Notes * Patient Instructions - Irlanda Littlejohn LPN - 01/03/2025 7:45 AM EDT HOME-CARE INSTRUCTIONS FOLLOWING YOUR [...] visit on Monday Continue Doxycycline as directed JUVENAL #5 placed [...] long periods of time. If you must dragline oiler one place, shift your weight and change [...] free to reach out to our community service organization director, Yolanda Garcia at [phone] for any discussion. WHO TO CALL FOR PROBLEMS: Please call the OP wound care center with any problems or issues you may have after your visit or though the week. Each patient is assigned a shoe caser who can assist with issues you may be having. Monica Nam is your shoe caser Individual office numbers are listed below. Press 1 for immediate or schedule needs, press 2 for the nursing line. The nurse line is for non-emergent needs and will be answered within 24 hours duringbus days. If you have a more immediate concern, press option #1. Office numbers: [phone] [place]zcx-[phone] [facility] [phone] If you have an urgent or emergent [...] information folder. * Addendum Note - Ceci Mosqueda, MEIR - 01/03/2025 7:45 AM EDTEncounter addended by: Ceci Mosqueda RN on: 01/03/2025 11:47 AM Actions taken: Order list changed, Diagnosis association updated documented in this encounter Plan of Treatment Upcoming Encounters Date Type Department Care Team (Late st Contact Info) Description 01/28/2025 8:00 AM EDT Appointment [facility] [place] [address] [place] [address] Aleksey Hunt DPM [address] [place] [address] 02/24/2025 1:00 PM EDT Clinical Support [facility] [place] [address] [facility] [address] [place] [address] 02/28/2025 8:00 AM EDT Office Visit [facility] [place] [address] [place] [address] Blair Cordon MD [address] [place] [address] documented as of this encounter [...] peripheral neuropathy weekly. Refer to PCP and/or Primary Class Teacher, Vascular Specialist as indicated. Monitor patient compliance with wound care, diabetes management and proper offloading. 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)- Primary documented in this encounter Orders Nursing Count Last Ordered Date First Orde red Date AMB C PRIMARY DRESSING 2 01/03/2025 documented in this encounter Additional Health Concerns Assessment Noted Time PHQ-9 Depression Total Score: 1 07/22/20 24 3:29 PM EST A fall risk assessment has been complete d for the patient 02/07/2019 11:25 AM EDT PHQ-2 Depression Total Score: 1 07/22/20 24 3:29 PM EST documented as of this encounter Care Teams Buttonholer Relationship Specialty Start Date End Date Dylon Izaguirre MD [address] [place] [address] PCP - General Family Medicine 09/05/23 documented as of this encounter
--- OUTSIDE RECORDS SUMMARY | 2025-01-07 07:45 | XMS_ITS | Encounter Summary ---
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, with fat layer exposed (HCC) Venous insufficiency of both lower extremities PVD (peripheral vascular disease) Procedures AMB [facility] PRIMARY DRESSING Aleksey Hunt DPM [address] [place] [address] Phone: tel: fax: Referral ID Status Reason Start Date Expiration Date V isits Requested Visits Authorized [id number] Pending Review 01/07/2025 01/07/2026 1 1 Reason for Visit * Reason Comments Wound Check * Consultation (Routine) - Authorization Not Needed Specialty Diagnoses / Procedures Referred By Patrick amador Referred To Contact Wound Care Diagnoses Wound Care Procedures [place] DEBRIDEMENT SUBCUTANEOUS TISSUE 1ST 20 SQ CM/< [place] DEBRIDEMENT MUSCLE &/FASCIA 1ST 20 SQ CM/< [place] DEBRIDEMENT BONE 1ST 20 SQ CM/< [place] DEBRIDEMENT SUBCUTANEOUS TISSUE EA ADDL 20 SQ CM [place] DEBRIDEMENT MUSCLE &/FASCIA EA ADDL 20 SQ CM [place] DEBRIDEMENT BONE EACH ADDITIONAL 20 SQ CM [place] DEBRIDEMENT OPEN WOUND FIRST 20 SQ CM/< [place] DEBRIDEMENT OPN WND EA ADDL 20 SQ CM/PRT THEREOF [facility] [address] [place] [address] Phone: tel: fax: Referral ID Status Reason Start Date Expiration Date Visits Requested Visits Authorized [id number] Authorization Not Needed Specialty Services Required 09/05/2025 99 99 Encounter Details Date Type Department Care Team (Latest Contact Info) Description 01/07/2025 7:45 AM EDT - 01/07/2025 11:59 PM EDT Hospital Encounter [facility] [address] [place] [address] Aleksey Hunt, UMESH [address] [place] [address] Diabetic ulcer of left lower leg associated [...] drink = 0.6 oz pur e alcohol) [facility] Utilities Answer Date Recorded In the past 12 months has e [employer], gas, oil, or water [employer] threatened to shut off services in your home? No 07/22/2024 Overall Financial Resource Strain (CARDIA) Answe r Date Recorded How hard is it for you to pa y for the very basics like food, housing, medical care, and heating? Not very hard 07/22/2024 PHQ-2 Answer Date Recorded PHQ-2 Total Score 1 07/22/2024 [facility] [place] [facility] - Occupational Stress [...] to get more. Never true 07/22/2024 [facility] IP Transportation Answer D ate Recorded In [...] Sign Reading Time Taken Comments Blood Pressure 159/72 01/07/2025 7:53 AM EDT Pulse 63 01/07/2025 7:53 AM EDT Temperature 36.2 C (97.2 F) 01/07/2025 7:53 AM EDT Respiratory Rate 18 01/07/2025 7:53 AM EDT Oxygen Saturation - - Inhaled [...] Progress Notes * Aleksey Hunt DPM - 01/07/2025 7:45 AM EDT Images from the original note were not included. Date of Visit:01/07/2025 Progress Note HPI Jose Alberto Seaman is a 74 y.o. year old male patient who presents today for wound evaluation and follow-up. Patient has a left ankle chronic venous leg and diabetic ulcer(s) which is (are) located on the left leg. Symptoms include none. Patients past medical, family and social histories were reviewed and updated. There were no changesexcept as noted. ROS See HPI for further details. Relevant review of systems otherwise negative. Physical Exam Vitals: 01/07/25 0753 BP: 159/72 Pulse: 63 Resp: 18 Temp: 97.2 ??F (36.2 ??C) TempSrc: Temporal Ulcer Progress and Procedure Please refer to [...] were given 5. Follow- up 1 week. Excess drainage. Partial tape. Hopefully the remaining portion of the TheraSkin skin graft substitute will take. documented in this encounter Miscellaneous Notes * Patient Instructions - Monica Hu RN - 01/07/2025 7:45 AM EDT HOME-CARE INSTRUCTIONS FOLLOWING YOUR [...] visit on Monday Continue Doxycycline as directed THERASKIN #5 placed ( 12/24/24) PLEASE DO NOT [...] long periods of time. If you must inspector aligning one place, shift your weight and change [...] feel free to reach out to our loading unit tool setter, Yolanda Garcia at [phone] for any discussion. WHO TO CALL FOR PROBLEMS: Please call the OP wound care center with any problems or issues you may have after your visit or though the week. Each patient is assigned a case checker who can assist with issues you may be having. Monica Nam is your case checker Individual office numbers are listed below. Press 1 for immediate or schedule needs, press 2 for the nursing line. The nurse line is for non-emergent needs and will be answered within 24 hours duringbusiness days. If you have a more immediate concern, press option #1. Office numbers: [phone] [place]upqis-[phone] [place]- [phone] If you have an urgent or emergent [...] Info) Description 01/28/2025 8:00 AM EDT Appointment [facility] [place] [address] [place] [address] Aleksey Hunt DPM [address] [place] [address] 02/24/2025 1:00 PM EDT Clinical Support [facility] [place] [address] [place] [address] 02/28/2025 8:00 AM EDT Office Visit [facility] [place] [address] [place] [address] Blair Cordon MD [address] [place] [address] documented as of this encounter [...] peripheral neuropathy weekly. Refer to PCP and/or Bulk Tank Driver, Vascular Specialist as indicated. Monitor patient compliance [...] red Date AMB [facility] PRIMARY DRESSING 1 01/07/2025 documented in this encounter Additional Health Concerns Assessment Noted Time PHQ-9 Depression Total Score: 1 07/22/20 24 3:29 PM EST A fall risk assessment has been complete d for the patient 02/07/2019 11:25 AM EDT PHQ-2 Depression Total Score: 1 07/22/20 24 3:29 PM EST documented as of this encounter Care Teams Equipment Operat0R Relationship Specialty Start Date End Date Dylon Izaguirre MD [address] [place] [address] PCP - General Family Medicine 09/05/23 documented as of this encounter
--- OUTSIDE RECORDS SUMMARY | 2025-01-10 07:59 | XMS_ITS | Encounter Summary ---
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 [place] [address] Phone: tel: fax: Referral ID Status Reason Start Date Expiration Date V isits Requested Visits Authorized [id number] Pending Review 01/10/2025 01/10/2026 1 1 Reason for Visit * Reason [...] WND EA ADDL 20 SQ CM/PRT THEREOF [facility] [address] [place] [address] Phone: tel: fax: Referral ID Status Reason Start Date Expiration Date Visits Requested Visits Authorized [id number] Authorization Not Needed Specialty Services Required 5 09/05/2025 99 99 Encounter Details Date Type Department Care Team (Latest Contact Info) Description 01/10/2025 7:59 AM EDT - 01/10/2025 11:59 PM EDT Hospital Encounter [facility] [place] [address] Darek Najera MD [facility] [place] [address] Diabetic ulcer of left lower [...] drink = 0.6 oz pur e alcohol) [facility] Utilities Answer Date Recorded In the past 12 months has e [employer], gas, oil, or water [employer] threatened to shut off services in your home? No 07/22/2024 Overall Financial Resource Strain (CARDIA) Answe r Date Recorded How hard is it for you to pa y for the very basics like food, housing, medical care, and heating? Not very hard 07/22/2024 PHQ-2 Answer Date Recorded PHQ-2 Total Score 1 07/22/2024 [facility] [place] [facility] Occupat ional [facility] - Occupational Stress [...] to get more. Never true 07/22/2024 [facility] IP Transportation Answer D ate Recorded [...] Sign Reading Time Taken Comments Blood Pressure 155/75 01/10/2025 8:04 AM EDT Pulse 72 01/10/2025 8:04 AM EDT Temperature 36.3 C (97.4 F) 01/10/2025 8:04 AM EDT Respiratory Rate 16 01/10/2025 8:04 AM EDT Oxygen Saturation - - [...] documented in this encounter Progress Notes * Britni Agrawal LPN - 01/10/2025 8:00 AM EDT Pt presents to the Wound [...] Patient Instructions - Britni Agrawal LPN - 01/10/2025 8:00 AM EDT HOME-CARE INSTRUCTIONS FOLLOWING YOUR WOUND [...] Dr. Hunt Continue Doxycycline as directed THERASKIN #5 placed [...] long periods of time. If you must assistant refinery operator one place, shift your weight and [...] feel free to reach out to our clinical unit coordinator, Yolanda Garcia at [phone] for any discussion. WHO TO CALL FOR PROBLEMS: Please call the OP wound care center with any problems or issues you may have after your visit or though the week. Each patient is assigned a case preparer and liner who can assist with issues you may be having. Monica Nam is your case preparer and liner Individual office numbers are listed below. Press 1 for immediate or schedule needs, press 2 for the nursing line. The nurse line is for non-emergent needs and will be answered within 24 hours duringbusiness days. If you have a more immediate concern, press option #1. Office numbers: [phone] [place]jpbm-[phone] [place]- [phone] If you have an urgent or emergent [...] Info) Description 01/28/2025 8:00 AM EDT Appointment [facility] W[facility] Care [facility] [place] [address] [place] [address] Aleksey Hunt DPM [address] [place] [address] 02/24/2025 1:00 PM EDT Clinical Support [facility] [place] [address] [place] [address] 02/28/2025 8:00 AM EDT Office Visit [facility] [place] [address] [place] [address] Blair Cordon MD [address] [...] peripheral neuropathy weekly. Refer to PCP and/or Chief Engineering Division, Vascular Specialist as indicated. Monitor patient compliance [...] red Date AMB [facility] PRIMARY DRESSING 1 01/10/2025 documented in this encounter Additional Health Concerns Assessment Noted Time PHQ-9 Depression Total Score: 1 07/22/20 24 3:29 PM EST A fall risk assessment has been complete d for the patient 02/07/2019 11:25 AM EDT PHQ-2 Depression Total Score: 1 07/22/20 24 3:29 PM EST documented as of this encounter Care Teams Spooler Rubber Strand Relationship Specialty Start Date End Date Dylon Izaguirre MD [address] [place] [address] PCP - General Family Medicine 09/05/23 documented as of this encounter
--- OUTSIDE RECORDS SUMMARY | 2025-01-14 07:42 | XMS_ITS | Encounter Summary ---
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, with fat layer exposed (HCC) Venous insufficiency of both lower extremities PVD (peripheral vascular disease) Procedures AMB [facility] PRIMARY DRESSING Aleksey Hunt DPM [address] [place] [address] Phone: tel: fax: Referral ID Status Reason Start Date Expiration Date V isits Requested Visits Authorized [id number] Pending Review 01/14/2025 01/14/2026 1 1 * (Routine) - Pending Review Specialty Diagnoses / Procedures [facility] Referred To Contact Diagnoses 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, with fat layer exposed (HCC) Venous insufficiency of both lower extremities PVD (peripheral vascular disease) Procedures AMB [facility] PRIMARY DRESSING Aleksey Hunt DPM [address] [place] [address] Phone: tel: fax: Referral ID Status Reason Start Date Expiration Date V isits Requested Visits Authorized [id number] Pending Review 01/14/2025 01/14/2026 1 1 Reason for Visit * Reason Comments Wound Check * Consultation (Routine) - Authorization Not Needed Specialty Diagnoses / Procedures Referred By Contac t Referred To Contact Wound Care Diagnoses Wound Care Procedures NV DEBRIDEMENT SUBCUTANEOUS TISSUE 1ST 20 SQ CM/< NV DEBRIDEMENT MUSCLE &/FASCIA 1ST 20 SQ CM/< NV DEBRIDEMENT BONE 1ST 20 SQ CM/< NV DEBRIDEMENT SUBCUTANEOUS TISSUE EA ADDL 20 SQ CM NV DEBRIDEMENT MUSCLE &/FASCIA EA ADDL 20 SQ CM NV DEBRIDEMENT BONE EACH ADDITIONAL 20 SQ CM NV DEBRIDEMENT OPEN WOUND FIRST 20 SQ CM/< NV DEBRIDEMENT OPN WND EA ADDL 20 SQ CM/PRT THEREOF [facility] Wound Care [facility] [place] [address] [address] Phone: tel: fax: Referral ID Status Reason Start Date Expiration Date Visits Requested Visits Authorized [id number] Authorization Not Needed Specialty Services Required 09/05/2025 99 99 Encounter Details Date Type Department Care Team (Latest Contact Info) Description 01/14/2025 7:42 AM EDT - 01/14/2025 11:59 PM EDT Hospital Encounter [facility] Wound Care [facility] [place] [address] [address] [place] [address] Aleksey Hunt DPM [address] [place] [address] Diabetic ulcer of left lower leg associated [...] = 0.6 oz pur e alcohol) [facility] Utilities Answer Date Recorded In the past [...] Date Recorded PHQ-2 Total Score 1 07/22/2024 [facility] of Occupat ional [facility] - Occupational Stress Questionnaire Answer Date [...] money to get more. Never true 07/22/2024 [facility] IP Transportation Answer D ate Recorded [...] Sign Reading Time Taken Comments Blood Pressure 147/70 01/14/2025 7:52 AM EDT Pulse 66 01/14/2025 7:52 AM EDT Temperature 36.7 C (98 F) 01/14/2025 7:52 AM EDT Respiratory Rate 16 01/14/2025 7:52 AM EDT Oxygen Saturation - - [...] Progress Notes * Aleksey Hunt DPM - 01/14/2025 8:00 AM EDT Images from the original note were not included. Date of Visit:01/14/2025 Progress Note HPI Jose Alberto Seaman is a 74 y.o. year old male patient who presents today for wound evaluation and follow-up. Patient has a chronic left ankle combined venous and diabetic ulcer(s) which is (are) located on the left leg. Symptoms include pain. Patients past medical, family and social histories were reviewed and updated. There were no changesexcept as noted. ROS See HPI for further details. Relevant review of systems otherwise negative. Physical Exam Vitals: 01/14/25 0752 BP: 147/70 Pulse: 66 Resp: 16 Temp: 98 ??F (36.7 ??C) TempSrc: Temporal Ulcer Progress and Procedure Please refer to the LDA for details of ulcer progress and procedure. Assessment and Plan Jose Alberto was seen today for wound check. 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 Continue [...] were given 5. Follow- up 1 week. Large amount of exudate. Now with granulation tissue. Needs OR debridement. Get that set up for soon as possible. Needs rest and elevation and off loading is much as possible. 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 documented in this encounter Miscellaneous Notes * Patient Instructions - Monica Hu, RN - 01/14/2025 8:00 AM EDT HOME-CARE INSTRUCTIONS FOLLOWING YOUR [...] visit on Monday Continue Doxycycline as directed COMPRESSION STOCKING to right leg ADAPTIC AND SILVER TO WOUND BED, ABD pad and kerlix left lower leg Compression Wraps Location:Coflex LEFT LEG Type:MultiLayer [...] long periods of time. If you must mail inserter one place, shift your weight and change [...] to reach out to our community health specialist, Yolanda Garcia at [phone] for any discussion. WHO TO CALL FOR PROBLEMS: Please call the OP wound care center with any problems or issues you may have after your visit or though the week. Each patient is assigned a gearcase assembler who can assist with issues you may be having. Monica Nam is your gearcase assembler Individual office numbers are listed below. Press 1 for immediate or schedule needs, press 2 for the nursing line. The nurse line is for non-emergent needs and will be answered within 24 hours duringbusiness days. If you have a more immediate concern, press option #1. Office numbers: [phone] [place] [phone] Kristopher- [phone] If you have an urgent or emergent [...] Info) Description 01/28/2025 8:00 AM EDT Appointment [facility] Wound Care Center [address] [address] Aleksey Hunt DPM [address] [place] [address] 02/24/2025 1:00 PM EDT Clinical Support [facility] [place] [address] 02/28/2025 8:00 AM EDT Office Visit [facility] [address] [place] [address] Blair Cordon MD [address] [facility] [address] [place] [address] documented as of this encounter [...] peripheral neuropathy weekly. Refer to PCP and/or Wind Energy Project Manager, Vascular Specialist as indicated. Monitor patient compliance [...] AMB [facility] PRIMARY DRESSING 2 01/14/2025 documented in this encounter Additional Health Concerns Assessment Noted Time PHQ-9 Depression Total Score: 1 07/22/20 24 3:29 PM EST A fall risk assessment has been complete d for the patient 02/07/2019 11:25 AM EDT PHQ-2 Depression Total Score: 1 07/22/20 24 3:29 PM EST documented as of this encounter Care Teams Filter Press Operator Relationship Specialty Start Date End Date Dylon Izaguirre MD [address] [place] [address] PCP - General Family Medicine 09/05/23 documented as of this encounter
--- OUTSIDE RECORDS SUMMARY | 2025-01-17 07:45 | XMS_ITS | Encounter Summary ---
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 [address] Phone: tel: fax: Referral ID Status Reason Start Date Expiration Date V isits Requested Visits Authorized [id number] Pending Review 01/17/2025 01/17/2026 1 1 Reason for Visit * Reason Comments Wound Check * Consultation (Routine) - Authorization Not Needed Specialty Diagnoses / Procedures Referred By Patrick amador Referred To Contact Wound Care Diagnoses Wound Care Procedures IN DEBRIDEMENT SUBCUTANEOUS TISSUE 1ST 20 SQ CM/< IN DEBRIDEMENT MUSCLE &/FASCIA 1ST 20 SQ CM/< IN DEBRIDEMENT BONE 1ST 20 SQ CM/< IN DEBRIDEMENT SUBCUTANEOUS TISSUE EA ADDL 20 SQ CM IN DEBRIDEMENT MUSCLE &/FASCIA EA ADDL 20 SQ CM IN DEBRIDEMENT BONE EACH ADDITIONAL 20 SQ CM IN DEBRIDEMENT OPEN WOUND FIRST 20 SQ CM/< IN DEBRIDEMENT OPN WND EA ADDL 20 SQ CM/PRT THEREOF [facility] Wound Care Center [address] [address] [place] [address] Phone: tel: fax: Referral ID Status Reason Start Date Expiration Date Visits Requested Visits Authorized [id number] Authorization Not Needed Specialty Services Required 09/05/2025 99 99 Encounter Details Date Type Department Care Team (Latest Contact Info) Description 01/17/2025 7:45 AM EDT - 01/17/2025 11:59 PM EDT Hospital Encounter [facility] Wound Care Center [place] [address] [place] [address] Darek Najera MD [facility] [place] [address] Diabetic ulcer of left lower [...] drink = 0.6 oz pur e alcohol) [place] Utilities Answer Date Recorded In the past 12 months has [facility], gas, oil, or water [employer] threatened to shut off services in your home? No 07/22/2024 Overall Financial Resource Strain (CARDIA) Answe r Date Recorded How hard is it for you to pa y for the very basics like food, housing, medical care, and heating? Not very hard 07/22/2024 PHQ-2 Answer Date Recorded PHQ-2 Total Score 1 07/22/2024 [facility] [place] of Occupat ional Health - Occupational [...] money to get more. Never true 07/22/2024 [facility] IP Transportation Answer D ate Recorded [...] Sign Reading Time Taken Comments Blood Pressure 129/62 01/17/2025 8:03 AM EDT Pulse 70 01/17/2025 8:03 AM EDT Temperature 36.7 C (98.1 F) 01/17/2025 8:03 AM EDT Respiratory Rate 16 01/17/2025 8:03 AM EDT Oxygen Saturation - - Inhaled [...] Progress Notes * Monica Hu RN - 01/17/2025 7:45 AM EDT Pt presents to the [...] Patient Instructions - Monica Hu RN - 01/17/2025 7:45 AM EDT HOME-CARE INSTRUCTIONS FOLLOWING YOUR [...] long periods of time. 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 WHO TO CALL FOR PROBLEMS: Please call the OP wound care center with any problems or issues you may have after your visit or though the week. Each patient is assigned a returned case inspector who can assist with issues you may be having. Monica Nam is your returned case inspector Individual office numbers are listed below. Press 1 for immediate or schedule needs, press 2 for the nursing line. The nurse line is for non-emergent needs and will be answered within 24 hours during business days. If you have a more immediate concern, press option #1. Office numbers: [phone] [phone] Kristopher- [phone] If you have an urgent or emergent [...] Info) Description 01/28/2025 8:00 AM EDT Appointment [facility] Wound Care Center [place] [address] [place] [address] Aleksey Hunt DPM [address] [facility] [place] [address] 02/24/2025 1:00 PM EDT Clinical Support [facility] [address] [place] [address] 02/28/2025 8:00 AM EDT Office Visit [facility] [place] [address] [place] [address] Blair Cordon MD [address] [place] [id number] documented as of this encounter Goals Goal [...] peripheral neuropathy weekly. Refer to PCP and/or Drainlayer, Vascular Specialist as indicated. Monitor patient compliance [...] red Date AMB [facility] PRIMARY DRESSING 1 01/17/2025 documented in this encounter Additional Health Concerns Assessment Noted Time PHQ-9 Depression Total Score: 1 07/22/20 24 3:29 PM EST A fall risk assessment has been complete d for the patient 02/07/2019 11:25 AM EDT PHQ-2 Depression Total Score: 1 07/22/20 24 3:29 PM EST documented as of this encounter Care Teams Phlebotomy Technologist Relationship Specialty Start Date End Date Dylon Izaguirre MD [address] [place] [address] PCP - General Family Medicine 09/05/23 documented as of this encounter
--- OUTSIDE RECORDS SUMMARY | 2025-01-21 07:45 | XMS_ITS | Encounter Summary ---
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 [address] Phone: tel: fax: Referral ID Status Reason Start Date Expiration Date V isits Requested Visits Authorized [id number] Pending Review 01/21/2025 01/21/2026 1 1 Reason for Visit * Reason Comments Wound Check * Consultation (Routine) - Authorization Not Needed Specialty Diagnoses / Procedures Referred By Patrick amador Referred To Contact Wound Care Diagnoses Wound Care Procedures ND DEBRIDEMENT SUBCUTANEOUS TISSUE 1ST 20 SQ CM/< ND DEBRIDEMENT MUSCLE &/FASCIA 1ST 20 SQ CM/< ND DEBRIDEMENT BONE 1ST 20 SQ CM/< ND DEBRIDEMENT SUBCUTANEOUS TISSUE EA ADDL 20 SQ CM ND DEBRIDEMENT MUSCLE &/FASCIA EA ADDL 20 SQ CM ND DEBRIDEMENT BONE EACH ADDITIONAL 20 SQ CM ND DEBRIDEMENT OPEN WOUND FIRST 20 SQ CM/< ND DEBRIDEMENT OPN WND EA ADDL 20 SQ CM/PRT THEREOF [facility] Wound Care Center [address] [address] Phone: tel: fax: Referral ID Status Reason Start Date Expiration Date Visits Requested Visits Authorized [id number] Authorization Not Needed Specialty Services Required 5 09/05/2025 99 99 Encounter Details Date Type Department Care Team (Latest Contact Info) Description 01/21/2025 7:45 AM EDT - 01/21/2025 11:59 PM EDT Hospital Encounter [facility] Wound Care Center [place] [address] Darek Najera MD [facility] [place] [address] Diabetic ulcer of left lower [...] drink = 0.6 oz pur e alcohol) [facility] Utilities Answer Date Recorded In the past 12 months has [facility] [place], gas, oil, or water [employer] threatened to shut off services in your home? No 07/22/2024 Overall Financial Resource Strain (CARDIA) Answe r Date Recorded How hard is it for you to pa y for the very basics like food, housing, medical care, and heating? Not very hard 07/22/2024 PHQ-2 Answer Date Recorded PHQ-2 Total Score 1 07/22/2024 [facility] [place] of Occupat ional Health - Occupational Stress [...] money to get more. Never true 07/22/2024 [facility] IP Transportation Answer D ate Recorded [...] Sign Reading Time Taken Comments Blood Pressure 126/70 01/21/2025 8:40 AM EDT Pulse 63 01/21/2025 8:40 AM EDT Temperature 36.7 C (98.1 F) 01/21/2025 8:40 AM EDT Respiratory Rate 16 01/21/2025 8:40 AM EDT Oxygen Saturation - - Inhaled [...] oxyCODONE-acetami nophen (PERCOCET) 5-325 mg Oral Tablet Take 1 Tablet by mouth every 4 hours as needed for Major Surgery/Trauma (G89.18) for up to 3 days. 20 Tablet 01/22/2025 1:42 PM EDT 01/22/2025 oxyCODONE-acetami nophen (PERCOCET) 5-325 mg Oral Tablet [...] or Self Care documented in this encounter Miscellaneous Notes * Patient Instructions - Britni Agrawal LPN - 01/21/2025 7:45 AM EDT HOME-CARE INSTRUCTIONS FOLLOWING YOUR [...] with Dr. Hunt Nurse visit on Monday COMPRESSION STOCKING to right leg ADAPTIC AND [...] long periods of time. 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 WHO TO CALL FOR PROBLEMS: Please call the OP wound care center with any problems or issues you may have after your visit or though the week. Each patient is assigned a case planner who can assist with issues you may be having. Monica Nam is your case planner Individual office numbers are listed below. Press 1 for immediate or schedule needs, press 2 for the nursing line. The nurse line is for non-emergent needs and will be answered within 24 hours duringbusiness days. If you have a more immediate concern, press option #1. Office numbers: [phone] [place] [phone]-[phone] Kristopher- [phone] If you have an urgent or emergent [...] Info) Description 01/28/2025 8:00 AM EDT Appointment [facility] Wound Care Center [place] [address] [place] [address] Aleksey Hunt DPM [address] [place] [address] 02/24/2025 1:00 PM EDT Clinical Support [facility] [address] [facility] [address] [address] [place] [address] 02/28/2025 8:00 AM EDT Office Visit [facility] [place] [address] [place] [address] Blair Cordon MD [address] [place] [address] documented as of this encounter [...] neuropathy weekly. Refer to PCP and/or Bulk Cooler Installer, Vascular Specialist as indicated. Monitor patient compliance with wound care, diabetes management and proper offloading. 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, with fat layer exposed (HCC) Venous insufficiency of both lower extremities PVD (peripheral vascular disease) Peripheral vascular disease, unspecified documented in this encounter Administered Medications Inactive Administered Medications - up to 1 most recent administrations Medication Order MAR Action Action Date Dose Rate Site lidocaine (XYLOCAINE) 5 % ointment Topical, ONCE, 1 dose, On Mon01/21/25 at 0900, Application site: leg Given 01/21/2025 8:57 AM EDT documented in this encounter Orders Medications Ordered That Desmond ht Not Have Been Administered Count Last Ordered Date First Ordered Date lidocaine (XYLOCAINE) 5 % ointment 1 2024 Nursing Count Last Ordered Date First Orde red Date AMB [facility] PRIMARY DRESSING 1 01/21/2025 documented in this encounter Additional Health Concerns Assessment Noted Time PHQ-9 Depression Total Score: 1 07/22/20 24 3:29 PM EST A fall risk assessment has been complete d for the patient 02/07/2019 11:25 AM EDT PHQ-2 Depression Total Score: 1 07/22/20 24 3:29 PM EST documented as of this encounter Care Teams Internal Investigator Relationship Specialty Start Date End Date Dylon Izaguirre MD [address] [place] [address] PCP - General Family Medicine 09/05/23 documented as of this encounter
--- OUTSIDE RECORDS SUMMARY | 2025-01-22 10:08 | XMS_ITS | Encounter Summary ---
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 Referral ID Status Reason Start Date Expiration Date Visits Re quested Visits Authorized [id number] 1 1 Encounter Details Date Type Department Care Team (Latest Contact Info) Description 01/22/2025 10:08 AM EDT - 01/22/2025 2:17 PM EDT Hospital Encounter EDG SAME DAY SURGERY [facility] [place] [address] Aleksey Hunt DPM [address] [place] [address] Discharge Disposition: Home or Self Care Social [...] Date Recorded PHQ-2 Total Score 1 07/22/2024 [facility] - Occupational Stress [...] true 07/22/2024 [facility] IP Transportation Answer D ate Recorded In [...] Sign Reading Time Taken Comments Blood Pressure 119/74 01/22/2025 2:11 PM EDT Pulse 68 01/22/2025 2:11 PM EDT Temperature 36.4 C (97.5 F) 01/22/2025 2:11 PM EDT Respiratory Rate 18 01/22/2025 2:11 PM EDT Oxygen Saturation 99% 01/22/2025 2:11 PM EDT Inhaled Oxygen Concentration - - Weight 113.9 kg (251 lb) 01/22/2025 10:28 AM EDT Height 175.3 cm (5' 9 ) 01/22/2025 10:28 AM EDT Body Mass Index 37.07 01/22/2025 10:28 AM EDT documented in this encounter Discharge Instructions * Discharge Instructions* Aleksey Hunt DPM - 01/22/2025 10:34 AM EDT [facility] Discharge Instructions for DRS. Ford, Mega, and Marilee You have just had a surgical procedure performed. The amount of discomfort will vary from one patient to another. The following instructions are for your benefit to help minimize swelling and pain and ensure fast, uncomplicated healing. Go directly home. Keep your foot (feet) elevated on the way home. Place as little weight as possible on your foot (feet). Do not sit with your feet down or crossed for any length of time. This causesthe feet to swell and become painful. A limited amount of swelling is to be expected. The skin may take on a bruised appearance. This is no cause for alarm. Ice and elevation are important in preventing excessive swelling and pain. Elevate your foot (feet) with two pillows with the knee slightly bent. Place the pillows so that they support the back and knee. Place an ice pack directly over the bandages at the ankle level and leave inplace for 30 minutes out of every hour. Follow ice and elevation instructions strickly for the first 72 hours. Ice packs do not have to be used at night, however keep foot (feet) elevated. Keep your bandages clean, dry, and in place at all times. Do not remove the bandages or inspect thewound. A small amount of blood is normal. If your bandages become saturated with blood, call immediately. Use surgical shoe(s) or boot(s) at all times whenever walking. Showers are not allowed. A sponge bath is most acceptable. You may take a bath provided you cover the bandages with two plastic bags (as instructed) and hang foot (feet) outside the tub while bathing. Exercise your legs frequently by bending your knees and ankles to stimulate circulation and speed healing. Do not sit with your foot (feet) down for more than 10 minutes, do not cross legs, and do not fine patcher one place for any length of time. You are allowed bathroom and meal privileges only for the first 72 hours. Otherwise, remain quiet and off your feet. Take your medicine(s) as directed. If they cause a stomach upset, headache, rash, or other abnormalreactions, discontinue their use and call immediately. Get plenty of rest, drink plenty of fluids-eat your regular well-balanced diet, and curtail alcoholic beverages and smoking. Call Immediately if: the bandages become tight, your toes become numb and/or start to tingle and/orturn blue, the bandages become saturated with blood, the bandages become wet, your medication does not stop the discomfort, if you should you bump or injure your foot (feet), or if you develop a fever. Call the office at [phone] with questions or concerns. Other instruction: Weight bearing for transfer and bathroom privileges. Continuous Nerve Block: Patient Instructions You have had a nerve block to effectively manage your post-operative pain. To facilitate this process, a catheter has been placed close to your nerve so that pain medicine can be delivered on a continuous basis using a pain pump. General Instructions: Protect your blocked arm/leg. It is numb. Carefully pad your limb to prevent pressure sores and other injuries. Be careful with applying cold/warm to the blocked limb. Numbness will alter the sensation of the limb and could damage your skin if you cannot correctly feel the temperature. Do not drive or operate machinery while the catheter is in place and your extremity is numb. Do not pull or tug on the catheter. Keep the dressing at the catheter site clean and dry. Do not pinch the catheter or the tubing. A small amount of fluid leaking around the catheter is normal. For upper limb blocks: Make sure the entire arm, including the wrist, is supported. Do not let the wrist dangle over the sling. Keep the arm supported with a pillow when at rest. Keep your elbow padded and cushioned. For lower limb blocks: Do not use the leg to balance, walk or support yourself. Do not drag your foot or toes on the ground. When should I call for help? FOR ANY EMERGENCIES, CALL 911. For non-emergency questions about the catheter or the pump, call the [employer] hot-line number. Clamp off the catheter and call the anesthesiologist institutional aide at [facility] ([phone], ext [phone]) immediately for any of these symptoms: Ringing in the ears Metallic taste in the mouth Numbness in the lips Seizures Dizziness Increased anxiety Call your surgeon if: Your fingers or toes in the blocked extremity are getting dusky. You have sudden loss of movement in your fingers/toes of the blocked extremity when you were able to move them earlier. You have pain not controlled by the block and/or your pain medicines.Continuous Nerve Block: Patient Instructions You have had a nerve block to effectively manage your post-operative pain. To facilitate this process, a catheter has been placed close to your nerve so that pain medicine can be delivered on a continuous basis using a pain pump. General Instructions: Protect your blocked arm/leg. It is numb. Carefully pad your limb to prevent pressure sores and other injuries. Be careful with applying cold/warm to the blocked limb. Numbness will alter the sensation of the limb and could damage your skin if you cannot correctly feel the temperature. Do not drive or operate machinery while the catheter is in place and your extremity is numb. Do not pull or tug on the catheter. Keep the dressing at the catheter site clean and dry. Do not pinch the catheter or the tubing. A small amount of fluid leaking around the catheter is normal. For upper limb blocks: Make sure the entire arm, including the wrist, is supported. Do not let the wrist dangle over the sling. Keep the arm supported with a pillow when at rest. Keep your elbow padded and cushioned. For lower limb blocks: Do not use the leg to balance, walk or support yourself. Do not drag your foot or toes on the ground. When should I call for help? FOR ANY EMERGENCIES, CALL 911. For non-emergency questions about the catheter or the pump, call the [employer] hot-line number. Clamp off the catheter and call the anesthesiologist institutional aide at [facility] ([phone], ext [phone]) immediately for any of these symptoms: Ringing in the ears Metallic taste in the mouth Numbness in the lips Seizures Dizziness Increased anxiety Call your surgeon if: Your fingers or toes in the blocked extremity are getting dusky. You have sudden loss of movement in your fingers/toes of the blocked extremity when you were able to move them earlier. You have pain not controlled by the block and/or your pain medicines. Patient had no tylenol at the hospital documented in this encounter Medications at Time [...] 12 04/09/2013 documented as of this encounter Ordered Prescriptions Prescription Sig Dispense Quantity Refills Last Filled Start Date End Date oxyCODONE-acetamin ophen (PERCOCET) 5-325 mg Oral Tablet Take 1 Tablet by mouth every 4 hours as needed for Major Surgery/Trau ma (G89.18) for up to 3 days. 20 Tablet 01/22/2025 1:42 PM EDT 01/22/2025 01/26/2025 documented in this encounter Discharge Disposition Disposition Code Departure Means Destination Comment s Home or Self Care Car Home documented in this encounter Progress Notes * Thom Leonard CPhT - 01/22/2025 1:49 PM EDT Discharge Medication Delivery Service DMD tree and shrub technician has delivered the following medications for Jose Alberto Seaman: Rx#[id number]:OXYCODONE-ACETAMINOPHEN 5 MG-325 MG TABLET-1 Tablet EVERY 4 HOURS PRN Date/Time of Delivery: 01/22/2025 1:49 PM Delivered to: Patient in [facility] -bedside table - kwesi schultz Please contact DMD tree and shrub technician with any questions. Thanks! Thom Leonard CPhT * Winsome Khalil RN - 01/22/2025 10:56 AM EDT Pt took coumadin yesterday PT/INR is pending will notify MD Okay to proceed with surgery per MD documented in this encounter H&P Notes * Kamlesh Marin NP - 01/22/2025 10:18 AM EDT [facility] History and Physical Name: Jose Alberto Seaman ADDRESS: [address] [place], [place] [address] : 1950 AGE: 74 y.o. Assessment: 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, with fat layer exposed (HCC) [E11.622, L97.922] Plan: Procedure(s): debridement left lower leg ulcer. per Aleksey Hunt DPM Admitting Physician: Aleksey Hunt DPM Date of Admit: 01/22/2025 Subjective SUBJECTIVE Chief Complaint: 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, with fat layer exposed (HCC) [E11.622, L97.922] History of Present Illness: Patient is a 74 y.o. 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 Past Medical History: Diagnosis Date Arrhythmia Arthritis osteoarthritis Asthma Blood circulation, collateral CAD (coronary artery disease) CABG times 3 vessels Cardiac dysrhythmia a fib CHF (congestive heart failure) (HCC) Chronic kidney disease elevated creatinine levels. Diabetes mellitus (HCC) Hyperlipidemia cannot tolerate statins Hypertension Motion sickness Peripheral vascular disease Prostate disorder Sleep apnea c pap. does not know setting, USES O2 2L Past Surgical History: Procedure Laterality Date ABLATION OF DYSRHYTHMIC FOCUS CARDIAC CATHETERIZATION 03/20 -cabg COLONOSCOPY N/A 09/24/2015 COLONOSCOPY with snare polypectomy and biopsies; Surgeon: Altaf De La Paz MD; Location: [facility] END[facility]COPY; Service: Endoscopy CORONARY ARTERY BYPASS GRAFT 03/20 [facility]-PDA FOOT SURGERY Right great toe surgery HAMMER TOE SURGERY Right 11/27/2023 RIGHT SECOND TOE HAMMER TOE REPAIR and placement of graft to right ankle ulcer; Surgeon: Bienvenido Ford DPM; Location: [facility]; Service: Podiatry IR ANGIOGRAM EXTREMITY BILATERAL 07/18/2024 IR ANGIOGRAM EXTREMITY BILATERAL 07/18/2024 Blair Cordon MD EDG IR IR ANGIOGRAM EXTREMITY BILATERAL 09/04/2024 IR ANGIOGRAM EXTREMITY BILATERAL 09/04/2024 Blair Cordon MD EDG IR IR ULTRASOUND GUIDED VASCULAR ACCESS 07/18/2024 IR ULTRASOUND GUIDED VASCULAR ACCESS 07/18/2024 Blair Cordon MD EDG IR PILONIDAL CYST EXCISION 1975 Prior to Admission medications Medication Sig Start Date End Date Last Dose Authorizing Provider acetaminophen (TYLENOL) 500 mg Oral Tablet Take 1 Tablet by mouth as needed for Pain. Taking Provider, Historical allopurinoL (ZYLOPRIM) 100 mg Oral Tablet Take 100 mg by mouth daily. 04/26/22 Taking Provider, Historical aspirin 81 mg tablet Take 81 mg by mouth daily. Taking Provider, Historical evolocumab 140 mg/mL SubQ Pen Injector Subcutaneous (Inject under the skin) 140 mg every 14 days. Taking Provider, Historical FARXIGA 10 mg Oral Tablet Take 10 mg by mouth daily. 03/06/23 Taking Provider, Historical fUROsemide (LASIX) 40 mg Oral Tablet Take 40 mg by mouth daily. Taking Provider, Historical gabapentin (NEURONTIN) 300 mg Oral Capsule Take 300 mg by mouth 3 times daily as needed. 10/02/23 Taking Provider, Historical HYDROcodone-acetaminophen (NORCO) 5-325 mg Oral Tablet Take 1 Tablet by mouth every 4 hours as needed for Major Surgery/Trauma (G89.18) for up to 12 doses. 11/27/23 Taking Bienvenido Ford DPM irbesartan (AVAPRO) 150 mg Oral Tablet Take 150 mg by mouth daily. Taking Provider, Historical metFORMIN (GLUCOPHAGE) 500 mg Oral Tablet Take 500 mg by mouth 2 times daily. 04/26/22 Taking Provider, Historical metoprolol succinate (TOPROL-XL) 25 mg Oral Tablet Sustained Release 24 hr TAKE DOS 01/10/19 Taking Provider, Historical nitroGLYCERIN (NITROSTAT) 0.4 mg SL Tablet, Sublingual Place 0.4 mg under the tongue every 5 minutes as needed for Chest pain. 04/28/20 Taking Provider, Historical oxyCODONE-acetaminophen (PERCOCET) 5-325 mg Oral Tablet 10/05/24 Taking Provider, Historical pentoxifylline (TRENTAL) 400 mg Oral Tablet Sustained Release TAKE 1 TABLET BY MOUTH 2 TIMES DAILY.10/17/24 Taking Aleksey Hunt DPM TRULICITY 0.75 mg/0.5 mL SubQ Pen Injector Subcutaneous (Inject under the skin) 0.75 mg once a week. 07/25/23 Taking Provider, Historical warfarin (COUMADIN) 5 mg tablet Take 1 Tab by mouth daily. 04/09/13 Taking Checo Castro MD doxycycline monohydrate (MONODOX) 100 mg Oral Capsule Take 1 Capsule by mouth daily. Patient not taking: Reported on 01/21/2025 11/12/24 Not Taking Aleksey Hunt DPM Allergies Allergen Reactions Edwin Inhibitors Rash and Other (See Comments) cough Nsaids (Non-Steroidal Anti-Inflammatory Drug) Other (See Comments) Kidney function Penicillins Rash Quinolones Other (See Comments) foggy headed. Muscle aches Rosuvastatin Other (See Comments) myalgia Muscle pain myalgia Detfwqb-Lsx-Eqv Reductase Inhibitors Palpitations and Other (See Comments) Muscle pain Myalgia Zocor [Simvastatin] Other (See Comments) Myalgia Social History Socioeconomic History Marital status: Spouse name: None Number of children: None Years of education: None Highest education level: None Tobacco Use Smoking status: Former Current packs/day: 0.00 Average packs/day: 0.5 packs/day for 9.0 years (4.5 ttl pk-yrs) Types: Cigarettes Start date: 01/17/1973 Quit date: 01/17/1982 Years since quittin.0 Smokeless tobacco: Former Types: Snuff Quit date: 01/12/2005 Vaping Use Vaping status: Never Used Substance and Sexual Activity Alcohol use: No Drug use: No Social Drivers of Health Financial Resource Strain: Low Risk (07/22/2024) Overall Financial Resource Strain (CARDIA) Difficulty of Paying Living Expenses: Not very hard Food Insecurity: No Food Insecurity (07/22/2024) Hunger Vital Sign Worried About Running Out of Food in the Last Year: Never true Ran Out of Food in the Last Year: Never true Transportation Needs: No Transportation Needs (07/22/2024) [facility] Transportation In the past 12 months, has lack of reliable transportation kept you from medical appointments, meetings, work or from getting things needed for daily living?: No Physical Activity: Insufficiently Active (07/22/2024) Exercise Vital Sign Days of Exercise per Week: 7 days Minutes of Exercise per Session: 10 min Stress: Stress Concern Present (07/22/2024) [facility] [place] [facility] - Occupational Stress Questionnaire Feeling of Stress : To some extent Family History Problem Relation Age of Onset COPD Mother Cancer Father Anesth Problems Neg Hx Active Hospital Problems Diagnosis *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 rate 16, height 5' 9 (1.753 m), weight 251 lb (113.9 kg), SpO2 100%.Pain: 09/23 Review of Systems: The listed systems were reviewed and reveal the following in addition to any already discussed in the HPI: Review of Systems Constitutional: Negative. Negative for chills, diaphoresis, fever, malaise/fatigue and weight loss. HENT: Negative for congestion, ear discharge, ear pain, hearing loss, nosebleeds and sore throat. Eyes: Negative for blurred vision, double vision, pain, discharge and redness. Respiratory: Negative. Negative for cough, hemoptysis, sputum production, shortness of breath and wheezing. +) Asthma Sleep apnea (2L O2 through machine) on CPAP Denies any recent exacerbation of his asthma. Denies c/o upon exam Cardiovascular: Negative for chest pain, palpitations, orthopnea and leg swelling. +)Hypertension: well controlled Hyperlipidemia CAD/[place] ([address]): CABG CHF: Arrhythmias (hx of ablations): atrial fibrillation Gastrointestinal: Negative. Negative for abdominal pain, heartburn, nausea and vomiting. Genitourinary: Negative. Musculoskeletal: Negative. Negative for back pain, falls, joint pain, myalgias and neck pain. 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, with fat layer exposed Follows with Podiatry and wound care. Seen yesterday per wound care. Has some mild pain. Denies changes since exam per Dr Hunt Skin: Negative. Negative for itching and rash. Neurological: Negative for dizziness, seizures, weakness and headaches. Endo/Heme/Allergies: Negative. Anticoagulation therapy (warfarin): Last dose was yesterday Psychiatric/Behavioral: Negative for depression. The patient is not nervous/anxious. Objective OBJECTIVE Physical Exam: Body mass index is 37.07 kg/m??. Body surface area is 2.28 meters squared. Physical Exam Vitals and nursing note reviewed. Exam conducted with a lending consultant present. Constitutional: General: He is not in acute distress. Appearance: Normal appearance. He is well-developed. He is not ill-appearing or diaphoretic. HENT: Head: Normocephalic and atraumatic. Nose: Nose normal. No congestion or rhinorrhea. Mouth/Throat: Mouth: Mucous membranes are moist. Pharynx: Oropharynx is clear. No oropharyngeal exudate or posterior oropharyngeal erythema. Eyes: General: No scleral icterus. Right eye: No discharge. Left eye: No discharge. Conjunctiva/sclera: Conjunctivae normal. Pupils: Pupils are equal, round, and reactive to light. Neck: Thyroid: No thyromegaly. Vascular: No JVD. Trachea: No tracheal deviation. Cardiovascular: Rate and Rhythm: Normal rate and regular rhythm. Pulses: Normal pulses. Heart sounds: Normal heart sounds. No murmur heard. No friction rub. No gallop. Pulmonary: Effort: Pulmonary effort is normal. No respiratory distress. Breath sounds: Normal breath sounds. No stridor. No wheezing, rhonchi or rales. Chest: Chest wall: No tenderness. Abdominal: General: Bowel sounds are normal. There is no distension. Palpations: Abdomen is soft. Tenderness: There is no abdominal tenderness. There is no guarding. Genitourinary: Comments: Deferred Musculoskeletal: General: No tenderness or deformity. Normal range of motion. Cervical back: Normal range of motion and neck supple. Right lower leg: No edema. Left lower leg: No edema. Comments: Dressing to left lower extremity. Appear clear, dry and intact. NTTP Lymphadenopathy: Cervical: No cervical adenopathy. Skin: General: Skin is warm and dry. Capillary Refill: Capillary refill takes less than 2 seconds. Coloration: Skin is not jaundiced or pale. Findings: No bruising, erythema, lesion or rash. Neurological: General: No focal deficit present. Mental Status: He is alert and oriented to person, place, and time. Mental status is at baseline. Cranial Nerves: No cranial nerve deficit. Sensory: No sensory deficit. Motor: No weakness. Coordination: Coordination normal. Gait: Gait normal. Deep Tendon Reflexes: Reflexes normal. Psychiatric: Mood and Affect: Mood normal. Behavior: Behavior normal. Thought Content: Thought content normal. Labs:Pending DOS labs Latest Reference Range & Units 09/27/24 12:26 INR 0.89 - 1.16 (ratio) 1.93 (H) PT 10.5 - 13.6 second(s) 22.2 (H) (H): Data is abnormally high Radiology: EKG:EKG 07/22/24 sinus george (rate 58), possible inferior WI old Echo 02/2023: - Left ventricle: The cavity size is normal. Wall thickness is normal. Systolic function is normal. The estimated ejection fraction is 55-60%. Wall motion is normal; there are no regional wall motion abnormalities. Cannot assess LV diastolic function. - Aortic valve: TrileafletThe leaflets are mildly thickened and mildly calcified. There is trivial regurgitation. - Ascending aorta: The vessel is mildly dilated and 3.9cm diameter. - Left atrium: The atrium is mildly dilated. - Right ventricle: Systolic function is normal. - Atrial septum: Agitated saline contrast study at baseline or with provocation, shows no xdpti-wc-redq atrial level shunt. - Inferior vena cava: The IVC is dilated. Respirophasic diameter changes are blunted (< 50%), consistent with elevated central venous pressure Kamlesh Marin NP 01/22/2025 Cosigned by Tyron Guy MD at 01/22/2025 11:04 AM EDT documented in this encounter Procedure Notes * Aleksey Hunt DPM - 01/22/2025 2:17 PM EDT DATE OF OPERATION: 01/22/2025 PREOPERATIVE DIAGNOSIS: Diabetic and venous leg ulcer, left ankle. POSTOPERATIVE DIAGNOSIS: Diabetic and venous leg ulcer, left ankle. PROCEDURE: Sharp excisional debridement, left ankle combined with venous and diabetic ulcer measuring 9 x 11 x 0.3 cm. SURGEON: Aleksey Hunt D.P.M. MANUFACTURING APPLICATIONS ENGINEER: None. ANESTHESIA: Local with IV sedation. ESTIMATED BLOOD LOSS: 10 mL. PROCEDURE DETAILS: In the preoperative holding area, the patient was identified. The surgery site was identified and marked. He was taken to the operating room. Following IV sedation, local anesthesia was obtained utilizing a 1:1 mixture of 0.5% Marcaine plain and 1% lidocaine plain. The left foot was then scrubbed, prepped and draped in the usual sterile manner. After the final timeout, I directed attention to the left ankle. Utilizing the Versajet, I did a sharp excisional debridement including granulation tissue, slough, nonviable and subcutaneous tissue. There was good bleeding. Pressure hemostasis was accomplished. Following completion of the debridement, compression bandage was applied with Adaptic, 4 x 4 gauze, ABD pads, Kerlix, cast padding, and a large Edwin wrap. The patient tolerated anesthesia and procedures well. Aleksey Hunt D.P.M. By: Vanessa Job ID: [id number] Doc ID: [id number] * Aleksey Hunt DPM - 01/22/2025 1:27 PM EDT [facility] OPERATIVE/PROCEDURE NOTE Jose Alberto Seaman January 22, 2025 Body mass index is 37.07 kg/m??. PRE-OP DIAGNOSIS: 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, with fat layer exposed (HCC) [E11.622, L97.922] POST-OP DIAGNOSIS: 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, with fat layer exposed (HCC) [E11.622, L97.922] PROCEDURE(S): Procedure(s): debridement left lower leg ulcer subcutaneous [id number] SURGEON(S): Surgeons and Role: * Aleksey Hunt DPM - Primary MANUFACTURING APPLICATIONS ENGINEER(S): ANESTHESIA: Monitored Anesthesia Care SPECIMENS: * No specimens in log * ESTIMATED BLOOD LOSS (mls): 10ml *EBL MUST be documented as a numeric value FINDINGS: OTHER INFO: DISPOSITION/POST PROC COURSE: phase 2 Aleksey Hunt DPM Date: 01/22/2025 documented in this encounter Nursing Notes * Litzy Preston RN - 01/22/2025 11:17 AM EDT Secure chat message sent to Dr Hunt regarding patient taking his coumadin yesterday and the results of his PT/INR from today. * Macie Hyde RN - 01/21/2025 11:52 AM EDT Images from the original note were not included. PREPARING FOR YOUR SURGERY Date of Surgery: 01/22/2025 Arrival time: Your surgeon may have already provided this, check your paperwork from the office. Ifnot received, call your surgeon's office. Location: [facility] Medications on the Day of Surgery Take the following medications on the morning of surgery: metoprolol, percocet or oxycodone as needed. Medications to hold prior to surgery; Verify with your doctor for possibly discontinuing the following medications: blood thinners, aspirin, or anti-inflammatories. Stop taking all supplements 7 days prior to your surgery. Do not take irbesartan on the day of surgery. Do not take your trulicity dose today, hold until after surgery. Hold farxiga for 3 days prior to surgery, do not take any more prior to surgery. Hold coumadin as directed by your surgeon's office. [facility] DIABETIC INSTRUCTIONS-ORAL MEDS: Day before Surgery:Take all diabetic meds as usual unless your doctor gives you other instructions., Do not take any oral DIABETIC medications the morning of surgery., and We will check your blood sugar when you get to the hospital and throughout the day. Food, Drinks, Tobacco Do not eat any food after midnight. This includes gum, mints, candy, chewing tobacco, and dip. Unless otherwise instructed by your surgeon, you may consume water, Gatorade, Powerade, black coffee/tea(no milk, no cream/creamers, no sugar) up to two hours prior to your scheduled arrival time. No exceptions or substitutions to these restrictions. Do not smoke, vape, or use any type of tobacco or marijuana products within 24 hours prior to surgery. Smoking will also slow your rate of healing. It is advised that you do not smoke during the healing process. No alcohol 24 hours prior to surgery. Shellfish Manager It is important to have a Shellfish Manager, someone who is 18 years or older, to accompany you and remain in the facility for the duration of your surgery. This person should be available for the Perioperative Team, which includes your surgeon, to communicate with before, during and after your surgery. Because you are receiving anesthesia, someone is needed to drive you home and remain with you for at least 24 hours after surgery to make sure you are safe during that time We also recommend that no children be present on the day of surgery. If you have a concern, please reach out to our department [phone]. Hygiene [place] your teeth and gargle the morning of surgery. Shower the morning of surgery or the night before. Do not wear makeup (including eye makeup) lotion, powder, deodorant, perfume, or cologne. Do not shave the operative extremity or near the operative area. Remove nail bolivian prior to surgery. This includes artificial nails and gel nail bolivian. Personal Items Wear clean, simple, loose-fitting clothing (no jeans) and sturdy shoes (no flip flops, slides or crocs) to the hospital. Do not bring unnecessary valuables with you. It is policy that [facility] does not assume responsibility for lost, stolen or broken personal items that are brought in. Exceptions may be consideredfor items which are considered necessary for your healthcare. These items will be formally documented. Remove all jewelry prior to surgery to prevent injury. We will not tape wedding rings/bands If you have dentures, they may need to be removed before going into the operating room. We will have a case for them. Glasses and contacts will need to be removed prior to surgery. Please bring a case for them.. Bring with You Bring a copy of your Living Will and/or Durable Power of Insurance Claims Assistant for Healthcare. Notify the Surgeon Notify your surgeon if you develop any illness (fever, cold, cough, sore throat, nausea, vomiting, skin rashes etc.) between now and surgery time Notify your surgeon and Pre-admission testing ([phone]) if you have any changes in your healthconditions or if any new medications are ordered between now and surgery.. Questions or Concerns? If you have any questions or concerns, feel free to call the Pre-Admission testing department at [phone]. We want to make sure you feel safe and have an excellent experience while you are here. Do not reply to this message through [facility] as it may not be answered promptly. Same Day Surgery Unit - [facility] at [phone]; [facility]: Patient Entrance 3A, stop at check-in desk. [address] [place] [phone]. Please do not reply to this message. Please call Pre-admission testing [phone] with questions. DOORS OPEN AT 5:00 AM MON-MON AND 6:00 KAELYN MONDAY AND 6:30 AM ON MONDAY Surgical Site Infections FAQs What is a Surgical Site Infection (SSI)? A surgical site infection is an infection that occurs after surgery in the part of the body where the surgery took place. Most patients who have surgery do not develop an infection. However, infections develop in about 1 to 3 out of every 100 patients who have surgery. Some of the common symptoms of a surgical site infection are: Redness and pain around the area where you had surgery Drainage of cloudy fluid from your surgical wound. Fever Can SSIs be treated? Yes. Most surgical site infections can be treated with antibiotics. The antibiotic given to you depends on the bacteria (germs) causing the infection. Sometimes patients with SSIs also need another surgery to treat the infection. What are some of the things that hospitals are doing to prevent SSIs? To prevent SSIs, doctors, nurses, and other healthcare providers: Clean their hands and arms up to their elbows with an antiseptic agent just before the surgery. Clean their hands with soap and water or an alcohol-based hand rub before and after caring for eachpatient. May remove some of your hair immediately before your surgery using electric clippers if the hair isin the same area where the procedure will occur. They should not shave you with a razor. Wear special hair covers, masks, gowns, and gloves during surgery to keep the surgery area clean. Give you antibiotics before your surgery starts. In most cases, you should get antibiotics within 60 minutes before the surgery starts and the antibiotics should be stopped within 24 hours after surgery. Clean the skin at the site of your surgery with a special soap that kills germs. What can I do to help prevent SSIs? Before your surgery: Tell your doctor about other medical problems you may have. Health problems such as allergies, diabetes, and obesity could affect your surgery and your treatment. Quit smoking. Patients who smoke get more infections. Talk to your doctor about how you can quit before your surgery. Do not shave near where you will have surgery. Shaving with a razor can irritate your skin and makeit easier to develop an infection. At the time of your surgery: Speak up if someone tries to shave you with a razor before surgery. Ask why you need to be shaved and talk with your surgeon if you have any concerns. Ask if you will get antibiotics before surgery. After your surgery: Make sure that your healthcare providers clean their hands before examining you, either with soap and water or an alcohol-based hand rub. If you do not see your providers clean their hands, please ask them to do so. Family and friends who visit you should not touch the surgical wound or dressings. Family and friends should clean their hands with soap and water or an alcohol- based hand rub beforeand after visiting you. If you do not see them clean their hands, ask them to clean their hands. What do I need to do when I go home from the hospital? Before you go home, your doctor or nurse should explain everything you need to know about taking care of your wound. Make sure you understand how to care for your wound before you leave the hospital. Always clean your hands before and after caring for your wound. Before you go home, make sure you know who to contact if you have questions or problems after you get home. If you have any symptoms of an infection, such as redness and pain at the surgery site, drainage, or fever, call your doctor immediately. If you have additional questions, please ask your doctor or nurse. Developed and co-sponsored by The Society for Healthcare Epidemiology of [place] (WETZEL); InfectiousDiseases Society of [place] (IDSA); [facility] [employer]; Association for Professionals inInfection Control and Epidemiology (APIC); Centers for Disease Control and Prevention (CDC); and The Joint Commission. This information is not intended to replace advice given to you by your health care provider. Make sure you discuss any questions you have with your health care provider. , ANESTHESIA - COMMON SIDE EFFECTS (if present, these should resolve within 24 hours) TIREDNESS SHIVERING DIZZINESS DRY MOUTH MILD NAUSEA/VOMITING SORE THROAT OR HOARSENESS MILD PAIN OR DISCOMFORT IS NORMAL CALL THE SURGEON DAY OR NIGHT You have nausea or vomiting that doesn???t go away by the next morning. You experience severe pain not relieved by suggested medications. Thank you for letting us care for you. documented in this encounter Plan of Treatment Upcoming Encounters Date Type Department Care Team (Late st Contact Info) Description 01/28/2025 8:00 AM EDT Appointment [facility] [place] [address] [place] [address] Aleksey Hunt DPM [address] [place] [address] 02/24/2025 1:00 PM EDT Clinical Support [facility] [place] [address] [address] [facility] [address] [place] [address] 02/28/2025 8:00 AM EDT Office Visit [facility] [address] [place] [address] Blair Cordon MD [address] [place] [address] documented as of this encounter [...] peripheral neuropathy weekly. Refer to PCP and/or Cyanide Furnace Operator, Vascular Specialist as indicated. Monitor patient compliance with wound care, diabetes management and proper offloading. 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, with fat layer exposed (HCC) Special Needs [facility] PT / INR STAT 01/22/2025 10:46 AM EDT GLUCOSE METER POC Routine 01/22/2025 10: 27 AM EDT documented in this encounter Results * GLUCOSE METER POC (01/22/2025 1:40 PM EDT) Glucose Meter POC 75 70 - 100 mg/dL 01/22/2025 1:42 PM EDT [facility] Sample Type Capillary 01/22/2025 1:42 PM EDT [facility] Patient Status Non-Critical Patient 01/22/2025 1:42 PM EDT [facility] Blood BLOOD SPECIMEN / Unknown 01/22/2025 1:40 PM EDT 01/22/2025 1:42 PM EDT us Aleksey Hunt DPM POINT OF CARE TEST ORDERABL ES Final Result Performing Organization Address City/[facility]/ZIP Co de Phone Number [address] [address] * (ABNORMAL) PT / INR (01/22/2025 10:46 AM EDT) PT 16.5(H) 10.5 - 13.6 second(s) 01/22/2025 10:59 AM EDT [facility] INR 1.42(H) 0.91 - 1.18 (ratio) 01/22/2025 10:59 AM EDT [facility] Comment: Level of Therapy Indications Target INR Range Standard Dose Treatment and prophylaxis of venous 2.0 - 3.0 thrombosis, pulmonary embolism High Dose High risk patients with mechanical 2.5 - 3.5 heart valves Blood VENOUS BLOOD / Unknown Venipuncture / Unknown 01/22/2025 10:46 AM EDT 01/22/2025 10:49 AM EDT us Aleksey Hunt DPM HEMATOLOGY ORDERABLES Final Result [facility] [address] [facility] [address] [place] [address] * GLUCOSE METER POC (01/22/2025 10:27 AM EDT) Glucose Meter POC 91 70 - 100 mg/dL 01/22/2025 10:28 AM EDT [facility] Sample Type Capillary 01/22/2025 10:28 AM EDT [facility] Patient Status Non-Critical Patient 01/22/2025 10:28 AM EDT [facility] Blood BLOOD SPECIMEN / Unknown 01/22/2025 10:27 AM EDT 01/22/2025 10:28 AM EDT Aleksey Hunt DPM POINT OF CARE TEST ORDERABL ES Final Result [facility] [address] [place] [address] documented in this encounter Visit Diagnoses Diagnosis 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, with fat layer exposed (HCC)- Primary documented in this encounter Admitting Diagnoses Diagnosis 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, with fat layer exposed (HCC) documented in this encounter Administered Medications Inactive Administered Medications - up to 1 most recent administrations Medication Order MAR Action Action Date Dose Rate Site acetaminophen (TYLENOL) tablet 1,000 mg 1,000 mg, Oral, PREPROCEDURE, 1 dose, Starting on Mon01/21/25 at 1449, Until Mon01/22/25 at 181, Coanalgesic, Do not give if patient received acetaminophen within the last 6 hours Maximum adult dose of acetaminophen is 4000 mg from all sources in 24 hours., Pre-op (Holding/SDS Meds) insulin aspart U-100 (NovoLOG) injection 1-10 Units 1-10 Units, Subcutaneous, PREPROCEDURE, 1 dose, Starting on Mon01/21/25 at 1449, Until Mon01/22/25 at 1817, Other, Pre-op Hyperglycemia Correction, Type 2 DM weighing at least 80kg: FSBS Correction 121-149 1 unit 150-199 2 units 200-250 4 units 251-300 6 units 301-350 8 units 351-400 10 units Greater than 400___notify anesthesiologist Waste Sort Code = BLACK RCRA Hazardous Waste Container, Pre-op (Holding/SDS Meds) lactated ringers infusion Intravenous, at 50 mL/hr, PREPROCEDURE CONTINUOUS, Starting on Mon01/21/25 at 1449, Until Mon01/22/25 at 1817, To be given in SDS/Pre-op Holding Area, Pre-op (Holding/SDS Meds) New Bag 01/22/2025 10:38 AM EDT 50 mL/hr documented in this encounter Discontinued Medications Medication Sig Discontinue Reason Start Date End Da te BYDUREON BCISE 2 mg/0.85 mL SubQ Auto-Injector DELETE-Therapy completed 09/03/2024 01/21/2025 pentoxifylline (TRENTAL) 400 mg Oral Tablet Sustained Release Take 1 Tablet by mouth 2 times daily for 120 days. DELETE-Duplicate 10/08/2024 01/21/2025 documented as of this encounter Active and Recently Administered Medications Times are shown in EDT. Scheduled Medication Order 01/20/2025 01/21/2025 01/22/2025 clindamycin in 5 % dextrose (CLEOCIN) IVPB 900 mg (COMPLETED) 900 mg, Intravenous, ONCE, 1 dose, On Mon01/22/25 at 1030, Administer over 60 Minutes, If true PCN allergy, Reason for Therapy: Surgical Prophylaxis 1236 (Given - Provid er: Dylan Palencia CRNA) PRN Medication Order 01/20/2025 01/21/2025 01/22/2025 acetaminophen (TYLENOL) tablet 1,000 mg 1,000 mg, Oral, PREPROCEDURE, 1 dose, Starting on Mon01/21/25 at 1449, Until Mon01/22/25 at 1817, Coanalgesic, Do not give if patient received acetaminophen within the last 6 hours Maximum adult dose of acetaminophen is 4000 mg from all sources in 24 hours., Pre-op (Holding/SDS Meds) 1040 (Not Given - Pr ovider: Winsome Khalil RN - Reason: Contraindicated - Comment: took SUPERVISOR DATA PROCESSING) insulin aspart U-100 (NovoLOG) injection 1-10 Units 1-10 Units, Subcutaneous, PREPROCEDURE, 1 dose, Starting on Mon01/21/25 at 1449, Until Mon01/22/25 at 1817, Other, Pre-op Hyperglycemia Correction, Type 2 DM weighing at least 80kg: FSBS Correction 121-149 1 unit 150-199 2 units 200-250 4 units 251-300 6 units 301-350 8 units 351-400 10 units Greater than 400___notify anesthesiologist Waste Sort Code = BLACK RCRA Hazardous Waste Container, Pre-op (Holding/SDS Meds) 1040 (Not Given - Pr ovider: Winsome Khalil RN - Reason: Order parameters not met) lactated ringers infusion Intravenous, at 50 mL/hr, PREPROCEDURE CONTINUOUS, Starting on Mon01/21/25 at 1449, Until Mon01/22/25 at 1817, To be given in SDS/Pre-op Holding Area, Pre-op (Holding/SDS Meds) 1038 (New Bag - Prov ider: Uma Guardado RN)1817 (Due: Order Ending - Provider: Automatic Discharge Provider - Comment: [Order ends at this time. Document the following action when infusion is complete: Stopped]) lidocaine 10 mg/mL (1 %) 10 mL, bupivacaine (MARCAINE/SENSORCAINE) 0.5 % (5 mg/mL) 10 mL 20 mL injection (CANCELED) 20 mL, INTRAPROCEDURE, Starting on Mon01/22/25 at 1253, Until Mon01/22/25 at 1417, Intra-op 1253 (Given - Provid er: Aleksey Hunt DPM) documented in this encounter Orders Medications Ordered That [place] ht Not Have Been Administered Count Last Ordered Date First Ordered Date clindamycin in 5 % dextrose (CLEOCIN) IVPB 900 mg 1 01/22/2025 lidocaine 10 mg/mL (1 %) 10 mL, bupivacaine (MARCAINE/SENSORCAINE) 0.5 % (5 mg/mL) 10 mL 20 mL injection 1 01/22/2025 acetaminophen (TYLENOL) tablet 1,000 mg 1 0 01/21/2025 insulin aspart U-100 (NovoLO G) injection 1-10 Units 1 01/21/2025 Discharge Count Last Ordered Date First Orde red Date DISCHARGE PATIENT 1 01/22/2025 documented in this encounter Additional Health Concerns Assessment Noted Time PHQ-9 Depression Total Score: 1 07/22/20 24 3:29 PM EST A fall risk assessment has been complete d for the patient 02/07/2019 11:25 AM EDT PHQ-2 Depression Total Score: 1 07/22/20 3:29 PM EST documented as of this encounter Care Teams Cement Finishing Supervisor Relationship Specialty Start Date End Date Dylon Izaguirre MD [address] [place] [address] PCP - General Family Medicine 09/05/23 documented as of this encounter
--- OUTSIDE RECORDS SUMMARY | 2025-01-22 12:00 | XMS_ITS | Encounter Summary ---
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 Referral ID Status Reason Start Date Expiration Date Visits Re quested Visits Authorized [id number] 1 1 Encounter Details Date Type Department Care Team (Late st Contact Info) Description 01/22/2025 12:00 PM EDT - 01/22/2025 1:43 PM EDT Surgery EDG PERIOP [facility] [address] [place] [address] Aleksey Hunt DPM [address] [place] [address] INCISION AND DRAINAGE, LEG/THIGH Surgery Details Date/Time Status Location OR Service Patient Class Case Class Case Type Trauma Case? 01/22/2025 12:00 PM Posted EDG MAIN OR EDG Room 03 Podiatry Same Day Surgery Elective Panel 1 Procedure LRB Anes Op Region Wound Class Comments INCISION AND DRAINAGE, LEG/THIGH Left Monitored Anesthesia Care Clean debridement left lower leg ulcer. Surgeon Surgeon Role Service Panel Aleksey Hunt DPM Primary Podiatry 1 Special Needs Versajet documented in this encounter Social History Tobacco Use Types Packs/Day Years Used Date Smoking Tobacco: Former Cigarettes 0.5 9 0 01/17/1973 - 01/17/1982 Smokeless Tobacco: Former Snuff Quit: 01/12/2005 Alcohol Use Standard Drinks/Week Comments No 0 (1 standard drink = 0.6 oz pur e alcohol) [facility] Utilities Answer Date Recorded In the [...] Date Recorded PHQ-2 Total Score 1 07/22/2024 [facility] - [...] money to get more. Never true [facility]22[facility]2024 [facility] IP Transportation Answer D ate Recorded [...] Sign Reading Time Taken Comments Blood Pressure 120/73 01/22/2025 1:40 PM EDT Pulse 68 01/22/2025 1:40 PM EDT Temperature 36.4 C (97.5 F) 01/22/2025 1:11 PM EDT Respiratory Rate 18 01/22/2025 1:40 PM EDT Oxygen Saturation 99% 01/22/2025 1:40 PM EDT Inhaled Oxygen Concentration - - Weight 113.9 kg (251 lb) 01/22/2025 10:28 AM EDT Height 175.3 cm (5' 9 ) 01/22/2025 10:28 AM EDT Body Mass Index 37.07 01/22/2025 10:28 AM EDT documented in this encounter Discharge Instructions * Discharge Instructions* Aleksey Hunt DPM - 01/22/2025 10:34 AM EDT [facility] Discharge Instructions for DRS. Ford, Mega, [...] do not cross legs, and do not maintainer plant one place for any length of time. [...] develop a fever. Call the office at [phone] with questions or concerns. Other instruction: Weight [...] the catheter or the pump, call the [place] hot-line number. Clamp off the catheter and call the anesthesiologist driver education road instructor at [facility] ([phone], ext [phone]) immediately for any of these symptoms: Ringing [...] the catheter or the pump, call the [place] hot-line number. Clamp off the catheter and call the anesthesiologist driver education road instructor at [facility] ([phone], ext [phone]) immediately for any of these symptoms: Ringing [...] PM EDT Discharge Medication Delivery Service DMD pathology technician has delivered the following medications for Jose Alberto Seaman: Rx#[id number]:OXYCODONE-ACETAMINOPHEN 5 MG-325 MG TABLET-1 Tablet EVERY 4 HOURS PRN Date/Time of Delivery: 01/22/2025 1:49 PM Delivered to: Patient in sds 28 -bedside table - rn maggy aware Please contact DMD pathology technician with any questions. Thanks! Thom Leonard CPhT * Winsome Khalil RN - 01/22/2025 10:56 AM EDT Pt took coumadin yesterday PT/INR is pending will notify MD Okay to proceed with surgery per MD documented in this encounter H&P Notes * Kamlesh Marin NP - 01/22/2025 10:18 AM EDT [facility] History and Physical Name: Jose Alberto Seaman ADDRESS: [address] [place] [id number] : 1950 AGE: 74 y.o. 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 Past Medical [...] Surgeon: Altaf De La Paz MD; Location: ED ENDOSCOPY; Service: Endoscopy CORONARY ARTERY BYPASS GRAFT 03/20 [facility]G-L[facility] SVG-PDA FOOT SURGERY Right great toe surgery HAMMER TOE SURGERY Right 11/27/2023 RIGHT SECOND TOE HAMMER TOE REPAIR and placement of graft to right ankle ulcer; Surgeon: Bienvenido Ford DPM; [facility] Service: Podiatry IR ANGIOGRAM EXTREMITY BILATERAL 07/18/2024 [...] Other (See Comments) myalgia Muscle pain myalgia Hvizsxd-Kge-Sty Reductase Inhibitors Palpitations and Other (See Comments) [...] true Transportation Needs: No Transportation Needs (07/22/2024) [facility] IP Transportation In the past 12 months, has lack of reliable transportation kept you from medical appointments, meetings, work or from getting things needed for daily living?: No Physical Activity: Insufficiently Active (07/22/2024) Exercise Vital Sign Days of Exercise per Week: 7 days Minutes of Exercise per Session: 10 min Stress: Stress Concern Present (07/22/2024) [facility] Occupational [facility] - Occupational Stress Questionnaire [...] and leg swelling. 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 Exam conducted with a statistician mathematical present. Constitutional: General: He is not in [...] 07/22/24 sinus george (rate 58), possible inferior LA old Echo 02/2023: - Left ventricle: The [...] at baseline or with provocation, shows no diheo-ku-zbns atrial level shunt. - Inferior vena cava: [...] x 0.3 cm. SURGEON: Aleksey Hunt D.P.M. DIRECTOR TRADE: None. ANESTHESIA: Local with IV sedation. ESTIMATED [...] Aleksey Hunt D.P.M. By: Vanessa Job ID: [id number] Doc ID: [id number] * Aleksey Hunt DPM - 01/22/2025 1:27 PM EDT [facility] OPERATIVE/PROCEDURE NOTE Jose Alberto Seaman January [...] Procedure(s): debridement left lower leg ulcer subcutaneous [id number] SURGEON(S): Surgeons and Role: * Aleksey Hunt DPM - Primary DIRECTOR TRADE(S): ANESTHESIA: Monitored Anesthesia Care SPECIMENS: * No [...] Ifnot received, call your surgeon's office. Location: [place] Medications on the Day of Surgery Take [...] coumadin as directed by your surgeon's office. RAMYA FELIPE DIABETIC INSTRUCTIONS-ORAL MEDS: Day before Surgery:Take all [...] No alcohol 24 hours prior to surgery. Astrophysics Professor It is important to have a Astrophysics Professor, someone who is 18 years or older, [...] concern, please reach out to our department [phone]. Hygiene [place] your teeth and gargle the morning of surgery. Shower the morning of surgery or the night before. Do not wear makeup (including eye makeup) lotion, powder, deodorant, perfume, or cologne. Do not shave the operative extremity or near the operative area. Remove nail vietnamese prior to surgery. This includes artificial nails and gel nail vietnamese. Personal Items Wear clean, simple, loose-fitting clothing (no jeans) and sturdy shoes (no flip flops, slides or crocs) to the hospital. Do not bring unnecessary valuables with you. It is policy that [facility] does not assume responsibility for lost, stolen [...] your Living Will and/or Durable Power of Ship Carpenter for Healthcare. Notify the Surgeon Notify your surgeon if you develop any illness (fever, cold, cough, sore throat, nausea, vomiting, skin rashes etc.) between now and surgery time Notify your surgeon and Pre-admission testing ([phone]) if you have any changes in your healthconditions or if any new medications are ordered between now and surgery.. Questions or Concerns? If you have any questions or concerns, feel free to call the Pre-Admission testing department at [phone]. We want to make sure you feel safe and have an excellent experience while you are here. Do not reply to this message through Responsa as it may not be answered promptly. Same Day Surgery Unit - [place] at [phone]; [place] SDS: Patient Entrance 3A, stop at check-in desk. [address] [place] [phone]. Please do not reply to this message. Please call Pre-admission testing [phone] with questions. DOORS OPEN AT 5:00 AM [...] [place] (WETZEL); InfectiousDiseases Society of [place] (IDSA); [facility]; Association for Professionals inInfection Control [...] 01/28/2025 8:00 AM EDT Appointment [facility] [place] Rebekah [address] [place] [address] Aleksey Hunt DPM [address] [place] [address] 02/24/2025 1:00 PM EDT Clinical Support [facility] [place] [address] [place] [address] 02/28/2025 8:00 AM EDT Office Visit [facility] [place] [address] [place] [address] Blair Cordon MD [address] [place] [address] documented as of this [...] peripheral neuropathy weekly. Refer to PCP and/or Contact Center Team Lead, Vascular Specialist as indicated. Monitor patient compliance [...] - 100 mg/dL 01/22/2025 1:42 PM EDT [facility] Sample Type Capillary 01/22/2025 1:42 PM EDT [facility] Patient Status Non-Critical Patient 01/22/2025 1:42 PM EDT [facility] Blood BLOOD SPECIMEN / Unknown 01/22/2025 1:40 PM EDT 01/22/2025 1:42 PM EDT Aleksey Hunt DPM POINT OF CARE TEST ORDERABL ES Final Result [facility] [address] [place] [address] * (ABNORMAL) PT / INR (01/22/2025 10:46 AM EDT) PT 16.5(H) 10.5 - 13.6 second(s) 01/22/2025 10:59 AM EDT PREFERRED [facility] [employer] INR 1.42(H) 0.91 - 1.18 (ratio) 01/22/2025 10:59 AM EDT [facility] Comment: Level of Therapy Indications Target INR Range Standard Dose Treatment and prophylaxis of venous 2.0 - 3.0 thrombosis, pulmonary embolism High Dose High risk patients with mechanical 2.5 - 3.5 heart valves Blood VENOUS BLOOD / Unknown Venipuncture / Unknown 01/22/2025 10:46 AM EDT 01/22/2025 10:49 AM EDT us Aleksey Hunt DPM HEMATOLOGY ORDERABLES Final Result [facility] [employer] [address] [facility] [facility], [place] [address] * GLUCOSE METER POC (01/22/2025 10:27 AM EDT) [facility] Glucose Meter POC 91 70 - 100 mg/dL 01/22/2025 10:28 AM EDT [facility] Sample Type Capillary 01/22/2025 10:28 AM EDT [facility] Patient Status Non-Critical Patient 01/22/2025 10:28 AM EDT [facility] Blood BLOOD SPECIMEN / Unknown 01/22/2025 10:27 AM EDT 01/22/2025 10:28 AM EDT Aleksey Hunt DPM POINT OF CARE TEST ORDERABL ES Final Result Performing Organization Address [facility] [place] [address] documented in this encounter Visit Diagnoses Diagnosis 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, with fat layer exposed (HCC)- Primary 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, with fat layer exposed (HCC) documented in this encounter Admitting Diagnoses Diagnosis [...] Bag 01/22/2025 10:38 AM EDT 50 mL/hr lidocaine 10 mg/mL (1 %) 10 mL, bupivacaine (MARCAINE/SENSORCAINE) 0.5 % (5 mg/mL) 10 mL 20 mL injection 20 mL, INTRAPROCEDURE, Starting on Mon01/22/25 at 1253, Until Mon01/22/25 at 1417, Intra-op Given 01/22/2025 12:53 PM EDT 20 mL documented in this encounter Discontinued Medications Medication [...] RN - Reason: Contraindicated - Comment: took SUPPLY ANALYST) insulin aspart U-100 (NovoLOG) injection 1-10 Units 1-10 Units, Subcutaneous, PREPROCEDURE, 1 dose, Starting on Mon01/21/25 at 1449, Until Mon01/22/25 at 181, Other, Pre-op Hyperglycemia Correction, Type 2 DM [...] Mon01/21/25 at 1449, Until Mon01/22/25 at 181, To be given in SDS/Pre-op Holding Area, Pre-op (Holding/SDS Meds) 1038 (New Bag - Prov ider: Uma Guardado RN)1816 (Due: Order Ending - Provider: Automatic Discharge [...] dextrose (CLEOCIN) IVPB 900 mg 1 01/22/2025 acetaminophen (TYLENOL) tablet 1,000 mg [...] documented as of this encounter Care Teams Merchandising Director Relationship Specialty Start Date End Date Dylon Izaguirre MD [address] [place] [address] PCP - General Family Medicine 09/05/23 documented as of this encounter
--- OUTSIDE RECORDS SUMMARY | 2025-01-22 12:28 | XMS_ITS | Encounter Summary ---
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 Referral ID Status Reason Start Date Expiration Date Visits Re quested Visits Authorized [id number] 1 1 Encounter Details Date Type Department Care Team (Late st Contact Info) Description 01/22/2025 12:28 PM EDT Anesthesia Event EDG PERIOP One [facility] [place] [address] Larissa Worley MD [address] [facility] [place] [address] Dmitry Perea, NEIL [address] [place] [address] [place] [address] Anesthesia Record Procedure Summary Procedure Name Responsible Anesthesiologist Anesthesia Start Time Anesthesia Stop Time INCISION AND DRAINAGE, LEG/THIGH (Left) Larissa Worley MD 01/22/25 1228 01/22/25 1311 Events Date Time Event Comment 01/22/2025 1035 1149 AN Equip Check 1228 An Start 1233 An Start Data 1233 Start Supplemental O2 Disabl es direct capture of O2 [ANES AGENT O2 [[id number]] and Air flow [ANES AGENT AIR [[id number]] variables into chart. 1233 Immediate Pre Anesthetic Ass es 1233 Anesthesia Ready 1239 Time out local 1248 Time out final 1252 Incision 1304 an stop data 1311 An Stop 1311 Handoff I completed my SBAR handoff to the receiving nurse which has included the followin. Identification of the patient, family, or patient surrogate 2. Identification of the responsible practitioner 3. Pertinent medical history 4. Surgical procedure and reason for procedure 5. Intraoperative anesthetic management 6. All current lines, drains and respiratory support. 7. Outstanding follow up orders (X-rays, consults etc) 8. Expectations/Plans for the early post-procedure period 9. Opportunity for questions and acknowledgement of understanding from the receiving PACU/ICU senior stereo compiler team lead Meds Name Total propofol (DIPRIVAN) injection 50 mg propofol (DIPRIVAN) infusion 10 mg/mL 29 0,445 mcg ondansetron (ZOFRAN) injection 4 mg /2 m L 4 mg glycopyrrolate (ROBINUL) injection 0.2 m g clindamycin in 5 % dextrose (CLEOCIN) IV PB 900 mg 900 mg lactated ringers infusion 300 mL * Agents Name O2 N2O Air Et Sevoflurane * Blood No blood administrations on file. Lines, Drains, and Airways Type Details Placement Removal Wound #6; 12/19/23; 1007; 12/19/23; No; Gradually Appeared; Diabetic Wound/Ulcer of the Lower Extremity; Left; Lower Leg; Smith 1, Diabetes Type ll 12/19/23 1007 by Monica Hu, MEIR Peripheral IV 01/22/25; 1035; 20; 1; Posterior, Right; Hand; dustin damon rn; 1; None; 01/22/25; 1414; Therapy completed, Discharged, Per Protocol; Catheter intact, Dressing applied, No Complications 01/22/25 1035 by Dustin Damon, RN 01/22/25 1414 by Shari Wilson, RN Airway Placement Date: 01/12 09/07; Placement Time: 1236 (created via procedure documentation); Removal Date: 01/22/25; Removal Time: 14201/22/25 1236 by Dylan Palencia CRNA 01/22/25 1424 by Discharge Provider, Automatic Incision/Wound 01/22/25; 1253; Leg; Left, Lower; 01/22/25; 18101/22/25 1253 by Luh Montesinos RN 01/22/25 1817 by Discharge Provider, Automatic documented in this encounter Social History Tobacco Use Types Packs/Day Years Used Date Smoking Tobacco: Former Cigarettes 0.5 9 0 01/17/1973 - 01/17/1982 Smokeless Tobacco: Former Snuff Quit: 01/12/2005 Alcohol Use Standard Drinks/Week Comments No 0 (1 standard drink = 0.6 oz pur e alcohol) [facility] Utilities Answer Date Recorded In the [...] Date Recorded PHQ-2 Total Score 1 07/22/2024 [facility] [place] of Occupat ional Health - Occupational Stress [...] money to get more. Never true 07/22/2024 [facility] IP Transportation Answer D ate Recorded [...] on file documented as of this encounter Procedure Notes * Dylan Palencia CRNA - 01/22/2025 12:36 PM EDTAssociated Order(s): Airway Intraop Airway Placement: Date/Time: 01/22/2025 12:36 PM Airway type: Nasal cannula Placement verified: End tidal CO2 documented in this encounter OR Notes * Anesthesia Postprocedure Evaluation - Larissa Worley MD - 01/22/2025 2:23 PM EDT Post-Anesthesia Evaluation Note Patient Name: Jose Alberto Seaman Patient Date: January 22, 2025 Post-Anesthesia Evaluation Patient Location: PACU Post op vitals: stable Nausea controlled: yes Level of consciousness: awake, alert and oriented Post anesthesia pain: adequate analgesia Long acting local anesthetic: n/a Airway patency: patent Respiratory status: spontaneous ventilation and room air Cardiovascular status: stable Hydration status: euvolemic Temperature: Normothermia Perioperative complications: NONE Comments: Glucose Meter POC Date Value Ref Range Status 01/22/2025 75 70 - 100 mg/dL Final Vitals Value Taken Time BP 119/74 01/22/25 14:11 Resp 18 01/22/25 14:11 SpO2 99 % 01/22/25 14:11 Temp 36.4 ??C (97.5 ??F) 01/22/25 14:11 Pulse 68 01/22/25 14:11 * Anesthesia Preprocedure Evaluation - Dustin Oconnell MD - 01/22/2025 10:31 AM EDT Pre-Anesthesia Evaluation Note Patient Name: Jose Alberto Seaman Sex: male Patient : 1950 Age: 74 y.o. Patient Date: January 22, 2025 HYDROSURGICAL WOUND DEBRIDEMENT (Left) INCISION AND DRAINAGE, FOOT (Left: Foot/Ankle) Anesthesia Evaluation Previous anesthesia. No history of anesthetic complications: Airway Mallampati: II Dental - normal exam Pulmonary (+) Asthma Sleep apnea (2L O2 through machine) on CPAP History of tobacco use: former Physical exam: Comments: Clear to auscultation Cardiovascular (+)Hypertension: well controlled Hyperlipidemia CAD/RI (3v 2006): CABG CHF: Arrhythmias (hx of ablations): atrial fibrillation Physical exam: Rhythm: regular Rate: normal Neuro/Psych GI/Hepatic/Renal (+)Chronic kidney disease: III Endo/Other (+)GLP-1 / Weight loss med: Weekly dosing Obese: Severe obesity (BMI 35-39.9) Diabetes mellitus: type 2 anticoagulation therapy (warfarin) [employer] Additional Pre-evaluation comments cbc/bmp 08/30/24 Plt 107 EKG 07/22/24 sinus george (rate 58), possible inferior RI old Echo 02/2023: - Left ventricle: The [...] at baseline or with provocation, shows no arzja-va-xodk atrial level shunt. - Inferior vena cava: The IVC is dilated. Respirophasic diameter changes are blunted (< 50%), consistent with elevated central venous pressure Opioids History of Opioid use Opioid Tolerant : Chr Rx Body mass index is 37.07 kg/m??. Anesthesia Plan ASA 3 Last solid intake: The patient has not eaten within the last 8 hours. Last clear liquid intake: The patient has not had clear liquids within the last 2 hours. Anesthesia Plan: MAC Induction: intravenous Monitors: STD Informed consent Anesthetic plan and risks discussed with: patient. Chart Reviewed and patient examined documented in this encounter Miscellaneous Notes * PAT Pre Evaluation for Anesthesia - Dmitry Perea APRN - 01/21/2025 1:10 PM EDT Pre-Anesthesia Evaluation Note Patient Name: Jose Alberto Seaman Sex: male Patient : 1950 Age: 74 y.o. Patient Date: January 21, 2025 HYDROSURGICAL WOUND DEBRIDEMENT (Left) INCISION AND DRAINAGE, FOOT (Left: Foot/Ankle) Anesthesia Evaluation Previous anesthesia. Airway Dental Pulmonary (+) Asthma Sleep apnea (2L O2 through machine) on CPAP Cardiovascular (+)Hypertension: well controlled Hyperlipidemia CAD/RI (3v 2006): CABG CHF: Arrhythmias (hx of ablations): atrial fibrillation Neuro/Psych GI/Hepatic/Renal (+)Chronic kidney disease: III Endo/Other (+)GLP-1 / Weight loss med: Weekly dosing Obese: Severe obesity (BMI 35-39.9) Diabetes mellitus: type 2 anticoagulation therapy (warfarin) [employer] Additional Pre-evaluation comments cbc/bmp 08/30/24 Plt 107 EKG 07/22/24 sinus george (rate 58), possible inferior RI old Echo 02/2023: - Left ventricle: The [...] at baseline or with provocation, shows no nmyjn-jm-qudr atrial level shunt. - Inferior vena cava: The IVC is dilated. Respirophasic diameter changes are blunted (< 50%), consistent with elevated central venous pressure Opioids History of Opioid use Opioid Tolerant : Chr Rx Body mass index is 36.33 kg/m??. Anesthesia Plan Anesthesia Plan: MAC Chart Reviewed documented in this encounter Plan of Treatment Upcoming Encounters Date Type Department Care Team (Late st Contact Info) Description 01/28/2025 8:00 AM EDT Appointment [facility] [address] [place] [address] Aleksey Hunt, DPMelvi [address] [place] [place] [address] 02/24/2025 1:00 PM EDT Clinical Support [facility] [place] [address] [place] [address] 02/28/2025 8:00 AM EDT Office Visit [facility] [place] [address] [place] [address] Blair Cordon MD [address] [place] [address] documented as of this encounter [...] peripheral neuropathy weekly. Refer to PCP and/or Sign Board Erector, Vascular Specialist as indicated. Monitor patient compliance with wound care, diabetes management and proper offloading. documented as of this encounter Procedures Procedure Name Priority Date/Time Associated Diagnosis Comments INTRAOP AIRWAY PLACEMENT Routine 01/22/2025 12:36 PM EDT documented in this encounter Results * INTRAOP AIRWAY PLACEMENT (01/22/2025 12:36 PM EDT) Narrative [facility] - 01/22/2025 12:36 PM EDT Dylan Palencia CRNA 01/22/2025 12:36 PM Intraop Airway Placement: Date/Time: 01/22/2025 12:36 PM Airway type: Nasal cannula Placement verified: End tidal CO2 Larissa Worley MD [place] ANESTHESIA Final Resu lt [facility] [address] [place] [id number] documented in this encounter Visit Diagnoses Not on filedocumented in this encounter Administered Medications Inactive Administered Medications - up to 1 most recent administrations Medication Order MAR Action Action Date Dose Rate Site clindamycin in 5 % dextrose (CLEOCIN) IVPB 900 mg 900 mg, Intravenous, ONCE, 1 dose, On Mon01/22/25 at 1030, Administer over 60 Minutes, If true PCN allergy, Reason for Therapy: Surgical Prophylaxis Given 01/22/2025 12:36 PM EDT 900 mg glycopyrrolate (ROBINUL) injection Intravenous, PRN (Anesthesia), Starting on Mon01/22/25 at 1235, Until Mon01/22/25 at 1311, Anesthesia Intra-op Given 01/22/2025 12:35 PM EDT 0.2 mg lactated ringers infusion Intravenous, CONTINUOUS PRN, Starting on Mon01/22/25 at 1228, Until Mon01/22/25 at 1311, Anesthesia Intra-op New Bag 01/22/2025 12:28 PM EDT ondansetron (ZOFRAN) injection Intravenous, PRN (Anesthesia), Starting on Mon01/22/25 at 1236, Until Mon01/22/25 at 1311, Anesthesia Intra-op Given 01/22/2025 12:36 PM EDT 4 mg propofol (DIPRIVAN) infusion 10 mg/mL Intravenous, CONTINUOUS PRN, Starting on Mon01/22/25 at 1232, Until Mon01/22/25 at 1311, Anesthesia Intra-op Rate/Dose Change 01/22/2025 12:53 PM EDT 90 mcg/kg/min 61.506 mL/hr propofoL (DIPRIVAN) injection Intravenous, PRN (Anesthesia), Starting on Mon01/22/25 at 1232, Until Mon01/22/25 at 1311, Anesthesia Intra-op Given 01/22/2025 12:42 PM EDT 20 mg documented in this encounter Additional Health Concerns Assessment Noted Time PHQ-9 Depression Total Score: 1 07/22/20 24 3:29 PM EST A fall risk assessment has been complete d for the patient 02/07/2019 11:25 AM EDT PHQ-2 Depression Total Score: 1 07/22/20 24 3:29 PM EST documented as of this encounter Care Teams Mine Safety Engineer Relationship Specialty Start Date End Date Dylon Izaguirre MD [address] [place] [address] PCP - General Family Medicine 09/05/23 documented as of this encounter
--- OUTSIDE RECORDS SUMMARY | 2025-01-24 07:45 | XMS_ITS | Encounter Summary ---
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 [place] [address] Phone: tel: fax: Referral ID Status Reason Start Date Expiration Date Visits Requested Visits Authorized [id number] Authorization Not Needed Specialty Services Required 5 09/05/2025 99 99 Encounter Details Date Type Department Care Team (Latest Contact Info) Description 01/24/2025 7:45 AM EDT Hospital Encounter [facility] [address] [place] 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 Never true 07/22/2024 [facility] IP Transportation Answer D ate Recorded [...] Sign Reading Time Taken Comments Blood Pressure 141/71 01/24/2025 7:56 AM EDT Pulse 67 01/24/2025 7:56 AM EDT Temperature 36.4 C (97.6 F) 01/24/2025 7:56 AM EDT Respiratory Rate 18 01/24/2025 7:56 AM EDT Oxygen Saturation - - Inhaled Oxygen Concentration - - Weight - - Height - - Body Mass Index - - documented in this encounter Progress Notes * Irlanda Littlejohn LPN - 01/24/2025 7:45 AM EDT Pt presents to the [...] Patient Instructions - Irlanda Littlejohn LPN - 01/24/2025 7:45 AM EDT HOME-CARE INSTRUCTIONS FOLLOWING YOUR [...] long periods of time. 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 WHO TO CALL FOR PROBLEMS: Please call the OP wound care center with any problems or issues you may have after your visit or though the week. Each patient is assigned a rn case mgr who can assist with issues you may be having. Monica Nam is your rn case mgr Individual office numbers are listed below. Press 1 for immediate or schedule needs, press 2 for the nursing line. The nurse line is for non-emergent needs and will be answered within 24 hours duringbusiness days. If you have a more immediate concern, press option #1. Office numbers: [phone] [place] Des[place]msx-[phone] Kristopher- [phone] If you have an urgent or emergent [...] Appointment [facility] [place] [address] [place] [address] Aleksey Hunt DPM [address] [address] 02/24/2025 1:00 PM EDT Clinical Support [facility] [address] [place] [address] 02/28/2025 8:00 AM EDT Office Visit [facility] [place] [address] [place] [address] Blair Cordon MD [address] [place] [address] documented as of this [...] peripheral neuropathy weekly. Refer to PCP and/or Assurance Specialist, Vascular Specialist as indicated. Monitor patient compliance with wound care, diabetes management and proper offloading. 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, with fat layer exposed (HCC)- Primary documented in this encounter Orders Nursing Count Last Ordered Date First Orde red Date AMB [facility] PRIMARY DRESSING 1 01/24/2025 documented in this encounter Additional Health Concerns Assessment Noted Time PHQ-9 Depression Total Score: 1 07/22/20 3:29 PM EST A fall risk assessment has been complete d for the patient 02/07/2019 11:25 AM EDT PHQ-2 Depression Total Score: 1 07/22/20 24 3:29 PM EST documented as of this encounter Care Teams Bilingual Kindergarten Teacher Relationship Specialty Start Date End Date Dylon Izaguirre MD [address] [place] [address] PCP - General Family Medicine 09/05/23 documented as of this encounter
--- OUTSIDE RECORDS SUMMARY | 2025-01-24 12:35 | XMS_ITS | Clinical Summary ---
Author Organization [facility] Address [facility] [address] [place], [place] [address] Phone Care Team Providers Care Associate Professor Of Library Science Name Role Phone Dylon Izaguirre MD Primary Care Provider [phone] Allergies Active Allergy Reactions Criticality Noted Date Comments Edwin Inhibitors Rash,Other (See Comments) Low 11/16/2011 cough Nsaids (Non-Steroidal Anti-Inflammatory Drug) Other (See Comments) Low 11/21/2023 Kidney function Penicillins Rash Low 11/16/2011 Quinolones Other (See Comments) Low 11/16/2011 foggy headed. Muscle aches Rosuvastatin Other (See Comments) Low 11/16/2011 myalgia Muscle pain myalgia Ljwidgw-Qij-Wgr Reductase Inhibitors Palpitations,Other (See Comments) Low 11/16/2011 Muscle pain Myalgia Simvastatin Other (See Comments) Low 11/16/2011 Myalgia Medications aspirin 81 mg tablet Take 81 mg by mouth daily. Active acetaminophen (TYLENOL) 500 mg Oral Tablet Take 1 Tablet by mouth as needed for Pain. Active warfarin (COUMADIN) 5 mg tablet Take 1 Tab by mouth daily. 30 Tab 12 3 Active fUROsemide (LASIX) 40 mg Oral Tablet Take 40 mg by mouth daily. Active metoprolol succinate (TOPROL-XL) 25 mg Oral Tablet Sustained Release 24 hr TAKE DOS 9 Active evolocumab 140 mg/mL SubQ Pen Injector Subcutaneous (Inject under the skin) 140 mg every 14 days. Active irbesartan (AVAPRO) 150 mg Oral Tablet Take 150 mg by mouth daily. Active HYDROcodone-edwin taminophen (NORCO) 5-325 mg Oral Tablet Take 1 Tablet by mouth every 4 hours as needed for Major Surgery/Trauma (G89.18) for up to 12 doses. 12 Tablet 4 Active FARXIGA 10 mg Oral Tablet Take 10 mg by mouth daily. 3 Active TRULICITY 0.75 mg/0.5 mL SubQ Pen Injector Subcutaneous (Inject under the skin) 0.75 mg once a week. 3 Active metFORMIN (GLUCOPHAGE) 500 mg Oral Tablet Take 500 mg by mouth 2 times daily. 2 Active allopurinoL (ZYLOPRIM) 100 mg Oral Tablet Take 100 mg by mouth daily. 2 Active gabapentin (NEURONTIN) 300 mg Oral Capsule Take 300 mg by mouth 3 times daily as needed. 4 Active nitroGLYCERIN (NITROSTAT) 0.4 mg SL Tablet, Sublingual Place 0.4 mg under the tongue every 5 minutes as needed for Chest pain. 0 Active pentoxifylline (TRENTAL) 400 mg Oral Tablet Sustained Release TAKE 1 TABLET BY MOUTH 2 TIMES DAILY. 60 Tablet 5 Active oxyCODONE-aceta minophen (PERCOCET) 5-325 mg Oral Tablet 5 Active doxycycline monohydrate (MONODOX) 100 mg Oral Capsule Take 1 Capsule by mouth daily. 30 Capsule 5 Active oxyCODONE-aceta minophen (PERCOCET) 5-325 mg Oral Tablet Take 1 Tablet by mouth every 4 hours as needed for Major Surgery/Trauma (G89.18) for up to 3 days. 20 Tablet 01/22/2025 1:42 PM EDT 5 01/27/20 25 Active Active Problems Problem Noted Date Diagnosed Date 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, with necrosis of muscle 09/26/2024 Diabetic ulcer of right lowe r leg associated with type 2 diabetes mellitus, with fat layer exposed 09/17/2024 PVD (peripheral vascular disease) 09/17/2024 Dizziness 07/22/2024 Assessment & Plan (07/22/2024 11:28 AM EST): R/o stroke CT head without any acute finding CTA head and neck with stenosis of the distal L vertebral artery MRI brain pending PRN meclizine Continue aspirin, trental Will continue to hold warfarin pending MRI results May need neurology to see Controlled type 2 diabetes m say, without long-term current use of insulin 07/22/2024 Assessment & Plan (07/22/2024 11:28 AM EST): Keep BG 140-180 SSI Hold oral meds Adjust insulin as necessary Ataxia 07/22/2024 Non-pressure chronic ulcer o f right ankle with other specified severity 07/02/2024 Hammertoe of second toe of right foot 11/27/2023 Non-healing ulcer of lower l eg, right, with fat layer exposed 11/27/2023 Diabetic ulcer of toe of rig ht foot associated with diabetes mellitus due to underlying condition, with fat layer exposed 09/05/2023 Varicose veins of bilateral lower extremities with other complications 12/20/2019 Venous insufficiency of both lower extremities 0 09/03/2019 Other hyperlipidemia 02/15/2019 Stage 3 chronic kidney disease 02/15/2019 Assessment & Plan (07/22/2024 11:28 AM EST): Renal function stable Venous ulcer of left leg 02/12/2019 Assessment & Plan (07/22/2024 11:28 AM EST): F/u with vascular/ IR Wound care Chronic venous htn w ulcer a nd inflam of bilateral low extrm 02/12/2019 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, with fat layer exposed 02/12/2019 Coronary atherosclerosis of [place] coronary noelle ry 11/15/2011 Assessment & Plan (07/22/2024 11:28 AM EST): On aspirin; not tolerant of statins On repatha outpatient Essential hypertension, benign 11/15/2011 Assessment & Plan (07/22/2024 11:28 AM EST): Controlled currently Other and unspecified hyperlipidemia 11/15/2011 Atrial fibrillation 11/15/2011 Assessment & Plan (07/22/2024 11:28 AM EST): Rates controlled Currently in sinus george Warfarin has been held MANAGER ART for procedure, will continue to hold pending MRI results Sleep apnea, obstructive 11/15/2011 Assessment & Plan (07/22/2024 11:28 AM EST): CPAP Elevated uric acid 11/15/2011 Renal insufficiency 11/15/2011 Left ventricular hypertrophy 11/15/2011 Resolved Problems Problem Noted Date Diagnosed Date Resolved Date Venous stasis ulcer with fat layer exposed 09/03/2019 10/28/2019 Chronic ulcer of left leg, w ith fat layer exposed 02/12/2019 05/14/2019 Encounters Date Type Department Care Team Description 01/24/2025 7:45 AM EDT Hospital Encounter [facility] [place] [address] [place] [address] Darek Najera MD 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, with fat layer exposed (HCC) (Primary Dx) 01/22/2025 12:28 PM EDT Anesthesia Event [facility] [place] [address] Larissa Worley MD Salyer, Corey L, SUPERVISING LIBRARIAN 01/22/2025 12:00 PM EDT - 01/22/2025 1:43 PM EDT [facility] [address] [address] Aleksey Hunt DPM INCISION AND DRAINAGE, LEG/THIGH 01/22/2025 10:08 AM EDT - 01/22/2025 2:17 PM EDT Hospital Encounter [facility] SAME DAY SURGERY [facility] [place] [address] Aleksey Hunt DPM Discharge Disposition: Home or Self Care 01/22/2025 Travel 01/21/2025 7:45 AM EDT - 01/21/2025 11:59 PM EDT Hospital Encounter [facility] [place] [address] [place] [address] Darek Najera MD 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, with fat layer exposed (HCC); Venous insufficiency of both lower extremities; PVD (peripheral vascular disease) Discharge Disposition: Home or Self Care 01/21/2025 Travel 01/21/2025 Orders Only [facility] [address] [place] [address] Aleksey Hunt DPM 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, with fat layer exposed (HCC) (Primary Dx) 01/20/2025 Telephone [facility] [address] [place] [address] Aleksey Hunt DPM Other 01/18/2025 Refill [facility] [place] [address] [place] [address] Aleksey Hunt DPM Medication Refill 01/17/2025 7:45 AM EDT - 01/17/2025 11:59 PM EDT Hospital Encounter [facility] [place] [address] [place] [address] Darek Najera MD 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, with fat layer exposed (HCC); Venous insufficiency of both lower extremities; PVD (peripheral vascular disease) Discharge Disposition: Home or Self Care 01/14/2025 7:42 AM EDT - 01/14/2025 11:59 PM EDT Hospital Encounter [facility] [place] [address] [place] [address] Aleksey Hunt DPM 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, with fat layer exposed (HCC); Venous insufficiency of both lower extremities; PVD (peripheral vascular disease) Discharge Disposition: Home or Self Care 01/10/2025 7:59 AM EDT - 01/10/2025 11:59 PM EDT Hospital Encounter [facility] [place] [address] [place] [address] Darek Najera MD 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, with fat layer exposed (HCC); Venous insufficiency of both lower extremities; PVD (peripheral vascular disease) Discharge Disposition: Home or Self Care 01/07/2025 7:45 AM EDT - 01/07/2025 11:59 PM EDT Hospital Encounter [facility] [place] [address] [place] [address] Aleksey Hunt DPM 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, with fat layer exposed (HCC); Venous insufficiency of both lower extremities; PVD (peripheral vascular disease) Discharge Disposition: Home or Self Care 01/03/2025 7:43 AM EDT - 01/03/2025 11:59 PM EDT Hospital Encounter [facility] Wound Care [place] [address] [place] [address] Darek Najera MD Non-pressure chronic ulcer of right ankle with other specified severity (HCC) (Primary Dx) Discharge Disposition: Home or Self Care 12/31/2024 7:45 AM EDT - 12/31/2024 11:59 PM EDT Hospital Encounter [facility] Wound Care [facility] [address] [place] [address] Aleksey Hunt DPM 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, with fat layer exposed (HCC); Venous insufficiency of both lower extremities; PVD (peripheral vascular disease) Discharge Disposition: Home or Self Care 12/27/2024 7:37 AM EDT - 12/27/2024 11:59 PM EDT Hospital Encounter [facility] W[facility] Care [place] [address] [place] [address] Darek Najera MD 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, with fat layer exposed (HCC); Venous insufficiency of both lower extremities; PVD (peripheral vascular disease) Discharge Disposition: Home or Self Care 12/24/2024 8:14 AM EDT - 12/24/2024 11:59 PM EDT Hospital Encounter [facility] [place] [address] [place] [address] Aleksey Hunt DPM Diabetic ulcer of left lower leg associated [...] (HCC) Discharge Disposition: Home or Self Care 12/23/2024 Telephone [facility] [address] [place] [id number] Montrell Benz, Follow-up; Schedule Appointment 12/20/2024 7:19 AM EDT - 12/20/2024 11:59 PM EDT Hospital Encounter [facility] [place] [address] [place] [address] Darek Najera MD 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, with fat layer exposed (HCC); Venous insufficiency of both lower extremities; PVD (peripheral vascular disease) Discharge Disposition: Home or Self Care 12/17/2024 8:28 AM EDT - 12/17/2024 11:59 PM EDT Hospital Encounter [facility] [place] [address] [place] [address] Aleksey Hunt DPMelvi 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, with fat layer exposed (HCC); Venous insufficiency of both lower extremities; PVD (peripheral vascular disease) Discharge Disposition: Home or Self Care 12/16/2024 3:00 PM EDT Procedure visit [facility] [address] [place] [address] Blair Cordon MD 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 (CODE) (HCC) (Primary Dx) 12/13/2024 8:14 AM EDT - 12/13/2024 11:59 PM EDT Hospital Encounter [facility] [place] [address] [place] [address] Darek Najera MD 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, with fat layer exposed (HCC) (Primary Dx); Venous insufficiency of both lower extremities; PVD (peripheral vascular disease) Discharge Disposition: Home or Self Care 12/10/2024 7:33 AM EDT - 12/10/2024 11:59 PM EDT Hospital Encounter [facility] [place] [address] [address] [facility] [place] [address] Aleksey Hunt DPM Diabetic ulcer of left lower leg associated [...] (HCC) Discharge Disposition: Home or Self Care 12/06/2024 8:03 AM EDT - 12/06/2024 11:59 PM EDT Hospital Encounter [facility] W[facility] Care [address] [place] [address] Darek Najera MD Diabetic ulcer of left lower leg associated [...] (HCC) Discharge Disposition: Home or Self Care 12/03/2024 7:28 AM EDT - 12/03/2024 11:59 PM EDT Hospital Encounter [facility] [place] [address] [address] [facility] [place] [address] Aleksey Hunt DPM 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, with fat layer exposed (HCC); Venous insufficiency of both lower extremities; Diabetic ulcer of right lower leg associated with type 2 diabetes mellitus, with fat layer exposed (HCC); PVD (peripheral vascular disease); Chronic venous htn w ulcer and inflam of bilateral low extrm (HCC) Discharge Disposition: Home or Self Care 11/29/2024 8:01 AM EDT - 11/29/2024 11:59 PM EDT Hospital Encounter [facility] [place] [address] Darek Najera MD 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, with fat layer exposed (HCC) (Primary Dx); Diabetic ulcer of right lower leg associated with type 2 diabetes mellitus, with fat layer exposed (HCC) Discharge Disposition: Home or Self Care 11/26/2024 8:13 AM EDT - 11/26/2024 11:59 PM EDT Hospital Encounter [facility] [address] [place] [address] Aleksey Hunt DPM Diabetic ulcer of left lower leg associated [...] (HCC) Discharge Disposition: Home or Self Care 11/22/2024 8:14 AM EDT - 11/22/2024 11:59 PM EDT Hospital Encounter [facility] [address] [facility] [place] [address] Darek Najera MD Chronic venous htn w ulcer and inflam of bilateral low extrm (HCC) (Primary Dx) Discharge Disposition: Home or Self Care 11/19/2024 8:21 AM EDT - 11/19/2024 11:59 PM EDT Hospital Encounter [facility] Wound Care [facility] [place] [place] [address] Aleksey Hunt DPM 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, with fat layer exposed (HCC); Venous insufficiency of both lower extremities; Diabetic ulcer of right lower leg associated with type 2 diabetes mellitus, with fat layer exposed (HCC); PVD (peripheral vascular disease); Chronic venous htn w ulcer and inflam of bilateral low extrm (HCC) Discharge Disposition: Home or Self Care 11/15/2024 7:30 AM EDT - 11/15/2024 11:59 PM EDT Hospital Encounter [facility] [place] [address] [address] [facility] [place] [address] Darek Najera MD 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, with fat layer exposed (HCC); Venous insufficiency of both lower extremities; Diabetic ulcer of right lower leg associated with type 2 diabetes mellitus, with fat layer exposed (HCC); PVD (peripheral vascular disease); Chronic venous htn w ulcer and inflam of bilateral low extrm (HCC) Discharge Disposition: Home or Self Care 11/12/2024 8:07 AM EDT - 11/12/2024 11:59 PM EDT Hospital Encounter [facility] Wound Care [address] [facility] [place] [address] Aleksey Hunt DPM Diabetic ulcer of left lower leg associated [...] (HCC) Discharge Disposition: Home or Self Care 11/09/2024 Refill [facility] W[facility] Care [address] [facility] [place] [address] Aleksey Hunt DPM Medication Refill 11/08/2024 12:30 PM EDT - 11/08/2024 11:59 PM EDT Hospital Encounter [facility] W[facility] Care [address] [facility] [place] [address] Blair Cordon MD 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, with fat layer exposed (HCC); Venous insufficiency of both lower extremities; Diabetic ulcer of right lower leg associated with type 2 diabetes mellitus, with fat layer exposed (HCC); PVD (peripheral vascular disease) Discharge Disposition: Home or Self Care 11/08/2024 11:15 AM EDT Office Visit [facility] [place] [address] [place] [address] Blair Cordon MD PVD (peripheral vascular disease) (Primary Dx); 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 (CODE) (HCC) 11/08/2024 9:30 AM EDT Clinical Support [facility] [address] [place], [place] [id number] PVD (peripheral vascular disease) (HCC) (Primary Dx) 11/05/2024 8:53 AM EDT - 11/05/2024 11:59 PM EDT Hospital Encounter [facility] [address] [place] [address] Aleksey Hunt DPM 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, with fat layer exposed (HCC); Venous insufficiency of both lower extremities; Diabetic ulcer of right lower leg associated with type 2 diabetes mellitus, with fat layer exposed (HCC); PVD (peripheral vascular disease) Discharge Disposition: Home or Self Care 11/01/2024 7:45 AM EDT - 11/01/2024 11:59 PM EDT Hospital Encounter [facility] W[facility] Care [address] [place] [address] Darek Najera MD Chronic venous htn w ulcer and inflam of bilateral low extrm (HCC) (Primary Dx); 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, with necrosis of muscle (HCC); Diabetic ulcer of right lower leg associated with type 2 diabetes mellitus, with fat layer exposed (HCC) Discharge Disposition: Home or Self Care 10/29/2024 9:00 AM EDT - 10/29/2024 11:59 PM EDT Hospital Encounter [facility] Wound Care [address] [place] [address] Aleksey Hunt DPM 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, with fat layer exposed (HCC); Venous insufficiency of both lower extremities; Diabetic ulcer of right lower leg associated with type 2 diabetes mellitus, with fat layer exposed (HCC); PVD (peripheral vascular disease) Discharge Disposition: Home or Self Care 10/25/2024 7:17 AM EDT - 10/25/2024 11:59 PM EDT Hospital Encounter [facility] Wound Care [address] [place] [address] Darek Najera MD 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, with fat layer exposed (HCC); Venous insufficiency of both lower extremities; Diabetic ulcer of right lower leg associated with type 2 diabetes mellitus, with fat layer exposed (HCC); PVD (peripheral vascular disease) Discharge Disposition: Home or Self Care from Last 3 Months Surgical History Surgery Date Site/Laterality Comments CORONARY ARTERY BYPASS GRAFT 03/14/2007 - 04/13/2007 COOPER-OM SVG-LAD SVG-PDA CARDIAC CATHETERIZATION 03/20 -cabg FOOT SURGERY Right great toe surgery PILONIDAL CYST EXCISION 08/14/1975 - 08/13/1976 COLONOSCOPY 09/24/2015 N/A COLONOSCOPY with snare polypectomy and biopsies; Surgeon: Altaf De La Paz MD; Location: ED ENDOSCOPY; Service: Endoscopy ABLATION OF DYSRHYTHMIC FOCUS HAMMER TOE SURGERY 11/27/2023 Foot/Ankle/Right RIGHT SECOND TOE HAMMER TOE REPAIR and placement of graft to right ankle ulcer; Surgeon: Bienvenido Ford DPM; Location: [facility]; Service: Podiatry Medical devices from this surgery are in the Medical Devices section. IR ANGIOGRAM EXTREMITY BILATERAL 07/18/2024 IR ANGIOGRAM EXTREMITY BILATERAL 07/18/2024 Blair Cordon MD [facility] IR IR ULTRASOUND GUIDED VASCULAR ACCESS 07/18/2024 IR ULTRASOUND GUIDED VASCULAR ACCESS 07/18/2024 Blair Cordon MD [facility] IR IR ANGIOGRAM EXTREMITY BILATERAL 09/04/2024 IR ANGIOGRAM EXTREMITY BILATERAL 09/04/2024 Blair Cordon MD [facility] IR DEBRIDEMENT 01/22/2025 Left debridement left lower leg ulcer.; Surgeon: Aleksey Hunt DPM; Location: [facility] MAIN OR; Service: Podiatry Medical History Medical History Date Comments Hypertension Arrhythmia Sleep apnea c pap. does not know setting, USES O2 2L Hyperlipidemia cannot tolerate statins Cardiac dysrhythmia a fib CAD (coronary artery disease) CA BG times 3 vessels Chronic kidney disease elevated creatinine levels. Motion sickness Arthritis osteoarthritis Asthma Diabetes mellitus (HCC) CHF (congestive heart failure) (HCC) Peripheral vascular disease Blood circulation, collateral Prostate disorder Family History Medical History Relation Name Comments Cancer Father COPD Mother Anesth Problems Neg Hx Relation Name Status Comments Father Mother Social History Tobacco Use Types Packs/Day Years Used Date Smoking Tobacco: Former Cigarettes 0.5 9 0 01/17/1973 - 01/17/1982 Smokeless Tobacco: Former Snuff Quit: 01/12/2005 Tobacco Cessation:Counseling Given: Not Answered Alcohol Use Standard Drinks/Week Comments No 0 (1 standard drink = 0.6 oz pur e alcohol) [facility] Utilities Answer Date Recorded In the [...] Date Recorded PHQ-2 Total Score 1 07/22/2024 [employer] [facility] [employer] - Occupational Stress [...] money to get more. Never true 07/22/2024 [facility] Transportation Answer D ate Recorded In the past 12 months, has l ack of reliable transportation kept you from medical appointments, meetings, work or from getting things needed for daily living? No 07/22/2024 Sex and Gender Information Value Date Recorded Sex Assigned at Not on file Legal Sex Male 7:39 AM EDT Gender Identity Not on file Sexual Orientation Not on file Obstetrics History Last Filed Vital Signs Vital Sign Reading Time Taken Comments Blood Pressure 141/71 01/24/2025 7:56 AM EDT Pulse 67 01/24/2025 7:56 AM EDT Temperature 36.4 C (97.6 F) 01/24/2025 7:56 AM EDT Respiratory Rate 18 01/24/2025 7:56 AM EDT Oxygen Saturation 99% 01/22/2025 2:11 PM EDT Inhaled Oxygen Concentration - - Weight 113.9 kg (251 lb) 01/22/2025 10:28 AM EDT Height 175.3 cm (5' 9 ) 01/22/2025 10:28 AM EDT Body Mass Index 37.07 01/22/2025 10:28 AM EDT Plan of Treatment Upcoming Encounters Date Type Department Care Team (Late st Contact Info) Description 01/28/2025 8:00 AM EDT Appointment [facility] [address] [place] [address] Aleksey Hunt DPM [address] [place] [address] 02/24/2025 1:00 PM EDT Clinical Support [facility] [address] [place] [address] 02/28/2025 8:00 AM EDT Office Visit [facility] [place] [address] [place] [address] Blair Cordon MD [address] [place] [address] Health Maintenance Due Date Last Done Comments Wellness Exam Medicare 1952 Microalbuminuria 1959 Diabetic Eye Exam 1967 Cologuard 1994 FIT 1994 Sigmoidoscopy 1994 Virtual Colonography 1994 Zoster (1 of 2) 1999 AAA Screening 2014 DTaP/TDaP/Td (2 - Td or Tdap) 05/18/2019 05/18/2009 Hemoglobin A1c 03/05/2024 09/05/2023, 02/12, 01/11/2017 RSV or 60+ (1 - 1-dose 75+ series) 2024 COVID-19 Vaccine (3 2023-2 5 season) 2024 09/01/2020, 08/04/2020 Lipids 01/29/2025 01/30/2024, 01/12, 10/18/2019, Additional history exists Colon Cancer Screening 03/19/2025 Colonoscopy 03/19/2025 03/19/2020, 09/24/2015 Influenza Vaccine (Season Ended) 2025 Hepatitis C Screening Completed 03/13/2012 Pneumococcal Vaccine 50+ Completed 04/07/2023 Hepatitis B Vaccine Aged Out No longe r eligible based on patient's age to complete this topic Meningococcal B Vaccine Aged Out No l onger eligible based on patient's age to complete this topic Goals Goal Patient Goal Type Associated Problems [...] peripheral neuropathy weekly. Refer to PCP and/or [employer] Administrator, Vascular Specialist as indicated. Monitor patient compliance with wound care, diabetes management and proper offloading. Medical Devices Implanted Type Area Funeral Director'S Assistant Device Identifier Shelf Expiration Date Model / Serial / Lot Hardware Right Great Toe Matrix Amnion Thick Cord 3cm X 4cm Sterile - [id number] Implanted:Qty: 1 on 11/27/2023 by Bienvenido Ford DPM at [facility] Right: Ankle ARTHREX 02/21/2028 [id number] / / [id number] Procedures Procedure Name Priority Date/Time Associated Diagnosis Comments GLUCOSE METER POC Routine 01/22/2025 1:4 0 PM EDT INTRAOP AIRWAY PLACEMENT Routine 01/22/2025 12:36 PM EDT INCISION AND DRAINAGE, LEG/THIGH 01/22/2025 12:28 PM EDT 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, with fat layer exposed (HCC) Special Needs Vers[facility] PT / INR STAT 01/22/2025 10:46 AM EDT GLUCOSE METER POC Routine 01/22/2025 10: 27 AM EDT LIPID SCREEN Callback 01/30/2024 7:41 AM EDT Chronic heart failure, unspecified heart failure type (HCC) HEMOGLOBIN A1C Routine 09/05/2023 9:22 AM EST Diabetic ulcer of right ankle associated with type 2 diabetes mellitus, with fat layer exposed (HCC) GMED COLONOSCOPY Routine 09/24/2015 2:30 PM EST ACUTE HEPATITIS PANEL Callback 03/13/2012 9:12 AM EDT CKD (chronic kidney disease) HTN (hypertension) CAD (coronary artery disease) High level of uric acid in blood from Last 3 Months or Most Recently Relevant to Health Maintenance Results * GLUCOSE METER POC (01/22/2025 1:40 PM EDT) Only the most recent of2 resultswithin the time period is included. [facility] Glucose Meter POC 75 70 - 100 mg/dL 01/22/2025 1:42 PM EDT [facility] Sample Type Capillary 01/22/2025 1:42 PM EDT [facility] Patient Status Non-Critical Patient 01/22/2025 1:42 PM EDT [facility] Blood BLOOD SPECIMEN / Unknown 01/22/2025 1:40 PM EDT 01/22/2025 1:42 PM EDT us Aleksey Hunt DPM POINT OF CARE TEST ORDERABL ES Final Result Performing Organization Address City/[facility]/ZIP Co de Phone Number [facility] [address] [place] [address] [phone] * INTRAOP AIRWAY PLACEMENT (01/22/2025 12:36 PM EDT) Narrative [facility] - 01/22/2025 12:36 PM EDT Dylan Palencia CRNA 01/22/2025 12:36 PM Intraop Airway Placement: Date/Time: 01/22/2025 12:36 PM Airway type: Nasal cannula Placement verified: End tidal CO2 us Larissa Worley MD IN ANESTHESIA Final Resu lt Performing Organization Address [facility] Co de Phone Number [facility] [address] [place] [phone] * (ABNORMAL) PT / INR (01/22/2025 10:46 AM EDT) [facility] PT 16.5(H) 10.5 - 13.6 second(s) 01/22/2025 10:59 AM EDT [facility] INR 1.42(H) 0.91 - 1.18 (ratio) 01/22/2025 10:59 AM EDT [facility] Comment: Level of Therapy Indications Target INR Range Standard Dose Treatment and prophylaxis of venous 2.0 - 3.0 thrombosis, pulmonary embolism High Dose High risk patients with mechanical 2.5 - 3.5 heart valves Blood VENOUS BLOOD / Unknown Venipuncture / Unknown 01/22/2025 10:46 AM EDT 01/22/2025 10:49 AM EDT us Aleksey Hunt DPM HEMATOLOGY ORDERABLES Final Result Performing Organization Address City/[facility]/ZIP Co de Phone Number [facility] [address] [facility] , [place] [address] * (ABNORMAL) LIPID SCREEN (01/30/2024 7:41 AM EDT) [facility] Cholesterol 164 <200 mg/dL 01/30/2024 9:09 AM EDT [facility] [employer] Comment: < 200 Desirable 200 - 239 Borderline High >= 240 High Triglyceride 634(H) <150 mg/dL 01/30/2024 9:09 AM EDT [facility] [employer] Comment: < 150 Normal 150 - 199 Borderline High 200 - 499 High >= 500 Very High HDL 37(L) >=40 mg/dL 01/30/2024 9:09 AM EDT [facility] Comment: > 60 Optimal 40 - 60 Acceptable < 40 Low LDL Calculated 39 <100 mg/dL 01/30/2024 9:09 AM EDT [facility] Comment: < 100 Optimal 100 - 129 Near or above optimal 130 - 159 Borderline High 160 - 189 High >= 190 Very High Non-HDL-C Calculated 127 <=129 mg/dL 01/30/2024 9:09 AM EDT [facility] Comment: <130 Desirable 130-159 Above Desirable 160-189 Borderline High 190-219 High >= 220 Very High Fasting Specimen? Unknown None 024 9:09 AM EDT [facility] Blood VENOUS BLOOD / Unknown Venipuncture / Unknown 01/30/2024 7:41 AM EDT 01/30/2024 7:42 AM EDT Aleksey Estrella MD CHEMISTRY ORDERABLES Telma l Result Performing Organization Address City/[facility]/ZIP Co de Phone Number [facility] [employer] [facility] [address] [facility] , [place] [address] [facility] [address] [place] [phone] * (ABNORMAL) HEMOGLOBIN A1C (09/05/2023 9:22 AM EST) Hgb A1C 6.9(H) 4.2 - 5.6 % 09/05/2023 3:46 PM EST [facility] Est. Avg Glucose 151 mg/dL 09/05/2023 3:46 PM EST [facility] Blood VENOUS BLOOD / Unknown Venipuncture / Unknown 09/05/2023 9:22 AM EST 09/05/2023 9:36 AM EST Narrative [facility] - 09/05/2023 3:46 PM EST REFERENCE RANGE: Normal: 4.0-5.6% Pre-diabetes: 5.7-6.4% Provisional diagnosis of diabetes: >6.4% Hgb F>10% and anything which shortens red cell survival, such as hemolytic anemia, or unstable hemoglobin variants such as HbSS, HbSC, or HbCC, will lower the HbA1c value associated with a given level of glycemic control. us Aleksey Hunt DPM CHEMISTRY ORDERABLES Final Result [facility] [employer], [address] [place] [phone] * GMED COLONOSCOPY (09/24/2015 2:30 PM EST) 09/24/2015 2:30 PM EST Impressions [facility] - 09/24/2015 4:07 PM EST Polyps (3 mm to 12 mm) in the ascending colon and transverse colon. (Polypectomy, Polypectomy). Polyps (2 mm to 8 mm) in the rectum and sigmoid colon. (Polypectomy, Polypectomy, Polypectomy). Severe diverticulosis of the descending colon and sigmoid colon. Normal mucosa in the whole colon. Grade 1 internal hemorrhoids. Plan: Await pathology results Hold coumadin for 3 days due to large number of polypectomies. I will send a letter with the results. High fiber diet. This section is an excerpt of the full report. us Altaf De La Paz MD GI PROCEDURE ORDERABLE S Final Result Performing Organization Address City/[facility]/ZIP Co de Phone Number [facility] [address] [place] [address] * ACUTE HEPATITIS PANEL (03/13/2012 9:12 AM EDT) Hep Bs Ag Negative Negative [facility] Hep B Core IgM Negative Negative [facility] Hep A IgM Negative Negative [facility] Hep C Ab Negative Negative [facility] Blood specimen (specimen) UPPER LIMB STRUCTURE / Unknown 03/13/2012 9:12 AM EDT 03/13/2012 2:46 PM EDT Narrative [facility] - 03/13/2012 3:39 PM EDT Fax results to [phone] us Jerry Hooks MD CHEMISTRY ORDERABLES Edited Performing Organization Address City/[facility] Co de Phone Number [facility] [address] [place] [address] from Last 3 Months or Most Recently Relevant to Health Maintenance Insurance MEDICARE [place] PART [place]PPLE[place] [address] AARP SUPPLEMENTAL MEDICARE [place] PART A [place] B Advance Directives For more information, please contact: [phone] * Full Code (Latest Code Status on File) Date Activated Date Inactivated Comments 07/22/2024 11:15 AM 07/24/2024 8:14 PM Care Teams Associate Professor Of Library Science Relationship Specialty Start Date End Date Dylon Izaguirre MD [address] [place] [address] PCP - General Family Medicine 09/05/23
--- OUTSIDE RECORDS SUMMARY | 2025-01-24 12:35 | XMS_ITS | Encounter Summary ---
Author Organization [place] [address] Care Team Providers Care Career Development Counselor Name Role Phone Louisa Main MD, Harold Primary Care Provider + Dylon Izaguirre MD Primary Care Provider [phone] Encounter Details Date Type Department Care Team (Late st Contact Info) Description 05/08/2009 Orders Only SEP [facility] [place] [address] [place] [address] Dereje Humphreys MD Social History Tobacco Use Types Packs/Day Years Used Date Smoking Tobacco: Never Assessed Sex and Gender Information Value Date Recorded Sex Assigned at Not on file Legal Sex Male 7:39 AM EDT Gender Identity Not on file Sexual Orientation Not on file documented as of this encounter Plan of Treatment Upcoming Encounters Date Type Department Care Team (Late st Contact Info) Description 01/28/2025 8:00 AM EDT Appointment [facility] [place] [address] [place] [address] Aleksey Hunt DPM [address] [place] [address] 02/24/2025 1:00 PM EDT Clinical Support [facility] [place] [address] [place], [place] [phone] 02/28/2025 8:00 AM EDT Office Visit [facility] [place] [address] [place] [address] Blair Cordon MD [address] [place] [phone] documented as of this encounter Procedures Procedure Name Priority Date/Time Associated Diagnosis Comments NM CARDIOLOGY - HISTORICAL Routine 05/08/2009 12:00 AM EDT documented in this encounter Results * NM CARDIOLOGY - HISTORICAL (05/08/2009 12:00 AM EDT) Anatomical Region Laterality Modality Other 05/08/2009 Narrative 08/16/2011 3:15 AM EST NOTICE: This report was electronically copied on 09/28/2011 from historical data generated by a practice prior to that practice using [facility] for Medical Records. Performing Provider: Dereje Humphreys MD us Dereje Humphreys MD IMG ECHO ORDERABLES Final R esult documented in this encounter Visit Diagnoses Not on filedocumented in this encounter Additional Health Concerns Infection Onset Date Last Indicated Resolved Time R/O COVID-19 07/22/2024 07/22/2024 07/22/2024 2:12 PM EST COVID-19 07/22/2024 07/22/2024 08/11/2024 10:1 3 PM EST documented as of this encounter Care Teams Career Development Counselor Relationship Specialty Start Date End Date Gaetano Jasso MD [address] [place] [phone] PCP - General 10/27/10 09/04/23 Dylon Izaguirre MD [address] [place] [id number] PCP - General Family Medicine 09/05/23 documented as of this encounter
--- OUTSIDE RECORDS SUMMARY | 2025-01-24 12:35 | XMS_ITS | Clinical Summary ---
Author Organization [facility] Address [facility] [place] [address] Care Team Providers Care Save All Operator Name Role Phone Unknown, Attending Provider Primary Care Provide r Unavailable Source Comments This information has been disclosed to you from confidential records protectedfrom disclosure by state law. You shall make no further disclosure of thisinformation without the specific, written, and informed release of theindividual to whom it pertains, or as otherwise permitted by law. A generalauthorization for the release of medical or other information is not sufficientfor the purposes of therelease of HIV test results or diagnoses. [id number] Health Allergies Active Allergy Reactions Criticality Noted Date Comments Penicillins Hives Medium 03/02/2023 Medications metFORMIN (GLUCOPHAGE) 500 MG tablet Take 1 tablet (500 mg total) by mouth 2 times a day with meals. Active metoprolol succinate (TOPROL-XL) 25 MG 24 hr tablet Take 1 tablet (25 mg total) by mouth daily. Active warfarin (COUMADIN/JANTO ANA) 1 MG tablet Take 2.5 tablets (2.5 mg total) by mouth daily. Active allopurinoL (ZYLOPRIM) 100 MG tablet Take 1 tablet (100 mg total) by mouth daily. Active furosemide (LASIX) 40 MG tablet Take 1 tablet (40 mg total) by mouth daily. 60 tablet 03/07/20 23 Active irbesartan (AVAPRO) 150 MG tablet Take 0.5 tablets (75 mg total) by mouth daily. 30 tablet 03/06/20 23 Active evolocumab (REPATHA SURECLICK) 140 mg/mL PnIj Inject 2 mLs subcutaneously daily. 03/06/20 23 Active dapagliflozin propanediol (FARXIGA) 10 mg Tab tablet Take 1 tablet (10 mg total) by mouth daily. 03/06/20 Active Active Problems Problem Noted Date Diagnosed Date CAP (community acquired pneumonia) 03/02/2023 Social History Tobacco Use Types Packs/Day Years Used Date Smoking Tobacco: Never Smokeless Tobacco: Never Alcohol Use Standard Drinks/Week Comments Never 0 (1 standard drink = 0.6 oz pur e alcohol) AUDIT-C Answer Date Recorded Q1: How often do you have a drink containing alcohol? Never 03/02/2023 Q2: How many drinks containi ng alcohol do you have on a typical day when you are drinking? Patient does not drink Q3: How often do you have si x or more drinks on one occasion? Never 03/02/2023 Sex and Gender Information Value Date Recorded Sex Assigned at Not on file Legal Sex Male 7:16 PM EST Gender Identity Not on file Sexual Orientation Not on file Last Filed Vital Signs Vital Sign Reading Time Taken Comments Blood Pressure 158/87 03/06/2023 11:09 AM EDT Pulse 63 03/06/2023 11:09 AM EDT Temperature 36.4 C (97.5 F) 03/06/2023 11:09 AM EDT Respiratory Rate 18 03/06/2023 11:09 AM EDT Oxygen Saturation 94% 03/06/2023 11:09 AM EDT Inhaled Oxygen Concentration 94% 03/06/2023 1 1:09 AM EDT Weight 126.1 kg (278 lb) 03/05/2023 1:54 PM EDT Height 175.3 cm (5' 9 ) 03/02/2023 4:08 PM EDT Body Mass Index 41.05 03/02/2023 4:08 PM EDT Plan of Treatment Health Maintenance Due Date Last Done Comments Abnormal Colonoscopy Follow Up 1949 Depression Screening 1967 Cologuard (FIT-DNA) 1994 Colonoscopy 1994 Colorectal Cancer Screening (MyChart) 1994 Stool Testing (gFOBT) 1994 Immunization: Pneumococcal (1 of 1 - PCV) 1999 Immunization: Zoster (1 of 2) 1999 Immunization: DTaP/Tdap/Td ( 2 - Td or Tdap) 05/18/2019 05/18/2009 Alcohol Misuse Screening 03/02/2024 03/02/2023 Diabetes Screening 03/02/2024 03/02/2023 Immunization: RSV (Adult) (1 - 1-dose 75+ series) 2024 Immunization: COVID-19 ( season) 2024 09/01/2020, 08/04/2020 Immunization: Influenza (MyC tony) (Season Ended) 2025 Procedures Procedure Name Priority Date/Time Associated Diagnosis Comments HEMOGLOBIN A1C Routine 03/02/2023 6:05 PM EDT from Last 3 Months or Most Recently Relevant to Health Maintenance Results * (ABNORMAL) Hemoglobin A1c (03/02/2023 6:05 PM EDT) Hemoglobin A1C 8.6(H) 4.0 - 5.6 % 03/02/2023 6:32 PM EDT [facility] Comment: Hemoglobin A1c Interpretation Guidelines: Normal: <5.7% Prediabetes: 5.7-6.4% Diabetes: >6.4% Diagnosis requires two independent tests unless clinical diagnosis is clear. Some clinical conditions, particularly anemias and hemoglobinopathies, may interfere with the diagnostic accuracy of hemoglobin A1c. The recommended goal for diabetic glycemic control (Hemoglobin A1c <7.0%) should be individualized based on duration of diabetes, age/life expectancy, comorbid conditions, known CVD or advanced microvascular complications, hypoglycemia unawareness, and other individual patient considerations. Whole Blood 03/02/2023 6:05 PM EDT 03/02/2023 6:15 PM EDT us Lavell Urban MD LAB BLOOD ORDERABLES Final Resul t [facility] [address] [place] [address], [facility] from Last 3 Months or Most Recently Relevant to Health Maintenance Insurance MEDICARE A AND B AARP Advance Directives For more information, please contact: [phone] * Full Code (Latest Code Status on File) Date Activated Date Inactivated Comments 03/02/2023 6:21 PM 03/06/2023 10:27 PM Care Teams Save All Operator Relationship Specialty Start Date End Date Unknown, Attending Provider PCP - General 03/02/23
--- NOTE | 2025-01-24 12:36 | XR_ITS ---
FINAL REPORT TECHNIQUE: 3 views lumbosacral spine CLINICAL HISTORY: low back pain fall last week COMPARISON: None FINDINGS: AP and lateral views of the lumbar spine were obtained. There is no prior exam for comparison. There is no acute fracture. There is moderate spondylolisthesis of L4 on L5. Advanced facet sclerosis is present. Vertebral body height is preserved. Disc space height is preserved. There are anterior osteophytes present at the T12-L1 and L1-2 levels. No acute paraspinal abnormality. IMPRESSION: Degenerative change as described above, without acute osseous abnormality. Reviewed, Interpreted and Dictated by Viktor Herr MD Transcribed by Lucia Mcdermott Authenticated and [facility]
--- OUTSIDE RECORDS SUMMARY | 2025-01-24 12:38 | XMS_ITS | Encounter Summary ---
Author Organization [facility] Address [address] [place] [address] Care Team Providers Care Ice Guard Tester Name Role Phone Dylon Izaguirre MD Primary Care Provider [phone] Reason for Visit * Reason Onset Date Comments Follow-up 12/23/2024 Schedule Appointment 12/23/2024 Encounter Details Date Type Department Care Team (Late st Contact Info) Description 12/23/2024 Telephone [facility] [place] [address] [place] [address] Montrell Benz, RT Follow-up; Schedule Appointment Social History Tobacco Use Types Packs/Day Years Used Date Smoking Tobacco: Former Cigarettes 0.5 9 0 01/17/1973 - 01/17/1982 Smokeless Tobacco: Former Snuff Quit: 01/12/2005 Alcohol Use Standard Drinks/Week Comments No 0 (1 standard drink = 0.6 oz pur e alcohol) [facility] Utilities Answer Date Recorded In the [...] Date Recorded PHQ-2 Total Score 1 07/22/2024 [facility] Occupat ional Health - Occupational Stress [...] to get more. 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 [place] [address] Aleksey Hunt DPM [address] [facility] [address] 02/24/2025 1:00 PM EDT Clinical Support [facility] [place] [address] [place] [address] 02/28/2025 8:00 AM EDT Office Visit [facility] [place] [address] [place] [address] Blair Cordon MD [address] [place] [address] documented as of this encounter [...] peripheral neuropathy weekly. Refer to PCP and/or Cylinder Honer, Vascular Specialist as indicated. Monitor patient compliance with wound care, diabetes management and proper offloading. documented as of this encounter Visit Diagnoses Not on filedocumented in this encounter Additional Health Concerns Assessment Noted Time PHQ-9 Depression Total Score: 1 07/22/20 24 3:29 PM EST A fall risk assessment has been complete d for the patient 02/07/2019 11:25 AM EDT PHQ-2 Depression Total Score: 1 07/22/20 24 3:29 PM EST documented as of this encounter Care Teams Ice Guard Tester Relationship Specialty Start Date End Date Dylon Izaguirre MD [address] [place] [address] PCP - General Family Medicine 09/05/23 documented as of this encounter
--- OUTSIDE RECORDS SUMMARY | 2025-01-24 12:38 | XMS_ITS | Encounter Summary ---
Author Organization [facility] [place] [address] Care Team Providers Care Psych Social Worker Name Role Phone Dylon Izaguirre MD Primary Care Provider [phone] Encounter Details Date Type Department Care Team (Latest Contact Info) Description 01/21/2025 Travel Social History Tobacco Use Types Packs/Day Years Used Date Smoking Tobacco: Former Cigarettes 0.5 9 0 01/17/1973 - 01/17/1982 Smokeless Tobacco: Former Snuff Quit: 01/12/2005 Alcohol Use Standard Drinks/Week Comments No 0 (1 standard drink = 0.6 oz pur e alcohol) [facility] Utilities Answer Date Recorded In the past [...] Date Recorded PHQ-2 Total Score 1 07/22/2024 [facility] [place] [facility] ional Health - Occupational [...] money to get more. Never true 07/22/2024 [facility] IP Transportation Answer D ate [...] Info) Description 01/28/2025 8:00 AM EDT Appointment [facility] W[facility] [place] [address] [place] [address] Aleksey Hunt DPM [address] [place] [address] 02/24/2025 1:00 PM EDT Clinical Support [facility] [place] [address] [place] [address] 02/28/2025 8:00 AM EDT Office Visit [facility] [place] [address] [place] [address] Blair Cordon MD [address] [place] [address] documented as of this encounter Goals Goal Patient Goal Type Associated Problems Recent Progress Patient-Stated? Author Wound Healing General Not on track(2024 2:05 PM EDT) No Angela De Souza, RN Note: Wound Care Goals-right medial malleolus [...] peripheral neuropathy weekly. Refer to PCP and/or Adult Specialist, Vascular Specialist as indicated. Monitor patient [...] documented as of this encounter Care Teams Psych Social Worker Relationship Specialty Start Date End Date Dylon Izaguirre MD [address] [place] [address] PCP - General Family Medicine 09/05/23 documented as of this encounter
--- OUTSIDE RECORDS SUMMARY | 2025-01-24 12:38 | XMS_ITS | Encounter Summary ---
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, with fat layer exposed (HCC) (Primary Dx) Social History Tobacco Use Types Packs/Day Years Used Date Smoking Tobacco: Former Cigarettes 0.5 9 0 01/17/1973 - 01/17/1982 Smokeless Tobacco: Former Snuff Quit: 01/12/2005 Alcohol Use Standard Drinks/Week Comments No 0 (1 standard drink = 0.6 oz pur e alcohol) [facility] Utilities Answer Date Recorded In the past [...] Date Recorded PHQ-2 Total Score 1 07/22/2024 [facility] - Occupational Stress Questionnaire Answer Date [...] money to get more. Never true 07/22/2024 [facility] HRSN [facility] IP Transportation Answer D ate Recorded In [...] 01/28/2025 8:00 AM EDT Appointment [facility] Wound Care Center [place] [address] 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 Refer to PCP and/or Fireproof Door Assembler, Vascular Specialist as indicated. Monitor patient compliance with wound care, diabetes management and proper offloading. 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
--- OUTSIDE RECORDS SUMMARY | 2025-01-24 12:38 | XMS_ITS | Encounter Summary ---
Author Organization [place] [address] Care Team Providers Care Mortgage Loan Funder Name Role Phone Dylon Izaguirre MD Primary Care Provider [phone] Reason for Visit * Reason Onset Date Comments Other 01/20/2025 Encounter Details Date Type Department Care Team (Late st Contact Info) Description 01/20/2025 Telephone SEP Podiatry [address] [place] [address] Aleksey Hunt [place] [address] [place] [address] Other Social History Tobacco Use Types Packs/Day Years Used Date Smoking Tobacco: Former Cigarettes 0.5 9 0 01/17/1973 - 01/17/1982 Smokeless Tobacco: Former Snuff Quit: 01/12/2005 Alcohol Use Standard Drinks/Week Comments No 0 (1 standard drink = 0.6 oz pur e alcohol) [facility] Utilities Answer Date Recorded In the past 12 months has [employer] electric, gas, oil, or water company threatened to shut off services in your home? No 07/22/2024 Overall Financial Resource Strain (CARDIA) Answe r Date Recorded How hard is it for you to pa y for the very basics like food, housing, medical care, and heating? Not very hard 07/22/2024 PHQ-2 Answer Date Recorded PHQ-2 Total Score 1 07/22/2024 [facility] - Occupational Stress Questionnaire Answer Date [...] money to get more. Never true 07/22/2024 [facility] IP Transportation Answer D ate Recorded [...] encounter Miscellaneous Notes * Telephone Encounter - Felicita Cotto Scribe - 01/21/2025 11:03 AM EDT Spoke with Dr. Hunt and patient. Patient will be scheduled for tomorrow at ED. Patient aware. * Telephone Encounter - Janae Linares MA - 01/21/2025 10:17 AM EDT Please advise. * Telephone Encounter - Marleen Hayes CMA - 01/20/2025 10:38 AM EDT please advise with scheduling or I can just let me know what day. 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 Wants to schedule procedure on a Monday for that reason. documented in this encounter Plan of Treatment Upcoming Encounters Date Type Department Care Team (Late st Contact Info) Description 01/28/2025 8:00 AM EDT Appointment [facility] W[facility] Care Center [place] [address] [facility] [place] [address] Aleksey Hunt DPM [address] [place] [address] 02/24/2025 1:00 PM EDT Clinical Support [facility] [place] [address] [facility] [address] [place] [address] 02/28/2025 8:00 AM EDT Office Visit [facility] [place] [address] [place] [address] Blair Cordon MD [address] [address] [place] [id number] documented as of this encounter Goals Goal Patient Goal Type Associated Problems Recent Progress Patient-Stated? Author Wound Healing General Not on track(2024 2:05 PM EDT) Anglea Aguilera, RN Note: Wound Care Goals-right medial [...] peripheral neuropathy weekly. Refer to PCP and/or Outside Cutter Hand, Vascular Specialist as indicated. Monitor patient compliance [...] documented as of this encounter Care Teams Mortgage Loan Funder Relationship Specialty Start Date End Date Dylon Izaguirre MD [address] [place] [address] PCP - General Family Medicine 09/05/23 documented as of this encounter
--- OUTSIDE RECORDS SUMMARY | 2025-01-24 12:38 | XMS_ITS | Encounter Summary ---
Author Organization [place] [address] Care Team Providers Care Ui Ux Web Developer Name Role Phone Dylon Izaguirre MD Primary Care Provider [phone] Reason for Visit * Reason Comments Medication Refill Encounter Details Date Type Department Care Team (Late st Contact Info) Description 01/18/2025 Refill [facility] W[facility] Care Center [place] [address] [facility] [place] [address] Aleksey Hunt DPM [address] [place] [address] Medication Refill Social History Tobacco Use Types Packs/Day Years Used Date Smoking Tobacco: Former Cigarettes 0.5 9 0 01/17/1973 - 01/17/1982 Smokeless Tobacco: Former Snuff Quit: 01/12/2005 Alcohol Use Standard Drinks/Week Comments No 0 (1 standard drink = 0.6 oz pur e alcohol) [facility] Utilities Answer Date Recorded In the [...] Date Recorded PHQ-2 Total Score 1 07/22/2024 [facility] [place] - Occupational Stress [...] money to get more. Never true 07/22/2024 [facility] HRSN [facility] IP Transportation Answer D ate Recorded In [...] EDT Appointment [facility] Wound Care Center [place] [address] [place] [id number] Aleksey Hunt DPM [address] [place] [address] 02/24/2025 1:00 PM EDT Clinical Support [facility] [place] [address] [place] [address] 02/28/2025 8:00 AM EDT Office Visit [facility] [place] [address] [place] [address] Blair Cordon MD [address] [place] [address] documented as of this encounter [...] peripheral neuropathy weekly. Refer to PCP and/or Facilities Maintenance Manager, Vascular Specialist as indicated. Monitor patient [...] documented as of this encounter Care Teams Ui Ux Web Developer Relationship Specialty Start Date End Date Dylon Izaguirre MD [address] [place] [address] PCP - General Family Medicine 09/05/23 documented as of this encounter
--- OUTSIDE RECORDS SUMMARY | 2025-01-24 12:38 | XMS_ITS | Encounter Summary ---
Author Organization [facility] [place] [address] Care Team Providers Care Oracle Fusion Consultant Name Role Phone Dylon Izaguirre MD Primary Care Provider [phone] Encounter Details Date Type Department Care Team (Latest Contact Info) Description 01/22/2025 Travel Social History Tobacco Use Types Packs/Day Years Used Date Smoking Tobacco: Former Cigarettes 0.5 9 0 01/17/1973 - 01/17/1982 Smokeless Tobacco: Former Snuff Quit: 01/12/2005 Alcohol Use Standard Drinks/Week Comments No 0 (1 standard drink = 0.6 oz pur e alcohol) [facility] Utilities Answer Date Recorded In [...] Date Recorded PHQ-2 Total Score 1 07/22/2024 [facility] [place] [facility] - Occupational Stress [...] money to get more. Never true 07/22/2024 [facility] H[facility]N [facility] IP Transportation Answer D ate [...] Description 01/28/2025 8:00 AM EDT Appointment [facility] Wound Care Center [place] [address] [place] [address] Aleksey Hunt DPM [address] [place] [address] 02/24/2025 1:00 PM EDT Clinical Support [facility] [place] [address] [place] [address] 02/28/2025 8:00 AM EDT Office Visit [facility] [place] [address] [place] [address] Blair Cordon MD [address] [place] [address] documented as of this encounter [...] peripheral neuropathy weekly. Refer to PCP and/or Mold Filler, Vascular Specialist as indicated. Monitor patient compliance [...] documented as of this encounter Care Teams Oracle Fusion Consultant Relationship Specialty Start Date End Date Dylon Izaguirre MD [address] [place] [address] PCP - General Family Medicine 09/05/23 documented as of this encounter
--- OUTSIDE RECORDS SUMMARY | 2025-01-24 12:38 | XMS_ITS | Encounter Summary ---
Author Organization [place] [address] Care Team Providers Care Harvesting Supervisor Name Role Phone Dylon Izaguirre MD Primary Care Provider [phone] Reason for Visit * Reason Comments Medication Refill Encounter Details Date Type Department Care Team (Late st Contact Info) Description 10/01/2024 Refill [facility] Wound Care Center [place] [address] [facility] [place] [address] Aleksey Hunt DPM [address] [place] [address] Medication Refill Social History Tobacco Use Types Packs/Day Years Used Date Smoking Tobacco: Former Cigarettes 0.5 9 0 01/17/1973 - 01/17/1982 Smokeless Tobacco: Former Snuff Quit: 01/12/2005 Alcohol Use Standard Drinks/Week Comments No 0 (1 standard drink = 0.6 oz pur e alcohol) [facility] Utilities Answer Date Recorded In the past [...] Date Recorded PHQ-2 Total Score 1 07/22/2024 [facility] - Occupational Stress [...] to get more. Never true 07/22/2024 [facility] H[facility]N [facility] IP Transportation Answer D ate [...] Info) Description 01/28/2025 8:00 AM EDT Appointment [facility] Wound Care Center [place] [address] [place] [id number] Aleksey Hunt DPM [address] [place] [address] 02/24/2025 1:00 PM EDT Clinical Support [facility] [place] [address] [place] [address] 02/28/2025 8:00 AM EDT Office Visit [facility] [place] [address] [place] [address] Blair Cordon MD [address] [place] [address] documented as of this encounter [...] peripheral neuropathy weekly. Refer to PCP and/or Tissue Inserter, Vascular Specialist as indicated. Monitor patient compliance [...] documented as of this encounter Care Teams Harvesting Supervisor Relationship Specialty Start Date End Date Dylon Izaguirre MD [address] [place] [address] PCP - General Family Medicine 09/05/23 documented as of this encounter
--- NOTE | 2025-01-24 12:51 | XR_ITS ---
FINAL REPORT CLINICAL HISTORY: R hip pain post fall last week COMPARISON: None FINDINGS: RIGHT HIP Two views of the right hip demonstrate no acute fracture or dislocation. The joint spaces appear normal. The visualized bony structures are well aligned. No soft tissue abnormality is seen. Note is made of asymmetry of the left sacroiliac joint, with sclerosis of the medial left iliac wing extending to the SI joint. IMPRESSION: No acute bony abnormality. Asymmetry of the left SI joint, with sclerosis of the medial left iliac wing extending to the SI joint. Reviewed, Interpreted and Dictated by Viktor Herr MD Transcribed by Lucia Mcdermott Authenticated and [facility]
== END 2025-01-24 23:59 | disposition home or self-care (01) ==
LOC: RAD 12:34
PROVIDERS: PCP Family Medicine; Visit Provider Family Medicine
DX: M47.816 Spondylosis without myelopathy or radiculopathy, lumbar region (principal); R93.6 Abnormal findings on diagnostic imaging of limbs; M25.551 Pain in right hip; W19.XXXA Unspecified fall, initial encounter
CPT/HCPCS: 72100; 73502

== ENCOUNTER 2025-06-10 21:28 | Emergency (ER) | payer MEDICARE, SELFPAY ==
--- OUTSIDE RECORDS SUMMARY | 2024-01-23 08:05 | XMS_ITS | Encounter Summary ---
Author Organization [place] [address] Care Team Providers Care Legal Archivist Name Role Phone Dylon Izaguirre MD Primary Care Provider [phone] Encounter Details Date Type Department Care Team (Latest Contact Info) Description 01/23/2024 8:05 AM EDT Hospital Encounter [facility] [address] [place] [place] [address] Chronic heart failure, unspecified heart failure type (HCC) (Primary Dx); Coronary artery disease involving soboba coronary artery, unspecified whether angina present, unspecified whether soboba or transplanted heart Social History Tobacco Use Types Packs/Day Years Used Date Smoking Tobacco: Former Cigarettes 0.5 9 0 01/17/1973 - 01/17/1982 Smokeless Tobacco: Former Snuff Quit: 01/12/2005 Alcohol Use Standard Drinks/Week Comments No 0 (1 standard drink = 0.6 oz pur e alcohol) [facility] Utilities Answer Date Recorded In the past 12 months has [employer] electric, gas, oil, or water company threatened to shut off services in your home? No 07/22/2024 Overall Financial Resource Strain (CARDIA) Answe r Date Recorded How hard is it for you to pa y for the very basics like food, housing, medical care, and heating? Not very hard 07/22/2024 PHQ-2 Answer Date Recorded PHQ-2 Total Score 1 07/22/2024 [facility] - Occupational Stress Questionnaire Answer Date Recorded Do you feel stress - tense, restless, nervous, or anxious, or unable to sleep at night because your mind is troubled all the time - these days? To some extent 07/22/2024 Exercise Vital Sign Answer Date Recorde d On average, how many days pe r week do you engage in moderate to strenuous exercise (like a brisk walk)? 7 days 07/22/2024 On average, how many minutes do you engage in exercise at this level? 10 min 07/22/2024 Hunger Vital Sign Answer Date Recorded Within the past 12 months, y ou worried that your food would run out before you got the money to buy more. Never true 07/22/20 24 Within the past 12 months, t he food you bought just didn't last and you didn't have money to get more. Never true 07/22/2024 [facility] Transportation Answer D ate Recorded In the past 12 months, has l ack of reliable transportation kept you from medical appointments, meetings, work or from getting things needed for daily living? No 07/22/2024 Sex and Gender Information Value Date Recorded Sex Assigned at Not on file Legal Sex Male 7:39 AM EDT Gender Identity Not on file Sexual Orientation Not on file documented as of this encounter Functional Status * Alcohol Screening Score Answer Date of Assessment Author 0 07/23/2024 4:00 PM Yolanda Mccartney RN * Drug Screening Score Answer Date of Assessment Author 0 07/23/2024 4:00 PM Yolanda Mccartney RN * Question Answer Date of Assessment Author How often do you have a drin k containing alcohol? 0 07/23/2024 4:00 PM Yolanda Corbett RN How many drinks containing a lcohol do you have on a typical day when you are drinking? 0 07/23/2024 4:00 PM Yolanda Corbett RN How often do you have six or more drinks on one occasion? 0 07/23/2024 4:00 PM Radha Corbett RN AUDIT-C to Determine Rows 4-10 0 07/23/2024 4:00 PM Yolanda Corbett RN * Question Answer Date of Assessment Author Little interest or pleasure in doing things 0 07/22/2024 3:29 PM Dennise Tejada RN Feeling down, depressed, or hopeless 1 07/22/2024 3:29 PM Dennise Tejada RN PHQ-2 Total Score 1 07/22/2024 3:29 PM Dennise Tejada RN * PHQ-9 Total Score Answer Date of Assessment Author 1 07/22/2024 3:29 PM Dennise Tejada RN * Suicide Severity Rating Answer Date of Assessment Author No Risk 07/22/2024 8:54 AM Markos Trent RN * [place] Suicide Severity Rating Scale (Q shift for moderate and high) Question Answer Date of Assessment Author 1. In the past month, have y ou wished you were or wished you could go to sleep and not wake up? 0 07/22/2024 8:54 AM Markos Jimenez RN 2. In the past month, have y ou actually had any thoughts of killing yourself? (If no, skip to question 6) 0 07/22/2024 8:54 AM Markos Trent RN 6. Have you ever done anythi ng, started to do anything, or prepared to do anything to end your life? 0 07/22/2024 8:54 AM Markos Morgan RN documented as of this encounter Plan of Treatment Upcoming Encounters Date Type Department Care Team (Late st Contact Info) Description 06/17/2025 8:15 AM EST Appointment [facility] [place] [address] [place] [address] Aleksey Hunt DPM [address] [place] [address] 06/19/2025 7:00 AM EST Clinical Support [facility] [address] [place] [address] 06/19/2025 9:00 AM EST Office Visit [facility] [address] [place] [address] 07/09/2025 9:00 AM EST Office Visit [facility] [address] [place] [address] Blair Cordon MD [address] [place] [address] documented as of this encounter Goals Goal Patient Goal Type Associated Problems Recent Progress Patient-Stated? Author Wound Healing General Not on track(2024 2:25 PM EDT) Angela Aguilera RN Note: Wound Care Goals-right medial malleolus Patient is an active participant in their wound care plan. Patient is attending wound care visits regularly as recommended by physician. Patient is following instructions on treatment plan including follow up appointments, dressing change recommendations, pressure relief if applicable, smoking cessation if applicable, monitoring of blood sugar and diet. Patient notifies wound care staff of any problems. Wound volume reduction goals 50% by week 4 50% by week 8 80% by week 12 100% by week 14 Nursing Diagnosis: Impairment of skin integrity as evidence by open wound. Risk for infection related to open wound. Nursing Interventions to assist with healing of Diabetic Wounds Assess pain status. Assess wound size, catalina wound, drainage and odor. Educate patient and caregivers on signs and symptoms of infection, wound care and importance of prompt treatment. Assess patient/caregiver level of knowledge regarding diabetes, risk factors and diabetic foot care. Assess for peripheral edema. If present , measure ankle, calf and foot circumference on initial visit and as indicated. Assess pedal pulses on each visit. Use doppler if unable to palpate dorsalis pedal or posterior tibial pulses. Obtain initial physician orders for Diabetic Wounds to include HgbA1C, prealbumin, offloading, ankle-brachial index per vascular lab and appropriate dressing to maintain microenvironment conducive to healing. Assess for signs and symptoms of peripheral neuropathy weekly. Refer to PCP and/or Lead Qa Analyst, Vascular Specialist as indicated. Monitor patient compliance with wound care, diabetes management and proper offloading. documented as of this encounter Visit Diagnoses Diagnosis Chronic heart failure, unspecified heart failure type (HCC)- Primary Coronary artery disease involving soboba coronary artery, unspecified whether angina present, unspecified whether soboba or transplanted heart documented in this encounter Additional Health Concerns Infection Onset Date Last Indicated Resolved Time R/O COVID-19 07/22/202407/22/2024 07/22/2024 2:12 PM EST COVID-19 07/22/2024 07/22/2024 08/11/2024 10:1 3 PM EST Assessment Noted Time A fall risk assessment has been complete d for the patient 02/07/2019 11:25 AM EDT documented as of this encounter Care Teams Legal Archivist Relationship Specialty Start Date End Date Dylon Izaguirre MD PCP - General Family Medicine 09/05/23 documented as of this encounter
--- OUTSIDE RECORDS SUMMARY | 2025-04-11 07:45 | XMS_ITS | Encounter Summary ---
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 [place] [address] Phone: tel: fax: Referral ID Status Reason Start Date Expiration Date V isits Requested Visits Authorized [id number] Pending Review 04/11/2025 04/11/2026 1 1 Reason for Visit * Consultation [...] EA ADDL 20 SQ CM/PRT THEREOF [facility] Wound Care Center [address] [place] [address] Phone: tel: fax: Referral ID Status Reason Start Date Expiration Date Visits Requested Visits Authorized [id number] Authorization Not Needed Specialty Services Required 5 09/05/2025 99 99 Encounter Details Date Type Department Care Team (Latest Contact Info) Description 04/11/2025 7:45 AM EDT - 04/11/2025 11:59 PM EDT Hospital Encounter [facility] Wound Care Center [address] [place] [address] Darek Najera MD 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, with necrosis of muscle (HCC) [E11.622, L97.923]; Venous insufficiency of both lower extremities; PVD (peripheral vascular disease) Discharge Disposition: Home or Self Care Social History Tobacco Use Types Packs/Day Years Used Date Smoking Tobacco: Former Cigarettes 0.5 9 0 01/17/1973 - 01/17/1982 Smokeless Tobacco: Former Snuff Quit: 01/12/2005 Alcohol Use Standard Drinks/Week Comments No 0 (1 standard drink = 0.6 oz pur e alcohol) [facility] Utilities Answer Date Recorded In the [...] PHQ-2 Total Score 1 07/22/2024 [facility] - Occupational Stress Questionnaire Answer Date Recorded [...] money to get more. Never true 07/22/2024 [facility] IP Transportation Answer D ate Recorded [...] Sign Reading Time Taken Comments Blood Pressure 130/78 04/11/2025 8:03 AM EDT Pulse 64 04/11/2025 8:03 AM EDT Temperature 36.2 C (97.2 F) 04/11/2025 8:03 AM EDT Respiratory Rate 16 04/11/2025 8:03 AM EDT Oxygen Saturation - - [...] 1 Capsule by mouth daily. 30 Capsule 1 03/18/2025 evolocumab 140 mg/mL SubQ Pen Injector Subcutaneous [...] nophen (PERCOCET) 5-325 mg Oral Tablet 10/05/2024 tamsulosin (FLOMAX) 0.4 mg Oral Capsule Take 0.4 mg by mouth daily. 03/01/2025 TRULICITY 0.75 mg/0.5 mL SubQ Pen Injector Subcutaneous (Inject under the skin) 0.75 mg once a week. 07/25/2023 warfarin (COUMADIN) 5 mg tablet Take 1 Tab by mouth daily. 30 Tab 12 04/09/2013 pentoxifylline (TRENTAL) 400 mg Oral Tablet Sustained Release TAKE 1 TABLET BY MOUTH 2 TIMES DAILY. 60 Tablet 03/11/2025 documented as of this encounter Discharge Disposition Disposition Code Departure Means Destination Home or Self Care documented in this encounter Progress Notes * Talisha Simeon RN - 04/11/2025 7:45 AM EDT Pt presents to the Wound care Center for Nurse visit. Reason for nurse visit: Dressing change Dressing change: Standard multilayer compression wrap [...] encounter Miscellaneous Notes * Patient Instructions - Talisha Simeon RN - 04/11/2025 7:45 AM EDT HOME-CARE INSTRUCTIONS FOLLOWING YOUR [...] Follow up in the Wound Care Center in [address] Hunt Nurse visit on MONDAY Juan magana 03/25/25 Adaptic AND Hydrofera blue TO WOUND BEDS- REPLACE THE Hydrofera blue and adaptic at nurse visit Abd carmelina fuentes - left leg Compression Wraps Location:[facility] LEFT [...] long periods of time. If you must gaming surveillance observer one place, shift your weight and change [...] feel free to reach out to our mental health unit lead psychologist, Yolanda Garcia at [phone] for any discussion. WHO TO CALL FOR PROBLEMS: Please call the OP wound care center with any problems or issues you may have after your visit or though the week. Each patient is assigned a patient case coordinator who can assist with issues you may be having. Monica Nam is your patient case coordinator Individual office numbers are listed below. Press 1 for immediate or schedule needs, press 2 for the nursing line. The nurse line is for non-emergent needs and will be answered within 24 hours duringbusiness days. If you have a more immediate concern, press option #1. Office numbers: [phone] [phone] [facility] [phone] If you have an urgent or emergent [...] Info) Description 06/17/2025 8:15 AM EST Appointment [facility] Wound Care Center [place] [address] [place] [address] Aleksey Hunt [place] [address] [place] [address] 06/19/2025 7:00 AM EST Clinical Support [facility] [place] [address] [place] [address] 06/19/2025 9:00 AM EST Office Visit [facility] [place] [address] [place] [address] 07/09/2025 9:00 AM EST Office Visit [facility] [place] [address] [place] [address] Blair Cordon MD [address] [place] [address] documented as of this encounter Goals Goal [...] peripheral neuropathy weekly. Refer to PCP and/or Application Packaging Specialist, Vascular Specialist as indicated. Monitor patient compliance with wound care, diabetes management and proper offloading. 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, with necrosis of muscle (HCC) [E11.622, L97.923] Venous insufficiency of both lower extremities PVD (peripheral vascular disease) Peripheral vascular disease, unspecified documented in this encounter Orders Nursing Count Last Ordered Date First Orde red Date AMB WCC PRIMARY DRESSING 1 04/11/2025 documented in this encounter Additional Health Concerns Assessment Noted Time PHQ-9 Depression Total Score: 1 07/22/20 24 3:29 PM EST A fall risk assessment has been complete d for the patient 02/07/2019 11:25 AM EDT PHQ-2 Depression Total Score: 1 07/22/20 24 3:29 PM EST documented as of this encounter Care Teams Raisin Separator Operator Relationship Specialty Start Date End Date Dylon Izaguirre MD PCP - General Family Medicine 09/05/23 documented as of this encounter
--- OUTSIDE RECORDS SUMMARY | 2025-04-15 08:45 | XMS_ITS | Encounter Summary ---
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, with fat layer exposed (HCC) Venous insufficiency of both lower extremities Procedures AMB WCC PRIMARY DRESSING AMB WCC PRIMARY DRESSING Aleksey Hunt DPM [address] [place] [address] Phone: tel: fax: Referral ID Status Reason Start Date Expiration Date V isits Requested Visits Authorized [id number] Pending Review 04/15/2025 04/15/2026 1 1 Reason for Visit * Reason Comments Wound Check * WOUND CARE/HBO (Urgent) - Authorization Not Needed Specialty Diagnoses / Procedures Referred By Contdante t Referred To Contact Wound Care Diagnoses Type 2 diabetes mellitus with other skin ulcer (HCC) Non-pressure chronic ulcer of unspecified part of left lower leg with fat layer exposed (HCC) Procedures AR [place] AR JENNY SKN SUB GRFT T/A/L AREA/100SQ CM /<1ST 25 [facility] [place] [address] [place] [place] [address] Phone: tel: fax: Aleksey Hunt DPM [address] [place] [address] Phone: tel: fax: Referral ID Status Reason Start Date Expiration Date Visits Requested Visits Authorized [id number] Authorization Not Needed 02/04/2025 02/04/2026 5 5 Encounter Details Date Type Department Care Team (Latest Contact Info) Description 04/15/2025 8:45 AM EDT - 04/15/2025 11:59 PM EDT Hospital Encounter [facility] W[facility] [address] 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 No 07/22/2024 Overall Financial Resource Strain (CARDIA) Answe r Date Recorded How hard is it for you to pa y for the very basics like food, housing, medical care, and heating? Not very hard 07/22/2024 PHQ-2 Answer Date Recorded PHQ-2 Total Score 1 07/22/2024 [facility] [place] of Occupat ional Health - Occupational Stress [...] money to get more. Never true 07/22/[address] [facility] IP Transportation Answer D ate [...] Sign Reading Time Taken Comments Blood Pressure 132/73 04/15/2025 8:53 AM EDT Pulse 64 04/15/2025 8:53 AM EDT Temperature 36.3 C (97.4 F) 04/15/2025 8:53 AM EDT Respiratory Rate 16 04/15/2025 8:53 AM EDT Oxygen Saturation - - Inhaled [...] Progress Notes * Aleksey Hunt DPM - 04/15/2025 8:45 AM EDT Images from the original note were not included. Date of Visit:04/15/2025 Progress Note HPI Jose Alberto Seaman is a 75 y.o. year old male patient who presents today for wound evaluation and follow-up. Patient has a left ankle chronic Diabetic and venous ulcer(s) which is (are) located on the left leg. Symptoms include none. Patients past medical, family and social histories were reviewed and updated. There were no changesexcept as noted. ROS See HPI for further details. Relevant review of systems otherwise negative. Physical Exam Vitals: 04/15/25 0853 BP: 132/73 Pulse: 64 Resp: 16 Temp: 97.4 ??F (36.3 ??C) TempSrc: Temporal Ulcer Progress and Procedure Please refer to the LDA for details of ulcer progress and procedure. Assessment and Plan Jose Alberto was seen today for wound check. 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 Follow- up 1 week. Slowly improving. Repeat TheraSkin. I have discussed the risks, benefits and alternatives of TheraSkin with patient. Patient has agreedto proceed with procedure. Product applied per roll forming machine set up mechanic???s recommendation and secured with DermaBond and dry, sterile dressing. Patient tolerated procedure well. Advised in post-procedure care. documented in this encounter Miscellaneous Notes * Patient Instructions - Monica Hu RN - 04/15/2025 8:45 AM EDT HOME-CARE INSTRUCTIONS FOLLOWING YOUR [...] with Dr. Hunt Nurse visit on MONDAY Theraskin placed 04/15/25 New graft placed, please carefully replace the silver and adaptic at nurse visit if it's gooey Abd pad, kerlix - left leg Compression [...] long periods of time. If you must supervisor detasseling crew one place, shift your weight and change [...] feel free to reach out to our chemical unit operator, Yolanda Garcia at [phone] for any discussion. WHO TO CALL FOR PROBLEMS: Please call the OP wound care center with any problems or issues you may have after your visit or though the week. Each patient is assigned a outpatient case manager who can assist with issues you may be having. Monica Nam is your outpatient case manager Individual office numbers are listed below. Press 1 for immediate or schedule needs, press 2 for the nursing line. The nurse line is for non-emergent needs and will be answered within 24 hours duringbusiness days. If you have a more immediate concern, press option #1. Office numbers: [phone] [phone] [place]- [phone] If you have an urgent or emergent [...] care information folder. * Addendum Note - Mika Cohen - 04/15/2025 8:45 AM EDTEncounter addended by: Mika Cohen on: 04/25/2025 1:42 PM Actions taken: Charge Capture section accepted documented in this encounter Plan of Treatment Upcoming Encounters Date Type Department Care Team (Late st Contact Info) Description 06/17/2025 8:15 AM EST Appointment [facility] Wound Care Center [place] [address] 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 Author Wound Healing General Not on track(2024 2:25 PM EDT) Angela Aguilera, RN Note: Wound [...] peripheral neuropathy weekly. Refer to PCP and/or Nozzle Cement Sprayer Helper, Vascular Specialist as indicated. Monitor patient compliance with wound care, diabetes management and proper offloading. 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, with fat layer exposed (HCC)- Primary Venous insufficiency of both lower extremities documented in this encounter Orders Nursing Count Last Ordered Date First Orde red Date AMB WCC PRIMARY DRESSING 1 04/15/2025 documented in this encounter Additional Health Concerns Assessment Noted Time PHQ-9 Depression Total Score: 1 07/22/20 24 3:29 PM EST A fall risk assessment has been complete d for the patient 02/07/2019 11:25 AM EDT PHQ-2 Depression Total Score: 1 07/22/20 24 3:29 PM EST documented as of this encounter Care Teams Tandem Mill Roller Relationship Specialty Start Date End Date Dylon Izaguirre MD PCP - General Family Medicine 09/05/23 documented as of this encounter
--- OUTSIDE RECORDS SUMMARY | 2025-04-18 07:45 | XMS_ITS | Encounter Summary ---
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 PRIMARY DRESSING Darek Najera MD [facility] [place] [address] Phone: tel: fax: Referral ID Status Reason Start Date Expiration Date V isits Requested Visits Authorized [id number] Pending Review 04/18/2025 04/18/2026 1 1 Reason for Visit * Reason [...] WND EA ADDL 20 SQ CM/PRT THEREOF [facility] Wound Care Center [place] [address] [place] [address] Phone: tel: fax: Referral ID Status Reason Start Date Expiration Date Visits Requested Visits Authorized [id number] Authorization Not Needed Specialty Services Required 5 09/05/2025 99 99 Encounter Details Date Type Department Care Team (Latest Contact Info) Description 04/18/2025 7:45 AM EDT - 04/18/2025 11:59 PM EDT Hospital Encounter [facility] W[facility] Care [facility] 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, with fat layer exposed (HCC); Venous insufficiency of both lower extremities Discharge Disposition: Home or Self Care Social History Tobacco Use Types Packs/Day Years Used Date Smoking Tobacco: Former Cigarettes 0.5 9 0 01/17/1973 - 01/17/1982 Smokeless Tobacco: Former Snuff Quit: 01/12/2005 Alcohol Use Standard Drinks/Week Comments No 0 (1 standard drink = 0.6 oz pur e alcohol) [facility] Utilities Answer Date Recorded In the past 12 months has [facility] electric, gas, oil, or water company threatened to shut off services in your home? No 07/22/2024 Overall Financial Resource Strain (CARDIA) Answe r Date Recorded How hard is it for you to pa y for the very basics like food, housing, medical care, and heating? Not very hard 07/22/2024 PHQ-2 Answer Date Recorded PHQ-2 Total Score 1 07/22/2024 [place] of Occupat ional Health - Occupational Stress [...] money to get more. Never true 07/22/2024 [facility] IP Transportation Answer D ate Recorded [...] Sign Reading Time Taken Comments Blood Pressure 145/76 04/18/2025 7:56 AM EDT Pulse 72 04/18/2025 7:56 AM EDT Temperature 36.7 C (98.1 F) 04/18/2025 7:56 AM EDT Respiratory Rate 16 04/18/2025 7:56 AM EDT Oxygen Saturation - - [...] nophen (PERCOCET) 5-325 mg Oral Tablet 10/05/2024 sodium,potassium, mag sulfates (SUPREP BOWEL PREP KIT) 17.5-3.13-1.6 gram Oral Recon Soln Take 1 kit per physician instructions 354 mL 04/16/2025 tamsulosin (FLOMAX) 0.4 mg Oral Capsule Take [...] Progress Notes * Britni Agrawal LPN - 04/18/2025 7:45 AM EDT Pt presents to the [...] Patient Instructions - Britni Agrawal LPN - 04/18/2025 7:45 AM EDT HOME-CARE INSTRUCTIONS FOLLOWING YOUR [...] at nurse visit if it's gooey Abd padtannerx - left leg Compression Wraps Location:[facility] LEFT [...] long periods of time. If you must commercial green building designer one place, shift your weight and change [...] to reach out to our community health consultant, Yolanda Garcia at [phone] for any discussion. WHO TO CALL FOR PROBLEMS: Please call the OP wound care center with any problems or issues you may have after your visit or though the week. Each patient is assigned a case hardener who can assist with issues you may be having. Monica Nam is your case hardener Individual office numbers are listed below. Press 1 for immediate or schedule needs, press 2 for the nursing line. The nurse line is for non-emergent needs and will be answered within 24 hours duringbusiness days. If you have a more immediate concern, press option #1. Office numbers: [phone] [phone] [place]- [phone] If you have an urgent or emergent [...] Info) Description 06/17/2025 8:15 AM EST Appointment [facility] Wound Care Center [place] [address] [place] [address] Aleksey Hunt DPM [address] [place], [place] [address] 06/19/2025 7:00 AM EST Clinical Support [facility] [address] [place] [address] 06/19/2025 9:00 AM EST Office Visit [facility] [place] [address] [place] [address] 07/09/2025 9:00 AM EST Office Visit [facility] [place] [address] [place], [place] [id number] Blair Cordon MD [address] [place] [address] documented as of this encounter [...] peripheral neuropathy weekly. Refer to PCP and/or Bedspread Inspector, Vascular Specialist as indicated. Monitor patient compliance with wound care, diabetes management and proper offloading. 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, with fat layer exposed (HCC) Venous insufficiency of both lower extremities documented in this encounter Orders Nursing Count Last Ordered Date First Orde red Date AMB WCC PRIMARY DRESSING 1 04/18/2025 documented in this encounter Additional Health Concerns Assessment Noted Time PHQ-9 Depression Total Score: 1 07/22/20 24 3:29 PM EST A fall risk assessment has been complete d for the patient 02/07/2019 11:25 AM EDT PHQ-2 Depression Total Score: 1 07/22/20 24 3:29 PM EST documented as of this encounter Care Teams Mallet And Die Cutter Relationship Specialty Start Date End Date Dylon Izaguirre MD PCP - General Family Medicine 09/05/23 documented as of this encounter
--- OUTSIDE RECORDS SUMMARY | 2025-04-22 08:30 | XMS_ITS | Encounter Summary ---
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, with fat layer exposed (HCC) Venous insufficiency of both lower extremities Procedures [facility] PRIMARY DRESSING Aleksey Hunt DPM [address] [place] [address] Phone: tel: fax: Referral ID Status Reason Start Date Expiration Date V isits Requested Visits Authorized [id number] Pending Review 04/22/2025 04/22/2026 1 1 Reason for Visit * Reason Comments Wound Check * Consultation (Routine) - Authorization Not Needed Specialty Diagnoses / Procedures Referred By Patrick amador Referred To Contact Wound Care Diagnoses Wound Care Procedures NC DEBRIDEMENT SUBCUTANEOUS TISSUE 1ST 20 SQ CM/< NC DEBRIDEMENT MUSCLE &/FASCIA 1ST 20 SQ CM/< NC DEBRIDEMENT BONE 1ST 20 SQ CM/< NC DEBRIDEMENT SUBCUTANEOUS TISSUE EA ADDL 20 SQ CM NC DEBRIDEMENT MUSCLE &/FASCIA EA ADDL 20 SQ CM NC DEBRIDEMENT BONE EACH ADDITIONAL 20 SQ CM NC DEBRIDEMENT OPEN WOUND FIRST 20 SQ CM/< NC DEBRIDEMENT OPN WND EA ADDL 20 SQ CM/PRT THEREOF [facility] [address] [place] [address] Phone: tel: fax: Referral ID Status Reason Start Date Expiration Date Visits Requested Visits Authorized [id number] Authorization Not Needed Specialty Services Required 09/05/2025 99 99 Encounter Details Date Type Department Care Team (Latest Contact Info) Description 04/22/2025 8:30 AM EDT - 04/22/2025 11:59 PM EDT Hospital Encounter [facility] [address] 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 No 07/22/2024 Overall Financial Resource Strain (CARDIA) Answe r Date Recorded How hard is it for you to pa y for the very basics like food, housing, medical care, and heating? Not very hard 07/22/2024 PHQ-2 Answer Date Recorded PHQ-2 Total Score 1 07/22/2024 [facility] of Occupat ional Health - Occupational Stress [...] money to get more. Never true 07/22/2024 [facility] IP Transportation Answer D ate Recorded [...] Sign Reading Time Taken Comments Blood Pressure 168/82 04/22/2025 8:44 AM EDT Pulse 56 04/22/2025 8:44 AM EDT Temperature 36.3 C (97.4 F) 04/22/2025 8:44 AM EDT Respiratory Rate 18 04/22/2025 8:44 AM EDT Oxygen Saturation - - Inhaled [...] Sustained Release 24 hr TAKE DOS 01/10/2019 MOUNJARO 5 mg/0.5 mL SubQ Pen Injector Inject 5 mg under the skin once a week. 04/21/2025 nitroGLYCERIN (NITROSTAT) 0.4 mg SL Tablet, Sublingual [...] by mouth daily. 30 Tab 12 04/09/2013 levoFLOXacin (LEVAQUIN) 250 mg Oral Tablet Take 1 Tablet by mouth every 24 hours for 10 days. 10 Tablet 04/22/2025 pentoxifylline (TRENTAL) 400 mg Oral Tablet Sustained Release TAKE 1 TABLET BY MOUTH 2 TIMES DAILY. 60 Tablet 03/11/2025 5 documented as of this encounter Ordered Prescriptions Prescription Sig Dispense Quantity Refills Last Filled Start Date End Date levoFLOXacin (LEVAQUIN) 250 mg Oral Tablet Take 1 Tablet by mouth every 24 hours for 10 days. 10 Tablet 04/22/2025 05/02/2025 documented in this encounter Discharge Disposition Disposition Code Departure Means Destination Home or Self Care documented in this encounter Progress Notes * Aleksey Hunt, UMESH - 04/22/2025 8:30 AM EDT Images from the original note were not included. Date of Visit:04/22/2025 Progress Note HPI Jose Alberto Seaman is a 75 y.o. year old male patient who presents today for wound evaluation and follow-up. Patient has a left ankle venous and Diabetic ulcer(s) which is (are) located on the left leg. Symptoms include some pain. Patients past medical, family and social histories were reviewed and updated. There were no changesexcept as noted. ROS See HPI for further details. Relevant review of systems otherwise negative. Physical Exam Vitals: 04/22/25 0844 BP: (!) 168/82 Pulse: 56 Resp: 18 Temp: 97.4 ??F (36.3 ??C) TempSrc: Temporal [...] lower extremities - [facility] PRIMARY DRESSING Other orders - lidocaine (XYLOCAINE) 5 % ointment - levoFLOXacin (LEVAQUIN) 250 mg Oral Tablet; Take 1 Tablet by mouth every 24 hours for 10 days. 1. Continue standard ulcer therapy of this Diabetic ulcer of lower extremity, Venous ulcer, and infection may include lab work: n/a,imaging:n/a, vascular testing:n/a, [...] were given 5. Follow- up 1 week. Has green drainage, malodor suggestive of Pseudomonas. Ulcer soupy, ulcer bed infiltrated, hyperemic. Still with some graft in place. Will hold Doxycycline. Start Levaquin 250mg QD. Will notify PCP and coumadin management team of addition of Levaquin - may need to decrease dose. Any ASE to Levaquin d/c. documented in this encounter Miscellaneous Notes * Patient Instructions - Monica Hu RN - 04/22/2025 8:30 AM EDT HOME-CARE INSTRUCTIONS FOLLOWING YOUR [...] week with Dr. Hunt Nurse visit on Monday Hold Doxycycline for now and start the Levaquin Keep an eye on your INR Theraskin placed 04/15/25 New graft placed, please [...] long periods of time. If you must aviation project engineer one place, shift your weight and [...] to reach out to our community service representative, Yolanda Garcia at [phone] for any discussion. WHO TO CALL FOR [...] immediate concern, press option #1. Office numbers: [phone] Zeynep Pgkzss-[phone] [place]- [phone] If you have an urgent or emergent need after hours our office line will direct you to an option fornursing triage. Live nurses can assist you with your wound care issue. PROTEIN IN YOUR DIET IS ESSENTIAL TO WOUND HEALING. If you were not directed to limit your protein by your doctor, please increase the protein in your diet, this includes lean meats, chicken, fish, peanut butter, nuts, dairy, protein drinks and bars. We recommend 80-100 GRAMS OF PROTEIN PER DAY unless otherwise instructed by your provider: Protein Rich foods Typical Serving [place] butter 2 tablespoons = 7 grams protein Almonds 1 ounce = 6 grams protein Jacome (cooked) 1 slice - 3 grams protein Beans (cooked legumes) 1/2 cup = 7 grams protein Beef, ground (cooked 95% lean) 3 ounces = 23 grams protein Beef, steak (sirloin) 3 ounces = 23 grams protein Cashew 1 ounce = 5 grams protein Cheese (varies by type) 1 ounce = 7 grams protein [place] seeds 1 ounce = 4.7 grams protein Chicken breasts 4 ounces = 36 grams protein Chicken thighs 4 ounces = 28 grams protein Cottage cheese (2%) 1/2 cup = 13 grams protein Edamame (cooked) 1 cup = 17 grams protein Egg whites 1 large = 3.6 grams protein Eggs 1 large = 6 grams protein Fish, Cod 3 ounce = 15 grams protein Fish, halibut (cooked) 3 ounce = 19 grams protein Fish, salmon (cooked) 3 ounce = 21 grams protein Fish, Tilapia 3 ounce = 22 grams Swedish Yogurt nonfat (varies by brand) 1 cup = 24 grams protein Hemp seeds 3 tablespoons (30 g) = 9 grams protein Hummus (varies by brand or recipe) 2 tablespoons = 2 grams of protein Peanut butter 2 tablespoons = 7 grams protein Peanuts 1 ounce = 7 grams protein [place] nuts 1 ounce = 4 grams protein Pork chops (lean, cooked) 3 ounces = 18 grams protein Pork, tenderloin 3 ounces = 22 grams protein Protein Powder (whey) 38 grams (1 scoop) = 30 grams protein pumpkin seeds 1 ounce = 5 grams protein Refried beans 1/2 cup = 7 grams protein Ricotta Cheese (part skim) 1/2 cup = 14 grams protein Shrimp (cooked) 3 ounces = 19 grams protein [place] seeds 1/4 cup = 6 grams protein Tempeh 1 cup = 31 grams protein Tofu 1/2 cup = 10 grams protein Tuna 3 ounces = 24 grams protein Bro[place]en breast 3 ounces = 26 grams protein Brooten, deli meat 4 ounces = 20 grams protein [place], ground (93% lean) 3 ounces = 16.5 grams protein Yogurt (lowfat, plain) 1 cup = 11 grams *Check the Nutritional Information label to verify for accurate serving size and nutritional values. documented in this encounter Plan of Treatment Upcoming Encounters Date Type Department Care Team (Late st Contact Info) Description 06/17/2025 8:15 AM EST Appointment [facility] [address] [place] [address] Aleksey Hunt DPM [address] [place] [address] 06/19/2025 7:00 AM EST Clinical Support [facility] [address] [place] [address] 06/19/2025 9:00 AM EST Office Visit [facility] [address] [place] [address] 07/09/2025 9:00 AM EST Office Visit [facility] [place] [address] [place] [address] Blair Cordon MD [address] [place] [id number] documented as of this encounter Goals Goal [...] peripheral neuropathy weekly. Refer to PCP and/or Rock Drill Operator, Vascular Specialist as indicated. Monitor patient compliance with wound care, diabetes management and proper offloading. 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, with fat layer exposed (HCC) Venous insufficiency of both lower extremities Venous ulcer of left leg (HCC) documented in this encounter Orders Medications Ordered That Desmond ht Not Have Been Administered Count Last Ordered Date First Ordered Date lidocaine (XYLOCAINE) 5 % ointment 1 2024 Nursing Count Last Ordered Date First Orde red Date [facility]B [facility] PRIMARY DRESSING 1 04/22/2025 documented in this encounter Additional Health Concerns Assessment Noted Time PHQ-9 Depression Total Score: 1 07/22/20 24 3:29 PM EST A fall risk assessment has been complete d for the patient 02/07/2019 11:25 AM EDT PHQ-2 Depression Total Score: 1 07/22/20 24 3:29 PM EST documented as of this encounter Care Teams System Support Developer Relationship Specialty Start Date End Date Dylon Izaguirre MD PCP - General Family Medicine 09/05/23 documented as of this encounter
--- OUTSIDE RECORDS SUMMARY | 2025-04-25 07:52 | XMS_ITS | Encounter Summary ---
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, with fat layer exposed (HCC) Venous insufficiency of both lower extremities Procedures [facility] PRIMARY DRESSING Darek Najera MD [facility] [place] [address] Phone: tel: fax: Referral ID Status Reason Start Date Expiration Date V isits Requested Visits Authorized [id number] Pending Review 04/25/2025 04/25/2026 1 1 Reason for Visit * Reason Comments Wound Check * Consultation (Routine) - Authorization Not Needed Specialty Diagnoses / Procedures Referred By Patrick amador Referred To Contact Wound Care Diagnoses Wound Care Procedures AR DEBRIDEMENT SUBCUTANEOUS TISSUE 1ST 20 SQ CM/< AR DEBRIDEMENT MUSCLE &/FASCIA 1ST 20 SQ CM/< AR DEBRIDEMENT BONE 1ST 20 SQ CM/< AR DEBRIDEMENT SUBCUTANEOUS TISSUE EA ADDL 20 SQ CM AR DEBRIDEMENT MUSCLE &/FASCIA EA ADDL 20 SQ CM AR DEBRIDEMENT BONE EACH ADDITIONAL 20 SQ CM AR DEBRIDEMENT OPEN WOUND FIRST 20 SQ CM/< AR DEBRIDEMENT OPN WND EA ADDL 20 SQ CM/PRT THEREOF [facility] [place] [address] [address] [place] [address] Phone: tel: fax: Referral ID Status Reason Start Date Expiration Date Visits Requested Visits Authorized [id number] Authorization Not Needed Specialty Services Required 5 09/05/2025 99 99 Encounter Details Date Type Department Care Team (Latest Contact Info) Description 04/25/2025 7:52 AM EDT - 04/25/2025 11:59 PM EDT Hospital Encounter [facility] [address] [place] [address] Darek Najera MD [facility] [place] [address] Diabetic ulcer of left lower [...] drink = 0.6 oz pur e alcohol) [facility] Utilities Answer Date Recorded In the past 12 months has e electric, gas, oil, or water [employer] threatened to shut off services in your home? No 07/22/2024 Overall Financial Resource Strain (CARDIA) Answe r Date Recorded How hard is it for you to pa y for the very basics like food, housing, medical care, and heating? Not very hard 07/22/2024 PHQ-2 Answer Date Recorded PHQ-2 Total Score 1 07/22/2024 [facility] [place] of Occupat ional Health - Occupational Stress [...] Never true 07/22/2024 [facility] IP Transportation Answer D ate Recorded [...] Sign Reading Time Taken Comments Blood Pressure 144/83 04/25/2025 8:02 AM EDT Pulse 59 04/25/2025 8:02 AM EDT Temperature 36.3 C (97.4 F) 04/25/2025 8:02 AM EDT Respiratory Rate 18 04/25/2025 8:02 AM EDT Oxygen Saturation - - Inhaled [...] hours for 10 days. 10 Tablet 04/22/2025 5 pentoxifylline (TRENTAL) 400 mg Oral Tablet Sustained Release TAKE 1 TABLET BY MOUTH 2 TIMES DAILY. 60 Tablet 03/11/2025 5 documented as of this encounter Discharge Disposition Disposition Code Departure Means Destination Home or Self Care documented in this encounter Progress Notes * Ceci Mosqueda RN - 04/25/2025 8:00 AM EDT Pt presents to the Wound care Center for Nurse visit. Reason for nurse visit: Dressing change: LEFT LOWER LEGStandard multilayer compression wrap applied per physician order. [...] the 5th digit to the ankle forming 2 figure of 8's around the back of the heel/ankle while maintaining even tension by stretching the visual indicators from ovals to circles with 50% overlap to just below knee. Pr oper fit assessed by gently pressing over entire application to ensure a strong deshpande and reduce slippage. documented in this encounter Miscellaneous Notes * Patient Instructions - Ceci Mosqueda RN - 04/25/2025 8:00 AM EDT HOME-CARE INSTRUCTIONS FOLLOWING YOUR [...] adaptic at nurse visit if it's gooey Vliwasorb, Abd pad, kerlix - left leg Compression [...] periods of time. If you must supervisor uranium processing one place, shift your weight and change [...] feel free to reach out to our assistant community manager, Yolanda Garcia at [phone] for any discussion. WHO TO CALL FOR PROBLEMS: Please call the OP wound care center with any problems or issues you may have after your visit or though the week. Each patient is assigned a family preservation caseworker who can assist with issues you may be having. Monica Nam is your family preservation caseworker Individual office numbers are listed below. Press 1 for immediate or schedule needs, press 2 for the nursing line. The nurse line is for non-emergent needs and will be answered within 24 hours duringbus days. If you have a more immediate concern, press option #1. Office numbers: [phone] [place]aiGtpvds-[phone] [facility] [phone] If you have an urgent or emergent [...] your provider: Protein Rich foods Typical Serving [place] butter 2 tablespoons = 7 grams protein [...] Fish, Tilapia 3 ounce = 22 grams Syriac Yogurt nonfat (varies by brand) 1 cup = 24 grams protein Hemp seeds 3 tablespoons (30 g) = 9 grams protein Hummus (varies by brand or recipe) 2 tablespoons = 2 grams of protein Peanut butter 2 tablespoons = 7 grams protein Peanuts 1 ounce = 7 grams protein [place] nuts 1 ounce = 4 grams protein [...] (cooked) 3 ounces = 19 grams protein [place] seeds 1/4 cup = 6 grams protein Tempeh 1 cup = 31 grams protein Tofu 1/2 cup = 10 grams protein Tuna 3 ounces = 24 grams protein [place] breast 3 ounces = 26 grams protein [place], deli meat 4 ounces = 20 grams protein [place], ground (93% lean) 3 ounces = 16.5 grams protein Yogurt (lowfat, plain) 1 cup = 11 grams *Check the Nutritional Information label to verify for accurate serving size and nutritional values. * Addendum Note - Anjelica Rojas RN - 04/25/2025 8:00 AM EDTEncounter addended by: Anjelica Rojas RN on: 04/25/2025 8:25 AM Actions taken: Flowsheet accepted documented in this encounter Plan of Treatment Upcoming Encounters Date Type Department Care Team (Late st Contact Info) Description 06/17/2025 8:15 AM EST Appointment [facility] [address] [place], [place] [id number] Aleksey Hunt DPM [address] [place] [address] 06/19/2025 7:00 AM EST Clinical Support [facility] [place] [address] [place] [address] 06/19/2025 9:00 AM EST Office Visit [facility] [address] [place] [address] 07/09/2025 9:00 AM EST Office Visit [facility] [place] [address] [place] [address] Blair Cordon MD [address] [facility] [address] [place] [address] documented as of this encounter [...] peripheral neuropathy weekly. Refer to PCP and/or Manager Forms, Vascular Specialist as indicated. Monitor patient compliance with wound care, diabetes management and proper offloading. 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, with fat layer exposed (HCC)- Primary Venous insufficiency of both lower extremities documented in this encounter Orders Nursing Count Last Ordered Date First Orde red Date [facility] PRIMARY DRESSING 1 04/25/2025 documented in this encounter Additional Health Concerns Assessment Noted Time PHQ-9 Depression Total Score: 1 07/22/20 24 3:29 PM EST A fall risk assessment has been complete d for the patient 02/07/2019 11:25 AM EDT PHQ-2 Depression Total Score: 1 07/22/20 24 3:29 PM EST documented as of this encounter Care Teams Podiatry Teacher Relationship Specialty Start Date End Date Dylon Izaguirre MD PCP - General Family Medicine 09/05/23 documented as of this encounter
--- OUTSIDE RECORDS SUMMARY | 2025-04-29 07:44 | XMS_ITS | Encounter Summary ---
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 [place] [address] Phone: tel: fax: Referral ID Status Reason Start Date Expiration Date Visits Requested Visits Authorized [id number] Authorization Not Needed Specialty Services Required 5 09/05/2025 99 99 Encounter Details Date Type Department Care Team (Latest Contact Info) Description 04/29/2025 7:44 AM EDT - 04/29/2025 11:59 PM EDT Hospital Encounter [facility] [address] [place] [address] Aleksey uHnt, UMESH [address] [place] [address] Diabetic ulcer of left lower leg associated [...] drink = 0.6 oz pur e alcohol) [facility] Utilities Answer Date Recorded In the past 12 months has e electric, gas, oil, or water [employer] threatened to shut off services in your home? No 07/22/2024 Overall Financial Resource Strain (CARDIA) Answe r Date Recorded How hard is it for you to pa y for the very basics like food, housing, medical care, and heating? Not very hard 07/22/2024 PHQ-2 Answer Date Recorded PHQ-2 Total Score 1 07/22/2024 [facility] [place] of Occupat ional Health - Occupational Stress [...] money to get more. Never true 07/22/2024 [facility] IP Transportation Answer D ate Recorded [...] Sign Reading Time Taken Comments Blood Pressure 152/82 04/29/2025 7:48 AM EDT Pulse 61 04/29/2025 7:48 AM EDT Temperature 36.3 C (97.3 F) 04/29/2025 7:48 AM EDT Respiratory Rate 18 04/29/2025 7:48 AM EDT Oxygen Saturation - - Inhaled [...] Progress Notes * Aleksey Hunt DPM - 04/29/2025 7:45 AM EDT Images from the original note were not included. Date of Visit:04/29/2025 Progress Note HPI Jose Alberto Seaman is a 75 y.o. year old male patient who presents today for wound evaluation and follow-up. Patient has a chronic left ankle venous leg/diabetic ulcer(s) which is (are) located on the left leg. Symptoms include none. Tolerating the Levaquin 250 daily. INR was under 2.5. Patients past medical, family and social histories were reviewed and updated. There were no changesexcept as noted. ROS See HPI for further details. Relevant review of systems otherwise negative. Physical Exam Vitals: 04/29/25 0748 BP: 152/82 Pulse: 61 Resp: 18 Temp: 97.3 ??F (36.3 ??C) TempSrc: Forehead [...] - Cancel: AMB [facility]CC PRIMARY DRESSING - Cancel: AMB WCC PRIMARY DRESSING - AMB [facility] PRIMARY DRESSING Venous insufficiency of both lower extremities - Cancel: AMB WCC PRIMARY DRESSING - Cancel: AMB WCC PRIMARY DRESSING - AMB [facility]CC PRIMARY DRESSING Other orders [...] were given 5. Follow- up 1 week. Really improved. Wound bed now not infiltrated. Decreased drainage. Peripheral epithelialization. Compression wrap applied. Complete Levaquin. Follow-up in 1 week. documented in this encounter Miscellaneous Notes * Patient Instructions - Diane House RN - 04/29/2025 7:45 AM EDT HOME-CARE INSTRUCTIONS FOLLOWING YOUR [...] Dr. Hunt Nurse visit on Monday Continue the Levaquin as directed Keep an eye on your INR Theraskin [...] long periods of time. If you must glass installer one place, shift your weight and change [...] free to reach out to our unit leader, Yolanda Garcia at [phone] for any discussion. WHO TO CALL FOR PROBLEMS: Please call the OP wound care center with any problems or issues you may have after your visit or though the week. Each patient is assigned a welfare case worker who can assist with issues you may be having. Monica Nam is your welfare case worker Individual office numbers are listed below. Press 1 for immediate or schedule needs, press 2 for the nursing line. The nurse line is for non-emergent needs and will be answered within 24 hours duringbusiness days. If you have a more immediate concern, press option #1. Office numbers: [phone] [place]zdye-[phone] [facility] [phone] If you have an urgent or emergent [...] your provider: Protein Rich foods Typical Serving [place] butter 2 tablespoons = 7 grams protein [...] Fish, Tilapia 3 ounce = 22 grams [place] Yogurt nonfat (varies by brand) 1 cup = 24 grams protein Hemp seeds 3 tablespoons (30 g) = 9 grams protein Hummus (varies by brand or recipe) 2 tablespoons = 2 grams of protein Peanut butter 2 tablespoons = 7 grams protein Peanuts 1 ounce = 7 grams protein [place] nuts 1 ounce = 4 grams protein [...] (cooked) 3 ounces = 19 grams protein [place] seeds 1/4 cup = 6 grams protein Tempeh 1 cup = 31 grams protein Tofu 1/2 cup = 10 grams protein Tuna 3 ounces = 24 grams protein [place] breast 3 ounces = 26 grams protein [place], deli meat 4 ounces = 20 grams protein [place], ground (93% lean) 3 ounces = 16.5 grams protein Yogurt (lowfat, plain) 1 cup = 11 grams *Check the Nutritional Information label to verify for accurate serving size and nutritional values. documented in this encounter Plan of Treatment Upcoming Encounters Date Type Department Care Team (Late st Contact Info) Description 06/17/2025 8:15 AM EST Appointment [facility] [place] [address] [place] [address] Aleksey Hunt DPM [address] [facility] [place] [address] 06/19/2025 7:00 AM EST Clinical Support [facility] [place] [address] [place] [address] 06/19/2025 9:00 AM EST Office Visit [facility] [place] [address] [place] [address] 07/09/2025 9:00 AM EST Office Visit [facility] [place] [address] [place] [address] Blair Cordon MD [address] [place] [phone] documented as of this encounter Goals Goal [...] peripheral neuropathy weekly. Refer to PCP and/or Forest Aide, Vascular Specialist as indicated. Monitor patient compliance with wound care, diabetes management and proper offloading. 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, with fat layer exposed (HCC) Venous insufficiency of both lower extremities documented in this encounter Orders Medications Ordered That Desomnd ht Not Have Been Administered Count Last Ordered Date First Ordered Date lidocaine (XYLOCAINE) 5 % ointment 1 2024 Nursing Count Last Ordered Date First Orde red Date AMB [facility]CC PRIMARY DRESSING 1 04/29/2025 documented in this encounter Additional Health Concerns Assessment Noted Time PHQ-9 Depression Total Score: 1 07/22/20 24 3:29 PM EST A fall risk assessment has been complete d for the patient 02/07/2019 11:25 AM EDT PHQ-2 Depression Total Score: 1 07/22/20 24 3:29 PM EST documented as of this encounter Care Teams Commodity Industry Analyst Relationship Specialty Start Date End Date Dylon Izaguirre MD PCP - General Family Medicine 09/05/23 documented as of this encounter
--- OUTSIDE RECORDS SUMMARY | 2025-05-02 07:46 | XMS_ITS | Encounter Summary ---
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 [place] [address] Phone: tel: fax: Referral ID Status Reason Start Date Expiration Date V isits Requested Visits Authorized [id number] Pending Review 05/02/2025 05/02/2026 1 1 Reason for Visit * Reason [...] EA ADDL 20 SQ CM/PRT THEREOF [facility] [place] [address] [place] [address] Phone: tel: fax: Referral ID Status Reason Start Date Expiration Date Visits Requested Visits Authorized [id number] Authorization Not Needed Specialty Services Required 5 09/05/2025 99 99 Encounter Details Date Type Department Care Team (Latest Contact Info) Description 05/02/2025 7:46 AM EDT - 05/02/2025 11:59 PM EDT Hospital Encounter [facility] [address] [place] [address] Darek Najera MD [facility] [place] [address] Diabetic ulcer of left lower [...] e alcohol) [facility] Utilities Answer Date Recorded In the past 12 months has [facility] electric, gas, oil, or water company threatened to shut off services in your home? No 07/22/2024 Overall Financial Resource Strain (CARDIA) Answe r Date Recorded How hard is it for you to pa y for the very basics like food, housing, medical care, and heating? Not very hard 07/22/2024 PHQ-2 Answer Date Recorded PHQ-2 Total Score 1 07/22/2024 [place] of Occupat ional Health - Occupational Stress [...] money to get more. Never true 07/22/2024 [facility] IP Transportation Answer D ate Recorded [...] Sign Reading Time Taken Comments Blood Pressure 133/73 05/02/2025 7:55 AM EDT Pulse 57 05/02/2025 7:55 AM EDT Temperature 36.4 C (97.6 F) 05/02/2025 7:55 AM EDT Respiratory Rate 16 05/02/2025 7:55 AM EDT Oxygen Saturation - - Inhaled [...] Progress Notes * Britni Agrawal LPN - 05/02/2025 8:00 AM EDT Pt presents to the [...] Patient Instructions - Britni Agrawal LPN - 05/02/2025 8:00 AM EDT HOME-CARE INSTRUCTIONS FOLLOWING YOUR [...] Follow up in the Wound Care Center with Dr. Hunt next Monday Keep an eye on your INR Theraskin [...] long periods of time. If you must chainstitch hemmer one place, shift your weight and change [...] feel free to reach out to our oil well service unit operator, Yolanda Garcia at [phone] for any discussion. WHO TO CALL FOR PROBLEMS: Please call the OP wound care center with any problems or issues you may have after your visit or though the week. Each patient is assigned a case making machine operator who can assist with issues you may be having. Monica Nam is your case making machine operator Individual office numbers are listed below. Press 1 for immediate or schedule needs, press 2 for the nursing line. The nurse line is for non-emergent needs and will be answered within 24 hours duringbusiness days. If you have a more immediate concern, press option #1. Office numbers: [phone] [place]mcygo-[phone] [facility] [phone] If you have an urgent or emergent [...] your provider: Protein Rich foods Typical Serving [place] butter 2 tablespoons = 7 grams protein [...] Fish, Tilapia 3 ounce = 22 grams [place] Yogurt nonfat (varies by brand) 1 cup = 24 grams protein Hemp seeds 3 tablespoons (30 g) = 9 grams protein Hummus (varies by brand or recipe) 2 tablespoons = 2 grams of protein Peanut butter 2 tablespoons = 7 grams protein Peanuts 1 ounce = 7 grams protein [place] nuts 1 ounce = 4 grams protein [...] (cooked) 3 ounces = 19 grams protein Corn seeds 1/4 cup = 6 grams protein Tempeh 1 cup = 31 grams protein Tofu 1/2 cup = 10 grams protein Tuna 3 ounces = 24 grams protein [place] breast 3 ounces = 26 grams protein [place], deli meat 4 ounces = 20 grams protein [place], ground (93% lean) 3 ounces = 16.5 grams protein Yogurt (lowfat, plain) 1 cup = 11 grams *Check the Nutritional Information label to verify for accurate serving size and nutritional values. documented in this encounter Plan of Treatment Upcoming Encounters Date Type Department Care Team (Late st Contact Info) Description 06/17/2025 8:15 AM EST Appointment [facility] [place] [address] [place] [address] Aleksey Hunt DPM [address] [place] [address] 06/19/2025 7:00 AM EST Clinical Support [facility] [place] [address] [place] [address] 06/19/2025 9:00 AM EST Office Visit [facility] [place] [address] [place] [address] 07/09/2025 9:00 AM EST Office Visit [facility] [place] [address] [place] [address] Blair Cordon MD [address] [place] [address] documented as of this encounter Goals Goal [...] peripheral neuropathy weekly. Refer to PCP and/or Grinder Hardboard, Vascular Specialist as indicated. Monitor patient compliance [...] red Date AMB C PRIMARY DRESSING 1 05/02/2025 documented in this encounter Additional Health Concerns Assessment Noted Time PHQ-9 Depression Total Score: 1 07/22/20 24 3:29 PM EST A fall risk assessment has been complete d for the patient 02/07/2019 11:25 AM EDT PHQ-2 Depression Total Score: 1 07/22/20 24 3:29 PM EST documented as of this encounter Care Teams Net Developer With Wcf Relationship Specialty Start Date End Date Dylon Izaguirre MD PCP - General Family Medicine 09/05/23 documented as of this encounter
--- OUTSIDE RECORDS SUMMARY | 2025-05-06 07:57 | XMS_ITS | Encounter Summary ---
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, with fat layer exposed (HCC) Venous insufficiency of both lower extremities Procedures [facility] PRIMARY DRESSING Aleksey Hunt DPM [address] [place] [address] Phone: tel: fax: Referral ID Status Reason Start Date Expiration Date V isits Requested Visits Authorized [id number] Pending Review 05/06/2025 05/06/2026 1 1 Reason for Visit * Reason Comments Wound Check * Consultation (Routine) - Authorization Not Needed Specialty Diagnoses / Procedures Referred By Patrick amador Referred To Contact Wound Care Diagnoses Wound Care Procedures [facility] DEBRIDEMENT SUBCUTANEOUS TISSUE 1ST 20 SQ CM/< [facility] DEBRIDEMENT MUSCLE &/FASCIA 1ST 20 SQ CM/< [facility] DEBRIDEMENT BONE 1ST 20 SQ CM/< [place] DEBRIDEMENT SUBCUTANEOUS TISSUE EA ADDL 20 SQ CM [facility] DEBRIDEMENT MUSCLE &/FASCIA EA ADDL 20 SQ CM [facility] DEBRIDEMENT BONE EACH ADDITIONAL 20 SQ CM W[facility] DEBRIDEMENT OPEN WOUND FIRST 20 SQ CM/< [facility] DEBRIDEMENT OPN WND EA ADDL 20 SQ CM/PRT THEREOF [facility] [address] [place] [address] Phone: tel: fax: Referral ID Status Reason Start Date Expiration Date Visits Requested Visits Authorized [id number] Authorization Not Needed Specialty Services Required 09/05/2025 99 99 Encounter Details Date Type Department Care Team (Latest Contact Info) Description 05/06/2025 7:57 AM EDT - 05/06/2025 11:59 PM EDT Hospital Encounter [facility] [address] [place] [address] Aleksey Hunt DPM [address] [place] [address] Diabetic ulcer of left lower leg associated [...] e alcohol) [facility] Utilities Answer Date Recorded In the past [...] Date Recorded PHQ-2 Total Score 1 07/22/2024 [place] of Occupat ional Health - Occupational Stress [...] money to get more. Never true 07/22/2024 [facility] IP Transportation Answer D ate [...] Reading Time Taken Comments Blood Pressure 133/74 05/06/2025 8:01 AM EDT Pulse 58 05/06/2025 8:01 AM EDT Temperature 36.3 C (97.4 F) 05/06/2025 8:01 AM EDT Respiratory Rate 16 05/06/2025 8:01 AM EDT Oxygen Saturation - - Inhaled [...] BY MOUTH 2 TIMES DAILY. 60 Tablet 05/06/2025 sodium,potassium, mag sulfates (SUPREP BOWEL PREP KIT) [...] Progress Notes * Aleksey Hunt DPM - 05/06/2025 8:00 AM EDT Images from the original note were not included. Date of Visit:05/06/2025 Progress Note HPI Jose Alberto Seaman is a 75 y.o. year old male patient who presents today for wound evaluation and follow-up. Patient has a chronic left ankle combined diabetic and venous leg ulcer(s) which is (are) located on the left leg. Symptoms include none. Patients past medical, family and social histories were reviewed and updated. There were no changesexcept as noted. ROS See HPI for further details. Relevant review of systems otherwise negative. Physical Exam Vitals: 05/06/25 0801 BP: 133/74 Pulse: 58 Resp: 16 Temp: 97.4 ??F (36.3 ??C) TempSrc: Forehead [...] lower extremities - AMB [facility]CC PRIMARY DRESSING 1. Continue [...] were given 5. Follow- up 1 week. Tolerated Levaquin well. No adverse side effects. Actually an ulcer improved. Levaquin definitely helped. Measurement smaller. No signs of infection. Will plan on repeat TheraSkin next week. documented in this encounter Miscellaneous Notes * Patient Instructions - Monica Hu RN - 05/06/2025 8:00 AM EDT HOME-CARE INSTRUCTIONS FOLLOWING YOUR [...] Care Center with Dr. Hunt next Monday NURSE VISIT MONDAY FOR WRAP CHANGE Theraskin placed 04/15/25 HYDROFERA BLUE Vliwasorb, Abd pad, kerlix - left leg [...] long periods of time. If you must gumming machine operator one place, shift your weight [...] free to reach out to our community placement worker, Yolanda Garcia at [phone] for any discussion. WHO TO CALL FOR PROBLEMS: Please call the OP wound care center with any problems or issues you may have after your visit or though the week. Each patient is assigned a renal case manager who can assist with issues you may be having. Monica Nam is your renal case manager Individual office numbers are listed below. Press 1 for immediate or schedule needs, press 2 for the nursing line. The nurse line is for non-emergent needs and will be answered within 24 hours duringbusiness days. If you have a more immediate concern, press option #1. Office numbers: [phone] [phone]-[phone] [facility] [phone] If you have an urgent or emergent [...] your provider: Protein Rich foods Typical Serving [place] butter 2 tablespoons = 7 grams protein [...] Fish, Tilapia 3 ounce = 22 grams [place] Yogurt nonfat (varies by brand) 1 cup = 24 grams protein Hemp seeds 3 tablespoons (30 g) = 9 grams protein Hummus (varies by brand or recipe) 2 tablespoons = 2 grams of protein Peanut butter 2 tablespoons = 7 grams protein Peanuts 1 ounce = 7 grams protein [place] nuts 1 ounce = 4 grams protein [...] (cooked) 3 ounces = 19 grams protein [place] seeds 1/4 cup = 6 grams protein Tempeh 1 cup = 31 grams protein Tofu 1/2 cup = 10 grams protein Tuna 3 ounces = 24 grams protein [place] breast 3 ounces = 26 grams protein [place], deli meat 4 ounces = 20 grams protein [place], ground (93% lean) 3 ounces = 16.5 grams protein Yogurt (lowfat, plain) 1 cup = 11 grams *Check the Nutritional Information label to verify for accurate serving size and nutritional values. * Addendum Note - Monica Hu, RN - 05/06/2025 8:00 AM EDTEncounter addended by: Monica Hu, RN on: 05/06/2025 1:39 PM Actions taken: Patient Goal modified, Flowsheet accepted, Charge Capture section accepted documented in this encounter Plan of Treatment Upcoming Encounters Date Type Department Care Team (Late st Contact Info) Description 06/17/2025 8:15 AM EST Appointment [facility] [place] [address] [place] [address] Aelksey Hunt DPM [address] [place] [address] 06/19/2025 7:00 AM EST Clinical Support [facility] [address] [place] [address] 06/19/2025 9:00 AM EST Office Visit [facility] [place] [address] [place] [address] 07/09/2025 9:00 AM EST Office Visit [facility] [place] [address] [place] [address] Blair Cordon MD [address] [place] [phone] documented as of this encounter Goals Goal [...] peripheral neuropathy weekly. Refer to PCP and/or Emulsion Operator, Vascular Specialist as indicated. Monitor patient [...] red Date AMB WCC PRIMARY DRESSING 1 05/06/2025 documented in this encounter Additional Health Concerns Assessment Noted Time PHQ-9 Depression Total Score: 1 07/22/20 3:29 PM EST A fall risk assessment has been complete d for the patient 02/07/2019 11:25 AM EDT PHQ-2 Depression Total Score: 1 07/22/20 3:29 PM EST documented as of this encounter Care Teams Delinquent Notice Machine Operator Relationship Specialty Start Date End Date Dylon Izaguirre MD PCP - General Family Medicine 09/05/23 documented as of this encounter
--- OUTSIDE RECORDS SUMMARY | 2025-05-09 08:08 | XMS_ITS | Encounter Summary ---
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 [address] Phone: tel: fax: Referral ID Status Reason Start Date Expiration Date Visits Requested Visits Authorized [id number] Authorization Not Needed Specialty Services Required 09/05/2025 99 99 Encounter Details Date Type Department Care Team (Latest Contact Info) Description 05/09/2025 8:08 AM EDT - 05/09/2025 11:59 PM EDT Hospital Encounter [facility] Wound Care [place] [place] [address] Darek Najera MD [facility] [place] [address] Diabetic ulcer of left lower [...] drink = 0.6 oz pur e alcohol) [facility] Utilities Answer Date Recorded In the [...] Date Recorded PHQ-2 Total Score 1 07/22/2024 [place] of Occupat ional Health - Occupational Stress [...] money to get more. Never true 07/22/2024 [facility] H[facility]N [facility] IP Transportation [...] Sign Reading Time Taken Comments Blood Pressure 146/82 05/09/2025 8:14 AM EDT Pulse 59 05/09/2025 8:14 AM EDT Temperature 36.4 C (97.6 F) 05/09/2025 8:14 AM EDT Respiratory Rate 18 05/09/2025 8:14 AM EDT Oxygen Saturation - - Inhaled [...] documented in this encounter Progress Notes * Graciela Cueva RN - 05/09/2025 8:15 AM EDT Pt presents to the Wound care Center for Nurse visit. Reason for nurse visit: left lower leg Dressing change: Standard multilayer compression wrap applied [...] encounter Miscellaneous Notes * Patient Instructions - Graciela Cueva RN - 05/09/2025 8:15 AM EDT HOME-CARE INSTRUCTIONS FOLLOWING YOUR [...] Monday NURSE VISIT MONDAY FOR WRAP CHANGE Juan placed 04/15/25 HYDROFERA BLUE Vliwasorb, Abd pad, [...] long periods of time. 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 WHO TO CALL FOR PROBLEMS: Please call the OP wound care center with any problems or issues you may have after your visit or though the week. Each patient is assigned a social work case manager who can assist with issues you may be having. Monica Nam is your social work case manager Individual office numbers are listed below. Press 1 for immediate or schedule needs, press 2 for the nursing line. The nurse line is for non-emergent needs and will be answered within 24 hours duringbusiness days. If you have a more immediate concern, press option #1. Office numbers: [phone] SmithaZeynep [phone] Eagar- [phone] If you have an urgent or emergent [...] your provider: Protein Rich foods Typical Serving [place] butter 2 tablespoons = 7 grams protein [...] Fish, Tilapia 3 ounce = 22 grams [place] Yogurt nonfat (varies by brand) 1 cup = 24 grams protein Hemp seeds 3 tablespoons (30 g) = 9 grams protein Hummus (varies by brand or recipe) 2 tablespoons = 2 grams of protein Peanut butter 2 tablespoons = 7 grams protein Peanuts 1 ounce = 7 grams protein [place] nuts 1 ounce = 4 grams protein [...] (cooked) 3 ounces = 19 grams protein Swain seeds 1/4 cup = 6 grams protein Tempeh 1 cup = 31 grams protein Tofu 1/2 cup = 10 grams protein Tuna 3 ounces = 24 grams protein [place] breast 3 ounces = 26 grams protein [place], deli meat 4 ounces = 20 grams protein [place], ground (93% lean) 3 ounces = 16.5 grams protein Yogurt (lowfat, plain) 1 cup = 11 grams *Check the Nutritional Information label to verify for accurate serving size and nutritional values. documented in this encounter Plan of Treatment Upcoming Encounters Date Type Department Care Team (Late st Contact Info) Description 06/17/2025 8:15 AM EST Appointment [facility] Wound Care Center [address] [address] [place] [address] Aleksey Hunt DPM [address] [place] [address] 06/19/2025 7:00 AM EST Clinical Support [facility] [place] [address] [place] [address] 06/19/2025 9:00 AM EST Office Visit [facility] [place] [address] [place] [address] 07/09/2025 9:00 AM EST Office Visit [facility] [place] [address] [place] [address] Blair Cordon MD [address] [place] [address] documented as of this encounter [...] peripheral neuropathy weekly. Refer to PCP and/or Motorboat Mechanic Inboard, Vascular Specialist as indicated. Monitor patient compliance [...] red Date [facility]B [facility] PRIMARY DRESSING 1 05/09/2025 documented in this encounter Additional Health Concerns Assessment Noted Time PHQ-9 Depression Total Score: 1 07/22/20 24 3:29 PM EST A fall risk assessment has been complete d for the patient 02/07/2019 11:25 AM EDT PHQ-2 Depression Total Score: 1 07/22/20 24 3:29 PM EST documented as of this encounter Care Teams Slitting And Shipping Supervisor Relationship Specialty Start Date End Date Dylon Izaguirre MD PCP - General Family Medicine 09/05/23 documented as of this encounter
--- OUTSIDE RECORDS SUMMARY | 2025-05-13 08:19 | XMS_ITS | Encounter Summary ---
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, with fat layer exposed (HCC) Venous insufficiency of both lower extremities Procedures [facility] PRIMARY DRESSING Aleksey Hunt DPM [address] [place] [address] Phone: tel: fax: Referral ID Status Reason Start Date Expiration Date V isits Requested Visits Authorized [id number] Pending Review 05/13/2025 05/13/2026 1 1 Reason for Visit * Reason Comments Wound Check * WOUND CARE/HBO (Urgent) - Authorization Not Needed Specialty Diagnoses / Procedures Referred By Contdante t Referred To Contact Wound Care Diagnoses Type 2 diabetes mellitus with other skin ulcer (HCC) 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 [address] Phone: tel: fax: Aleksey Hunt DPM [address] [place] [address] Phone: tel: fax: Referral ID Status Reason Start Date Expiration Date Visits Requested Visits Authorized [id number] Authorization Not Needed 02/04/2025 02/04/2026 5 5 Encounter Details Date Type Department Care Team (Latest Contact Info) Description 05/13/2025 8:19 AM EDT - 05/13/2025 11:59 PM EDT Hospital Encounter [facility] Wound Care Center [place] [address] 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 No 07/22/2024 Overall Financial Resource Strain (CARDIA) Answe r Date Recorded How hard is it for you to pa y for the very basics like food, housing, medical care, and heating? Not very hard 07/22/2024 PHQ-2 Answer Date Recorded PHQ-2 Total Score 1 07/22/2024 [facility] [place] of Occupat ional Health - Occupational Stress [...] money to get more. Never true 07/22/2024 [facility] HRSN [facility] IP Transportation Answer D ate Recorded In [...] Sign Reading Time Taken Comments Blood Pressure 132/76 05/13/2025 8:24 AM EDT Pulse 56 05/13/2025 8:24 AM EDT Temperature 36.2 C (97.2 F) 05/13/2025 8:24 AM EDT Respiratory Rate 18 05/13/2025 8:24 AM EDT Oxygen Saturation - - Inhaled [...] Progress Notes * Aleksey Hunt DPM - 05/13/2025 8:30 AM EDT Images from the original note were not included. Date of Visit:05/13/2025 Progress Note HPI Jose Alberto Seaman is [...] of systems otherwise negative. Physical Exam Vitals: 05/13/25 0824 BP: 132/76 Pulse: 56 Resp: 18 Temp: 97.2 ??F (36.2 ??C) TempSrc: Forehead Ulcer Progress [...] were given 5. Follow- up 1 week. Repeat TheraSkin. I have discussed the risks, benefits and alternatives of TheraSkin with patient. Patient has agreedto proceed with procedure. Product applied per net architect???s recommendation and secured with Dermabond and Adaptic and dry, sterile dressing. This was followed with compression wrap. Patient tolerated procedure well. Advised in post-procedure care. documented in this encounter Miscellaneous Notes * Patient Instructions - Monica Hu RN - 05/13/2025 8:30 AM EDT HOME-CARE INSTRUCTIONS FOLLOWING YOUR [...] Hunt Nurse visit on MONDAY Theraskin placed 05/13/25 New graft placed, please carefully replace the hydrofera blue and adaptic at nurse visit if it's [...] periods of time. 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 WHO TO CALL FOR PROBLEMS: Please call the OP wound care center with any problems or issues you may have after your visit or though the week. Each patient is assigned a mental health case manager who can assist with issues you may be having. Monica Nam is your mental health case manager Individual office numbers are listed below. Press 1 for immediate or schedule needs, press 2 for the nursing line. The nurse line is for non-emergent needs and will be answered within 24 hours duringbusiness days. If you have a more immediate concern, press option #1. Office numbers: [phone] [place] [phone] Kristopher- [phone] If you have an urgent or emergent [...] * Addendum Note - Mika Cohen - 05/13/2025 8:30 AM EDTEncounter addended by: Mika Cohen on: 05/23/2025 11:12 AM Actions taken: Charge Capture section accepted documented in this encounter Plan of Treatment Upcoming Encounters Date Type Department Care Team (Late st Contact Info) Description 06/17/2025 8:15 AM EST Appointment [facility] Wound Care Center [place] [address] [place] [address] Aleksey Hunt DPM [address] [place] [address] 06/19/2025 7:00 AM EST Clinical Support [facility] [place] [address] [place] [address] 06/19/2025 9:00 AM EST Office Visit [facility] [place] [address] [place] [address] 07/09/2025 9:00 AM EST Office Visit [facility] [place] [address] [place] [address] Blair Cordno MD [address] [place] [address] Scheduled Orders Name Type Priority Associated Diagnoses Orde r Schedule IA JENNY SKN SUB GRFT T/A/L AREA/100SQ CM /<1ST 25 IA Charge Routine 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 Author Wound Healing General Not on track(2024 2:25 PM EDT) Angela Aguilera, MEIR Note: Wound [...] peripheral neuropathy weekly. Refer to PCP and/or Screen Print Operator, Vascular Specialist as indicated. Monitor patient compliance with wound care, diabetes management and proper offloading. 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, with fat layer exposed (HCC)- Primary Venous insufficiency of both lower extremities Venous ulcer of left leg (HCC) documented in this encounter Administered Medications Inactive Administered Medications - up to 1 most recent administrations Medication Order MAR Action Action Date Dose Rate Site lidocaine (XYLOCAINE) 5 % ointment Topical, ONCE, 1 dose, On Mon05/13/25 at 0830, Application site: wound Given 05/13/2025 8:30 AM EDT documented in this encounter Orders Medications Ordered That Desmond ht Not Have Been Administered Count Last Ordered Date First Ordered Date lidocaine (XYLOCAINE) 5 % ointment 1 2024 Nursing Count Last Ordered Date First Orde red Date AMB [facility] PRIMARY DRESSING 1 05/13/2025 documented in this encounter Additional Health Concerns Assessment Noted Time PHQ-9 Depression Total Score: 1 07/22/20 24 3:29 PM EST A fall risk assessment has been complete d for the patient 02/07/2019 11:25 AM EDT PHQ-2 Depression Total Score: 1 07/22/20 24 3:29 PM EST documented as of this encounter Care Teams Nail Mill Worker Relationship Specialty Start Date End Date Dylon Izaguirre MD PCP - General Family Medicine 09/05/23 documented as of this encounter
--- OUTSIDE RECORDS SUMMARY | 2025-05-16 08:15 | XMS_ITS | Encounter Summary ---
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 [address] Phone: tel: fax: Referral ID Status Reason Start Date Expiration Date Visits Requested Visits Authorized [id number] Authorization Not Needed Specialty Services Required 5 09/05/2025 99 99 Encounter Details Date Type Department Care Team (Latest Contact Info) Description 05/16/2025 8:15 AM EDT - 05/16/2025 11:59 PM EDT Hospital Encounter [facility] [address] [address] Darek Najera MD [facility] [place] [address] Diabetic ulcer of left lower [...] drink = 0.6 oz pur e alcohol) [facility] Utilities Answer Date Recorded In the past 12 months has [facility] electric, gas, oil, or water company threatened to shut off services in your home? No 07/22/2024 Overall Financial Resource Strain (CARDIA) Answe r Date Recorded How hard is it for you to pa y for the very basics like food, housing, medical care, and heating? Not very hard 07/22/2024 PHQ-2 Answer Date Recorded PHQ-2 Total Score 1 07/22/2024 [place] of Occupat ional Health - Occupational Stress [...] money to get more. Never true 07/22/2024 [facility] IP Transportation Answer D ate [...] Sign Reading Time Taken Comments Blood Pressure 154/90 05/16/2025 8:35 AM EDT Pulse 65 05/16/2025 8:35 AM EDT Temperature 36.7 C (98 F) 05/16/2025 8:35 AM EDT Respiratory Rate 16 05/16/2025 8:35 AM EDT Oxygen Saturation - - Inhaled [...] documented in this encounter Progress Notes * Angela Deshpande RN - 05/16/2025 8:15 AM EDT Pt presents to the Wound care Center for Nurse visit. Reason for nurse visit:dressing change Dressing change: Standard multilayer compression wrap [...] encounter Miscellaneous Notes * Patient Instructions - Anjelica Rojas RN - 05/16/2025 8:15 AM EDT HOME-CARE INSTRUCTIONS FOLLOWING YOUR [...] Follow up in the Wound Care Center on Monday with Dr. Hunt Nurse visit on MONDAY Luzmaaskjulia placed 05/13/25 New graft placed, please carefully [...] long periods of time. 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 WHO TO CALL FOR PROBLEMS: Please call the OP wound care center with any problems or issues you may have after your visit or though the week. Each patient is assigned a case investigator who can assist with issues you may be having. Monica Nam is your case investigator Individual office numbers are listed below. Press 1 for immediate or schedule needs, press 2 for the nursing line. The nurse line is for non-emergent needs and will be answered within 24 hours duringbusiness days. If you have a more immediate concern, press option #1. Office numbers: [phone] [place] [phone] [facility] [phone] If you have an urgent or emergent [...] Info) Description 06/17/2025 8:15 AM EST Appointment [facility] [place] [address] [place] [address] Aleksey Hunt [facility] [address] [place] [address] 06/19/2025 7:00 AM EST Clinical Support [facility] [place] [address] [place] [address] 06/19/2025 9:00 AM EST Office Visit [facility] [place] [address] [place] [address] 07/09/2025 9:00 AM EST Office Visit [facility] [place] [address] [place] [address] Blair Cordon MD [address] [place] [address] documented as of this encounter Goals Goal Patient Goal Type Associated Problems Recent Progress Patient-Stated? Author Wound Healing General Not on track(2024 2:25 PM EDT) Agnela Aguilera RN Note: Wound Care Goals-right medial [...] peripheral neuropathy weekly. Refer to PCP and/or Valve Inserter, Vascular Specialist as indicated. Monitor patient [...] red Date AMB [facility] PRIMARY DRESSING 1 05/16/2025 documented in this encounter Additional Health Concerns Assessment Noted Time PHQ-9 Depression Total Score: 1 07/22/20 24 3:29 PM EST A fall risk assessment has been complete d for the patient 02/07/2019 11:25 AM EDT PHQ-2 Depression Total Score: 1 07/22/20 24 3:29 PM EST documented as of this encounter Care Teams Customs Guard Relationship Specialty Start Date End Date Dylon Izaguirre MD PCP - General Family Medicine 09/05/23 documented as of this encounter
--- OUTSIDE RECORDS SUMMARY | 2025-05-20 08:00 | XMS_ITS | Encounter Summary ---
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, with fat layer exposed (HCC) Venous insufficiency of both lower extremities Procedures [facility] PRIMARY DRESSING Aleksey Hunt DPM [address] [place] [id number] Phone: tel: fax: Referral ID Status Reason Start Date Expiration Date V isits Requested Visits Authorized [id number] Pending Review 05/20/2025 05/20/2026 1 1 Reason for Visit * Reason Comments Wound Check * Consultation (Routine) - Authorization Not Needed Specialty Diagnoses / Procedures Referred By Patrick amador Referred To Contact Wound Care Diagnoses Wound Care Procedures WA DEBRIDEMENT SUBCUTANEOUS TISSUE 1ST 20 SQ CM/< WA DEBRIDEMENT MUSCLE &/FASCIA 1ST 20 SQ CM/< WA DEBRIDEMENT BONE 1ST 20 SQ CM/< WA DEBRIDEMENT SUBCUTANEOUS TISSUE EA ADDL 20 SQ CM WA DEBRIDEMENT MUSCLE &/FASCIA EA ADDL 20 SQ CM WA DEBRIDEMENT BONE EACH ADDITIONAL 20 SQ CM WA DEBRIDEMENT OPEN WOUND FIRST 20 SQ CM/< WA DEBRIDEMENT OPN WND EA ADDL 20 SQ CM/PRT THEREOF [facility] [address] [place] [address] Phone: tel: fax: Referral ID Status Reason Start Date Expiration Date Visits Requested Visits Authorized [id number] Authorization Not Needed Specialty Services Required 5 09/05/2025 99 99 Encounter Details Date Type Department Care Team (Latest Contact Info) Description 05/20/2025 8:00 AM EDT - 05/20/2025 11:59 PM EDT Hospital Encounter [facility] [address] 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 No 07/22/2024 Overall Financial Resource Strain (CARDIA) Answe r Date Recorded How hard is it for you to pa y for the very basics like food, housing, medical care, and heating? Not very hard 07/22/2024 PHQ-2 Answer Date Recorded PHQ-2 Total Score 1 07/22/2024 [facility] [place] of Occupat ional Health - Occupational Stress [...] money to get more. Never true 07/22/2024 [facility] IP Transportation Answer D ate Recorded In [...] Sign Reading Time Taken Comments Blood Pressure 167/75 05/20/2025 8:18 AM EDT Pulse 99 05/20/2025 8:18 AM EDT Temperature 36.5 C (97.7 F) 05/20/2025 8:18 AM EDT Respiratory Rate 16 05/20/2025 8:18 AM EDT Oxygen Saturation - - Inhaled [...] Progress Notes * Aleksey Hunt DPM - 05/20/2025 8:00 AM EDT Images from the original note were not included. Date of Visit:05/20/2025 Progress Note HPI Jose Alberto Seaman is a 75 y.o. year old male patient who presents today for wound evaluation and follow-up. Patient has a left ankle diabetic/venous ulcer(s) which is (are) located on the left leg. Symptoms include none. 1 week s/p repeat TheraSkin application. Patients past medical, family and social histories were reviewed and updated. There were no changesexcept as noted. ROS See HPI for further details. Relevant review of systems otherwise negative. Physical Exam Vitals: 05/20/25 0818 BP: (!) 167/75 Pulse: 99 Resp: 16 Temp: 97.7 ??F (36.5 ??C) TempSrc: Forehead Ulcer Progress and Procedure [...] insufficiency of both lower extremities - AMB WC PRIMARY DRESSING 1. Continue standard ulcer therapy [...] were given 5. Follow- up 1 week. Stable. Good graft take. No signs of infection DSD compression wrap applied with hydrofera blue. documented in this encounter Miscellaneous Notes * Patient Instructions - Ina Higuera RN - 05/20/2025 8:00 AM EDT HOME-CARE INSTRUCTIONS FOLLOWING YOUR [...] Hunt Nurse visit on MONDAY Juan magana 05/13/25 please carefully replace the hydrofera blue and adaptic at nurse visit if it's gooey Adaptic, hydrofera blue, Abd pad, kerlix - left leg Compression [...] long periods of time. 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 WHO TO CALL FOR [...] immediate concern, press option #1. Office numbers: [phone] [phone] [place]- [phone] If you have an urgent or emergent [...] care information folder. * Addendum Note - Ina Higuera RN - 05/20/2025 8:00 AM EDTEncounter addended by: Ina Higuera RN on: 05/20/2025 1:11 PM Actions taken: Flowsheet accepted, Visit diagnoses modified, Patient Goal modified, Clinical Note Signed documented in this encounter Plan of Treatment Upcoming Encounters Date Type Department Care Team (Late st Contact Info) Description 06/17/2025 8:15 AM EST Appointment [facility] [address] [place] [address] Alekesy Hunt DPM [address] [facility] [address] 06/19/2025 7:00 AM EST Clinical Support [facility] [address] [place] [address] 06/19/2025 9:00 AM EST Office Visit [facility] [address] [place] [address] 07/09/2025 9:00 AM EST Office Visit [facility] [address] [place] [address] Blair Cordon MD [address] [place] [address] documented as of this encounter [...] peripheral neuropathy weekly. Refer to PCP and/or Leisure Travel Agent, Vascular Specialist as indicated. Monitor patient compliance with wound care, diabetes management and proper offloading. 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, with fat layer exposed (HCC) Venous insufficiency of both lower extremities PVD (peripheral vascular disease) (HCC) Peripheral vascular disease, unspecified documented in this encounter Orders Nursing Count Last Ordered Date First Orde red Date AMB WCC PRIMARY DRESSING 1 05/20/2025 documented in this encounter Additional Health Concerns Assessment Noted Time PHQ-9 Depression Total Score: 1 07/22/20 24 3:29 PM EST A fall risk assessment has been complete d for the patient 02/07/2019 11:25 AM EDT PHQ-2 Depression Total Score: 1 07/22/20 24 3:29 PM EST documented as of this encounter Care Teams Scrap Preparer Relationship Specialty Start Date End Date Dylon Izaguirre MD PCP - General Family Medicine 09/05/23 documented as of this encounter
--- OUTSIDE RECORDS SUMMARY | 2025-05-21 11:06 | XMS_ITS | Encounter Summary ---
Author Organization [facility] Address [address] [place] [address] Care Team Providers Care Implementation Director Name Role Phone Dylon Izaguirre MD Primary Care Provider [phone] Reason for Referral * Surgical (Routine) - AFF Authorization Not Needed Specialty Diagnoses / Procedures Referred By Patrick amador Referred To Contact Gastroenterology Diagnoses Special screening for malignant neoplasms, colon Procedures COLONOSCOPY WY COLONOSCOPY FLX DX W/COLLJ SPEC WHEN PFRMD WY COLONOSCOPY FLX W/ENDOSCOPIC MUCOSAL RESECTION Altaf De La Paz MD [address] [place] [address] Phone: tel: fax: Altaf De La Paz MD [address] [place] [address] Phone: tel: fax: Referral ID Status Reason Start Date Expiration Date Visits Requested Visits Authorized [id number] AFF Authorization Not Needed 04/16/2025 04/16/2026 1 1 Reason for Visit * Surgical (Routine) - AFF Authorization Not Needed Specialty Diagnoses / Procedures Referred By Patrick t Referred To Contact Gastroenterology Diagnoses Special screening for malignant neoplasms, colon Procedures COLONOSCOPY WY COLONOSCOPY FLX DX W/COLLJ SPEC WHEN PFRMD WY COLONOSCOPY FLX W/ENDOSCOPIC MUCOSAL RESECTION Altaf De La Paz MD [address] [place] [address] Phone: tel: fax: Altaf De La Paz MD [address] [place] [address] Phone: tel: fax: Referral ID Status Reason Start Date Expiration Date Visits Requested Visits Authorized [id number] AFF Authorization Not Needed 04/16/2025 04/16/2026 1 1 Encounter Details Date Type Department Care Team (Latest Contact Info) Description 05/21/2025 11:06 AM EDT - 05/21/2025 11:59 PM EDT Hospital Encounter [facility] [address] [place] [address] Altaf De La Paz MD [address] [place] [address] Special screening for malignant neoplasms, colon Discharge Disposition: Home or Self Care Social History Tobacco Use Types Packs/Day Years Used Date Smoking Tobacco: Former Cigarettes 0.5 9 0 01/17/1973 - 01/17/1982 Smokeless Tobacco: Former Snuff Quit: 01/12/2005 Alcohol Use Standard Drinks/Week Comments No 0 (1 standard drink = 0.6 oz pur e alcohol) [facility] Utilities Answer Date Recorded In the past 12 months has e [employer], gas, oil, or water [employer] threatened to shut off services in your home? No 07/22/2024 Overall Financial Resource Strain (CARDIA) Answe r Date Recorded How hard is it for you to pa y for the very basics like food, housing, medical care, and heating? Not very hard 07/22/2024 PHQ-2 Answer Date Recorded PHQ-2 Total Score 1 07/22/2024 [facility] [place] of Occupat ional Health - Occupational Stress [...] money to get more. Never true 07/22/2024 [facility] IP Transportation Answer D ate Recorded [...] Sign Reading Time Taken Comments Blood Pressure 106/56 05/21/2025 12:48 PM EDT Pulse 56 05/21/2025 12:48 PM EDT Temperature 36.5 C (97.7 F) 05/21/2025 11:21 AM EDT Respiratory Rate 16 05/21/2025 12:3 3 PM EDT Oxygen Saturation 96% 05/21/2025 12: 48 PM EDT Inhaled Oxygen Concentration - - Weight 111.4 kg (245 lb 9.6 oz) 025 11:21 AM EDT Height 175.3 cm (5' 9 ) 05/21/2025 11:2 1 AM EDT Body Mass Index 36.27 05/21/2025 11:21 AM EDT documented in this encounter Discharge Instructions * Discharge Instructions* Josefa Lance, RN - 05/21/2025 12:40 PM EDT Recommendation Await pathology results Repeat colonoscopy in 5 years, due: 05/20/2030 Start Anusol HC suppositories qhs Hold coumadin x 2 more days IT IS VERY IMPORTANT THAT YOU FOLLOW THESE INSTRUCTIONS: ACTIVITY: The sedative medications generally wear off quickly, but they may make you less alert than normal. Today should be a day of rest. DO NOT drive a car, undertake vigorous exercise, or operatemachinery today. DO NOT sign any legal documents or make any important decisions. You may resume normal activity the day after your procedure. DIET: You may resume your usual diet unless directed otherwise. It is encouraged that you drink plenty of fluids throughout the day to help replenish lost fluids. DO NOT consume alcoholic beverages until the following day due to the residual effects of the administered sedation. MEDICATIONS: Resume home medications unless the physician indicates otherwise in the recommendations listed above. WHAT TO EXPECT FOLLOWING YOUR PROCEDURE: You may feel gas or cramps for a few hours. This is due to the air that was introduced into the colon during your procedure. You should start to expel gas before you leave the facility and will continue to do so throughout the remainder of the day. However, if you have abdominal (stomach) pain or swelling, please call our office. You may notice a few drops of blood in the toilet or on the toilet paper following your procedure. This is caused by irritation to the bowel during the procedure and is not a problem. However, if youexperience heavy bleeding or if the bleeding persists for three or more days following the procedure, please contact our office. If you develop a fever greater than 101 degrees or chills during the next 48 hours, please contact our office. Please monitor your IV site closely for any post removal complications. You may or may not have received medications that are classified as vesicants (medications that can cause tissue damage). Examples of such medications used at [facility] [place] include dextrose, epinephrine, esmolol, lorazepam, phenylephrine, and/or promethazine. The medications you received today will be listed on the first page of your discharge instructions. Please contact our office immediately if any of the following occur: Red streaks on your skin near the IV site Skin at the IV site turns dark or peels Fluid, blood, or pus leaking from the IV site Swelling, pain or redness at the IV site that doesn???t get better or gets worse Numb, tight, or cool feeling at the IV site Blisters or bruises on your skin at the IV site Fever of 100.4 or higher You may feel nauseated today. This may occur due to the medications administered for your procedure. This should resolve within a few hours. If your nausea continues for more than 24 hours, please contact our office. Do not use enemas or suppositories unless you have discussed this with your physician. Contact our office at [phone] or [phone] if questions or problems arise. Our office hoursare 8:00 am to 5:00 pm Monday through Monday. A practitioner is regional sales representative outside of office hours foremergency phone calls at [phone] or [phone] Biopsies are used to evaluate many things and do not indicate that cancer was found. They are used to help determine the cause of symptoms. All biopsies will be reviewed by a pathologist. The resultsmay not be available for 2-3 weeks. Follow up on the biopsy results as instructed by your physician. After you have completely recovered from your sedation, please review your discharge instructions. You may not remember speaking with your physician following your procedure due to the amnesic effects of the sedation. In efforts to provide continuity of care, you will receive a follow up phone call from our [facility] the following day (or on Monday should your procedure fall on Monday). If you are unavailable to accept the call and if permissible, according to your HIPAA form on file, we will leave a message. You are not required to return the call unless you have questions or concerns. If the HIPAA form that is on file does not permit our facility to leave a message, we will not do so. We strive to provide compassionate, high quality, cost effective care to our patients and to make your experience as comfortable as possible. We value your opinion and encourage you to offer commentsor suggestions by completing a brief online survey (via secured connection) that will be emailed toyou within a week your procedure from [employer]. Your input contributes to our facility's process of continually reviewing and improving patient satisfaction. We thank you in advance for your feedback. documented in this encounter Medications at Time of Discharge acetaminophen (TYLENOL) 500 mg Oral Tablet Take 1 Tablet by mouth as needed for Pain. allopurinoL (ZYLOPRIM) 100 mg Oral Tablet Take 100 mg by mouth daily. aspirin 81 mg tablet Take 81 mg by mouth daily. doxycycline monohydrate (MONODOX) 100 mg Oral Capsule Take 1 Capsule by mouth daily. 30 Capsule 1 5 evolocumab 140 mg/mL SubQ Pen Injector Subcutaneous (Inject under the skin) 140 mg every 14 days. FARXIGA 10 mg Oral Tablet Take 10 mg by mouth daily. 3 fUROsemide (LASIX) 40 mg Oral Tablet Take 40 mg by mouth daily. gabapentin (NEURONTIN) 300 mg Oral Capsule Take 300 mg by mouth 3 times daily as needed. 4 HYDROcodone-acet aminophen (NORCO) 5-325 mg Oral Tablet Take 1 Tablet by mouth every 4 hours as needed for Major Surgery/Trauma (G89.18) for up to 12 doses. 12 Tablet 4 hydrocortisone (ANUSOL-HC) 2.5 % Top cream with perineal applicator Place rectally 2 times daily. 30 Each 1 5 hydrocortisone (ANUSOL-HC) [address] 1 Suppository rectally nightly. 10 Suppository 1 5 irbesartan (AVAPRO) 150 mg Oral Tablet Take 150 mg by mouth daily. metFORMIN (GLUCOPHAGE) 500 mg Oral Tablet Take 500 mg by mouth 2 times daily. 2 metoprolol succinate (TOPROL-XL) 25 mg Oral Tablet Sustained Release 24 hr TAKE DOS 9 MOUNJARO 5 mg/0.5 mL SubQ Pen Injector Inject 5 mg under the skin once a week. 5 nitroGLYCERIN (NITROSTAT) 0.4 mg SL Tablet, Sublingual Place 0.4 mg under the tongue every 5 minutes as needed for Chest pain. 0 oxyCODONE-acetam inophen (PERCOCET) 5-325 mg Oral Tablet 5 pentoxifylline (TRENTAL) 400 mg Oral Tablet Sustained Release TAKE 1 TABLET BY MOUTH 2 TIMES DAILY. 60 Tablet 5 sodium,potassium ,mag sulfates (SUPREP BOWEL PREP KIT) 17.5-3.13-1.6 gram Oral Recon Soln Take 1 kit per physician instructions 354 mL 5 tamsulosin (FLOMAX) 0.4 mg Oral Capsule Take 0.4 mg by mouth daily. 5 TRULICITY 0.75 mg/0.5 mL SubQ Pen Injector Subcutaneous (Inject under the skin) 0.75 mg once a week. 3 warfarin (COUMADIN) 5 mg tablet Take 1 Tab by mouth daily. 30 Tab 12 3 documented as of this encounter Ordered Prescriptions Prescription Sig Dispense Quantity Refills Last Filled Start Date End Date hydrocortisone (ANUSOL-HC) 2.5 % Top cream with perineal applicator Place rectally 2 times daily. 30 Each 1 5 hydrocortisone (ANUSOL-HC) [address] 1 Suppository rectally nightly. 10 Suppository 1 5 documented in this encounter Discharge Disposition Disposition Code Departure Means Destination Home or Self Care documented in this encounter Progress Notes * Tameka Martins CRNA - 05/21/2025 12:00 PM EDT Images from the original note were not included. Patient: Jose Alberto Seaman Age: 75 y.o. Sex: male Vitals: Vitals: 05/21/25 1232 BP: 107/60 Pulse: 62 Resp: Temp: SpO2: 90% Planned Procedure: COLONOSCOPY Surgical History: Surgical History[1] Allergies: Allergies[2] Medications: Current Outpatient Medications Medication Instructions acetaminophen (TYLENOL) 500 mg Oral Tablet 1 Tablet, PRN allopurinoL (ZYLOPRIM) 100 mg, DAILY aspirin 81 mg, DAILY doxycycline monohydrate (MONODOX) 100 mg, Oral, DAILY evolocumab 140 mg, EVERY 14 DAYS FARXIGA 10 mg, DAILY fUROsemide (LASIX) 40 mg, DAILY gabapentin (NEURONTIN) 300 mg, 3 TIMES DAILY PRN HYDROcodone-acetaminophen (NORCO) 5-325 mg Oral Tablet 1 Tablet, Oral, EVERY 4 HOURS PRN irbesartan (AVAPRO) 150 mg, DAILY metFORMIN (GLUCOPHAGE) 500 mg, 2 TIMES DAILY metoprolol succinate (TOPROL-XL) 25 mg Oral Tablet Sustained Release 24 hr TAKE DOS MOUNJARO 5 mg, WEEKLY nitroGLYCERIN (NITROSTAT) 0.4 mg, EVERY 5 MIN PRN oxyCODONE-acetaminophen (PERCOCET) 5-325 mg Oral Tablet pentoxifylline (TRENTAL) 400 mg, Oral, 2 TIMES DAILY sodium,potassium,mag sulfates (SUPREP BOWEL PREP KIT) 17.5-3.13-1.6 gram Oral Recon Soln Take 1 kitper physician instructions tamsulosin (FLOMAX) 0.4 mg, DAILY TRULICITY 0.75 mg, WEEKLY warfarin (COUMADIN) 5 mg, Oral, DAILY Anesthesia Assessment: Results for orders placed or performed during the hospital encounter of 05/21/25 POCT GLUCOSE Result Value Ref Range Glucose 115 60 - 200 MG/DL Lot Number [id number] Expiration Date 11/04/26 SeriAl # Meter 1 POCT INR Result Value Ref Range INR 1.1 0.86 - 1.16 05/21/2025 11:56 AM AMB [facility] AN[facility]HESIA ASSESSMENT STUDENT performed anesthesia assessment for patients receiving MAC anesthesia. Anesthesia plan explained to patient per STUDENT. Consent for anesthesia obtained. Yes Neurological Assessment Within normal limits Cardiac Assessment RRR no M/R/G Pulmonary Assessment Lungs clear to auscultate bilaterally / respirations easy and even Airway Evaluation Mallampati Classification 1 Dentation Evaluation Good dentation ASA Class P3 - a patient with severe systemic disease Anesthesia supplies / equipment checked prior to procedure yes Procedure time out performed Yes Patient position for procedure Left lateral position and HOB elevated Monitors during procedure EKG;SaO2;EtCO2;NIBP Oxygen delivery Nasal Cannula Airway utilized for procedure Natural Post procedure report given to post procedure nurse Yes Procedure Documentation: Sedation Summary (05/21/2025 11:56:57 to 05/21/2025 13:32:19) 05/21/2025 Event Details User 11:56 Anesthesia Other flowsheet entries Airway utilized for procedure: Natural Tameka Martins CRNA 11:56:57 Documentation Start Time Tameka Martins CRNA 11:57 Staff Arrived Altaf De La Paz MD [Performing P]; Tameka Martins CRNA [STUDENT]; Isac Diaz RN [Nurse] Tameka Martins CRNA 11:58:54 Start Visit Isac Diaz RN 11:58:54 Patient Out - Pre-Op Status: Patient in Pre-Op -- 11:58:54 Patient In - Proc. Room Status: Patient In Proc. Room -- 11:58:57 Endoscopy Documentation Start Isac Diaz RN 11:59:22 Timeout: Initial in Room Verified by Isac Diaz RN at 05/21/2025 1159 Isac Diaz RN 11:59:55 [facility] SpO2: 95 % (Device Time: :55) Isac Diaz RN 12::25 [facility] BP: 122/77 (Device Time: ::) BP MAP (mmHg): 108 (Device Time: ::25) SpO2: 96 % (Device Time: ::) Cardiac Rhythm: SR Tameka Martins, STUDENT 12::56 [facility] BP: 122/77 (Device Time: :) BP MAP (mmHg): 108 (Device Time: ::) SpO2: 97 % (Device Time: ::) ETCO2 (mmHg): 32 mmHg (Device Time: :) Pulse: 55 (Device Time: :) Cardiac Rhythm: SR Tameka Martins, STUDENT 12::56 [facility] BP: 122/77 (Device Time: :) SpO2: 100 % (Device Time: :) Isac Diaz RN 12:02 [facility] BP MAP (mmHg): 108 (Device Time: :) ETCO2 (mmHg): 33 mmHg (Device Time: :) Tameka Martins STUDENT 12::57 [facility] BP: 122/77 (Device Time: :) BP MAP (mmHg): 108 (Device Time: ::) SpO2: 100 % (Device Time: :) ETCO2 (mmHg): 33 mmHg (Device Time: ::57) Pulse: 55 (Device Time: ::57) Cardiac Rhythm: SR Tameka Martins, STUDENT 12::57 [facility] BP: 151/94 (Device Time: ::57) SpO2: 100 % (Device Time: ::57) Pulse: 54 (Device Time: ::57) Isac Diaz RN 12:04 [facility] BP MAP (mmHg): 115 (Device Time: ::57) ETCO2 (mmHg): 33 mmHg (Device Time: ) Tameka Martins CRNA 12::57 [facility] BP: 151/94 (Device Time: ) SpO2: 100 % (Device Time: ) Pulse: 60 (Device Time: :57) Isac Diaz RN 12:05 [facility] BP MAP (mmHg): 115 (Device Time: ) ETCO2 (mmHg): 35 mmHg (Device Time: ) Tameka Martins CRNA 12::57 [facility] BP: 151/94 (Device Time: ) SpO2: 100 % (Device Time: ) Pulse: 55 (Device Time: :) Isac Diaz RN 12:06 [facility] BP MAP (mmHg): 115 (Device Time: ) ETCO2 (mmHg): 34 mmHg (Device Time: ) Tameka Martins CRNA 12::57 [facility] BP: 151/76 (Device Time: ) SpO2: 100 % (Device Time: ) Pulse: 54 (Device Time: :) Isac Diaz RN 12:07 [facility] BP MAP (mmHg): 108 (Device Time: 57) ETCO2 (mmHg): 34 mmHg (Device Time: :57) Tameka Martins CRNA 12::58 [facility] BP: 151/76 (Device Time: :58) SpO2: 100 % (Device Time: ::58) Pulse: 56 (Device Time: ::58) Isac Diaz RN 12:08 [facility] BP MAP (mmHg): 108 (Device Time: ::58) ETCO2 (mmHg): 34 mmHg (Device Time: ::58) Tameka Martins CRNA 12::58 [facility] BP: 151/76 (Device Time: ::58) SpO2: 100 % (Device Time: ::58) Pulse: 56 (Device Time: ) Isac Diaz RN 12:09 [facility] BP MAP (mmHg): 108 (Device Time: ) ETCO2 (mmHg): 35 mmHg (Device Time: ) Tameka Martins CRNA 12:09:51 Medication Ordered and Given lidocaine 1% 10 mg/mL (1 %) injection - Dose: 100 mg ; Route:Intravenous ; Line: Peripheral IV 05/21/25 1134 Posterior;Right Hand Ordered by: Tameka Martins CRNA Schneider, Erin, CRNA 12:: [facility] BP: 148/97 (Device Time: ) SpO2: 100 % (Device Time: ) Pulse: 57 (Device Time: ) Isac Diaz RN 12:10 [facility] BP MAP (mmHg): 135 (Device Time: ) ETCO2 (mmHg): 35 mmHg (Device Time: ) Tameka Martins CRNA 12::59 [facility] BP: 148/97 (Device Time: :) SpO2: 100 % (Device Time: ::) Pulse: 55 (Device Time: ::59) Isac Diaz RN 12:11 [facility] BP MAP (mmHg): 135 (Device Time: :) ETCO2 (mmHg): 37 mmHg (Device Time: ::) Tameka Martins CRNA 12:11:44 Medication Ordered and Given propofoL (DIPRIVAN) injection - Dose: 100 mg ; Route: Intravenous ; Line: Peripheral IV 05/21/25 1134 Posterior;Right Hand Ordered by: Tameka Martins CRNA Schneider, Erin, CRNA 12::59 [facility] BP: 148/97 (Device Time: :) SpO2: 97 % (Device Time: ::) Pulse: 59 (Device Time: ::59) Isac Diaz RN 12:12 [facility] BP MAP (mmHg): 135 (Device Time: ::59) ETCO2 (mmHg): 31 mmHg (Device Time: ::59) Tameka Martins CRNA 12:13 [facility] BP: 141/76 (Device Time: 12::00) SpO2: 93 % (Device Time: ::00) Pulse: 57 (Device Time: 12:13:00) Isac Diaz RN 12:13 [facility] BP MAP (mmHg): 99 (Device Time: 12:13:00) ETCO2 (mmHg): 30 mmHg (Device Time: 12:13:00) Tameka Martins CRNA 12:13:14 Timeout: Final - Physician Led Verified by Isac Diaz RN at 05/21/2025 1213 Isac Diaz RN 12:13:41 Endoscopy Scope In Time Isac Diaz RN 12:14 [facility] BP: 141/76 (Device Time: 12:14:00) SpO2: 98 % (Device Time: 12:14:00) Pulse: 57 (Device Time: 12:14:00) Isac Diaz RN 12:14 [facility] BP MAP (mmHg): 99 (Device Time: 12:14:00) ETCO2 (mmHg): 31 mmHg (Device Time: 12:14:00) Tameka Martins CRNA 12:15 [facility] BP: 141/76 (Device Time: 12:15:00) SpO2: 96 % (Device Time: 12:15:00) Pulse: 58 (Device Time: 12:15:00) Isac Diaz RN 12:15 [facility] BP MAP (mmHg): 99 (Device Time: 12:15:00) ETCO2 (mmHg): 25 mmHg (Device Time: 12:15:00) Tameka Martins CRNA 12:15:21 Medication Given propofoL (DIPRIVAN) injection - Dose: 50 mg ; Route: Intravenous ; Line: Peripheral IV 05/21/25 1134 Posterior;Right Hand Tameka Martins CRNA 12:16 [facility] BP: 115/68 (Device Time: 12:16:00) SpO2: 97 % (Device Time: 12:16:00) Pulse: 59 (Device Time: 12:16:00) Isac Diaz RN 12:16 [facility] BP MAP (mmHg): 83 (Device Time: 12:16:00) ETCO2 (mmHg): 25 mmHg (Device Time: 12:16:00) Tameka Martins CRNA 12:17 [facility] BP: 115/68 (Device Time: 12:17:00) SpO2: 92 % (Device Time: 12:17:00) Pulse: 59 (Device Time: 12:17:00) Isac Diaz RN 12:17 [facility] BP MAP (mmHg): 83 (Device Time: 12:17:00) ETCO2 (mmHg): 34 mmHg (Device Time: 12:17:00) Tameka Maritns CRNA 12:17:24 Medication Given propofoL (DIPRIVAN) injection - Dose: 50 mg ; Route: Intravenous ; Line: Peripheral IV 05/21/25 1134 Posterior;Right Hand Tameka Martins CRNA 12:18 [facility] BP: 115/68 (Device Time: 12:18:00) SpO2: 94 % (Device Time: 12:18:00) Pulse: 59 (Device Time: 12:18:00) Isac Diaz RN 12:18 [facility] BP MAP (mmHg): 83 (Device Time: 12:18:00) ETCO2 (mmHg): 36 mmHg (Device Time: 12:18:00) Tameka Martins CRNA 12:19 [facility] BP: 111/64 (Device Time: 12:19:00) SpO2: 90 % (Device Time: 12:19:00) Pulse: 60 (Device Time: 12:19:00) Isac Diaz RN 12:19 [facility] BP MAP (mmHg): 81 (Device Time: 12:19:00) ETCO2 (mmHg): 31 mmHg (Device Time: 12:19:00) Tameka Martins CRNA 12:20 [facility] BP: 111/64 (Device Time: 12:20:00) SpO2: 89 % (Device Time: 12:20:00) Pulse: 63 (Device Time: 12:20:00) Isac Diaz RN 12:20 [facility] BP MAP (mmHg): 81 (Device Time: 12:20:00) ETCO2 (mmHg): 34 mmHg (Device Time: 12:20:00) Tameka Martins CRNA 12:20:07 Endoscopy Cecum Reached Isac Diaz RN 12:20:10 Scope Withdraw Begin Isac Diaz RN 12:20: Medication Given propofoL (DIPRIVAN) injection - Dose: 50 mg ; Route: Intravenous ; Line: Peripheral IV 05/21/25 1134 Posterior;Right Hand Tameka Martins STUDENT 12:21 [facility] BP MAP (mmHg): 81 (Device Time: ::) ETCO2 (mmHg): 0 mmHg (Device Time: ::) Tameka Martins CRNA 12:: [facility] BP: 111/64 (Device Time: ::) SpO2: 93 % (Device Time: ::) Pulse: 61 (Device Time: ::) Isac Diaz RN 12:22 [facility] BP MAP (mmHg): 82 (Device Time: ::) ETCO2 (mmHg): 40 mmHg (Device Time: ::) Tameka Martins CRNA 12:22: [facility] BP: 113/68 (Device Time: ::) SpO2: 90 % (Device Time: ::) Pulse: 66 (Device Time: ::) Isac Diaz RN 12:22:14 Terminal Ileum Reached Isac Diaz RN 12:23 [facility] BP MAP (mmHg): 82 (Device Time: ::) ETCO2 (mmHg): 40 mmHg (Device Time: ::) Tameka Martins CRNA 12:23:01 [facility] BP: 113/68 (Device Time: ::) SpO2: 91 % (Device Time: ::) Pulse: 61 (Device Time: ::) Isca Diaz RN 12:23:04 Medication Given propofoL (DIPRIVAN) injection - Dose: 50 mg ; Route: Intravenous ; Line: Peripheral IV 05/21/25 1134 Posterior;Right Hand Tameka Martins STUDENT 12:24 [facility] BP MAP (mmHg): 82 (Device Time: :) ETCO2 (mmHg): 0 mmHg (Device Time: :) Tameka Martins CRNA 12:: [facility] BP: 113/68 (Device Time: :) SpO2: 88 % (Device Time: :) Pulse: 62 (Device Time: :) Isac Diaz RN 12:24:21 Medication Given propofoL (DIPRIVAN) injection - Dose: 50 mg ; Route: Intravenous ; Line:Peripheral IV 05/21/25 1134 Posterior;Right Hand Tameka Martins STUDENT 12:25 [facility] BP MAP (mmHg): 78 (Device Time: ::) ETCO2 (mmHg): 0 mmHg (Device Time: ::) Tameka Martins CRNA 12:: [facility] BP: 108/60 (Device Time: ::) SpO2: 92 % (Device Time: ::) Pulse: 61 (Device Time: ::) Isac Diaz RN 12:26 [facility] BP MAP (mmHg): 78 (Device Time: ::) ETCO2 (mmHg): 0 mmHg (Device Time: ::) Tameka Martins CRNA 12:: [facility] BP: 108/60 (Device Time: ::) SpO2: 95 % (Device Time: ::) Pulse: 59 (Device Time: ::) Isac Diaz RN 12:27 [facility] BP MAP (mmHg): 78 (Device Time: :) ETCO2 (mmHg): 0 mmHg (Device Time: ::) Tameka Martins CRNA 12:: [facility] BP: 108/60 (Device Time: ::) SpO2: 93 % (Device Time: ::) Pulse: 60 (Device Time: ::) Isac Diaz RN 12:28 [facility] BP MAP (mmHg): 80 (Device Time: ::) ETCO2 (mmHg): 42 mmHg (Device Time: ::02) Tameka Martins CRNA 12:: [facility] BP: 110/62 (Device Time: :) SpO2: 95 % (Device Time: :) Pulse: 60 (Device Time: :) Isac Diaz RN 12:29 [facility] BP MAP (mmHg): 80 (Device Time: ::) ETCO2 (mmHg): 40 mmHg (Device Time: ::) Tameka Martins CRNA 12::03 [facility] BP: 110/62 (Device Time: ::) SpO2: 88 % (Device Time: ::) Pulse: 61 (Device Time: ::) Isac Diaz RN 12:29:17 Medication Given propofoL (DIPRIVAN) injection - Dose: 50 mg ; Route: Intravenous ; Line: Peripheral IV 05/21/25 1134 Posterior;Right Hand Tameka Martins CRNA 12:30 [facility] BP MAP (mmHg): 80 (Device Time: :) ETCO2 (mmHg): 44 mmHg (Device Time: ::33) Tameka Martins CRNA 12::03 [facility] BP: 110/62 (Device Time: ) SpO2: 90 % (Device Time: :) Pulse: 60 (Device Time: ::) Isac Diaz RN 12:31 TSG Vitals TSG Endoscopy Vitals BP MAP (mmHg): 75 (Device Time: :) ETCO2 (mmHg): 41 mmHg (Device Time: ::) Tameka Martins CRNA 12::03 TSG Vitals TSG Endoscopy Vitals BP: 107/60 (Device Time: :) SpO2: 90 % (Device Time: :) Pulse: 61 (Device Time: :) Isac Diaz RN 12:31:45 Endoscopy Scope Out Time Isac Diaz RN 12:31:51 Endoscopy Documentation End Isac Diaz RN 12:31:53 Patient Out - Proc. Room Status: Patient In Proc. Room -- 12:32 TSG Vitals TSG Endoscopy Vitals BP: 107/60 (Device Time: 12:32:03) BP MAP (mmHg): 75 (Device Time: 12:32:03) SpO2: 90 % (Device Time: 12:32:03) ETCO2 (mmHg): 0 mmHg (Device Time: 12:32:03) Pulse: 62 (Device Time: 12:32:03) Tameka Martins CRNA 12:32:11 Anesthesia End Tameka Martins CRNA Performance Met for transition of care protocol The signature(s) below denote: Surgeon and GISSEL/STUDENT collaboration for anesthesia necessity/delivery. Patient reassessed and meets all discharge criteria. No complications noted. Tameka Martins CRNA [1] Past Surgical History: Procedure Laterality Date ABLATION OF DYSRHYTHMIC FOCUS CARDIAC CATHETERIZATION 03/20 -cabg COLONOSCOPY N/A 09/24/2015 COLONOSCOPY with snare polypectomy and biopsies; Surgeon: Altaf De La Paz MD; Location: [facility]; Service: Endoscopy CORONARY ARTERY BYPASS GRAFT 03/20 COOPER-OM SVG-LAD SVG-PDA DEBRIDEMENT Left 01/22/2025 debridement left lower leg ulcer.; Surgeon: Aleksey Hunt DPM; Location: [facility]; Service:Podiatry FOOT SURGERY Right great toe surgery HAMMER TOE SURGERY Right 11/27/2023 RIGHT SECOND TOE HAMMER TOE REPAIR and placement of graft to right ankle ulcer; Surgeon: Bienvenido Ford DPM; Location: [facility]; Service: Podiatry IR ANGIOGRAM EXTREMITY BILATERAL 07/18/2024 IR ANGIOGRAM EXTREMITY BILATERAL 07/18/2024 Blair Cordon MD [facility] IR ANGIOGRAM EXTREMITY BILATERAL 09/04/2024 IR ANGIOGRAM EXTREMITY BILATERAL 09/04/2024 Blair Cordon MD [facility] IR ULTRASOUND GUIDED VASCULAR ACCESS 07/18/2024 IR ULTRASOUND GUIDED VASCULAR ACCESS 07/18/2024 Blair Cordon MD [facility] IR PILONIDAL CYST EXCISION 1975 [2] Allergies Allergen Reactions Edwin Inhibitors Rash and Other (See Comments) cough Nsaids (Non-Steroidal Anti-Inflammatory Drug) Other (See Comments) Kidney function Penicillins Rash Quinolones Other (See Comments) foggy headed. Muscle aches Rosuvastatin Other (See Comments) myalgia Muscle pain myalgia Qkcmmjt-Iri-Zbn Reductase Inhibitors Palpitations and Other (See Comments) Muscle pain Myalgia Zocor [Simvastatin] Other (See Comments) Myalgia documented in this encounter H&P Notes * Altaf De La Paz MD - 05/21/2025 12:00 PM EDT Images from the original note were not included. Gastroenterology H and P Note Name: Jose Alberto Seaman : 1950 AGE: [address] [facility] Gastroenterology Pre-Procedure Chief Complaint/Pre-Op Diagnosis: Personal history of colon polyps Plan/Procedure: COLONOSCOPY Physician: Altaf De La Paz MD Pre-Procedure Assessment: The patient was seen and examined by me pre-procedure. Risks, benefits, potential complications and alternatives discussed with the patients legally authorized phlebotomy services representative. The patient's pre-procedure physical assessment indicates that the patient is suitable candidate for and agrees to the planned sedation and procedure. History of Presenting Illness Jose Alberto Seaman is a(n) 75 y.o. male with PMH as below here for endoscopy. Cardiovascular and Vital signs Stable Yes Comment: Temp: 97.7 ??F (36.5 ??C) Pulse: 55 Resp: 16 BP: 122/77 Adequate/Patient Oral Airway Yes Comment: Patient has been NPO for a sufficient period of time to allow for gastric emptying Yes Comment: Review of Systems: The following systems were reviewed and revealed the following in addition to any already discussedin the HPI: Constitutional: no weight loss, fever, night sweats Eyes: negative for vision changes or deficits HENT: negative for ear pain, no sore throat, no neck pain Respiratory: no cough, shortness of breath, or wheezing Cardiovascular: negative for chest pain, swelling, dyspnea on exertion Gastrointestinal: See HPI. Genitourinary: negative for urinary urgency or pain during urination Musculoskeletal: negative for weakness or focal loss motor function Integumentary: negative for rashes or other skin lesions Hematology / Lymphatics: negative and there is no easy bleeding or bruising Endocrine: negative Allergy / Immunology: negative Neuro / Psych: negative Medications Prescriptions Prior to Admission[1] Current Medications[2] Allergies[3] History: Past Medical History[4] Surgical History[5] Family History[6] Social History: Jose Alberto's social history reviewed and accurate per documentation. Old Records Reviewed: yes Physical Assessment: General: Alert and oriented x 3, NAD Skin: Warm, no jaundice, no rashes Head: Normocephalic, atraumatic, no abnormalities Eyes: EOMI, no icterus ENT: septum midline, oral mucosa moist/pink Neck: Supple without mass, no jvd Lungs: CTA bilaterally Cardiac: RRR, no m/r/g Abdomen: soft, nontender, nondistended, no hepatosplenomegaly, no caput medusae Ext: No edema Patient's Disposition: Home Full informed consent was obtained by me personally. Risks of procedure including bleeding, infection, perforation, need for surgery, cardiopulmonary complications, and even were discussed. In the case of colonoscopy risks for missed polyps/cancers and interval risk for cancer between procedures discussed as well. Patient is aware of these risks and wishes to proceed. Physician Signature: Altaf De La Paz MD Date:05/21/2025 Time:12:04 PM [1] (Not in a hospital admission) [2] Current Outpatient Medications Medication Sig Dispense Refill acetaminophen (TYLENOL) 500 mg Oral Tablet Take 1 Tablet by mouth as needed for Pain. allopurinoL (ZYLOPRIM) 100 mg Oral Tablet Take 100 mg by mouth daily. aspirin 81 mg tablet Take 81 mg by mouth daily. doxycycline monohydrate (MONODOX) 100 mg Oral Capsule Take 1 Capsule by mouth daily. 30 Capsule 1 evolocumab 140 mg/mL SubQ Pen Injector Subcutaneous (Inject under the skin) 140 mg every 14 days. FARXIGA 10 mg Oral Tablet Take 10 mg by mouth daily. fUROsemide (LASIX) 40 mg Oral Tablet Take 40 mg by mouth daily. gabapentin (NEURONTIN) 300 mg Oral Capsule Take 300 mg by mouth 3 times daily as needed. (Patient taking differently: Take 300 mg by mouth 3 times daily as needed. As needed) HYDROcodone-acetaminophen (NORCO) 5-325 mg Oral Tablet Take 1 Tablet by mouth every 4 hours as needed for Major Surgery/Trauma (G89.18) for up to 12 doses. 12 Tablet 0 irbesartan (AVAPRO) 150 mg Oral Tablet Take 150 mg by mouth daily. metFORMIN (GLUCOPHAGE) 500 mg Oral Tablet Take 500 mg by mouth 2 times daily. metoprolol succinate (TOPROL-XL) 25 mg Oral Tablet Sustained Release 24 hr TAKE DOS MOUNJARO 5 mg/0.5 mL SubQ Pen Injector Inject 5 mg under the skin once a week. nitroGLYCERIN (NITROSTAT) 0.4 mg SL Tablet, Sublingual Place 0.4 mg under the tongue every 5 minutes as needed for Chest pain. oxyCODONE-acetaminophen (PERCOCET) 5-325 mg Oral Tablet (Patient taking differently: As needed) pentoxifylline (TRENTAL) 400 mg Oral Tablet Sustained Release TAKE 1 TABLET BY MOUTH 2 TIMES DAILY.60 Tablet 0 tamsulosin (FLOMAX) 0.4 mg Oral Capsule Take 0.4 mg by mouth daily. warfarin (COUMADIN) 5 mg tablet Take 1 Tab by mouth daily. (Patient taking differently: Take 5 mg by mouth daily. 2.5 mg a day) 30 Tab 12 sodium,potassium,mag sulfates (SUPREP BOWEL PREP KIT) 17.5-3.13-1.6 gram Oral Recon Soln Take 1 kitper physician instructions (Patient not taking: Reported on 05/21/2025) 354 mL 0 TRULICITY 0.75 mg/0.5 mL SubQ Pen Injector Subcutaneous (Inject under the skin) 0.75 mg once a week. (Patient not taking: Reported on 05/21/2025) No current facility-administered medications for this encounter. [3] Allergies Allergen Reactions Edwin Inhibitors Rash and Other (See Comments) cough Nsaids (Non-Steroidal Anti-Inflammatory Drug) Other (See Comments) Kidney function Penicillins Rash Quinolones Other (See Comments) foggy headed. Muscle aches Rosuvastatin Other (See Comments) myalgia Muscle pain myalgia Vtxhodv-Aek-Rso Reductase Inhibitors Palpitations and Other (See Comments) Muscle pain Myalgia Zocor [Simvastatin] Other (See Comments) Myalgia [4] Past Medical History: Diagnosis Date Arrhythmia Arthritis osteoarthritis Asthma Blood circulation, collateral CAD (coronary artery disease) CABG times 3 vessels Cardiac dysrhythmia a fib CHF (congestive heart failure) (HCC) Chronic kidney disease elevated creatinine levels. Colon polyp Diabetes mellitus (HCC) Hyperlipidemia cannot tolerate statins Hypertension Motion sickness Peripheral vascular disease Prostate disorder Sleep apnea c pap. does not know setting, USES O2 2L [5] Past Surgical History: Procedure Laterality Date ABLATION OF DYSRHYTHMIC FOCUS CARDIAC CATHETERIZATION 03/20 -cabg COLONOSCOPY N/A 09/24/2015 COLONOSCOPY with snare polypectomy and biopsies; Surgeon: Altaf De La Paz MD; Location: [facility]; Service: Endoscopy CORONARY ARTERY BYPASS GRAFT 03/20 COOPER-OM SVG-LAD SVG-PDA DEBRIDEMENT Left 01/22/2025 debridement left lower leg ulcer.; Surgeon: Aleksey Hunt DPM; Location: [facility]; Service:Podiatry FOOT SURGERY Right great toe surgery HAMMER TOE SURGERY Right 11/27/2023 RIGHT SECOND TOE HAMMER TOE REPAIR and placement of graft to right ankle ulcer; Surgeon: Bienvenido Ford DPM; Location: [facility]; Service: Podiatry IR ANGIOGRAM EXTREMITY BILATERAL 07/18/2024 IR ANGIOGRAM EXTREMITY BILATERAL 07/18/2024 Blair Cordon MD [facility] IR ANGIOGRAM EXTREMITY BILATERAL 09/04/2024 IR ANGIOGRAM EXTREMITY BILATERAL 09/04/2024 Blair Cordon MD [facility] IR ULTRASOUND GUIDED VASCULAR ACCESS 07/18/2024 IR ULTRASOUND GUIDED VASCULAR ACCESS 07/18/2024 Blair Cordon MD [facility] IR PILONIDAL CYST EXCISION 1975 [6] Family History Problem Relation Age of Onset COPD Mother Cancer Father Anesth Problems Neg Hx documented in this encounter Plan of Treatment Upcoming Encounters Date Type Department Care Team (Late st Contact Info) Description 06/17/2025 8:15 AM EST Appointment [facility] [place] [address] [place] [address] Aleksey Hunt DPM [address] [place] [id number] 06/19/2025 7:00 AM EST Clinical Support [facility] [place] [address] [place] [address] 06/19/2025 9:00 AM EST Office Visit [facility] [place] [address] [place] [address] 07/09/2025 9:00 AM EST Office Visit [facility] [place] [address] [place], [place] [id number] Blair Cordon MD [address] [place] [address] documented as of this encounter [...] peripheral neuropathy weekly. Refer to PCP and/or Customer Service Supervisor, Vascular Specialist as indicated. Monitor patient compliance with wound care, diabetes management and proper offloading. documented as of this encounter Procedures Procedure Name Priority Date/Time Associated Diagnosis Comments [facility]G PATHOLOGY ORDER Routine 05/21/2025 1 2:33 PM EDT Special screening for malignant neoplasms, colon COLONOSCOPY Routine 05/21/2025 12:31 PM EDT Special screening for malignant neoplasms, colon POCT GLUCOSE Routine 05/21/2025 11:28 AM EDT POCT INR Routine 05/21/2025 11:27 AM EDT documented in this encounter Results * TSG PATHOLOGY ORDER (05/21/2025 12:33 PM EDT) Tissue ASCENDING COLON STRUCTURE / Unknown 05/21/2025 12:33 PM EDT Tissue specimen (specimen) SIGMOID COLON STRUCTURE / Unknown 05/21/2025 12:33 PM EDT Impressions [facility] - 05/21/2025 7:00 PM EDT A. Colon, Ascending: Biopsy TUBULAR ADENOMA(S) NEGATIVE FOR HIGH GRADE DYSPLASIA AND MALIGNANCY The polyp(s) contain adenomatous epithelium. B. Colon, Sigmoid: Biopsy HYPERPLASTIC POLYP(S) The polyp(s) contain hyperplastic epithelium. There is no evidence of dysplasia or malignancy. Narrative [facility] - 05/21/2025 7:00 PM EDT Pathologist: Jhonny Downs MD us Altaf De La Paz MD VITAL[employer] - ORDERABLES Final Result Performing Organization Address City/State/[facility] Co de Phone Number [facility] [address] [place], [place] [address] * COLONOSCOPY (05/21/2025 12:31 PM EDT) Anatomical Region Laterality Modality Endoscopy Narrative 05/21/2025 12:38 PM EDT Table formatting from the original result was not included. Findings Moderate diverticulosis with multiple diverticula in the sigmoid colon; no bleeding was observed. The mucosa of the colon and terminal ileum was normal. One 3 mm sessile polyp in the ascending colon; no bleeding was observed; performed cold forceps biopsy with complete en bloc removal. There was no evidence of postpolypectomy bleeding. One 3 mm sessile polyp in the sigmoid colon; no bleeding was observed; performed cold forceps biopsy with complete en bloc removal. There was no evidence of postpolypectomy bleeding. External and internal small hemorrhoids; no bleeding was observed. One hemorrhoid in the anal canal had scant bleeding. Recommendation Await pathology results Repeat colonoscopy in 5 years, due: 05/20/2030 Start Anusol HC suppositories qhs Hold coumadin x 2 more days Pre-Procedure Diagnosis / Indication Personal history of colon polyps Post-Procedure Diagnosis Personal history of colon polyps Staff Staff Role Altaf De La Paz MD Performing Provider Medications See Anesthesia Record. Preprocedure A history and physical has been performed, and patient medication allergies have been reviewed. The patient's tolerance of previous anesthesia has been reviewed. The risks and benefits of the procedure and the sedation options and risks were discussed with the patient. All questions were answered and informed consent obtained. ASA 3 - Patient with severe systemic disease Details of the Procedure The patient underwent monitored anesthesia care, which was administered by an anesthesia professional. The patient's blood pressure, heart rate, level of consciousness, oxygen saturation, respirations, ECG and ETCO2 were monitored throughout the procedure. A digital rectal exam was performed. The scope was introduced through the anus and advanced to the terminal ileum. Retroflexion was performed in the rectum. Bowel prep was adequate. The patient experienced no blood loss. The procedure was not difficult. The patient tolerated the procedure well. There were no apparent adverse events. Patient provided education and educated on specific discharge instructions. Patient educated on medications given during the procedure and new medications for discharge. Patient verbalizes understanding of discharge education. Patient stable and awaiting transport for discharge. Events Procedure Events Event Event Time ENDO SCOPE IN TIME 05/21/2025 12:13 PM ENDO CECUM REACHED 05/21/2025 12:20 PM ENDO SCOPE WITHDRAW BEGIN 05/21/2025 12:20 PM TSG LUME TI REACHED 05/21/2025 12:22 PM ENDO SCOPE OUT TIME 05/21/2025 12:31 PM Specimens ID Type Source Tests Collected by Time 1 : Tissue Large Intestine, Right/Ascending Colon [facility]G PATHOLOGY ORDER Altaf De La Paz MD 05/21/2025 1233 2 : Tissue Large Intestine, Sigmoid Colon [facility]G PATHOLOGY ORDER Altaf De La Paz MD 05/21/2025 1233 Altaf De La Paz MD ENDOSCOPY PROCEDURE OR DERABLES Final Result * POCT GLUCOSE (05/21/2025 11:28 AM EDT) Glucose 115 60 - 200 MG/DL [facility] Lot Number [id number] [facility] Expiration Date 11/04/26 [facility] SeriAl # [facility] Meter 1 [facility] 05/21/2025 11:2 8 AM EDT Altaf De La Paz MD POINT OF CARE TEST ORD ERABLES Final Result Performing Organization Address City/[facility]/ZIP Co de Phone Number [facility] [address] [phone] * POCT INR (05/21/2025 11:27 AM EDT) INR 1.1 0.86 - 1.16 [facility] Blood 05/21/2025 11:2 7 AM EDT Altaf De La Paz MD POINT OF CARE TEST ORD ERABLES Final Result Performing Organization Address City/[facility] Number [facility] [address] [phone] documented in this encounter Visit Diagnoses Diagnosis Special screening for malignant neoplasms, colon documented in this encounter Administered Medications Inactive Administered Medications - up to 1 most recent administrations Medication Order MAR Action Action Date Dose Rate Site lidocaine 1% 10 mg/mL (1 %) injection Intravenous, INTRAPROCEDURE, Starting on Mon05/21/25 at 1209, Until Mon05/21/25 at 1209 Given 05/21/2025 12:09 PM EDT 100 mg propofoL (DIPRIVAN) injection Intravenous, INTRAPROCEDURE, Starting on Mon05/21/25 at 1211, Until Mon05/21/25 at 1229 Given 05/21/2025 12:29 PM EDT 50 mg documented in this encounter Historical Medications * This list may reflect changes made after this encounter. MOUNJARO 5 mg/0.5 mL SubQ Pen Injector Inject 5 mg under the skin once a week. 04/21/2025 tamsulosin (FLOMAX) 0.4 mg Oral Capsule Take 0.4 mg by mouth daily. 03/01/2025 added in this encounter Additional Health Concerns Assessment Noted Time PHQ-9 Depression Total Score: 1 07/22/20 3:29 PM EST A fall risk assessment has been complete d for the patient 02/07/2019 11:25 AM EDT PHQ-2 Depression Total Score: 1 07/22/20 3:29 PM EST documented as of this encounter Care Teams Implementation Director Relationship Specialty Start Date End Date Dylon Izaguirre MD PCP - General Family Medicine 09/05/23 documented as of this encounter
--- OUTSIDE RECORDS SUMMARY | 2025-05-23 07:58 | XMS_ITS | Encounter Summary ---
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 [place] [address] Phone: tel: fax: Referral ID Status Reason Start Date Expiration Date V isits Requested Visits Authorized [id number] Pending Review 05/23/2025 05/23/2026 1 1 Reason for Visit * Reason [...] EA ADDL 20 SQ CM/PRT THEREOF [facility] [place] [address] [place] [address] Phone: tel: fax: Referral ID Status Reason Start Date Expiration Date Visits Requested Visits Authorized [id number] Authorization Not Needed Specialty Services Required 5 09/05/2025 99 99 Encounter Details Date Type Department Care Team (Latest Contact Info) Description 05/23/2025 7:58 AM EDT - 05/23/2025 11:59 PM EDT Hospital Encounter [facility] [place] [address] [address] Darek Najera MD [facility] [place] [address] Diabetic ulcer of left lower [...] drink = 0.6 oz pur e alcohol) [facility] Utilities Answer Date Recorded In the past 12 months has e electric, gas, oil, or water [employer] threatened to shut off services in your home? No 07/22/2024 Overall Financial Resource Strain (CARDIA) Answe r Date Recorded How hard is it for you to pa y for the very basics like food, housing, medical care, and heating? Not very hard 07/22/2024 PHQ-2 Answer Date Recorded PHQ-2 Total Score 1 07/22/2024 [facility] [place] [facility] Occupat ional Health - Occupational Stress [...] money to get more. Never true 07/22/2024 [facility] IP Transportation Answer D ate Recorded In [...] Sign Reading Time Taken Comments Blood Pressure 164/70 05/23/2025 8:01 AM EDT Pulse 59 05/23/2025 8:01 AM EDT Temperature 36.3 C (97.4 F) 05/23/2025 8:01 AM EDT Respiratory Rate 16 05/23/2025 8:01 AM EDT Oxygen Saturation - - Inhaled Oxygen Concentration - - Weight - - Height - - Body Mass Index - - documented in this encounter Medications at Time of Discharge acetaminophen (TYLENOL) 500 mg Oral Tablet Take 1 Tablet by mouth as needed for Pain. allopurinoL (ZYLOPRIM) 100 mg Oral Tablet Take 100 mg by mouth daily. 2 aspirin 81 mg tablet Take 81 mg [...] 12 3 documented as of this encounter Discharge Disposition Disposition Code Departure Means Destination Home or Self Care documented in this encounter Progress Notes * Talisha Simeon RN - 05/23/2025 8:00 AM EDT Pt presents to the [...] Patient Instructions - Talisha Simeon RN - 05/23/2025 8:00 AM EDT HOME-CARE INSTRUCTIONS FOLLOWING YOUR [...] and adaptic at nurse visit if it's walteroey Adaptic, hydrofera blue, Abd pad, kerlix - [...] long periods of time. If you must testing machine operator one place, shift your weight [...] free to reach out to our community relations manager, Yolanda Garcia at [phone] for any discussion. WHO TO CALL FOR PROBLEMS: Please call the OP wound care center with any problems or issues you may have after your visit or though the week. Each patient is assigned a protective services case worker who can assist with issues you may be having. Monica Nam is your protective services case worker Individual office numbers are listed below. Press 1 for immediate or schedule needs, press 2 for the nursing line. The nurse line is for non-emergent needs and will be answered within 24 hours duringbusiness days. If you have a more immediate concern, press option #1. Office numbers: [phone] [email or web address]-[phone] [place] [phone] If you have an urgent or emergent [...] Description 06/17/2025 8:15 AM EST Appointment [facility] [place] [address] [place] [address] Aleksey Hunt DPM [address] [place] [address] 06/19/2025 7:00 AM EST Clinical Support [facility] [place] [address] [place] [address] 06/19/2025 9:00 AM EST Office Visit [facility] [place] [address] [place] [address] 07/09/2025 9:00 AM EST Office Visit [facility] [place] [address] [place] [address] Blair Cordon MD [address] [place] [id number] documented as of this encounter Goals Goal [...] peripheral neuropathy weekly. Refer to PCP and/or Radio Interference Investigator, Vascular Specialist as indicated. Monitor patient compliance [...] red Date AMB C PRIMARY DRESSING 1 05/23/2025 documented in this encounter Additional Health Concerns Assessment Noted Time PHQ-9 Depression Total Score: 1 07/22/20 24 3:29 PM EST A fall risk assessment has been complete d for the patient 02/07/2019 11:25 AM EDT PHQ-2 Depression Total Score: 1 07/22/20 24 3:29 PM EST documented as of this encounter Care Teams Crusher Screen Repairer Relationship Specialty Start Date End Date Dylon Izaguirre MD PCP - General Family Medicine 09/05/23 documented as of this encounter
--- OUTSIDE RECORDS SUMMARY | 2025-05-27 08:29 | XMS_ITS | Encounter Summary ---
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, with fat layer exposed (HCC) Venous insufficiency of both lower extremities Procedures [facility]B [facility] PRIMARY DRESSING [facility] PR[facility]ESSING Aleksey Hunt DPM [address] [place] [address] Phone: tel: fax: Referral ID Status Reason Start Date Expiration Date V isits Requested Visits Authorized [id number] Pending Review 05/27/2025 05/27/2026 1 1 Reason for Visit * Reason Comments Wound Check * WOUND CARE/HBO (Urgent) - Authorization Not Needed Specialty Diagnoses / Procedures Referred By Contdante t Referred To Contact Wound Care Diagnoses Type 2 diabetes mellitus with other skin ulcer (HCC) 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 [address] Phone: tel: fax: Aleksey Hunt DPM [address] [place] [address] Phone: tel: fax: Referral ID Status Reason Start Date Expiration Date Visits Requested Visits Authorized [id number] Authorization Not Needed 02/04/2025 02/04/2026 5 5 Encounter Details Date Type Department Care Team (Latest Contact Info) Description 05/27/2025 8:29 AM EDT - 05/27/2025 11:59 PM EDT Hospital Encounter [facility] [address] [place] [address] Aleksey Hunt DPM [address] [place] [address] Diabetic ulcer of left lower leg associated [...] = 0.6 oz pur e alcohol) [facility] Utilities Answer Date Recorded In the past 12 months has [employer], gas, oil, or water [employer] threatened to shut off services in your home? No 07/22/2024 Overall Financial Resource Strain (CARDIA) Answe r Date Recorded How hard is it for you to pa y for the very basics like food, housing, medical care, and heating? Not very hard 07/22/2024 PHQ-2 Answer Date Recorded PHQ-2 Total Score 1 07/22/2024 [facility] [place] of Occupat ional Health - Occupational Stress [...] more. Never true 07/22/2024 [facility] IP Transportation Answer D ate Recorded [...] Sign Reading Time Taken Comments Blood Pressure 136/75 05/27/2025 8:53 AM EDT Pulse 59 05/27/2025 8:53 AM EDT Temperature 36.4 C (97.5 F) 05/27/2025 8:53 AM EDT Respiratory Rate 16 05/27/2025 8:53 AM EDT Oxygen Saturation - - [...] Progress Notes * Aleksey Hunt DPM - 05/27/2025 8:30 AM EDT Images from the original note were not included. Date of Visit:05/27/2025 Progress Note HPI Jose Alberto Seaman is a 75 y.o. year old male patient who presents today for wound evaluation and follow-up. Patient has a left ankle diabetic ulcer(s) which is (are) located on the left leg. Symptoms include none. Patients past medical, family and social histories were reviewed and updated. There were no changesexcept as noted. ROS See HPI for further details. Relevant review of systems otherwise negative. Physical Exam Vitals: 05/27/25 0853 BP: 136/75 Pulse: 59 Resp: 16 Temp: 97.5 ??F (36.4 ??C) TempSrc: Forehead Ulcer Progress and Procedure [...] were given 5. Follow- up 1 week. Improved. Good graft take. Probable repeat grafting next week. documented in this encounter Miscellaneous Notes * Patient Instructions - Monica Hu RN - 05/27/2025 8:30 AM EDT HOME-CARE INSTRUCTIONS FOLLOWING YOUR [...] long periods of time. If you must lapel padder blindstitch one place, shift your weight and change [...] to reach out to our community service officer coordinator, Yolanda Garcia at [phone] for any discussion. WHO TO CALL FOR PROBLEMS: Please call the OP wound care center with any problems or issues you may have after your visit or though the week. Each patient is assigned a adult protective caseworker who can assist with issues you may be having. Monica Nam is your adult protective caseworker Individual office numbers are listed below. Press 1 for immediate or schedule needs, press 2 for the nursing line. The nurse line is for non-emergent needs and will be answered within 24 hours duringbusiness days. If you have a more immediate concern, press option #1. Office numbers: [phone] [place]Ssofkb-[phone] [place]- [phone] If you have an urgent or emergent [...] Description 06/17/2025 8:15 AM EST Appointment [facility] [place] [address] [place] [address] Aleksey Hunt DPM [address] [place] [address] 06/19/2025 7:00 AM EST Clinical Support [facility] [place] [address] [place] [address] 06/19/2025 9:00 AM EST Office Visit [facility] [place] [address] [place] [address] 07/09/2025 9:00 AM EST Office Visit [facility] [place] [address] [place], [place] [id number] Blair Cordon MD [address] [place] [address] documented as of this encounter [...] peripheral neuropathy weekly. Refer to PCP and/or Surgery Scheduling Coordinator, Vascular Specialist as indicated. Monitor patient compliance with wound care, diabetes management and proper offloading. 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, with fat layer exposed (HCC) Venous insufficiency of both lower extremities documented in this encounter Orders Nursing Count Last Ordered Date First Orde red Date AMB [facility] PRIMARY DRESSING 1 05/27/2025 documented in this encounter Additional Health Concerns Assessment Noted Time PHQ-9 Depression Total Score: 1 07/22/20 24 3:29 PM EST A fall risk assessment has been complete d for the patient 02/07/2019 11:25 AM EDT PHQ-2 Depression Total Score: 1 07/22/20 24 3:29 PM EST documented as of this encounter Care Teams Industrial Furnace Fabricator Relationship Specialty Start Date End Date Dylon Izaguirre MD PCP - General Family Medicine 09/05/23 documented as of this encounter
--- OUTSIDE RECORDS SUMMARY | 2025-05-30 07:45 | XMS_ITS | Encounter Summary ---
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, with fat layer exposed (HCC) Venous insufficiency of both lower extremities Procedures AMB [facility] PRIMARY DRESSING Darek Najera MD [facility] [place] [address] Phone: tel: fax: Referral ID Status Reason Start Date Expiration Date V isits Requested Visits Authorized [id number] Pending Review 05/30/2025 05/30/2026 1 1 Reason for Visit * Reason Comments Dressing Change * Consultation (Routine) - Authorization Not Needed Specialty Diagnoses / Procedures Referred By Patrick amador Referred To Contact Wound Care Diagnoses Wound Care Procedures GA DEBRIDEMENT SUBCUTANEOUS TISSUE 1ST 20 SQ CM/< GA DEBRIDEMENT MUSCLE &/FASCIA 1ST 20 SQ CM/< GA DEBRIDEMENT BONE 1ST 20 SQ CM/< GA DEBRIDEMENT SUBCUTANEOUS TISSUE EA ADDL 20 SQ CM GA DEBRIDEMENT MUSCLE &/FASCIA EA ADDL 20 SQ CM GA DEBRIDEMENT BONE EACH ADDITIONAL 20 SQ CM GA DEBRIDEMENT OPEN WOUND FIRST 20 SQ CM/< GA DEBRIDEMENT OPN WND EA ADDL 20 SQ CM/PRT THEREOF [facility] [place] [address] [place] [address] Phone: tel: fax: Referral ID Status Reason Start Date Expiration Date Visits Requested Visits Authorized [id number] Authorization Not Needed Specialty Services Required 5 09/05/2025 99 99 Encounter Details Date Type Department Care Team (Latest Contact Info) Description 05/30/2025 7:45 AM EDT - 05/30/2025 11:59 PM EDT Hospital Encounter [facility] [place] [address] Darek Najera MD [facility] [place] [phone] Chronic venous htn w ulcer and inflam [...] drink = 0.6 oz pur e alcohol) [facility] Utilities Answer Date Recorded In the past 12 months has [employer], gas, oil, or water [employer] threatened to shut off services in your home? No 07/22/2024 Overall Financial Resource Strain (CARDIA) Answe r Date Recorded How hard is it for you to pa y for the very basics like food, housing, medical care, and heating? Not very hard 07/22/2024 PHQ-2 Answer Date Recorded PHQ-2 Total Score 1 07/22/2024 [facility] [place] of Occupat ional Health - Occupational Stress [...] money to get more. Never true 07/22/2024 [facility] IP Transportation Answer D ate Recorded [...] Sign Reading Time Taken Comments Blood Pressure 154/89 05/30/2025 7:49 AM EDT Pulse 62 05/30/2025 7:49 AM EDT Temperature 36.3 C (97.4 F) 05/30/2025 7:49 AM EDT Respiratory Rate 16 05/30/2025 7:49 AM EDT Oxygen Saturation - - Inhaled [...] Progress Notes * Talisha Simeon RN - 05/30/2025 7:45 AM EDT Pt presents to the [...] Patient Instructions - Talisha Simeon RN - 05/30/2025 7:45 AM EDT HOME-CARE INSTRUCTIONS FOLLOWING YOUR [...] long periods of time. If you must senior business development manager one place, shift your weight and [...] free to reach out to our community engagement manager, Yolanda Garcia at [phone] for any discussion. WHO TO CALL FOR PROBLEMS: Please call the OP wound care center with any problems or issues you may have after your visit or though the week. Each patient is assigned a block and case maker who can assist with issues you may be having. Monica Nam is your block and case maker Individual office numbers are listed below. Press 1 for immediate or schedule needs, press 2 for the nursing line. The nurse line is for non-emergent needs and will be answered within 24 hours duringbusiness days. If you have a more immediate concern, press option #1. Office numbers: [phone] [place] Agnqxu-[phone] Kristopher- [phone] If you have an urgent or emergent [...] Info) Description 06/17/2025 8:15 AM EST Appointment [facility] [place] [address] [place] [address] Aleksey Hunt DPM [address] [place] [address] 06/19/2025 7:00 AM EST Clinical Support [facility] [place] [address] [place] [address] 06/19/2025 9:00 AM EST Office Visit [facility] [place] [address] [place] [address] 07/09/2025 9:00 AM EST Office Visit [facility] [place] [address] [place] [address] Blair Cordon MD [address] [place] [phone] documented as of this encounter Goals Goal [...] peripheral neuropathy weekly. Refer to PCP and/or Social Studies Department Chair, Vascular Specialist as indicated. Monitor patient compliance [...] Ordered Date First Orde red Date [facility]B [facility] PRIMARY [facility] 1 05/30/2025 documented in this encounter Additional Health Concerns Assessment Noted Time PHQ-9 Depression Total Score: 1 07/22/20 24 3:29 PM EST A fall risk assessment has been complete d for the patient 02/07/2019 11:25 AM EDT PHQ-2 Depression Total Score: 1 07/22/20 24 3:29 PM EST documented as of this encounter Care Teams Leaf Sorter Relationship Specialty Start Date End Date Dylon Izaguirre MD PCP - General Family Medicine 09/05/23 documented as of this encounter
--- OUTSIDE RECORDS SUMMARY | 2025-06-03 08:36 | XMS_ITS | Encounter Summary ---
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, with fat layer exposed (HCC) Procedures IN DEBRIDEMENT SUBCUTANEOUS TISSUE 1ST 20 SQ CM/< Aleksey Hunt DPM [address] [place] [address] Phone: tel: fax: Referral ID Status Reason Start Date Expiration Date V isits Requested Visits Authorized [id number] Pending Review 06/03/2025 06/03/2026 1 1 * (Routine) - Pending Review Specialty Diagnoses / Procedures Referred By Contac t Referred To Contact Diagnoses 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 [address] Phone: tel: fax: Referral ID Status Reason Start Date Expiration Date Visits Requested Visits Authorized [id number] Authorization Not Needed Specialty Services Required 09/05/2025 99 99 Encounter Details Date Type Department Care Team (Latest Contact Info) Description 06/03/2025 8:36 AM EDT - 06/03/2025 11:59 PM EDT Hospital Encounter [facility] [place] [address] [place] [address] Aleksey Hunt DPM [address] [place] [address] Diabetic ulcer of left lower leg associated [...] Date Recorded PHQ-2 Total Score 1 07/22/2024 [facility] of Occupat ional Health - [...] money to get more. Never true 07/22/2024 [facility] IP Transportation Answer D ate [...] Sign Reading Time Taken Comments Blood Pressure 126/76 06/03/2025 8:40 AM EDT Pulse 58 06/03/2025 8:40 AM EDT Temperature 36.3 C (97.4 F) 06/03/2025 8:40 AM EDT Respiratory Rate 18 06/03/2025 8:40 AM EDT Oxygen Saturation - - [...] Progress Notes * Aleksey Hunt DPM - 06/03/2025 8:45 AM EDT Images from the original note were not included. Date of Visit:06/03/2025 Progress Note HPI Jose Alberto Seaman is [...] of systems otherwise negative. Physical Exam Vitals: 06/03/25 0840 BP: 126/76 Pulse: 58 Resp: 18 Temp: 97.4 ??F (36.3 ??C) [...] were given 5. Follow- up 1 week. Overall improved. Will repeat final TheraSkin graft next week. documented in this encounter Miscellaneous Notes * Patient Instructions - Monica Hu RN - 06/03/2025 8:45 AM EDT HOME-CARE INSTRUCTIONS FOLLOWING YOUR [...] with Dr. Hunt Nurse visit on MONDAY sneha Fung, Abd pad, kerlix - left leg Compression [...] long periods of time. If you must washery engineer one place, shift your weight and [...] free to reach out to our community resource officer, Yolanda Jose at [phone] for any discussion. WHO TO CALL FOR PROBLEMS: Please call the OP wound care center with any problems or issues you may have after your visit or though the week. Each patient is assigned a case management manager who can assist with issues you may be having. Monica Nam is your case management manager Individual office numbers are listed below. Press 1 for immediate or schedule needs, press 2 for the nursing line. The nurse line is for non-emergent needs and will be answered within 24 hours duringbusiness days. If you have a more immediate concern, press option #1. Office numbers: [phone] . Pryvfw-[phone] [facility] [phone] If you have an urgent or emergent [...] [facility] [address] [place] [address] Aleksey Hunt DPM [address] [place], [place] [address] [address] 06/19/2025 7:00 AM EST Clinical Support [facility] [place] [address] [place] [address] 06/19/2025 9:00 AM EST Office Visit [facility] [place] [address] [place] [address] 07/09/2025 9:00 AM EST Office Visit [facility] [place] [address] [place] [address] Blair Cordon MD [address] [place] [address] Scheduled Orders Name Type Priority Associated Diagnoses Orde r Schedule IN DEBRIDEMENT SUBCUTANEOUS TISSUE 1ST 20 SQ CM/< IN Charge Routine 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 Refer to PCP and/or Loom Changeover Operator, Vascular Specialist as indicated. Monitor patient [...] red Date [facility]B [facility] PRIMARY DRESSING 1 06/03/2025 documented in this encounter Additional Health Concerns Assessment Noted Time PHQ-9 Depression Total Score: 1 07/22/20 24 3:29 PM EST A fall risk assessment has been complete d for the patient 02/07/2019 11:25 AM EDT PHQ-2 Depression Total Score: 1 07/22/20 24 3:29 PM EST documented as of this encounter Care Teams Pick And Shovel Worker Relationship Specialty Start Date End Date Dylon Izaguirre MD PCP - General Family Medicine 09/05/23 documented as of this encounter
--- OUTSIDE RECORDS SUMMARY | 2025-06-06 07:45 | XMS_ITS | Encounter Summary ---
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, with fat layer exposed (HCC) Venous insufficiency of both lower extremities Procedures [facility] PRIMARY DRESS[facility] Darek Najera MD [facility] [place] [address] Phone: tel: fax: Referral ID Status Reason Start Date Expiration Date V isits Requested Visits Authorized [id number] Pending Review 06/06/2025 06/06/2026 1 1 Reason for Visit * Reason Comments Dressing Change * Consultation (Routine) - Authorization Not Needed Specialty Diagnoses / Procedures Referred By Patrick amador Referred To Contact Wound Care Diagnoses Wound Care Procedures SD DEBRIDEMENT SUBCUTANEOUS TISSUE 1ST 20 SQ CM/< SD DEBRIDEMENT MUSCLE &/FASCIA 1ST 20 SQ CM/< SD DEBRIDEMENT BONE 1ST 20 SQ CM/< SD DEBRIDEMENT SUBCUTANEOUS TISSUE EA ADDL 20 SQ CM SD DEBRIDEMENT MUSCLE &/FASCIA EA ADDL 20 SQ CM SD DEBRIDEMENT BONE EACH ADDITIONAL 20 SQ CM SD DEBRIDEMENT OPEN WOUND FIRST 20 SQ CM/< SD DEBRIDEMENT OPN WND EA ADDL 20 SQ CM/PRT THEREOF [facility] [place] [address] [place] [address] Phone: tel: fax: Referral ID Status Reason Start Date Expiration Date Visits Requested Visits Authorized [id number] Authorization Not Needed Specialty Services Required 5 09/05/2025 99 99 Encounter Details Date Type Department Care Team (Latest Contact Info) Description 06/06/2025 7:45 AM EDT - 06/06/2025 11:59 PM EDT Hospital Encounter [facility] [place] [address] [place] [address] Darek Najera MD [facility] [place] [address] Diabetic ulcer of left lower [...] drink = 0.6 oz pur e alcohol) [facility] Utilities Answer Date Recorded In the past 12 months has e electric, gas, oil, or water [employer] threatened to shut off services in your home? No 07/22/2024 Overall Financial Resource Strain (CARDIA) Answe r Date Recorded How hard is it for you to pa y for the very basics like food, housing, medical care, and heating? Not very hard 07/22/2024 PHQ-2 Answer Date Recorded PHQ-2 Total Score 1 07/22/2024 [facility] [place] of Occupat ional Health - Occupational Stress [...] get more. Never true 07/22/2024 [facility] IP Transportation Answer D ate [...] Sign Reading Time Taken Comments Blood Pressure 143/77 06/06/2025 7:51 AM EDT Pulse 65 06/06/2025 7:51 AM EDT Temperature 36.6 C (97.8 F) 06/06/2025 7:51 AM EDT Respiratory Rate 18 06/06/2025 7:51 AM EDT Oxygen Saturation - - [...] Progress Notes * Elyssa Rubio RN - 06/06/2025 7:45 AM EDT Pt presents to the [...] ensure a strong deshpande and reduce slippage. LLE documented in this encounter Miscellaneous Notes * Patient Instructions - Elyssa Rubio RN - 06/06/2025 7:45 AM EDT HOME-CARE INSTRUCTIONS FOLLOWING YOUR [...] Dr. Hunt Nurse visit on MONDAY sneha Fung Abd padcarmelina - left leg Compression Wraps Location:[facility] LEFT [...] long periods of time. If you must pipeline engineer one place, shift your weight and [...] feel free to reach out to our equal opportunity representative, Yolanda Garcia at [phone] for any discussion. WHO TO CALL FOR PROBLEMS: Please call the OP wound care center with any problems or issues you may have after your visit or though the week. Each patient is assigned a manager case management who can assist with issues you may be having. Monica Nam is your manager case management Individual office numbers are listed below. Press 1 for immediate or schedule needs, press 2 for the nursing line. The nurse line is for non-emergent needs and will be answered within 24 hours duringbus days. If you have a more immediate concern, press option #1. Office numbers: [phone] [place]Sbbcvd-[phone] [facility] [phone] If you have an urgent or emergent [...] Info) Description 06/17/2025 8:15 AM EST Appointment [facility] [place] [address] [place] [address] Aleksey Hunt DPM [address] [place] [id number] 06/19/2025 7:00 AM EST Clinical Support [facility] [place] [address] [place] [address] 06/19/2025 9:00 AM EST Office Visit [facility] [place] [address] [place] [address] 07/09/2025 9:00 AM EST Office Visit [facility] [place] [address] [place] [address] Blair Cordon MD [address] [place] [phone] documented as of this encounter Goals Goal [...] peripheral neuropathy weekly. Refer to PCP and/or Inside Plant Supervisor, Vascular Specialist as indicated. Monitor patient [...] Date [facility]B [facility] PRIMARY DRESSING 1 06/06/2025 documented in this encounter Additional Health Concerns Assessment Noted Time PHQ-9 Depression Total Score: 1 07/22/20 24 3:29 PM EST A fall risk assessment has been complete d for the patient 02/07/2019 11:25 AM EDT PHQ-2 Depression Total Score: 1 07/22/20 24 3:29 PM EST documented as of this encounter Care Teams Power Operator Relationship Specialty Start Date End Date Dylon Izaguirre MD PCP - General Family Medicine 09/05/23 documented as of this encounter
--- OUTSIDE RECORDS SUMMARY | 2025-06-10 08:30 | XMS_ITS | Encounter Summary ---
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 [address] Phone: tel: fax: Referral ID Status Reason Start Date Expiration Date Visits Requested Visits Authorized [id number] Authorization Not Needed Specialty Services Required 5 09/05/2025 99 99 Encounter Details Date Type Department Care Team (Latest Contact Info) Description 06/10/2025 8:30 AM EDT Hospital Encounter [facility] W[facility] Care Center [address] 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, with fat layer exposed (HCC) (Primary Dx); Venous insufficiency of both lower extremities; Chronic venous htn w ulcer and inflam of bilateral low extrm (HCC); Cellulitis of lower extremity, unspecified laterality; Diabetic polyneuropathy associated with type 2 diabetes mellitus (HCC) Social History Tobacco Use Types Packs/Day Years Used Date Smoking Tobacco: Former Cigarettes 0.5 9 0 01/17/1973 - 01/17/1982 Smokeless Tobacco: Former Snuff Quit: 01/12/2005 Tobacco Cessation:Counseling Given: Not Answered Alcohol Use Standard Drinks/Week Comments No 0 (1 standard drink = 0.6 oz pur e alcohol) [facility] Utilities Answer Date Recorded In the past 12 months has [employer] electric, gas, oil, or water [employer] threatened to shut off services in your home? No 07/22/2024 Overall Financial Resource Strain (CARDIA) Answe r Date Recorded How hard is it for you to pa y for the very basics like food, housing, medical care, and heating? Not very hard 07/22/2024 PHQ-2 Answer Date Recorded PHQ-2 Total Score 1 07/22/2024 [facility] [place] of Occupat ional Health - Occupational Stress [...] money to get more. Never true 07/22/2024 [facility] IP Transportation Answer D ate [...] Sign Reading Time Taken Comments Blood Pressure 157/76 06/10/2025 8:45 AM EDT Pulse 68 06/10/2025 8:45 AM EDT Temperature 36.1 C (96.9 F) 06/10/2025 8:45 AM EDT Respiratory Rate 18 06/10/2025 8:45 AM EDT Oxygen Saturation - - Inhaled Oxygen Concentration - - Weight - - Height - - Body Mass Index - - documented in this encounter Ordered Prescriptions Prescription Sig Dispense Quantity Refills Last Filled Start Date End Date levoFLOXacin (LEVAQUIN) 250 mg Oral Tablet Take 1 Tablet by mouth every 24 hours for 10 days. 10 Tablet 06/10/2025 06/20/2025 documented in this encounter Progress Notes * Aleksey Hunt DPM - 06/10/2025 8:30 AM EDT Images from the original note were not included. Date of Visit:06/10/2025 Progress Note HPI Jose Alberto Seaman is a 75 y.o. year old male patient who presents today for wound evaluation and follow-up. Patient has a left ankle chronic venous/diabetic ulcer(s) which is (are) located on the left leg. Symptoms include some pain. Patient relates increased drainage. Patients past medical, family and social histories were reviewed and updated. There were no changesexcept as noted. ROS See HPI for further details. Relevant review of systems otherwise negative. Physical Exam Vitals: 06/10/25 0845 BP: 157/76 Pulse: 68 Resp: 18 Temp: 96.9 ??F (36.1 ??C) TempSrc: Forehead Ulcer Progress and Procedure Please refer to the LDA for details of ulcer progress and procedure. Assessment and Plan Joes Alberto was seen today for wound check. 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 1. Continue standard ulcer therapy of this Diabetic ulcer of lower extremity and Venous ulcer may include lab work: Biopsy,imaging:n/a, vascular testing:n/a, and interventions of: Staged debridement,Edema control/ compression, and Appropriate dressing selection. 2. [...] were given 5. Follow- up 1 week. Surrounding erythema and increased temperature. Ulcer bed is infiltrated with heavy biofilm with hypergranulation tissue. Will put him back on Levaquin 250 daily for 10 days as he tolerated that well the last time. Will get him on the wash dressing changes and switch him to Tubigrip so he can perform daily dressing changes. documented in this encounter Miscellaneous Notes * Patient Instructions - Monica Hu RN - 06/10/2025 8:30 AM EDT HOME-CARE INSTRUCTIONS FOLLOWING YOUR [...] Center in [address] Hunt Please purchase some Vashe wound cleanser and clean your wound every day Then moisten gauze with the vashe, ring it out, just moist, then apply to wound, ABD PAD, cover with roll gauze Tubi machinist outside, double layer size F. You will do this every day Elevate when ever possible Follow Up Instructions Check wound and surrounding [...] our clinical unit coordinator, Yolanda Garcia at [phone] for any discussion. WHO TO CALL FOR [...] immediate concern, press option #1. Office numbers: [phone] Zeynep DesaiJuxsdm-[phone] [place]- [phone] If you have an urgent or emergent [...] Info) Description 06/17/2025 8:15 AM EST Appointment [facility] W[facility] Care Center [address] [place], [place] [address] Aleksey Hunt DPM [address] [place] [address], [place] [address] 06/19/2025 7:00 AM EST Clinical Support [facility] [place] [address] [place] [address] 06/19/2025 9:00 AM EST Office Visit [facility] [place] [address] [place] [address] 07/09/2025 9:00 AM EST Office Visit [facility] [place] [address] [place] [address] Blair Cordon MD [address] [place] [address] documented as of this encounter [...] neuropathy weekly. Refer to PCP and/or Customer Solutions Supervisor, Vascular Specialist as indicated. Monitor patient compliance with wound care, diabetes management and proper offloading. 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, with fat layer exposed (HCC)- Primary Venous insufficiency of both lower extremities Chronic venous htn w ulcer and inflam of bilateral low extrm (HCC) Cellulitis of lower extremity, unspecified laterality Diabetic polyneuropathy associated with type 2 diabetes mellitus (HCC) documented in this encounter Orders Nursing Count Last Ordered Date First Orde red Date AMB WCC PRIMARY DRESSING 1 06/10/2025 documented in this encounter Additional Health Concerns Assessment Noted Time PHQ-9 Depression Total Score: 1 07/22/20 24 3:29 PM EST A fall risk assessment has been complete d for the patient 02/07/2019 11:25 AM EDT PHQ-2 Depression Total Score: 1 07/22/20 24 3:29 PM EST documented as of this encounter Care Teams Maintenance Shop Technician Relationship Specialty Start Date End Date Dylon Izaguirre MD PCP - General Family Medicine 09/05/23 documented as of this encounter
[2025-06-10 21:33] VITALS: BP 141/90; PULSE 65; RESP 18; TEMP 36.4; O2SAT 100; BMI 35.2
--- OUTSIDE RECORDS SUMMARY | 2025-06-10 21:52 | XMS_ITS | Encounter Summary ---
Author Organization [facility] Address [address] [place] [address] Care Team Providers Care Complaint Investigator Name Role Phone Dylon Izaguirre MD Primary Care Provider [phone] Reason for Visit * Reason Onset Date Comments Follow-up 05/01/2025 Schedule Appointment 05/01/2025 Encounter Details Date Type Department Care Team (Late st Contact Info) Description 05/01/2025 Telephone [facility] [place] [address] [place] [address] Katarzyna Alexander MA Follow-up; Schedule Appointment Social History Tobacco Use Types Packs/Day Years Used Date Smoking Tobacco: Former Cigarettes 0.5 9 0 01/17/1973 - 01/17/1982 Smokeless Tobacco: Former Snuff Quit: 01/12/2005 Alcohol Use Standard Drinks/Week Comments No 0 (1 standard drink = 0.6 oz pur e alcohol) [facility] Utilities Answer Date Recorded In the past 12 months has [employer] electric, gas, oil, or water company threatened to shut off services in your home? No 07/22/2024 Overall Financial Resource Strain (CARDIA) Answe r Date Recorded How hard is it for you to pa y for the very basics like food, housing, medical care, and heating? Not very hard 07/22/2024 PHQ-2 Answer Date Recorded PHQ-2 Total Score 1 07/22/2024 [facility] [place] of Occupat ional Health - Occupational Stress [...] money to get more. Never true 07/22/2024 [facility] IP Transportation Answer D ate [...] encounter Miscellaneous Notes * Telephone Encounter - Katarzyna Alexander MA - 05/01/2025 12:14 PM EDT pt returned my call. got pt scheduled for US and VON 06/19 and f/u 07/09.. * Telephone Encounter - Katarzyna Alexander MA - 05/01/2025 11:51 AM EDT called pt to get scheduled for bilateral VRS, ABIs, and f/u with Dr. Cordon. got no answer so I lefta detailed message letting pt know who I am, where I am calling from, the reason for the call, and the number to return call to the office. called x 1 documented in this encounter Plan of Treatment Upcoming Encounters Date Type Department Care Team (Late st Contact Info) Description 06/17/2025 8:15 AM EST Appointment [facility] W[facility] Care Center [place] [address] [place] [address] Aleksey Hunt DPM [address] [place] [address] 06/19/2025 7:00 AM EST Clinical Support [facility] [place] [address] [place] [address] 06/19/2025 9:00 AM EST Office Visit [facility] [place] [address] [place] [address] 07/09/2025 9:00 AM EST Office Visit [facility] [place] [address] [place] [address] Blair Cordon MD [address] [place] [address] documented as of this encounter Goals Goal [...] peripheral neuropathy weekly. Refer to PCP and/or Ironing Worker, Vascular Specialist as indicated. Monitor patient [...] documented as of this encounter Care Teams Complaint Investigator Relationship Specialty Start Date End Date Dylon Izaguirre MD PCP - General Family Medicine 09/05/23 documented as of this encounter
--- OUTSIDE RECORDS SUMMARY | 2025-06-10 21:52 | XMS_ITS | Encounter Summary ---
Author Organization [facility] Address [address] [place] [address] Care Team Providers Care Identification Printing Machine Setter Name Role Phone Dylon Izaguirre MD Primary Care Provider [phone] Encounter Details Date Type Department Care Team (Late st Contact Info) Description 05/30/2025 Results Follow-Up [facility] [address] [place] [address] Altaf De La Paz MD [address] [place] [address] [facility] PATHOLOGY ORDER Social History Tobacco Use Types Packs/Day Years [...] Date Recorded PHQ-2 Total Score 1 07/22/2024 [facility] [place] of Occupat ional Health - Occupational Stress [...] more. Never true 07/22/2024 [facility] IP Transportation Answer D ate [...] Info) Description 06/17/2025 8:15 AM EST Appointment [facility] Wound Care Center [place] [address] [address] [facility] [place] [address] Aleksey Hunt DPM [address] [place] [address] 06/19/2025 7:00 AM EST Clinical Support [facility] [place] [address] [place] [address] 06/19/2025 9:00 AM EST Office Visit [facility] [place] [address] [place] [address] 07/09/2025 9:00 AM EST Office Visit [facility] [place] [address] [place] [address] Blair Cordon MD [address] [facility] [address] [place] [address] documented as of this encounter [...] peripheral neuropathy weekly. Refer to PCP and/or Financial Management Analyst, Vascular Specialist as indicated. Monitor patient [...] documented as of this encounter Care Teams Identification Printing Machine Setter Relationship Specialty Start Date End Date Dylon Izaguirre MD PCP - General Family Medicine 09/05/23 documented as of this encounter
--- OUTSIDE RECORDS SUMMARY | 2025-06-10 21:52 | XMS_ITS | Encounter Summary ---
Author Organization [place] [address] Care Team Providers Care Director Cardiovascular Name Role Phone Dylon Izaguirre MD Primary Care Provider [phone] Reason for Visit * Reason Comments Medication Refill Encounter Details Date Type Department Care Team (Late st Contact Info) Description 05/05/[address] [facility] [place] [address] [address] [facility] [place] [address] Aleksey Hunt DPM [address] [place] [address] Medication Refill Social History Tobacco Use Types Packs/Day Years Used Date Smoking Tobacco: Former Cigarettes 0.5 9 0 01/17/1973 - 01/17/1982 Smokeless Tobacco: Former Snuff Quit: 01/12/2005 Alcohol Use Standard Drinks/Week Comments No 0 (1 standard drink = 0.6 oz pur e alcohol) [facility] Utilities Answer Date Recorded In [...] Date Recorded PHQ-2 Total Score 1 07/22/2024 [facility] [place] of Occupat ional Health - Occupational Stress [...] money to get more. Never true 07/22/2024 [facility]RS[facility] CMS IP Transportation Answer [...] on file documented as of this encounter Ordered Prescriptions Prescription Sig Dispense Quantity Refills Last Filled Start Date End Date pentoxifylline (TRENTAL) 400 mg Oral Tablet Sustained Release TAKE 1 TABLET BY MOUTH 2 TIMES DAILY. 60 Tablet 05/06/2025 documented in this encounter Plan of Treatment Upcoming Encounters Date Type Department Care Team (Late st Contact Info) Description 06/17/2025 8:15 AM EST Appointment [facility] [place] [address] [place] [address] Aleksey Hunt DPM [address] [place] [address] 06/19/2025 7:00 AM EST Clinical Support [facility] [place] [address] [place] [address] 06/19/2025 9:00 AM EST Office Visit [facility] [place] [address] [place] [address] 07/09/2025 9:00 AM EST Office Visit [facility] [place] [address] [place] [address] Blair Cordon MD [address] [place] [address] documented as of this encounter [...] peripheral neuropathy weekly. Refer to PCP and/or Fruit Picker Machine Operator, Vascular Specialist as indicated. Monitor patient compliance with wound care, diabetes management and proper offloading. documented as of this encounter Visit Diagnoses Not on filedocumented in this encounter Discontinued Medications Medication Sig Discontinue Reason Start Date End Da te pentoxifylline (TRENTAL) 400 mg Oral Tablet Sustained Release TAKE 1 TABLET BY MOUTH 2 TIMES DAILY. 03/11/2025 05/06/2025 documented as of this encounter Additional Health Concerns Assessment Noted Time PHQ-9 Depression Total Score: 1 07/22/20 24 3:29 PM EST A fall risk assessment has been complete d for the patient 02/07/2019 11:25 AM EDT PHQ-2 Depression Total Score: 1 07/22/20 24 3:29 PM EST documented as of this encounter Care Teams Director Cardiovascular Relationship Specialty Start Date End Date Dylon Izaguirer MD PCP - General Family Medicine 09/05/23 documented as of this encounter
--- OUTSIDE RECORDS SUMMARY | 2025-06-10 21:52 | XMS_ITS | Encounter Summary ---
Author Organization [facility] Address [address] [place] [address] Care Team Providers Care Culinary Specialist Name Role Phone Dylon Connell MD Primary Care Provider [phone] Reason for Referral * Surgical (Routine) - AFF Authorization Not Needed Specialty Diagnoses / Procedures Referred By Patrick amador Referred To Contact Gastroenterology Diagnoses Special screening for malignant neoplasms, colon Procedures COLONOSCOPY TX COLONOSCOPY FLX DX W/COLLJ SPEC WHEN PFRMD TX COLONOSCOPY FLX W/ENDOSCOPIC MUCOSAL RESECTION Altaf De La Paz MD [address] [place] [address] Phone: tel: fax: Altaf De La Paz MD [address] [place] [address] Phone: tel: fax: Referral ID Status Reason Start Date Expiration Date Visits Requested Visits Authorized [id number] AFF Authorization Not Needed 04/16/2025 04/16/2026 1 1 Reason for Visit * Reason Onset Date Comments Other 04/16/2025 SCHED COLON Encounter Details Date Type Department Care Team (Late st Contact Info) Description 04/16/2025 Telephone [facility] [address] [place] [address] Altaf De La Paz MD [address] [place] [address] Other (SCHED COLON) Social History Tobacco Use Types Packs/Day Years Used Date Smoking Tobacco: Former Cigarettes 0.5 9 0 01/17/1973 - 01/17/1982 Smokeless Tobacco: Former Snuff Quit: 01/12/2005 Alcohol Use Standard Drinks/Week Comments No 0 (1 standard drink = 0.6 oz pur e alcohol) [facility] Utilities Answer Date Recorded In the [...] Date Recorded PHQ-2 Total Score 1 07/22/2024 [facility] of Occupat ional Health - Occupational [...] money to get more. Never true 07/22/2024 [facility] IP Transportation Answer D ate [...] Refills Last Filled Start Date End Date sodium,potassium, mag sulfates (SUPREP BOWEL PREP KIT) 17.5-3.13-1.6 gram Oral Recon Soln Take 1 kit per physician instructions 354 mL 04/16/2025 documented in this encounter Miscellaneous Notes * Telephone Encounter - Brenda Wilkins, Clerical Staff - 04/28/2025 12:20 PM EDT RECD CC OK TO HOLD WARFARIN 3 DAYS. CLD PT AND IS AWARE. I REMAILED SUPREP PREP INST TO PT. * Telephone Encounter - Brenda Wilkins, Johnnierical Staff - 04/16/2025 1:43 PM EDT PT SCHED FOR COLON SENT SUPREP PREP INST THRU THE MAIL. SENT SCRIPT TO [employer] COORDINATOR FOR [facility] PT ONWARFARIN AND FAXED CC TO DR CONNELL. PT ON MOUNJARO AND KNOWS TO HOLD OUT documented in this encounter Plan of Treatment Upcoming Encounters Date Type Department Care Team (Late st Contact Info) Description 06/17/2025 8:15 AM EST Appointment [facility] [place] [address] [place] [address] Aleksey Hunt, [address] [place] [address] 06/19/2025 7:00 AM EST Clinical Support [facility] [place] [address] [place] [address] 06/19/2025 9:00 AM EST Office Visit [facility] [place] [address] [place] [address] 07/09/2025 9:00 AM EST Office Visit [facility] [place] [address] [place], [place] [id number] Blair Cordon MD [address] [place] [address] documented as of this encounter [...] peripheral neuropathy weekly. Refer to PCP and/or Face Hardener, Vascular Specialist as indicated. Monitor patient compliance with wound care, diabetes management and proper offloading. documented as of this encounter Results * COLONOSCOPY (05/21/2025 12:31 PM EDT) Anatomical [...] MD ENDOSCOPY PROCEDURE OR DERABLES Final Result documented in this encounter Visit Diagnoses Diagnosis Special screening for malignant neoplasms, colon- Primary Special screening for malignant neoplasms, colon documented in this encounter Additional Health Concerns Assessment Noted Time PHQ-9 Depression Total Score: 1 07/22/20 24 3:29 PM EST A fall risk assessment has been complete d for the patient 02/07/2019 11:25 AM EDT PHQ-2 Depression Total Score: 1 07/22/20 24 3:29 PM EST documented as of this encounter Care Teams Culinary Specialist Relationship Specialty Start Date End Date Dylon Connell MD PCP - General Family Medicine 09/05/23 documented as of this encounter
--- OUTSIDE RECORDS SUMMARY | 2025-06-10 21:53 | XMS_ITS | Encounter Summary ---
Author Organization [facility] (Formerly [facility]) Address [facility] [place] [address] Care Team Providers Care Procurement Professional Name Role Phone Gaetano Jasso MD Primary Care Provider + Dylon Izaguirre MD Primary Care Provider Aleksey Estrella MD Unavailable [phone] Suri Lawrence NP Unavailable Kellen Carlson NP Unavailable Radha Jerome RN Unavailable Unavailable Rona Robbins RN Unavailable Stacy Branch NP Unavailable Unavailable Patrick Allen MD Unavailable [phone] Alvin Washington MD Unavailable Unavailable Nithya Andrew NP Unavailable Encounter Details Date Type Department Care Team (Late st Contact Info) Description 11/26/2015 Abstract [facility] ([facility] Physicians - Heart & Vascular, [facility] [address] [facility] [place] [address] [place] [address] Idalia Donnelly NCMA Social History Tobacco Use Types Packs/Day Years Used Date Smoking Tobacco: Former Cigarettes 0.5 20 0 01/17/1962 - 01/17/1982 Smokeless Tobacco: Former Quit: 01/12/2005 Alcohol Use Standard Drinks/Week Comments Yes 0 (1 standard drink = 0.6 oz pur e alcohol) occ, wine/beer Sex and Gender Information Value Date Recorded Sex Assigned at Not on file Legal Sex Male 11:06 AM EDT Gender Identity Not on file Sexual Orientation Not on file documented as of this encounter Plan of Treatment Upcoming Encounters Date Type Department Care Team (Late st Contact Info) Description 07/01/2025 2:00 PM EST Appointment [facility] ([facility] Physicians - Sleep Medicine[address] Medical Office [address] [place] [phone] Patrick Allen MD [address] [facility] [place], [place] [address] Pending Results Name Type Priority Associated Diagnoses Date /Time LIPID PROFILE Lab Routine 11/17/2015 LIVER PROFILE Lab Routine 11/17/2015 documented as of this encounter Visit Diagnoses Not on filedocumented in this encounter Care Teams Procurement Professional Relationship Specialty Start Date End Date Gaetano Jasso MD [address] [place] [address] PCP - General Family Medicine 12/24/14 11/26/18 [place] [address] [place] [address] PCP - General Family Medicine 11/27/18 Aleksey Estrella MD [address] [facility] [address] [place] [address] Advanced Heart Failure/Transplant 10/15/20 Suri Lawrence NP [address] [place] [address] Nurse Practitioner Nurse Practitioner, [facility] 03/23/21 Kellen Carlson NP [address] [place] [address] Nurse Practitioner Nurse Practitioner, [facility] 04/06/21 Radha Jerome, RN Registered Nurse 05/07/21 Rona Robbins, MEIR [address] [place] [address] Registered Nurse 06/17/21 Stacy Branch NP [address] [place] [address] Nurse Practitioner Nurse Practitioner, Acute Care 10/21/21 Patrick Allen MD [address] [place] [address] Internal Medicine, Sleep Medicine 03/31/22 Alvin Washington MD Interventional Cardiology 08/21/22 Nithya Andrew NP [address] [place] [address] Nurse Practitioner Nurse Practitioner 11/29/22 documented as of this encounter
--- OUTSIDE RECORDS SUMMARY | 2025-06-10 21:53 | XMS_ITS | Encounter Summary ---
Author Organization [facility] Address [facility] [place] [address] Care Team Providers Care Framer Name Role Phone Gaeatno Jasso MD Primary Care Provider + Dylon Izaguirre MD Primary Care Provider Aleksey Estrella MD Unavailable Suri Lawrence NP Unavailable Kellen Carlson NP Unavailable Radha Jerome RN Unavailable Unavailable Rona Robbins RN Unavailable Stacy Branch NP Unavailable Unavailable Patrick Allen MD Unavailable [phone] Alvin Washington MD Unavailable Unavailable Nithya Andrew NP Unavailable Reason for Visit * Reason Comments Medications Refill Encounter Details Date Type Department Care Team (Late st Contact Info) Description 10/31/2018 Refill [facility] Physicians - Heart & Vascular, [facility] [address] [facility] [place] [address] [place] [address] Nithya Andrew, CLOTH ROLL WINDER [address] [facility] [address] [place], [place] [id number] (work) Medications Refill Social History Tobacco Use Types Packs/Day [...] as of this encounter Functional Status * Are you blind or do you have difficulty seeing, even when wearing glasses? Answer Date of Assessment Author No 03/16/2017 4:13 AM EDT Analia Mejia RN * Do you have serious difficulty walking or climbing stairs? Answer Date of Assessment Author Yes 03/16/2017 4:13 AM ASHLIET Analia Mejia RN * Do you have difficulty dressing or bathing? Answer Date of Assessment Author No 03/16/2017 4:13 AM EDT Analia Mejia RN * Because of a physical, mental, or emotional condition, do you have difficulty doing errands alone such as a visiting a doctor's office or shopping? Answer Date of Assessment Author No 03/16/2017 4:13 AM Analia Escalante RN documented as of this encounter Mental Status * Because of a physical, mental, or emotional condition, do you have serious difficulty concentrating, remembering, or making decisions? Answer Entry Date Author No 03/16/2017 4:13 AM Analia Escalante RN documented in this encounter Miscellaneous Notes * Telephone Encounter - Nithya Andrew NP - 11/02/2018 11:17 AM EDT Will fill one month supply. Patient needs basic metabolic panel to monitor renal function and electrolytes prior to any further refills. documented in this encounter Plan of Treatment Upcoming Encounters Date Type Department Care Team (Late st Contact Info) Description 07/01/2025 2:00 PM EST Appointment [facility] Physicians - Sleep Medicine, [address] Medical Office [address] [place] [address] Patrick Allen MD [address] [facility] [place], [place] [address] documented as of this encounter Goals Goal Patient Goal Type Associated Problems Recent Progress Patient-Stated? Author Reduce salt intake to 2 grams per day Diet No Cipriano Day BS Increase physical activity Lifestyle No Cipriano Day BS LDL CALC < 100 Result Component 39(01/30/2024 7:41 AM EDT) No Cipriano Day BS documented as of this encounter Visit Diagnoses Diagnosis Chronic diastolic heart failure (CMS/HCC) Chronic diastolic heart failure documented in this encounter Care Teams Framer Relationship Specialty Start Date End Date Gaetano Jasso MD [address] [place] [address] PCP - General Family Medicine 12/24/14 11/26/18 [place] [address] [place] [address] PCP - General Family Medicine 11/27/18 Aleksey Estrella MD [address] [place] [address] [address] [place] [address] Advanced Heart Failure/Transplant 10/15/20 Suri Lawrence NP [address] [place] [address] [address] [place] [address] Nurse Practitioner Nurse Practitioner, Family 03/23/21 Kellen Carlson NP [address] [place], [place] [address]. [address] [place] [address] Nurse Practitioner Nurse Practitioner, Family 04/06/21 Radha Jerome, RN Registered Nurse 05/07/21 Rona Robbins, MEIR [address] [place] [address] Registered Nurse 06/17/21 Stacy Branch NP [address] [place] [address] Nurse Practitioner Nurse Practitioner, Acute Care 10/21/21 Patrick Allen MD [address] [place] [address]. [address] [place] [address] Internal Medicine, Sleep Medicine 03/31/22 Alvin Washington MD Interventional Cardiology 08/21/22 Nithya Andrew NP [address] [facility]. [address] [place], [place] [address] Nurse Practitioner Nurse Practitioner 11/29/22 documented as of this encounter
--- OUTSIDE RECORDS SUMMARY | 2025-06-10 21:53 | XMS_ITS | Encounter Summary ---
Author Organization [facility] Address [address] [place] [address] Care Team Providers Care Needlemaker Name Role Phone Gaetano Jasso MD Primary Care Provider + Dylon Izaguirre MD Primary Care Provider [phone] Aleksey Estrella MD Unavailable Suri Lawrence NP Unavailable Kellen Carlson NP Unavailable Radha Jerome RN Unavailable Unavailable Rona Robbins RN Unavailable [phone] Stacy Branch NP Unavailable Unavailable Patrick Allen MD Unavailable [phone] Alvin Washington MD Unavailable Unavailable Nithya Andrew NP Unavailable Encounter Details Date Type Department Care Team (Late st Contact Info) Description 09/05/2017 Preop Surgical Orders [facility] Physicians - Heart & Vascular, [facility] [address] [place] [address], [facility] [address] [place] [phone] Van Joseph, WINDOW TRIMMER APPRENTICE [address] [facility] [address] [place] [address] Social History Tobacco Use Types Packs/Day Years [...] of Assessment Author No 03/16/2017 4:13 AM ASHLIET Analia Mejia RN * Do you have serious difficulty walking or climbing stairs? Answer Date of Assessment Author Yes 03/16/2017 4:13 AM Analia Escalante RN * Do you have difficulty dressing or bathing? Answer Date of Assessment Author No 03/16/2017 4:13 AM Analia Escalante RN * Because of a physical, mental, [...] Analia Escalante RN documented in this encounter Plan of Treatment Upcoming Encounters Date Type Department Care Team (Late st Contact Info) Description 07/01/2025 2:00 PM EST Appointment [facility] Physicians - Sleep Medicine, [address] Medical Office [address] [place] [address] Patrick Allen MD [address] [place] [address]. [address] [place] [address] documented as of this encounter Goals Goal [...] on filedocumented in this encounter Care Teams Needlemaker Relationship Specialty Start Date End Date Gaetano Jasso MD [facility] [place] [address] PCP - General Family Medicine 12/24/14 11/26/18 [place] [address] [place] [address] PCP - General Family Medicine 11/27/18 Aleksey Estrella MD [address] [place] [address] Advanced Heart Failure/Transplant 10/15/20 Suri Lawrence NP [address] [place], [place] [address] Nurse Practitioner Nurse Practitioner, [facility] 03/23/21 Kellen Carlson NP [address] [place], [place] [address] Nurse Practitioner Nurse Practitioner, [facility] 04/06/21 Radha Jerome RN Registered Nurse 05/07/21 Rona Robbins, RN [address] [place], [place] [address] Registered Nurse 06/17/21 Stacy Branch NP [address] [place] [address] Nurse Practitioner Nurse Practitioner, Acute Care 10/21/21 Patrick Allen MD [address] [place] [address] Internal Medicine, Sleep Medicine 03/31/22 Alvin Washington MD Interventional Cardiology 08/21/22 Nithya Andrew NP [address] [place] [address] Nurse Practitioner Nurse Practitioner 11/29/22 documented as of this encounter
--- OUTSIDE RECORDS SUMMARY | 2025-06-10 21:53 | XMS_ITS | Encounter Summary ---
Author Organization [facility] Address [facility] [place] [address] Care Team Providers Care Mill Work Name Role Phone Gaetano Jasso MD Primary Care Provider + Dylon Izaguirre MD Primary Care Provider [phone] Aleksey Estrella MD Unavailable [phone] Suir Lawrence NP Unavailable Kellen Carlson NP Unavailable [phone] Radha Jerome RN Unavailable Unavailable Rona Robbins RN Unavailable [phone] Stacy Branch NP Unavailable Unavailable Patrick Allen MD Unavailable [phone] Alvin Washington MD Unavailable Unavailable Nithya Andrew NP Unavailable Encounter Details Date Type Department Care Team (Late st Contact Info) Description 03/18/[address] [facility] Physicians - Heart & Vascular, [facility] [address] [facility] [place] [address] Idalia Donnelly NCMA Social History [...] Description 07/01/2025 2:00 PM EST Appointment [facility] Physicians - Sleep Medicine, [address] Medical Office [address] [place] [address] Patrick Allen MD [address] [place] [address]. [address] [place], [place] [address] documented as of this encounter Visit Diagnoses Not on filedocumented in this encounter Care Teams Mill Work Relationship Specialty Start Date End Date Gaetano Jasso MD [address] [place] [address] PCP - General Family Medicine 12/24/14 11/26/18 [place] [address] [place] [address] PCP - General Family Medicine 11/27/18 Aleksey Estrella MD [address] [place] [address] [address] [place] [address] Advanced Heart Failure/Transplant 10/15/20 Suri Lawrence NP [address] [facility] [address] [place] [address] Nurse Practitioner Nurse Practitioner, Family 03/23/21 Kellen Carlson NP [address] [place] [address] Nurse Practitioner Nurse Practitioner, Family 04/06/21 Radha Jerome, RN Registered Nurse 05/07/21 Rona Robbins, RN [address] [place] [address] Registered Nurse 06/17/21 Stacy Branch NP [address] [place] [address] Nurse Practitioner Nurse Practitioner, Acute Care 10/21/21 Patrick Allen MD [address] [place] [address] Internal Medicine, Sleep Medicine 03/31/22 Alvin Washington MD Interventional Cardiology 08/21/22 Nithya Andrew NP [address] [facility] [place], [place] [address] Nurse Practitioner Nurse Practitioner 11/29/22 documented as of this encounter
--- OUTSIDE RECORDS SUMMARY | 2025-06-10 21:53 | XMS_ITS | Encounter Summary ---
Author Organization [facility] Address [facility] [place] [address] Care Team Providers Care Poultry Packer Name Role Phone Gaetano Jasso MD Primary Care Provider + Dylon Izaguirre MD Primary Care Provider Aleksey Estrella MD Unavailable [phone] Suri Lawrence NP Unavailable Kellen Carlson NP Unavailable Radha Jerome RN Unavailable Unavailable Rona Robbins RN Unavailable Stacy Branch NP Unavailable Unavailable Patrick Allen MD Unavailable [phone] Alvin Washington MD Unavailable Unavailable Nithya Andrew NP Unavailable Encounter Details Date Type Department Care Team (Late st Contact Info) Description 07/13/2017 Abstract [facility] Physicians - Heart & Vascular, [facility] [address] [facility] [place] [address] [place] [address] Idalia Donnelly NCMA Social History [...] Analia Escalante RN * Do you have serious difficulty [...] Description 07/01/2025 2:00 PM EST Appointment [facility] Physicians - Sleep Medicine[address] Medical Office [address] [place] [address] Patrick Allen MD [address] [place] [address]. [address] [place] [address] documented as of this encounter Goals Goal [...] on filedocumented in this encounter Care Teams Poultry Packer Relationship Specialty Start Date End Date Gaetano Jasso MD [address] [place] [address] PCP - General Family Medicine 12/24/14 11/26/18 [place] [address] [place] [address] PCP - General Family Medicine 11/27/18 Aleksey Estrella MD [address] [place] [address] Advanced Heart Failure/Transplant 10/15/20 Suri Lawrence NP [address] [place] [address] Nurse Practitioner Nurse Practitioner, [facility] 03/23/21 Kellen Carlson NP [address] [place] [address] Nurse Practitioner Nurse Practitioner, Family 04/06/21 Radha Jerome RN Registered Nurse 05/07/21 Rona Robbins, RN [address] [place] [address] Registered Nurse 06/17/21 Stacy Branch NP [address] [place] [address] Nurse Practitioner Nurse Practitioner, Acute Care 10/21/21 Patrick Allen MD [address] [place] [address] Internal Medicine, Sleep Medicine 03/31/22 Alvin Washington MD Interventional Cardiology 08/21/22 Nithya Andrew NP [address] [place] [address] Nurse Practitioner Nurse Practitioner 11/29/22 documented as of this encounter
--- OUTSIDE RECORDS SUMMARY | 2025-06-10 21:53 | XMS_ITS | Encounter Summary ---
Author Organization [facility] Address [address] [place] [address] Care Team Providers Care Wharf Builder Name Role Phone Gaetano Jasso MD Primary Care Provider + Dylon Izaguirre MD Primary Care Provider Aleksey Estrella MD Unavailable [phone] Suri Lawrence NP Unavailable Kellen Carlson NP Unavailable Radha Jerome RN Unavailable Unavailable Rona Robbins RN Unavailable [phone] Stacy Branch NP Unavailable Unavailable Patrick Allen MD Unavailable [phone] Alvin Washington MD Unavailable Unavailable Nithya Andrew NP Unavailable [phone] Encounter Details Date Type Department Care Team (Late st Contact Info) Description 05/16/2017 Orders Only [facility] Physicians - Heart & Vascular, [facility] [address] [facility] [address] [place] [phone] Dereje Shah MD [address] [facility]. [address] [place], [place] [address] Atrial fibrillation, unspecified type Social History Tobacco Use Types Packs/Day Years [...] Description 07/01/2025 2:00 PM EST Appointment [facility] Physicians - Sleep Medicine [address] Medical Office [address] [place] [address] Patrick Allen MD [address] [place] [address]. [address] [place] [address] documented as of this encounter Goals Goal Patient Goal Type Associated Problems Recent Progress Patient-Stated? Author Reduce salt intake to 2 grams per day Diet No Cipriano Day BS Increase physical activity Lifestyle No Cipriano Day BS LDL CALC < 100 Result Component 39(01/30/2024 7:41 AM EDT) No Cipriano Day BS documented as of this encounter Procedures Procedure Name Priority Date/Time Associated Diagnosis Comments BIOTEL - 30 DAY WIRELESS EVENT MONITOR Routine 04/16/2017 Atrial fibrillation, unspecified type documented in this encounter Results * EVENT MONITOR-MEDICARE (04/16/2017) us Dereje Shah MD [facility] NON-INVASIVE MARILUZ MCLAUGHLIN Final Result [facility] [address] documented in this encounter Visit Diagnoses Diagnosis Atrial fibrillation, unspecified type (CMS/HCC) documented in this encounter Care Teams Wharf Builder Relationship Specialty Start Date End Date Gaetano Jasso MD [facility] [place], [place] [id number] PCP - General Family Medicine 12/24/14 11/26/18 [place] [address] [place] [address] PCP - General Family Medicine 11/27/18 Aleksey Estrella MD [address] [place] [address] Advanced Heart Failure/Transplant 10/15/20 Suri Lawrence NP [address] [place] [address] Nurse Practitioner Nurse Practitioner, Family 03/23/21 Kellen Carlson NP [address] [place] [address] Nurse Practitioner Nurse Practitioner, [facility] 04/06/21 Radha Jerome, RN Registered Nurse 05/07/21 Rona Robbins, RN [address] [place] [address] Registered Nurse 06/17/21 Stacy Branch NP [address] [place] [id number] Nurse Practitioner Nurse Practitioner, Acute Care 10/21/21 Patrick Allen MD [address] [place] [address] Internal Medicine, Sleep Medicine 03/31/22 Alvin Washington MD Interventional Cardiology 08/21/22 Nithya Andrew NP [address] [place] [address] Nurse Practitioner Nurse Practitioner 11/29/22 documented as of this encounter
--- OUTSIDE RECORDS SUMMARY | 2025-06-10 21:53 | XMS_ITS | Encounter Summary ---
Author Organization [facility] Address [facility] [place] [address] Care Team Providers Care Platen Press Operator Apprentice Name Role Phone Gaetano Jasso MD Primary Care Provider + Dylon Izaguirre MD Primary Care Provider Aleksey Estrella MD Unavailable [phone] Suri Lawrence NP Unavailable Kellen Carlson NP Unavailable [phone] Radha Jerome RN Unavailable Unavailable Rona Robbins RN Unavailable [phone] Stacy Branch NP Unavailable Unavailable Patrick Allen MD Unavailable [phone] Alvin Washington MD Unavailable Unavailable Nithya Andrew NP Unavailable [phone] Encounter Details Date Type Department Care Team (Late st Contact Info) Description 07/23/2015 Abstract [facility] Physicians - Heart & Vascular, [facility] [address] [facility] [place] [address] [place] [address] Idalia Donnelly NCMA Social History [...] Description 07/01/2025 2:00 PM EST Appointment [facility] Physicians - Sleep Medicine, [address] Medical Office [address] [place] [address] Patrick Allen MD [address] [place] [address]. [address] [place], [place] [address] documented as of this encounter Visit Diagnoses Not on filedocumented in this encounter Care Teams Platen Press Operator Apprentice Relationship Specialty Start Date End Date Gaetano Jasso MD [address] [place] [address] PCP - General Family Medicine 12/24/14 11/26/18 [place] [address] [place] [address] PCP - General Family Medicine 11/27/18 Aleksey Estrella MD [address] [place] [address] [address] [place] [address] Advanced Heart Failure/Transplant 10/15/20 Suri Lawrence NP [address] [facility] [address] [place] [address] Nurse Practitioner Nurse Practitioner, Family 03/23/21 Kellen Carlson NP [address] [place] [address] Nurse Practitioner Nurse Practitioner, Family 04/06/21 Radha Jerome, RN Registered Nurse 05/07/21 Rona Robbins, RN [address] [place] [address] Registered Nurse 06/17/21 Stacy Branch NP [address] [place] [address] Nurse Practitioner Nurse Practitioner, Acute Care 10/21/21 Patrick Allen MD [address] [place] [address] Internal Medicine, Sleep Medicine 03/31/22 Alvin Washington MD Interventional Cardiology 08/21/22 Nithya Andrew NP [address] [facility] [address] [place], [place] [id number] Nurse Practitioner Nurse Practitioner 11/29/22 documented as of this encounter
--- OUTSIDE RECORDS SUMMARY | 2025-06-10 21:53 | XMS_ITS | Encounter Summary ---
Author Organization [facility] Address [facility] [place] [address] Care Team Providers Care Clinical Dietician Name Role Phone Dylon Izaguirre MD Primary Care Provider [phone] Aleksey Estrella MD Unavailable [phone] Suri Lawrence NP Unavailable Kellen Carlson NP Unavailable Radha Jerome RN Unavailable Unavailable Rona Robbins RN Unavailable Stacy Branch VICE PRESIDENT LENDING Unavailable Unavailable Patrick Allen MD Unavailable [phone] Alvin Washington MD Unavailable Unavailable Nithya Andrew NP Unavailable Encounter Details Date Type Department Care Team (Late st Contact Info) Description 12/04/2018 Abstract [facility] Physicians - Heart & Vascular, [address] [place] [address] Sofiya Soliz NCMA Social History Tobacco Use Types Packs/Day [...] of Assessment Author Yes 03/16/2017 4:13 AM EDT Analia Mejia RN [...] 03/16/2017 4:13 AM EDT Analia Mejia RN documented as of this encounter Mental Status * Because of a physical, mental, or emotional condition, do you have serious difficulty concentrating, remembering, or making decisions? Answer Entry Date Author No 03/16/2017 4:13 AM Analia Escalante RN documented in this encounter Plan of Treatment Upcoming Encounters Date Type Department Care Team (Late st Contact Info) Description 07/01/2025 2:00 PM EST Appointment [facility] Physicians - Sleep Medicine, [address] Office [address] [place] [address] Patrick Allen MD [address] [place] [address]. [address] [place] [id number] documented as of this encounter Goals Goal [...] on filedocumented in this encounter Care Teams Clinical Dietician Relationship Specialty [place] [address] [place] [address] PCP - General Family Medicine 11/27/18 Aleksey Estrella MD [address] [place] [address] Advanced Heart Failure/Transplant 10/15/20 Suri Lawrence NP [address] [place] [address] Nurse Practitioner Nurse Practitioner, [facility] 03/23/21 Kellen Carlson NP [address] [place] [address] Nurse Practitioner Nurse Practitioner, [facility] 04/06/21 Radha Jerome, RN Registered Nurse 05/07/21 Rona Robbins, RN [address] [place] [address] Registered Nurse 06/17/21 tSacy Branch NP [address] [place] [address] Nurse Practitioner Nurse Practitioner, Acute Care 10/21/21 Patrick Allen MD [address] [place] [address] Internal Medicine, Sleep Medicine 03/31/22 Alvin Washington MD Interventional Cardiology 08/21/22 Nithya Andrew NP [address] [place] [address] Nurse Practitioner Nurse Practitioner 11/29/22 documented as of this encounter
--- OUTSIDE RECORDS SUMMARY | 2025-06-10 21:53 | XMS_ITS | Encounter Summary ---
Author Organization [facility] Address [address] [place] [address] Care Team Providers Care Chemical Processing Equipment Repairer Name Role Phone Dylon Izaguirre MD Primary Care Provider Aleksey Estrella MD Unavailable Suri Lawrence NP Unavailable Kellen Carlson NP Unavailable Radha Jerome RN Unavailable Unavailable Rona Robbins RN Unavailable Stacy Branch NP Unavailable Unavailable Patrick Allen MD Unavailable [phone] Alvin Washington MD Unavailable Unavailable Nithya Andrew NP Unavailable [phone] Reason for Visit * Reason Onset Date Comments Dme Complaints/issues 04/11/2019 compliance report Encounter Details Date Type Department Care Team (Late st Contact Info) Description 04/11/2019 Telephone [facility] [address] [facility] [address] [place] [address] Suri Lawrence [facility] [address] [place] [address] Dme Complaints/issues (compliance report) Social History Tobacco Use Types Packs/Day Years [...] encounter Miscellaneous Notes * Telephone Encounter - Dereje Rodgers - 04/11/2019 2:58 PM EDT Faxed compliance * Telephone Encounter - Diana Donovan - 04/11/2019 12:15 PM EDT [employer] requesting compliance report be fax over from last OV Please advise documented in this encounter Plan of Treatment Upcoming Encounters Date Type Department Care Team (Late st Contact Info) Description 07/01/2025 2:00 PM EST Appointment [facility] Physicians - Sleep Medicine, [address] Office [address] [place] [id number] Patrick Allen MD [address] [place] [address]. [address] [place], [place] [address] documented as of this encounter Goals Goal [...] on filedocumented in this encounter Care Teams Chemical Processing Equipment Repairer Relationship Specialty Start [place] [address] [place] [address] PCP - General Family Medicine 11/27/18 Aleksey Estrella MD [address] [place] [address] [address] [place] [address] Advanced Heart Failure/Transplant 10/15/20 Suri Lawrence NP [address] [place] [address] [address] [place] [address] Nurse Practitioner Nurse Practitioner, Family 03/23/21 Kellen Carlson NP [address] [place] [address]. [address] [place], [place] [id number] Nurse Practitioner Nurse Practitioner, Family 04/06/21 Radha Jerome, RN Registered Nurse 05/07/21 Rona Robbins, RN [address] [place] [address] Registered Nurse 06/17/21 Stacy Branch NP [address] [place] [address] Nurse Practitioner Nurse Practitioner, Acute Care 10/21/21 Patrick Allen MD [address] [facility] [place] [address] Internal Medicine, Sleep Medicine 03/31/22 Alvin Washington MD Interventional Cardiology 08/21/22 Nithya Andrew, DEON [address] [place], [place] [id number] Nurse Practitioner Nurse Practitioner 11/29/22 documented as of this encounter
--- OUTSIDE RECORDS SUMMARY | 2025-06-10 21:53 | XMS_ITS | Clinical Summary ---
Author Organization 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 Muscle aches Rosuvastatin Other (See Comments) Low 11/16/2011 myalgia Muscle pain myalgia Cwlirsd-Owi-Khz Reductase Inhibitors Palpitations,Other (See Comments) Low 11/16/2011 Muscle pain Myalgia Simvastatin Other (See Comments) Low 11/16/2011 Myalgia Medications aspirin 81 mg tablet Take 81 mg by mouth daily. Active acetaminophen (TYLENOL) 500 mg Oral Tablet Take 1 Tablet by mouth as needed for Pain. Active warfarin (COUMADIN) 5 mg tablet Take 1 Tab by mouth daily. 30 Tab 12 04/09/20 13 Active fUROsemide (LASIX) 40 mg Oral Tablet Take 40 mg by mouth daily. Active metoprolol succinate (TOPROL-XL) 25 mg Oral Tablet Sustained Release 24 hr TAKE DOS 01/11/20 19 Active evolocumab 140 mg/mL SubQ Pen Injector Subcutaneous (Inject under the skin) 140 mg every 14 days. Active irbesartan (AVAPRO) 150 mg Oral Tablet Take 150 mg by mouth daily. Active HYDROcodone-edwin taminophen (NORCO) 5-325 mg Oral Tablet Take 1 Tablet by mouth every 4 hours as needed for Major Surgery/Trauma (G89.18) for up to 12 doses. 12 Tablet 11/27/19 Active FARXIGA 10 mg Oral Tablet Take 10 mg by mouth daily. 03/06/20 Active TRULICITY 0.75 mg/0.5 mL SubQ Pen Injector Subcutaneous (Inject under the skin) 0.75 mg once a week. 07/25/20 Active metFORMIN (GLUCOPHAGE) 500 mg Oral Tablet Take 500 mg by mouth 2 times daily. 04/26/20 Active allopurinoL (ZYLOPRIM) 100 mg Oral Tablet Take 100 mg by mouth daily. 04/26/20 Active gabapentin (NEURONTIN) 300 mg Oral Capsule Take 300 mg by mouth 3 times daily as needed. 10/02/19 Active nitroGLYCERIN (NITROSTAT) 0.4 mg SL Tablet, Sublingual Place 0.4 mg under the tongue every 5 minutes as needed for Chest pain. 04/28/20 Active oxyCODONE-aceta minophen (PERCOCET) 5-325 mg Oral Tablet 10/05/19 Active doxycycline monohydrate (MONODOX) 100 mg Oral Capsule Take 1 Capsule by mouth daily. 30 Capsule 1 03/18/20 Active Additional Information Patient not taking.Reported on 06/03/2025 sodium,potassiu m,mag sulfates (SUPREP BOWEL PREP KIT) 17.5-3.13-1.6 gram Oral Recon Soln Take 1 kit per physician instructions 354 mL 04/16/20 Active Additional Information Patient not taking.Reason: Therapy Completed, Reported on 05/30/2025 pentoxifylline (TRENTAL) 400 mg Oral Tablet Sustained Release TAKE 1 TABLET BY MOUTH 2 TIMES DAILY. 60 Tablet 05/06/20 Active tamsulosin (FLOMAX) 0.4 mg Oral Capsule Take 0.4 mg by mouth daily. 03/01/20 Active MOUNJARO 5 mg/0.5 mL SubQ Pen Injector Inject 5 mg under the skin once a week. 04/21/20 25 Active hydrocortisone (ANUSOL-HC) [address] 1 Suppository rectally nightly. 10 Suppository 1 05/21/20 25 Active hydrocortisone (ANUSOL-HC) 2.5 % Top cream with perineal applicator Place rectally 2 times daily. 30 Each 1 05/21/20 25 Active levoFLOXacin (LEVAQUIN) 250 mg Oral Tablet Take 1 Tablet by mouth every 24 hours for 10 days. 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 (CODE) 02/24/2025 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, with necrosis of muscle 09/26/2024 Diabetic ulcer of right lowe r leg associated with type 2 diabetes mellitus, with fat layer exposed 09/17/2024 PVD (peripheral vascular disease) 09/17/2024 Assessment & Plan (03/07/2025 8:17 AM EDT): Orders: AMB C PRIMARY DRESSING Dizziness 07/22/2024 Assessment & Plan (07/22/2024 11:28 AM EST): R/o stroke CT head without any acute finding CTA head and neck with stenosis of the distal L vertebral artery MRI brain pending PRN meclizine Continue aspirin, trental Will continue to hold warfarin pending MRI results May need neurology to see Controlled type 2 diabetes zuleika deal, without long-term current use of insulin 07/22/2024 [...] insufficiency of both lower extremities 0 09/03/2019 Assessment & Plan (03/07/2025 8:17 AM EDT): Orders: [facility] PRIMARY DRESSING Assessment & Plan (02/07/2025 1:20 PM EDT): Orders: AMB [facility] PRIMARY DRESSING Other hyperlipidemia 02/15/2019 Stage 3 chronic kidney [...] diabetes mellitus, with fat layer exposed 02/12/2019 Assessment & Plan (03/07/2025 8:17 AM EDT): Orders: [facility] PRIMARY DRESSING Assessment & Plan (02/07/2025 1:20 PM EDT): Orders: [facility] PRIMARY DRESSING Coronary atherosclerosis of [place] coronary noelle ry 11/15/2011 Assessment & Plan (07/22/2024 11:28 AM EST): On aspirin; not tolerant of statins On repatha outpatient Essential hypertension, benign 11/15/2011 Assessment & Plan (07/22/2024 11:28 AM EST): Controlled currently Other and unspecified hyperlipidemia 11/15/2011 Atrial fibrillation 11/15/2011 Assessment & Plan (07/22/2024 11:28 AM EST): Rates controlled Currently in sinus george Warfarin has been held [employer] for procedure, will continue to hold pending [...] Encounters Date Type Department Care Team Description 06/10/2025 8:30 AM EDT Hospital Encounter [facility] [place] [address] [place] [address] Aleksey Hunt DPM 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, with fat layer exposed (HCC) (Primary Dx); Venous insufficiency of both lower extremities; Chronic venous htn w ulcer and inflam of bilateral low extrm (HCC); Cellulitis of lower extremity, unspecified laterality; Diabetic polyneuropathy associated with type 2 diabetes mellitus (HCC) 06/10/2025 Refill [facility] [place] [address] [place] [address] Aleksey Hunt DPM Medication Refill 06/06/2025 7:45 AM EDT - 06/06/2025 11:59 PM EDT Hospital Encounter [facility] [place] [address] [place] [address] Darek Najera MD 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, with fat layer exposed (HCC) (Primary Dx); Venous insufficiency of both lower extremities Discharge Disposition: Home or Self Care 06/03/2025 8:36 AM EDT - 06/03/2025 11:59 PM EDT Hospital Encounter [facility] [place] [address] [place] [address] Aleksey Hunt DPM 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, with fat layer exposed (HCC) (Primary Dx); Venous insufficiency of both lower extremities Discharge Disposition: Home or Self Care 05/30/2025 7:45 AM EDT - 05/30/2025 11:59 PM EDT Hospital Encounter [facility] [place] [address] [place] [address] Darek Najera MD Chronic venous htn w ulcer and inflam of bilateral low extrm (HCC) [I87.333] (Primary Dx); 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, with fat layer exposed (HCC); Venous insufficiency of both lower extremities Discharge Disposition: Home or Self Care 05/30/2025 Results Follow-Up [facility] [address] [place] [address] Altaf De La Paz MD [facility] PATH[facility] ORDER 05/27/2025 8:29 AM EDT - 05/27/2025 11:59 PM EDT Hospital Encounter [facility] [place] [address] [place] [address] Aleksey Hunt DPM 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, with fat layer exposed (HCC); Venous insufficiency of both lower extremities Discharge Disposition: Home or Self Care 05/23/2025 7:58 AM EDT - 05/23/2025 11:59 PM EDT Hospital Encounter [facility] [place] [address] [place] [address] Darek Najera MD 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, with fat layer exposed (HCC) (Primary Dx); Venous insufficiency of both lower extremities Discharge Disposition: Home or Self Care 05/21/2025 11:06 AM EDT - 05/21/2025 11:59 PM EDT Hospital Encounter [facility] [address] [place] [address] Altaf De La Paz MD Special screening for malignant neoplasms, colon Discharge Disposition: Home or Self Care 05/20/2025 8:00 AM EDT - 05/20/2025 11:59 PM EDT Hospital Encounter [facility] [place] [address] [place] [address] Aleksey Hunt DPM Chronic venous htn w ulcer and inflam of bilateral low extrm (HCC) (Primary Dx); 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, with fat layer exposed (HCC); Venous insufficiency of both lower extremities; PVD (peripheral vascular disease) (HCC) Discharge Disposition: Home or Self Care 05/16/2025 8:15 AM EDT - 05/16/2025 11:59 PM EDT Hospital Encounter [facility] [address] [place] [address] Darek Najera MD 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, with fat layer exposed (HCC); Venous insufficiency of both lower extremities Discharge Disposition: Home or Self Care 05/13/2025 8:19 AM EDT - 05/13/2025 11:59 PM EDT Hospital Encounter [facility] [address] [place] [address] Aleksey Hunt DPM 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, with fat layer exposed (HCC) (Primary Dx); Venous insufficiency of both lower extremities; Venous ulcer of left leg (HCC) Discharge Disposition: Home or Self Care 05/09/2025 8:08 AM EDT - 05/09/2025 11:59 PM EDT Hospital Encounter [facility] [place] [address] [place] [address] Darek Najera MD 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, with fat layer exposed (HCC); Venous insufficiency of both lower extremities Discharge Disposition: Home or Self Care 05/06/2025 7:57 AM EDT - 05/06/2025 11:59 PM EDT Hospital Encounter [facility] [place] [address] Aleksey Hunt DPM 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, with fat layer exposed (HCC); Venous insufficiency of both lower extremities Discharge Disposition: Home or Self Care 05/05/2025 Refill [facility] [address] [place] [address] Aleksey Hunt DPM Medication Refill 05/02/2025 7:46 AM EDT - 05/02/2025 11:59 PM EDT Hospital Encounter [facility] [place] [address] [place] [address] Darek Najera MD 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, with fat layer exposed (HCC); Venous insufficiency of both lower extremities Discharge Disposition: Home or Self Care 05/01/2025 Telephone [facility] [place] [address] [place] [address] Katarzyna Alexander MA Follow-up; Schedule Appointment 04/29/2025 7:44 AM EDT - 04/29/2025 11:59 PM EDT Hospital Encounter [facility] [place] [address] [place] [address] Aleksey Hunt DPM 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, with fat layer exposed (HCC); Venous insufficiency of both lower extremities Discharge Disposition: Home or Self Care 04/25/2025 7:52 AM EDT - 04/25/2025 11:59 PM EDT Hospital Encounter [facility] [address] [place] [address] Darek Najera MD 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, with fat layer exposed (HCC) (Primary Dx); Venous insufficiency of both lower extremities Discharge Disposition: Home or Self Care 04/22/2025 8:30 AM EDT - 04/22/2025 11:59 PM EDT Hospital Encounter [facility] [place] [address] Aleksey Hunt DPM Cellulitis of lower extremity, unspecified laterality (Primary Dx); 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, with fat layer exposed (HCC); Venous insufficiency of both lower extremities; Venous ulcer of left leg (HCC) Discharge Disposition: Home or Self Care 04/18/2025 7:45 AM EDT - 04/18/2025 11:59 PM EDT Hospital Encounter [facility] [address] [place] [address] Darek Najera MD 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, with fat layer exposed (HCC); Venous insufficiency of both lower extremities Discharge Disposition: Home or Self Care 04/16/2025 Telephone [facility] [address] [facility] [place] [address] Altaf De La Paz MD Other (SCHED COLON) 04/15/2025 8:45 AM EDT - 04/15/2025 11:59 PM EDT Hospital Encounter [facility] [place] [address] [facility] [place] [address] Aleksey Hunt DPM 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, with fat layer exposed (HCC) (Primary Dx); Venous insufficiency of both lower extremities Discharge Disposition: Home or Self Care 04/11/2025 7:45 AM EDT - 04/11/2025 11:59 PM EDT Hospital Encounter [facility] [place] [address] [place] [address] Darek Najera MD Chronic venous htn w [...] disease) Discharge Disposition: Home or Self Care 04/08/2025 8:45 AM EDT - 04/08/2025 11:59 PM EDT Hospital Encounter [facility] [place] [address] [place] [address] Aleksey Hunt DPM 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, with fat layer exposed (HCC) (Primary Dx); Venous insufficiency of both lower extremities; PVD (peripheral vascular disease); Chronic venous htn w ulcer and inflam of bilateral low extrm (HCC); Non-pressure chronic ulcer of right ankle with other specified severity (HCC) Discharge Disposition: Home or Self Care 04/04/2025 7:41 AM EDT - 04/04/2025 11:59 PM EDT Hospital Encounter [facility] [place] [address] [place] [address] Darek Najera MD 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, with fat layer exposed (HCC); Venous insufficiency of both lower extremities; PVD (peripheral vascular disease); Chronic venous htn w ulcer and inflam of bilateral low extrm (HCC) Discharge Disposition: Home or Self Care 04/01/2025 7:45 AM EDT - 04/01/2025 11:59 PM EDT Hospital Encounter [facility] [place] [address] [place] [address] Aleksey Hunt DPM 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, with fat layer exposed (HCC); Venous insufficiency of both lower extremities; PVD (peripheral vascular disease); Chronic venous htn w ulcer and inflam of bilateral low extrm (HCC) Discharge Disposition: Home or Self Care 03/28/2025 8:17 AM EDT - 03/28/2025 11:59 PM EDT Hospital Encounter [facility] [place] [address] [place] [address] Darek Najera MD 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, with fat layer exposed (HCC) (Primary Dx); Venous insufficiency of both lower extremities Discharge Disposition: Home or Self Care 03/25/2025 7:45 AM EDT - 03/25/2025 11:59 PM EDT Hospital Encounter [facility] [place] [address] [place] [address] Aleksey Hunt DPM 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, with fat layer exposed (HCC) (Primary Dx); Venous insufficiency of both lower extremities; PVD (peripheral vascular disease); Chronic venous htn w ulcer and inflam of bilateral low extrm (HCC) Discharge Disposition: Home or Self Care 03/21/2025 7:45 AM EDT - 03/21/2025 11:59 PM EDT Hospital Encounter [facility] [address] [place] [address] Darek Najera MD 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, with fat layer exposed (HCC) (Primary Dx); Venous insufficiency of both lower extremities; PVD (peripheral vascular disease) Discharge Disposition: Home or Self Care 03/18/2025 7:45 AM EDT - 03/18/2025 11:59 PM EDT Hospital Encounter [facility] [address] [place] [address] Aleksey Hunt DPM 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, with fat layer exposed (HCC) (Primary Dx); Venous insufficiency of both lower extremities; PVD (peripheral vascular disease); Chronic venous htn w ulcer and inflam of bilateral low extrm (HCC) Discharge Disposition: Home or Self Care 03/14/2025 8:00 AM EDT - 03/14/2025 11:59 PM EDT Hospital Encounter [facility] [address] [place] [address] Darek Najera MD 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, with fat layer exposed (HCC); Venous insufficiency of both lower extremities; PVD (peripheral vascular disease) Discharge Disposition: Home or Self Care 03/11/2025 7:45 AM EDT - 03/11/2025 11:59 PM EDT Hospital Encounter [facility] [address] [place] [address] Darek Najera MD Chronic venous htn w [...] Paz MD; Location: [facility]; Service: Endoscopy ABLATION OF DYSRHYTHMIC FOCUS HAMMER TOE SURGERY 11/27/2023 Foot/Ankle/Right RIGHT SECOND TOE HAMMER TOE REPAIR and placement of graft to right ankle ulcer; Surgeon: Bienvenido Ford DPM; [facility]; Service: Podiatry Medical devices from this surgery [...] vascular disease Blood circulation, collateral Prostate disorder Colon polyp Family History Medical History Relation Name Comments [...] e alcohol) [facility] Utilities Answer Date Recorded In the past 12 months has e electric, gas, oil, or water [employer] threatened to shut off services in your home? No 07/22/2024 Overall Financial Resource Strain (CARDIA) Answe r Date Recorded How hard is it for you to pa y for the very basics like food, housing, medical care, and heating? Not very hard 07/22/2024 PHQ-2 Answer Date Recorded PHQ-2 Total Score 1 07/22/2024 [facility] [place] of Occupat ional Health - Occupational Stress [...] money to get more. Never true 07/22/2024 [facility] IP Transportation [...] 18 06/10/2025 8:45 AM EDT Oxygen Saturation 96% 05/21/2025 12: 48 PM EDT Inhaled Oxygen Concentration - - Weight 111.4 kg (245 lb 9.6 oz) 025 11:21 AM EDT Height 175.3 cm (5' 9 ) 05/21/2025 11:2 1 AM EDT Body Mass Index 36.27 05/21/2025 11:21 AM EDT Plan of Treatment Upcoming Encounters Date Type Department Care Team (Late st Contact Info) Description 06/17/2025 8:15 AM EST Appointment [facility] [place] [address] [place] [address] Aleksey Hunt DPM [address] [place] [address] 06/19/2025 7:00 AM EST Clinical Support [facility] [place] [address] [place] [address] 06/19/2025 9:00 AM EST Office Visit [facility] [place] [address] [place] [address] 07/09/2025 9:00 AM EST Office Visit [facility] [place] [address] [place] [address] Blair Cordon MD [address] [place] [id number] Health Maintenance Due Date Last Done Comments Wellness Exam Medicare 1953 Diabetic Eye Exam 1967 Kidney Health: uACR 1967 Zoster (1 of 2) 1999 DTaP/TDaP/Td (2 - Td or Tdap) 05/18/2019 05/18/2009 Hemoglobin A1c 03/05/2024 09/05/2023, 02/12, 01/11/2017 RSV or 60+ (1 - 1-dose 75+ series) 2024 Lipids 01/29/2025 01/30/2024, 01/12, 10/18/2019, Additional history exists COVID-19 Vaccine ( - 2024- season) 2025 09/01/2020, 08/04/2020 Influenza Vaccine (#1) 2025 Kidney Health: eGFR 08/30/2025 08/30/2024, 07/24/2024, 07/23/2024, Additional history exists Hepatitis C Screening Completed 03/13/2012 Pneumococcal Vaccine 50+ Completed 04/07/2023 Colon Cancer Screening Discontinued Colonoscopy Discontinued 05/21/2025, 01/2020, 09/24/2015 Cologuard Discontinued FIT Discontinued Hepatitis B Vaccine Aged Out No longe r eligible based on patient's age to complete this topic Meningococcal B Vaccine Aged Out No l onger eligible based on patient's age to complete this topic Sigmoidoscopy Discontinued Virtual Colonography Discontinued Goals Goal Patient Goal Type Associated Problems [...] peripheral neuropathy weekly. Refer to PCP and/or Computer Technology Trainer, Vascular Specialist as indicated. Monitor patient compliance with wound care, diabetes management and proper offloading. Medical Devices Implanted Type Area Last Sawyer Device Identifier Shelf Expiration Date Model / Serial / Lot Hardware Right Great Toe Matrix Amnion Thick Cord 3cm X 4cm Sterile - [id number] Implanted:Qty: 1 on 11/27/2023 by Bienvenido Ford DPM at [facility] Right: Ankle ARTHREX 02/21/2028 [id number] / / [id number] Procedures Procedure Name Priority Date/Time Associated Diagnosis Comments [facility] ORDER Routine 05/21/2025 1 2:33 PM EDT Special screening for malignant neoplasms, colon COLONOSCOPY Routine 05/21/2025 12:31 PM EDT Special screening for malignant neoplasms, colon POCT GLUCOSE Routine 05/21/2025 11:28 AM EDT POCT INR Routine 05/21/2025 11:27 AM EDT PATHOLOGY TISSUE REQUEST Routine 04/08/2025 8:45 AM EDT 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, with fat layer exposed (HCC) Venous insufficiency of both lower extremities PVD (peripheral vascular disease) Chronic venous htn w ulcer and inflam of bilateral low extrm (HCC) Non-pressure chronic ulcer of right ankle with other specified severity (HCC) BASIC METABOLIC PANEL Routine 08/30/2024 9:09 AM EST Atherosclerosis of arteries of extremities LIPID SCREEN Callback 01/30/2024 7:41 AM EDT Chronic heart failure, unspecified heart failure type (HCC) HEMOGLOBIN A1C Routine 09/05/2023 9:22 AM EST Diabetic ulcer of right ankle associated with type 2 diabetes mellitus, with fat layer exposed (HCC) ACUTE HEPATITIS PANEL Callback 03/13/2012 9:12 AM EDT CKD (chronic kidney disease) HTN (hypertension) CAD (coronary artery disease) High level of uric acid in blood from Last 3 Months or Most Recently Relevant to Health Maintenance Results * [facility] PATH[facility]Y ORDER (05/21/2025 12:33 PM EDT) Tissue ASCENDING COLON STRUCTURE / Unknown 05/21/2025 12:33 PM EDT Tissue specimen (specimen) SIGMOID COLON STRUCTURE / Unknown 05/21/2025 12:33 PM EDT Impressions [facility] - 05/21/2025 7:00 PM EDT A. Colon, Ascending: Biopsy TUBULAR ADENOMA(S) NEGATIVE FOR HIGH GRADE DYSPLASIA AND MALIGNANCY The polyp(s) contain adenomatous epithelium. B. Colon, Sigmoid: Biopsy HYPERPLASTIC POLYP(S) The polyp(s) contain hyperplastic epithelium. There is no evidence of dysplasia or malignancy. Narrative [facility] - 05/21/2025 7:00 PM EDT Pathologist: Jhonny Downs MD us Altaf De La Paz MD [employer] - ORDERABLES Final Result [facility] [address] [place] [address], [facility] * COLONOSCOPY (05/21/2025 12:31 PM EDT) [...] - 200 MG/DL [facility] Lot Number [id number] [facility] Expiration Date 11/04/26 [facility] SeriAl # [facility] Meter 1 [facility] 05/21/2025 11:2 8 AM EDT Altaf De La Paz MD POINT OF CARE TEST ORD ERABLES Final Result [facility] [address] [place] [address], [facility] [phone] * POCT INR (05/21/2025 11:27 AM EDT) INR 1.1 0.86 - 1.16 [facility] Blood 05/21/2025 11:2 7 AM EDT Altaf De La Paz MD POINT OF CARE TEST ORD ERABLES Final Result [facility] [address] [place] [address], [facility] [phone] * PATHOLOGY TISSUE REQUEST (04/08/2025 8:45 AM EDT) CASE REPORT Surgical Pathology Case: [id number] Authorizing Provider: Aleksey Hunt DPM Collected: 04/08/2025 0845 Ordering Location: [facility] [place] Received: 04/08/2025 1115 [place] Pathologist: Marie Grayson MD Specimen: Leg, Left 04/10/2025 2:47 PM EDT [facility] FINAL DIAGNOSIS Left leg, biopsy: - Inflamed granulation tissue with hemosiderin deposition. - Negative for malignancy. 04/10/2025 2:47 PM EDT [facility] at 1447 EDT GROSS DESCRIPTION A. Received in formalin labeled with patient's name, MRN, and leg, left is a 1 x 0.6 x 0.2 cm portion of brown friable tissue which is entirely submitted in 1 cassette. LEIGHANN Couch, PA (ASCP) 04/10/2025 2:47 PM EDT [facility] MICROSCOPIC DESCRIPTION The microscopic examination may have been rendered in whole, or in part, by analyzing high-resolutio n digital images (whole slide images) on the [employer] Digital Pathology platform validated at [facility]. 04/10/2025 2:47 PM EDT [facility] EMBEDDED IMAGES 04/10/2025 2:47 PM EDT [facility] Tissue STRUCTURE OF LEFT LOWER LEG / Unknown 04/08/2025 8:45 AM EDT 04/08/2025 11:15 AM EDT us Aleksey Hunt DPZuleika PATHOLOGY ORDERABLES Final Result [facility] [address] [place] [address], [facility] [phone] [facility] [address] [place] [address] * (ABNORMAL) BASIC METABOLIC PANEL (08/30/2024 9:09 AM EST) Sodium 142 136 - 145 mmol/L 08/30/2024 12:02 PM EST [facility] Potassium 4.2 3.5 - 5.0 mmol/L 08/30/2024 12:02 PM EST [facility] Chloride 101 98 - 107 mmol/L 08/30/2024 12:02 PM EST [facility] Total CO2 29 22 - 29 mmol/L 08/30/2024 12:02 PM EST [facility] Anion Gap 12 7 - 16 mmol/L 08/30/2024 12:02 PM EST [facility] Calcium 9.3 8.8 - 10.4 mg/dL 08/30/2024 12:02 PM EST [facility] Glucose Lvl 127(H) 70 - 99 mg/dL 08/30/2024 12:02 PM EST [facility] BUN 23 8 - 23 mg/dL 08/30/2024 12:02 PM EST [facility] Creatinine 1.11 0.67 - 1.30 mg/dL 08/30/2024 12:02 PM EST [facility] eGFR (CKD-EPIcr 2020) 69 >=60 mL/min/1.7 3 m2 08/30/2024 12:02 PM EST [facility] Comment:Estimated GFR was ca lculated using the CKD-EPIcr (2020) equation refit without race. The equation is recommended by the National Kidney Foundation - [place] Society of Nephrology Task Force. Blood VENOUS BLOOD / Unknown Venipuncture / Unknown 08/30/2024 9:09 AM EST 08/30/2024 9:09 AM EST us Blair Cordon MD CHEMISTRY ORDERABLES Final Res ult [facility] [address] [facility] , [place] [address] [facility] [address] [place] [address] * (ABNORMAL) LIPID SCREEN (01/30/2024 7:41 AM EDT) [facility] Cholesterol 164 <200 mg/dL 01/30/2024 9:09 AM EDT [facility] Comment: < 200 Desirable 200 - 239 Borderline High >= 240 High Triglyceride 634(H) <150 mg/dL 01/30/2024 9:09 AM EDT [facility] Comment: < 150 Normal 150 - 199 Borderline High 200 - 499 High >= 500 Very High HDL 37(L) >=40 mg/dL 01/30/2024 9:09 AM EDT [facility] Comment: > 60 Optimal 40 - 60 Acceptable < 40 Low LDL Calculated 39 <100 mg/dL 01/30/2024 9:09 AM EDT [facility] Comment: < 100 Optimal 100 - 129 Near or above optimal 130 - 159 Borderline High 160 - 189 High >= 190 Very High Non-HDL-C Calculated 127 <=129 mg/dL 01/30/2024 9:09 AM EDT [facility] Comment: <130 Desirable 130-159 Above Desirable 160-189 Borderline High 190-219 High >= 220 Very High Fasting Specimen? Unknown None 024 9:09 AM EDT [facility] Blood VENOUS BLOOD / Unknown Venipuncture / Unknown 01/30/2024 7:41 AM EDT 01/30/2024 7:42 AM EDT us Aleksey Estrella MD CHEMISTRY ORDERABLES Telma l Result [facility] [address] [facility] , [place] [address] [place] [phone] * (ABNORMAL) HEMOGLOBIN A1C (09/05/2023 9:22 AM EST) [facility] Hgb A1C 6.9(H) 4.2 - 5.6 % 09/05/2023 3:46 PM EST [facility] Est. Avg Glucose 151 mg/dL 09/05/2023 3:46 PM EST [facility] Blood VENOUS BLOOD / Unknown Venipuncture / Unknown 09/05/2023 9:22 AM EST 09/05/2023 9:36 AM EST Narrative [facility] - 09/05/2023 3:46 PM EST REFERENCE RANGE: Normal: 4.0-5.6% Pre-diabetes: 5.7-6.4% Provisional diagnosis of diabetes: >6.4% Hgb F>10% and anything which shortens red cell survival, such as hemolytic anemia, or unstable hemoglobin variants such as HbSS, HbSC, or HbCC, will lower the HbA1c value associated with a given level of glycemic control. us Aleksey Hunt DPM CHEMISTRY ORDERABLES Final Result Performing Organization Address City/[facility]/ZIP Co de Phone Number [facility] [address], [place] [address] * ACUTE HEPATITIS PANEL (03/13/2012 9:12 AM EDT) [facility] Hep Bs Ag Negative Negative [facility] Hep B Core IgM Negative Negative [facility] Hep A IgM Negative Negative [facility] Hep C Ab Negative Negative [facility] Blood specimen (specimen) UPPER LIMB STRUCTURE / Unknown 03/13/2012 9:12 AM EDT 03/13/2012 2:46 PM EDT Narrative [facility] - 03/13/2012 3:39 PM EDT Fax results to [phone] us Jerry Hooks MD CHEMISTRY ORDERABLES Edited Performing Organization Address City/[facility]/ZIP Co de Phone Number [facility] [address] [place] [address] from Last 3 Months or Most Recently Relevant to Health Maintenance Insurance [id number] [place] [address] MEDICARE [place] PART A AND B SUPPLEMENTAL MEDICARE IN PART A AND B [employer] [place] [address] [place]ICARE [place] PART A [place] B [place] [id number] AAR SUPPLEMENTAL MEDICARE IN PART A AND B MEDICARE [place] PART [place] B A[place] SUPPLEMENTAL Advance Directives For more information, please contact: [phone] * Full Code (Latest Code Status on File) Date Activated Date Inactivated Comments 07/22/2024 11:15 AM 07/24/2024 8:14 PM Care Teams Outboard Motor Mechanic Relationship Specialty Start Date End Date Dylon Izaguirre MD PCP - General Family Medicine 09/05/23
--- OUTSIDE RECORDS SUMMARY | 2025-06-10 21:53 | XMS_ITS | Encounter Summary ---
Author [place] [address] Care Team Providers Care Hoist Cylinder Loader Name Role Phone Louisa Main MD, Harold Primary Care Provider + Dylon Izaguirre MD Primary Care Provider [phone] Encounter Details Date Type Department Care Team (Late st Contact Info) Description 05/08/2009 Orders Only [facility] [address] [place] [address] Dereje Humphreys MD Social History [...] Info) Description 06/17/2025 8:15 AM EST Appointment [facility] [place] [address] [place] [address] Aleksey Hunt DPM [address] [place] [address] 06/19/2025 7:00 AM EST Clinical Support [facility] [place] [address] [place] [address] 06/19/2025 9:00 AM EST Office Visit [facility] [place] [address] [place], [place] [phone] 07/09/2025 9:00 AM EST Office Visit [facility] [place] [address] [place], [place] [phone] Blair Cordon MD [address] [place] [address] documented as of this encounter Procedures Procedure [...] a practice prior to that practice using [facility] for Medical Records. Performing Provider: Dereje Humphreys MD us Dereje Humphreys MD IMG ECHO ORDERABLES Final R esult documented in this encounter Visit Diagnoses Not on filedocumented in this encounter Additional Health Concerns Infection Onset Date Last Indicated Resolved Time R/O COVID-19 07/22/2024 07/22/2024 07/22/2024 2:12 PM EST COVID-19 07/22/2024 07/22/2024 08/11/2024 10:1 3 PM EST documented as of this encounter Care Teams Hoist Cylinder Loader Relationship Specialty Start Date End Date Gaetano Jasso MD [address] [place] [phone] PCP - General 10/27/10 09/04/23 Dylon Izaguirre MD [address] [place] [phone] PCP - General Family Medicine 09/05/23 documented as of this encounter
--- OUTSIDE RECORDS SUMMARY | 2025-06-10 21:53 | XMS_ITS | Clinical Summary ---
Author Organization [facility] Address [facility] [place] [address] Care Team Providers Care Career Specialist Name Role Phone Unknown, Attending Provider Primary [...] therelease of HIV test results or diagnoses. [id number] Health Allergies Active Allergy Reactions Criticality Noted [...] Health Maintenance Due Date Last Done Comments Depression Screening 1967 Immunization: Pneumococcal (1 of 1 - PCV) 1999 Immunization: Zoster (1 of 2) 1999 Immunization: DTaP/Tdap/Td ( 2 - Td or Tdap) 05/18/2019 05/18/2009 Alcohol Misuse Screening 03/02/2024 03/02/2023 Immunization: RSV (Adult) (1 - 1-dose 75+ series) 2024 Immunization: COVID-19 ( - season) 2025 09/01/2020, 08/04/2020 Immunization: Influenza (MyChart) (#1) 2025 Insurance MEDICARE A AND B AAR Advance Directives For more information, please contact: [phone] * Full Code (Latest Code Status on File) Date Activated Date Inactivated Comments 03/02/2023 6:21 PM 03/06/2023 10:27 PM Care Teams Career Specialist Relationship Specialty Start Date End Date Unknown, Attending Provider PCP - General 03/02/23
--- OUTSIDE RECORDS SUMMARY | 2025-06-10 21:53 | XMS_ITS | Encounter Summary ---
Author Organization [facility] Address [facility] [place] [address] Care Team Providers Care Airplane Mechanic Apprentice Name Role Phone Gaetano Jasso MD Primary Care Provider + Dylon Izaguirre MD Primary Care Provider Aleksey Estrella MD Unavailable [phone] Suri Lawrence NP Unavailable Kellen Carlson NP Unavailable Radha Jerome RN Unavailable Unavailable Rona Robbins RN Unavailable Stacy Branch NP Unavailable Unavailable Patrick Allen MD Unavailable [phone] Alvin [place] MD Unavailable Unavailable Nithya Andrew NP Unavailable Encounter Details Date Type Department Care Team (Late st Contact Info) Description 12/25/[address] [facility] Physicians - Heart & Vascular, [address] [place] [address] Ambulatory, Technical Support Manager Social History Tobacco Use Types Packs/Day Years [...] [facility] [address] [place] [address] Medical Office Building [address] [place] [phone] [place] [address] [place] [address]. [address] [place] [address] Pending Results Name Type Priority Associated Diagnoses Date /Time LIVER PROFILE Lab Routine 11/03/2014 LIPID PROFILE Lab Routine 11/03/2014 documented as of this encounter Procedures Procedure Name Priority Date/Time Associated Diagnosis Comments ABSTRACTED EKG ([facility]) Routine 12/25/2014 documented in this encounter Results * ABSTRACTED EKG ([facility]) (12/25/2014) ABSTRACT EKG TCHCVANKY Sinus Bradycardia Rate 42 QRSD 96 us Historical Provider DUMMY Final Result documented in this encounter Visit Diagnoses Not on filedocumented in this encounter Care Teams Airplane Mechanic Apprentice Relationship Specialty [place] [address] [place] [address] PCP - General Family Medicine 12/24/14 11/26/18 [place] [address] [place] [address] PCP - General Family Medicine 11/27/18 Aleksey Estrella MD [address] [place] [address] Advanced Heart Failure/Transplant 10/15/20 Suri Lawrence NP [address] [place] [address] Nurse Practitioner Nurse Practitioner, [facility] 03/23/21 Kellen Carlson NP [address] [place] [address] Nurse Practitioner Nurse Practitioner, [facility] 04/06/21 Radha Jerome RN Registered Nurse 05/07/21 Rona Robbins RN [address] [place] [address] Registered Nurse 06/17/21 Stacy Branch NP [address] [place] [address] Nurse Practitioner Nurse Practitioner, Acute Care 10/21/21 Patrick Allen MD [address] [place] [address] Internal Medicine, Sleep Medicine 03/31/22 Alvin Washington MD Interventional Cardiology 08/21/22 Nithya Andrew NP [address] [place] [address] Nurse Practitioner Nurse Practitioner 11/29/22 documented as of this encounter
--- OUTSIDE RECORDS SUMMARY | 2025-06-10 21:53 | XMS_ITS | Encounter Summary ---
Author Organization [place] [address] Care Team Providers Care Archaeology Professor Name Role Phone Dylon Izaguirre MD Primary Care Provider Reason for Visit * Reason Comments Medication Refill Encounter Details Date Type Department Care Team (Late st Contact Info) Description 06/10/2025 Refill [facility] [place] [address] [facility] [place] [address] Aleksey Hunt DPM [address] [place] [phone] Medication Refill Social History Tobacco Use Types Packs/Day Years Used Date Smoking Tobacco: Former Cigarettes 0.5 9 0 01/17/1973 - 01/17/1982 Smokeless Tobacco: Former Snuff Quit: 01/12/2005 Alcohol Use Standard Drinks/Week Comments No 0 (1 standard drink = 0.6 oz pur e alcohol) [facility] Utilities Answer Date Recorded In the [...] Date Recorded PHQ-2 Total Score 1 07/22/2024 [facility] [place] [facility] Occupat ional Health - Occupational Stress [...] money to get more. Never true 07/22/2024 [facility] HRSN [facility] IP Transportation Answer D ate [...] encounter Miscellaneous Notes * Telephone Encounter - Jennifer Lo RN - 06/10/2025 12:38 PM EDT Mirella Hunt Pentoxifylline ER 400mg oral tablet sustained released refill is being requested. Thank you Jennifer RN documented in this encounter Plan of Treatment Upcoming Encounters Date Type Department Care Team (Late st Contact Info) Description 06/17/2025 8:15 AM EST Appointment [facility] [address] [place] [address] Aleksey Hunt DPM [address] [place] [facility] [place] [address] 06/19/2025 7:00 AM EST Clinical Support [facility] [address] [place] [address] 06/19/2025 9:00 AM EST Office Visit [facility] [address] [place] [address] 07/09/2025 9:00 AM EST Office Visit [facility] [place] [address] [place] [address] Blair Cordon MD [address] [place] [phone] documented as of this encounter Goals Goal [...] peripheral neuropathy weekly. Refer to PCP and/or Weights And Measures Inspector, Vascular Specialist as indicated. Monitor patient [...] documented as of this encounter Care Teams Archaeology Professor Relationship Specialty Start Date End Date Dylon Izaguirre MD PCP - General Family Medicine 09/05/23 documented as of this encounter
--- OUTSIDE RECORDS SUMMARY | 2025-06-10 21:53 | XMS_ITS | Encounter Summary ---
Author Organization [facility] Address [address] [place] [address] Care Team Providers Care Fire Operations Forester Name Role Phone Gaetano Jasso MD Primary Care Provider + Dylon Izaguirre MD Primary Care Provider [phone] Aleksey Estrella MD Unavailable [phone] Suri Lawrence NP Unavailable Kellen Carlson NP Unavailable [phone] Radha Jerome RN Unavailable Unavailable Rona Robbins RN Unavailable [phone] Stacy Branch NP Unavailable Unavailable Patrick Allen MD Unavailable [phone] Alvin [place] MD Unavailable Unavailable Nithya Andrew NP Unavailable [phone] Encounter Details Date Type Department Care Team (Late st Contact Info) Description 04/11/2017 Preop Surgical Orders [facility] Physicians - Heart & Vascular, [facility] [address] [facility] [address] [place] [phone] Dereje Shah MD [address] [facility]. [address] [place], [place] [address] Social History Tobacco Use Types Packs/Day Years [...] [facility] - [facility], [address] Medical Office Building [address] [place] [address] Patrick Allen MD [address] [place] [address]. [address] [place], [place] [address] documented as of this encounter Goals Goal [...] on filedocumented in this encounter Care Teams Fire Operations Forester Relationship Specialty Start Date End Date Gaetano Jasso MD [address] [place] [address] PCP - General Family Medicine 12/24/14 11/26/18 [place] [address] [place] [address] PCP - General Family Medicine 11/27/18 Aleksey Estrella MD [address] [place] [address] Advanced Heart Failure/Transplant 10/15/20 Suri Lawrence NP [address] [place], [place] [address] Nurse Practitioner Nurse Practitioner, [facility] 03/23/21 Kellen Carlson NP [address] [place], [place] [address] Nurse Practitioner Nurse Practitioner, [facility] 04/06/21 Radha Jerome RN Registered Nurse 05/07/21 Rona Robbins, RN [address] [place], [place] [address] Registered Nurse 06/17/21 Stacy Branch NP [address] [place] [address] Nurse Practitioner Nurse Practitioner, Acute Care 10/21/21 Patrick Allen MD [address] [place] [address] Internal Medicine, Sleep Medicine 03/31/22 Alvin Washington MD Interventional Cardiology 08/21/22 Nithya Andrew NP [address] [place] [address] Nurse Practitioner Nurse Practitioner 11/29/22 documented as of this encounter
--- OUTSIDE RECORDS SUMMARY | 2025-06-10 21:53 | XMS_ITS | Encounter Summary ---
Author Organization [facility] Address [facility] [place] [address] Care Team Providers Care Certified Legal Secretary Specialist Name Role Phone Gaetano Jasso MD Primary Care Provider + Dylon Izaguirre MD Primary Care Provider [phone] Aleksey Estrella MD Unavailable [phone] Suri Lawrence NP Unavailable Kellen Carlson NP Unavailable Radha Jerome RN Unavailable Unavailable Rona Robbins RN Unavailable [phone] Stacy Branch NP Unavailable Unavailable Patrick Allen MD Unavailable [phone] Alvin Washington MD Unavailable Unavailable Nithya Andrew NP Unavailable Encounter Details Date Type Department Care Team (Late st Contact Info) Description 01/15/2015 Abstract [facility] Physicians - Heart & Vascular, [address] [place] [address] Ambulatory, Irrigation Equipment Mechanic Social History Tobacco Use Types Packs/Day Years [...] Description 07/01/2025 2:00 PM EST Appointment [facility] [address] [place] [address] Medical Office [address] [place] [phone] Patrick Allen MD [address] [facility] [place], [place] [address] documented as of this encounter Procedures Procedure Name Priority Date/Time Associated Diagnosis Comments ABSTRACTED EKG ([facility]) Routine 01/15/2015 documented in this encounter Results * ABSTRACTED EKG ([facility]) (01/15/2015) ABSTRACT EKG TCHCVANKY Sinus Bradycardia Rate 45 QRSD 92 us Historical Provider DUMMY Final Result documented in this encounter Visit Diagnoses Not on filedocumented in this encounter Care Teams Certified Legal Secretary Specialist Relationship Specialty Start Date End Date Gaetano Jasso MD [address] [place] [id number] PCP - General Family Medicine 12/24/14 11/26/18 [place] [address] [place] [address] PCP - General Family Medicine 11/27/18 Aleksey Estrella MD [address] [facility] [address] [place], [place] [address] Advanced Heart Failure/Transplant 10/15/20 Suri Lawrence NP [address] [place] [address] Nurse Practitioner Nurse Practitioner, [facility] 03/23/21 Kellen Carlson NP [address] [place] [address] Nurse Practitioner Nurse Practitioner, [facility] 04/06/21 Radha Jerome, RN Registered Nurse 05/07/21 Rona Robbins, MEIR [address] [place] [address] Registered Nurse 06/17/21 Stacy Branch NP [address] [place] [address] Nurse Practitioner Nurse Practitioner, Acute Care 10/21/21 Patrick Allen MD [address] [place] [address] Internal Medicine, Sleep Medicine 03/31/22 Alvin Washington MD Interventional Cardiology 08/21/22 Nithya Andrew NP [address] [place] [address] [place] [address] Nurse Practitioner Nurse Practitioner 11/29/22 documented as of this encounter
--- OUTSIDE RECORDS SUMMARY | 2025-06-10 21:53 | XMS_ITS | Encounter Summary ---
Author Organization [facility] Address [facility] [place] [address] Care Team Providers Care Network Liaison Name Role Phone Gaetano Jasso MD Primary Care Provider + Dylon Izaguirre MD Primary Care Provider Aleksey Estrella MD Unavailable Suri Lawrence NP Unavailable Keleln Carlson NP Unavailable Radha Jerome RN Unavailable Unavailable Rona Robbins RN Unavailable Stacy Branch NP Unavailable Unavailable Patrick Allen MD Unavailable [phone] Alvin Washington MD Unavailable Unavailable Nithya Andrew NP Unavailable Encounter Details Date Type Department Care Team (Late st Contact Info) Description 12/24/2014 Abstract [facility] Physicians - Heart & Vascular, [place] [address] [place] [address] Ambulatory, Denture Packer Social History Tobacco Use Types Packs/Day Years [...] Description 07/01/2025 2:00 PM EST Appointment [facility] Physicians - Sleep Medicine, [address] [place] [id number] Patrick Allen MD [address] [facility] [place], [place] [id number] documented as of this encounter Visit Diagnoses Not on filedocumented in this encounter Care Teams Network Liaison Relationship Specialty Start Date End Date Gaetano Jasso MD [address] [place] [address] PCP - General Family Medicine 12/24/14 11/26/18 [place] [address] [place] [address] PCP - General Family Medicine 11/27/18 Aleksey Estrella MD [address] [place] [address] [address] [place] [address] Advanced Heart Failure/Transplant 10/15/20 uSri Lawrence NP [address] [place] [address] [address] [place] [address] Nurse Practitioner Nurse Practitioner, Family 03/23/21 Kellen Carlson NP [address] [place] [address]. [address] [place] [address] Nurse Practitioner Nurse Practitioner, [facility] 04/06/21 Radha Jerome, RN Registered Nurse 05/07/21 Rona Robbins, RN [address] [place] [address] Registered Nurse 06/17/21 Stacy Branch NP [address] [place] [address] Nurse Practitioner Nurse Practitioner, Acute Care 10/21/21 Patrick Allen MD [address] [facility] [place] [address] Internal Medicine, Sleep Medicine 03/31/22 Alvin Washington MD Interventional Cardiology 08/21/22 Nithya Andrew NP [address] [facility] [place] [address] Nurse Practitioner Nurse Practitioner 11/29/22 documented as of this encounter
--- OUTSIDE RECORDS SUMMARY | 2025-06-10 21:53 | XMS_ITS | Clinical Summary ---
Author Organization [facility] Address [address] [place] [address] Care Team Providers Care Light Armored Reconnaissance Officer Name Role Phone Dylon Izaguirre MD Primary Care Provider [phone] Aleksey Estrella MD Unavailable Suri Lawrence NP Unavailable Kellen Carlson NP Unavailable Radha Jerome RN Unavailable Unavailable Rona Robbins RN Unavailable Stacy Branch NP Unavailable Unavailable Patrick Allen MD Unavailable [phone] Alvin Washington MD Unavailable Unavailable Nithya Andrew NP Unavailable Allergies Active Allergy Reactions Criticality Noted Date Comments Edwin Inhibitors Other (See Comments),Rash 11/16/2011 cough Ciprofloxacin 10/02/2023 Nsaids (Non-Steroidal Anti-Inflammatory Drug) Other (See Comments) 11/21/2023 Kidney function Ofloxacin 10/02/2023 Penicillins Rash,Hives High 11/16/2011 Other reaction(s): Unknown allergy reaction Quinolones Other (See Comments) 11/16/2011 Mentally off foggy headed. Muscle aches Rosuvastatin Other (See Comments) 11/16/2011 Muscle pain myalgia Simvastatin Other (See Comments) 11/16/2011 Muscle pain Myalgia Vxsfdkr-Bcd-Olj Reductase Inhibitors 03/03/2022 Ezetimibe-Simvastatin Other (See Comments) 12/12 Muscle pain Medications aspirin 81 mg Tablet, Delayed Release (E.C.) Take 81 mg by mouth daily. Active acetaminophen (TYLENOL) 500 mg tablet Take 2 Tabs (1,000 mg total) by mouth every 6 hours as needed. 0 Active metFORMIN (GLUCOPHAGE) 500 mg tablet Take 500 mg by mouth 2 times daily. Active tamsulosin (FLOMAX) 0.4 mg sustained release capsule Take 1 Capsule (0.4 mg total) by mouth nightly at bedtime. 30 Capsule 1 Active gabapentin (NEURONTIN) 300 mg capsule Take 300 mg by mouth 3 times daily. Active allopurinoL (ZYLOPRIM) 100 mg tablet 2 Active magnesium oxide (MAG-OX) 400 mg (241.3 mg magnesium) tablet 2 Active dapagliflozin propanediol (Farxiga) 10 mg Tablet tablet Take 1 Tablet by mouth daily. 28 Tablet 3 Active Alcohol Swabs Pads, MedicatedIndicat ions:Type 2 diabetes mellitus without complication, without long-term current use of insulin (CMS/[facility]) For use with pen 100 Each 3 Active HYDROcodone-Acet aminophen (NORCO) 5-325 mg per tablet Take 1 Tablet by mouth every 4 hours as needed. 4 Active Doxycycline Monohydrate (MONODOX) 100 mg capsule Take 100 mg by mouth daily. 4 Active pentoxifylline (TRENTAL) 400 mg CR tablet Take 1 Tablet by mouth 2 times daily. 4 Active furosemide (LASIX) 40 mg tablet Take 1 Tablet (40 mg) by mouth daily. Pt is taking one tab daily 90 Tablet 3 4 Active irbesartan (AVAPRO) 150 mg Tablet Take 1 Tablet by mouth daily. 90 Tablet 3 4 Active metoprolol succinate (TOPROL) 25 mg XL tabletIndication s:Paroxysmal atrial fibrillation (CMS/HCC) Take 1 Tablet (25 mg) by mouth daily. 90 Tablet 3 4 Active warfarin (COUMADIN) 5 mg tablet Take 0.5 Tablets (2.5 mg) by mouth daily. Take 2.5mg by mouth daily. 45 Tablet 3 4 Active tirzepatide (Mounjaro) 2.5 mg/0.5 mL Pen InjectorIndicati ons:Type 2 diabetes mellitus without complication, without long-term current use of insulin (CMS/HCC) 2.5 mg by Subcutaneous route once weekly. 2 mL 3 4 Active dapagliflozin propanediol (Farxiga) 10 mg Tablet tablet Take 1 Tablet by mouth daily. Lot #: [id number] Exp: 11/11/2026 28 Tablet 4 Active evolocumab (Repatha SureClick) 140 mg/mL Pen InjectorIndicati ons:Coronary artery disease involving [place] coronary artery of [place] heart without angina pectoris 140 mg by Subcutaneous route every 14 days. 2 mL 12 4 Active Active Problems Problem Noted Date Diagnosed Date Venous ulcer of left leg 12/12/2023 Hyperkalemia 06/18/2021 AMY (acute kidney injury) 06/18/2021 Chronic total occlusion of coronary artery 10/15 Overview (10/16/2019): Added automatically from request for surgery [id number] Coronary artery disease of n ative artery of [place] heart with stable angina pectoris 10/16/2019 Overview (10/16/2019): Added automatically from request for surgery [id number] PAF (paroxysmal atrial fibrillation) 09/06/2017 Heart failure with preserved ejection fraction 0 04/20/2017 Typical atrial flutter 04/11/2017 Chronic anticoagulation 2017 NSTEMI (non-ST elevated myocardial infarction) 0 2017 AF (atrial fibrillation) 03/16/2017 Morbid obesity 03/16/2017 Paroxysmal atrial fibrillation 12/25/2014 CAD (coronary artery disease) 12/25/2014 Stage 3 chronic kidney disease 12/25/2014 Overview (05/15/2017): Replaced inactive diagnosis via diagnosis import s/p CABG in 2006 ([place] to OM , VG to LAD, VG to PDA) (PCI/SHADI mid LAD NSTMI 03/2017) 12/25/2014 PATRICIA (obstructive sleep apnea) 12/25/2014 Family History Medical History Relation Name Comments Heart Defect Brother Cancer Father Relation Name Status Comments Brother Father Mother Social History Tobacco Use Types Packs/Day Years Used Date Smoking Tobacco: Former Cigarettes 0.5 20 0 01/17/1962 - 01/17/1982 Smokeless Tobacco: Former Quit: 01/12/2005 Comments:Not needed Alcohol Use Standard Drinks/Week Comments Not Currently 0 (1 standard drink = 0.6 oz pur e alcohol) occ, wine/beer Sex and Gender Information Value Date Recorded Sex Assigned at Not on file Legal Sex Male 11:06 AM EDT Gender Identity Not on file Sexual Orientation Not on file Last Filed Vital Signs Vital Sign Reading Time Taken Comments Blood Pressure 126/78 06/18/2024 12:57 PM EST Pulse 61 06/18/2024 12:57 PM EST Temperature 36.5 C (97.7 F) 06/21/2021 7:26 AM EST Respiratory Rate 16 11/29/2022 10:47 AM EDT Oxygen Saturation 98% 06/18/2024 12:57 PM EST Inhaled Oxygen Concentration - - Weight 122.5 kg (270 lb) 06/18/2024 12:57 PM EST Height 175.3 cm (5' 9 ) 06/18/2024 12:57 PM EST Body Mass Index 39.87 06/18/2024 12:57 PM EST Plan of Treatment Upcoming Encounters Date Type Department Care Team (Late st Contact Info) Description 07/01/2025 2:00 PM EST Appointment [facility] Physicians - Sleep Medicine, [address] Medical Office [address] [place] [address] Patrick Allen MD [address] [place] [address]. [address] [place] [address] Health Maintenance Due Date Last Done Comments Diabetes Mellitus Foot Care (Yearly) 1949 Hepatitis C Virus (HCV) Screening 1970 Pneumococcal Vaccine: 50+ Ye ars (1 of 1 - PCV) 1999 Zoster-RZV(Shingrix) (1 of 2) 1999 Fall Risk Assessment 2014 Tetanus Vaccination (Every 1 0 Years) 05/18/2019 05/18/2009 Diabetes A1c Monitoring 03/05/2024 09/05/19 24, 01/11/2017, 06/06/2016 RSV Vaccines (1 - 1-dose 75+ series) 2024 Advance Care Planning 08/14/2024 BMI Counseling 08/14/2024 Depression Screening 08/14/2024 Diabetes Mellitus Microalbum in (Yearly) 08/14/2024 Lipid Monitoring 01/29/2025 01/30/2024, , 10/20/2020, Additional history exists COVID-19 Vaccine (2024-2 6 season) 2025 09/01/2020, 08/04/2020 Influenza Vaccination (#1) 2025 Lipid Screening Discontinued 01/30/2024, 01/12, 10/20/2020, Additional history exists Renal Monitoring Completed 08/30/2024, 06/2024, 07/23/2024, Additional history exists Goals Goal Patient Goal Type Associated Problems Recent Progress Patient-Stated? Author Reduce salt intake to 2 grams per day Diet No Cipriano Day BS Increase physical activity Lifestyle No Cipriano Day BS LDL CALC < 100 Result Component 39(01/30/2024 7:41 AM EDT) No Cipriano Day BS Procedures Procedure Name Priority Date/Time Associated Diagnosis Comments BASIC METABOLIC PANEL (BMP=EP1) Routine 06/27/2024 7:32 AM EST Chronic diastolic heart failure LIPID PROFILE Routine 01/30/2024 HGB, A1C (GLYCOHEMOGLOBIN) Routine 01/11/2017 from Last 3 Months or Most Recently Relevant to Health Maintenance Results * (ABNORMAL) BASIC METABOLIC PANEL (BMP=EP1) (06/27/2024 7:32 AM EST) Sodium 142 135 - 146 mmol/L [facility] Potassium 4.0 3.5 - 5.1 mmol/L [facility] Chloride 103 98 - 110 mmol/L [facility] CO2 28 22 - 29 mmol/L [facility] Anion Gap 11 5 - 13 mmol/L [facility] Comment:Anion gap calculatio n does not include potassium (K+) value. BUN 26(H) 7 - 25 mg/dL [facility] Creatinine 1.31(H) 0.50 - 1.30 mg/dL [facility] Glucose 103(H) 71 - 99 mg/dL [facility] Comment:Reference range (71- 99 mg/dL) refers only to fasting samples, and does not apply to non-fasting samples. eGFR CKD-EPI 2020 57 See Note [facility] Comment: eGFR calculated with 2020 CKD-EPI equation using creatinine, patient's age and gender. Other factors, especially muscle mass, may affect accuracy and need to be considered. Patient values should be interpreted as a trend. The reference interval is >60 mL/min/1.73m2. Calcium 9.4 8.5 - 10.5 mg/dL [facility] BUN/Creatinine Ratio 20 [facility] Serum (Serum) 06/27/2024 7:3 2 AM EST 06/27/2024 8:12 AM EST Aleksey Estrella MD CHEMISTRY ORDERABLES Telma l Result Performing Organization Address [facility] Co de Phone Number [facility] [address] * LIPID PROFILE (01/30/2024) Cholesterol 164 mg/dL [facility] LDL Calculated 39 mg/dL [facility] HDL 37 [facility] Triglycerides 634 mg/dL [facility] TER[facility] Plasma 01/30/2024 Historical Provider CHEMISTRY ORDERABLES Final R esult Performing Organization Address [facility] Co de Phone Number [facility] [address] * (ABNORMAL) HGB, A1C (GLYCOHEMOGLOBIN) (01/11/2017) Hgb A1C 6.4(H) % [facility] Whole Blood 01/11/2017 us Historical Provider CHEMISTRY ORDERABLES Final R esult [facility] [address] [place] [address], [facility] from Last 3 Months or Most Recently Relevant to Health Maintenance Insurance MEDICARE Member Subscriber Plan / Payer ( fective 2014-Present) Name:Jose Alberto Seaman Member ID:[id number] Relation to Subscriber:Self Name:Jose Alberto Seaman Subscriber ID:[id number] Payer ID:[id number] Group ID:Not on file Type:Medicare Address: [facility] J15 PART A [facility] [address] [address] [place] [address] [place] [address] MEDICARE MEDICARE Member Subscriber Plan / Payer (Ef fective 2014-Present) Name:Jose Alberto Seaman Member ID:[id number] Relation to Subscriber:Self Name:Jose Alberto Seaman Subscriber ID:[id number] Payer ID:[id number] Group ID:Not on file Type:Medicare Address: [address] Advance Directives For more information, please contact: [phone] * Full Code (Latest Code Status on File) Date Activated Date Inactivated Comments 06/18/2021 5:15 AM No automated c hest compression devices for VAD Patients * Full Code Date Activated Date Inactivated Comments 10/25/2019 2:15 PM 06/17/2021 6:43 PM No automated chest compression devices for VAD Patients * Full Code Date Activated Date Inactivated Comments 09/06/2017 3:08 PM 10/25/2019 8:45 AM * Full Code Date Activated Date Inactivated Comments 2017 9:57 AM 03/18/2017 1:38 PM * Full Code Date Activated Date Inactivated Comments 03/16/2017 12:32 PM 2017 9:57 AM Care Teams Light Armored Reconnaissance Officer Relationship Specialty [place] [address] [place] [address] PCP - General Family Medicine 11/27/18 Aleksey Estrella MD [address] [place] [address] Advanced Heart Failure/Transplant 10/15/20 Suri Lawrence NP [address] [place] [address] Nurse Practitioner Nurse Practitioner, [facility] 03/23/21 Kellen Carlson NP [address] [place] [address] Nurse Practitioner Nurse Practitioner, Family 04/06/21 Radha Jerome RN Registered Nurse 05/07/21 Rona Robbins, RN [address] [place], [place] [address] Registered Nurse 06/17/21 Stacy Branch NP [address] [place] [address] Nurse Practitioner Nurse Practitioner, Acute Care 10/21/21 Patrick Allen MD [address] [place] [address] Internal Medicine, Sleep Medicine 03/31/22 Alvin Washington MD Interventional Cardiology 08/21/22 Nithya Andrew NP [address] [place] [address] [place] [address] Nurse Practitioner Nurse Practitioner 11/29/22
--- NOTE | 2025-06-10 21:57 | CT_ITS ---
PROCEDURE INFORMATION: Exam: CT Pelvis Without Contrast, Skeleton Exam date and time: 06/10/2025 10:29 PM Age: 75 years old Clinical indication: Hip pain; Left hip; Additional info: Left hip/iliiac pain TECHNIQUE: Imaging protocol: Computed tomography of the pelvis without contrast. Exam focused on the skeleton. Radiation optimization: All CT scans at this facility use at least one of these dose optimization techniques: automated exposure control; mA and/or kV adjustment per patient size (includes targeted exams where dose is matched to clinical indication); or iterative reconstruction. COMPARISON: CT ABDOMEN PELVIS W CON 03/05/2024 10:54 PM FINDINGS: Kidneys and ureters: Bilateral simple cortical renal cysts. No hydronephrosis. Intestine: Colonic diverticulosis without diverticulitis. Appendix: Unremarkable. Bones/joints: No acute fracture. Sclerotic foci in the bilateral iliac bones likely representing bone islands. Grade 1 anterolisthesis of L4 on L5. Mild spondylosis. Moderate-severe facet arthropathy. No significant spinal canal stenosis. Severe bilateral L4-L5 neural foraminal stenosis. Moderate bilateral L5-S1 neural foraminal stenosis. Soft tissues: Unremarkable. IMPRESSION: No acute findings. COMMENTS: Consistent with the [employer]'s Incidental Findings Committee white paper (J Am Charlotte Radiol 2018): Any incidental renal lesion less than 1 cm or classified as too small to characterize, or any incidental cystic renal lesion characterized as simple-appearing, is likely benign. No follow-up imaging is recommended for these lesions per consensus recommendations based on imaging criteria.
--- NOTE | 2025-06-10 22:33 | HMH.EDGENADL ---
Discharge Plan Disposition Patient Disposition: Home, Self-Care Condition: Good Prescriptions Prescriptions: No Action evolocumab 140 mg/mL pen injector 140 mg SQ QOW metoprolol succinate 25 mg tablet extended release 24 hr 25 mg PO DAILY aspirin [Adult Low Dose Aspirin] 81 mg tablet,delayed release (DR/EC) 81 mg PO DAILY nitroglycerin 0.4 mg tablet, sublingual 0.4 mg SUBLINGUAL Q5-15M PRN (Reason: Chest Pain) Rx Instructions: do not exceed 3 doses per episode hydrocodone-acetaminophen 5-325 mg tablet 1 tab PO BID PRN (Reason: pain) Qty: 60 0RF oxycodone-acetaminophen [Percocet] 5-325 mg tablet 1 tab PO Q6H PRN (Reason: pain) Qty: 90 0RF pentoxifylline 400 mg tablet extended release PO acetaminophen [Tylenol Extra Strength] 500 mg tablet 500 mg PO Q6H PRN tamsulosin [Flomax] 0.4 mg capsule 0.4 mg PO DAILY Qty: 90 3RF furosemide 40 mg tablet See Rx Instructions .ROUTE .COMPLEX Qty: 90 0RF Dose Instruction: TAKE 1 TABLET BY MOUTH ONCE DAILY FOR FLUID. Rx Instructions: TAKE 1 TABLET BY MOUTH ONCE DAILY FOR FLUID. irbesartan 150 mg tablet See Rx Instructions .ROUTE .COMPLEX Qty: 90 0RF Rx Instructions: TAKE 1 qd warfarin 5 mg tablet See Rx Instructions .ROUTE .COMPLEX Qty: 45 0RF Dose Instruction: TAKE 1/2 TABLET BY MOUTH DAILY. Rx Instructions: TAKE 1/2 TABLET BY MOUTH DAILY. Bydureon BCise 2 mg/0.85 mL auto-injector 2 mg SQ WEEKLY Qty: 4.25 2RF gabapentin 300 mg capsule 300 mg PO TID Qty: 90 5RF allopurinol 100 mg tablet See Rx Instructions .ROUTE .COMPLEX Qty: 90 3RF Dose Instruction: TAKE 1 TABLET BY MOUTH DAILY FOR GOUT. Rx Instructions: TAKE 1 TABLET BY MOUTH DAILY FOR GOUT. Mounjaro 5 mg/0.5 mL pen injector 5 mg SQ WEEKLY Qty: 2 3RF metformin 500 mg tablet See Rx Instructions .ROUTE .COMPLEX Qty: 180 0RF Dose Instruction: TAKE 1 TABLET BY MOUTH 2 TIMES DAILY. Rx Instructions: TAKE 1 TABLET BY MOUTH 2 TIMES DAILY. magnesium oxide 500 mg tablet 500 mg PO BID Farxiga 5 mg tablet See Rx Instructions .ROUTE .COMPLEX Rx Instructions: TAKE 1 TABLET BY MOUTH DAILY. Referrals Follow up/Referrals: Dylon Izaguirre MD [Primary Care Provider, Family Practice] - See instructions Activity Restrictions/Add. Instructions Additional Instructions/Restrictions: You were evaluated in the ER and are believed to be appropriate for discharge at this time. Continue taking any home medications as previously prescribed. Continue going to physical therapy. Please follow-up with your primary care doctor in 2 to 3 days to discuss your results from today as well as your ongoing problems. He may need to prescribe additional physical therapy or consider an MRI to further look at the degenerative changes in your low back. He can also continue to follow the kidney cysts. Return to the ER with any new, worsening, or otherwise concerning symptoms. Clinical Impressions Clinical Impression: Left-sided pelvic pain, Sacroiliitis, Renal cyst Print Language Print Language: [place] Discharge ED Provider: Jese Atwood General Adult HPI <Jese Atwood MD - Last Filed: 06/10/25 22:59> General Chief complaint: PAIN Stated complaint: left hip pain and cant move it Time Seen by Provider: 06/10/25 21:45 Mode of Arrival: Wheelchair Source of Information: Patient Description of Symptoms (Recalled from ER Triage Doc. by RN): Pt presents with left hip pain since yesterday. Pt states he cannot think of any trauma to the area other than maybe a fall multiple weeks ago, but the pain just started yesterday. Pt cannot put much weight on the extremity. Pt has tried his home pain medications, but states nothing has helped. History of Present Illness HPI narrative: Patient is a 75-year-old male presenting today with what he describes as left hip pain. Worse with ambulation. No fevers or chills. Able to bear weight with a walker does not normally walk with a walker. When asked to describe the location of his pain he describes it as being along the left lower aspect of his back near his hip. No significant worsening with internal/external rotation flexion or extension at the hip. No history of cancer. No leg swelling etc. Related Data Home Medications ?Medication ?Instructions ?Recorded ?Confirmed aspirin 81 mg tablet,delayed 81 mg PO DAILY Blood thinner 04/28/20 01/24/25 release (Adult Low Dose Aspirin) evolocumab 140 mg/mL subcutaneous 140 mg SQ QOW Cholesterol 04/28/20 01/24/25 pen injector metoprolol succinate 25 mg 25 mg PO DAILY beta feliberto 04/28/20 01/24/25 tablet,extended release 24 hr nitroglycerin 0.4 mg sublingual 0.4 mg sublingual Q5-15M PRN Chest 04/28/20 01/24/25 tablet Pain dapagliflozin propanediol 5 mg See Rx Instructions .Route 10/28/22 01/24/25 tablet (Farxiga) .COMPLEX Diabetes magnesium oxide 500 mg PO BID Supplement 10/28/22 01/24/25 acetaminophen 500 mg tablet 500 mg PO Q6H PRN 12/06/24 01/24/25 (Tylenol Extra Strength) pentoxifylline 400 mg mg PO 12/06/24 01/24/25 tablet,extended release Previous Rx's ?Medication ?Instructions ?Recorded hydrocodone 5 mg-acetaminophen 325 1 tab PO BID PRN pain #60 tabs 06/30/23 mg tablet furosemide 40 mg tablet See Rx Instructions .Route 04/09/24 .COMPLEX #90 tabs irbesartan 150 mg tablet See Rx Instructions .Route 04/09/24 .COMPLEX htn #90 tabs warfarin 5 mg tablet See Rx Instructions .Route 04/09/24 .COMPLEX #45 tabs exenatide microspheres 2 mg/0.85 2 mg (0.85 mL) SQ WEEKLY #4.25 mL 10/01/24 mL subcutaneous auto-injector (Bydureon BCise) gabapentin 300 mg capsule 300 mg PO TID Pain #90 caps 10/02/24 tamsulosin 0.4 mg capsule (Flomax) 0.4 mg PO DAILY #90 caps 12/06/24 oxycodone-acetaminophen 5 mg-325 1 tab PO Q6H PRN pain #90 tabs 01/24/25 mg tablet (Percocet) allopurinol 100 mg tablet See Rx Instructions .Route 03/03/25 .COMPLEX #90 tabs tirzepatide 5 mg/0.5 mL 5 mg (0.5 mL) SQ WEEKLY #2 mL 04/21/25 subcutaneous pen injector (Mounjaro) metformin 500 mg tablet See Rx Instructions .Route 05/19/25 .COMPLEX #180 tabs Allergies Allergy/AdvReac Type Severity Reaction Status Date / Time ciprofloxacin (From Cipro) Allergy Unknown Verified 01/24/25 10:54 ofloxacin (From Floxin) Allergy Unknown Verified 01/24/25 10:54 Mtnqwhi-LHV-SqA Reductase Allergy Unknown Verified 01/24/25 10:54 Inhibitor (Viziynh-Aev-Tjo Reductase Inhibitor) penicillin V AdvReac Severe Unknown Verified 01/24/25 10:54 allergy reaction [facility] <J Dereje Atwood MD - Last Filed: 06/10/25 22:59> [facility] Disclaimer: The information contained in this section may have been updated after the patient was seen, as this information can be updated by other users. Medical History Diabetes mellitus, type 2 Edema History of chest pain Hyperlipidemia Hypertension Surgical History History of colonoscopy Family History Other Family history of COPD (chronic obstructive pulmonary disease) Family history of cancer Family history of congenital heart defect Social History Smoking Status: Never smoker alcohol intake: never substance use type: denies use current occupational status: employed Travel in the last 8 weeks?: None household members: none housing: house lives independently: Yes marital status: education level: master's degree service: No snf: No caffeine: Yes special johanna needs: No agree to transfusion: No do you feel safe at home: Yes victim of physical abuse: No victim of emotional abuse: No victim of sexual abuse: No would you like helpful sources: No Have you lived/traveled outside [place] in past 30 days?: No Contact w/someone who lives/traveled outside [place] past 30 days?: No Exposure to someone with infectious disease in past 14 days?: No Do you have a fever (greater than 100.4 F or 38 C)?: No Have you tested positive for COVID-19?: No Exposed to someone with COVID-19 in past 14 days?: No Do you have a sore throat?: No Do you have a cough?: No Do you have any weakness?: No Do you have any diarrhea?: No Are you experiencing any unusual bleeding?: No Do you have any muscle aches/pain?: No Do you have any abdominal pain?: No Are you experiencing loss of taste or smell?: No Other Medical History Have you received the Flu Vaccine for this season: No Have you received the Pneumonia Vaccine: Yes <Jese Atwood MD - Last Filed: 06/10/25 22:59> ROS Obtained: Yes All systems reviewed & no additional complaints except as documented Physical Exam <Jese Atwood MD - Last Filed: 06/10/25 22:59> General General appearance: alert Respiratory Respiratory exam: Present normal lung sounds bilaterally Cardiovascular Cardiovascular exam: Present regular rate Extremities Exam Extremities exam: Present other (Patient has normal flexion extension internal/external rotation at the hip he has no pain over the greater trochanter he does have some pain at the superior iliac crest region at the SI joint region) Neurological Exam Neurological exam: Present alert and oriented X3 Medical Decision Making <Jese Atwood MD - Last Filed: 06/10/25 22:59> Medical Records Screening: Per USPSTF and CDC recommendations, given the prevalence of disease in our region, it is our hospital?s policy to screen for HIV and viral Hepatitis for all patients aged 18 and over and those with ongoing risk factors. Ruben Inquiry Pt receiving controlled substance: No Vital Signs: 06/10/25 21:33 06/10/25 23:08 06/10/25 23:20 Temperature 97.6 F 98.6 F Temperature Source Temporal Artery Scan Pulse Rate 60 63 Pulse Rate [Right] 65 Respiratory Rate 18 16 16 Blood Pressure 140/77 128/81 Blood Pressure [Right Arm] 141/90 H Blood Pressure Mean [Right Arm] 107 Blood Pressure Source [Right Arm] Automatic Cuff Blood Pressure Position [Right Arm] Sitting 02 Sat by Pulse Oximetry 100 97 Oxygen Delivery Method Room Air Room Air Room Air Orders (Tests/Meds): ORDERS Category Date Time Status CT bony pelvis Stat Cat Scan 06/10/25 21:57 Completed Medical Decision Narrative: Patient with above history and physical appears to not be confined to the hip joint itself however he does have difficulty with ambulation and normally can ambulate pretty good. Does not want to take NSAIDs with a history of chronic kidney disease had some leftover Percocet as well as gabapentin from an injury in the past that he took at home without any significant improvement. He specifically states that he does not want medication for his injury however just want some diagnostic workup. I have advised that we can get a CT scan that would work out any type of fracture dislocation malignancy large mass etc. This was performed which I personally interpreted which shows no evidence of any fracture or dislocation or significant soft tissue injury. Most likely musculoskeletal strain particularly in the SI joint region. This will be treated supportively. I have also advised that he follow-up with your primary care doctor to discuss physical therapy and possibly getting an MRI if this is not improving. Formal radiology read is pending. ct read pending - care transitioned to Dr. Moreno at 11 pm <Lashawn Moreno MD - Last Filed: 06/10/25 23:52> Vital Signs: 06/10/25 21:33 06/10/25 23:08 06/10/25 23:20 Temperature 97.6 F 98.6 F Temperature Source Temporal Artery Scan Pulse Rate 60 63 Pulse Rate [Right] 65 Respiratory Rate 18 16 16 Blood Pressure 140/77 128/81 Blood Pressure [Right Arm] 141/90 H Blood Pressure Mean [Right Arm] 107 Blood Pressure Source [Right Arm] Automatic Cuff Blood Pressure Position [Right Arm] Sitting 02 Sat by Pulse Oximetry 100 97 Oxygen Delivery Method Room Air Room Air Room Air Orders (Tests/Meds): ORDERS Category Date Time Status CT bony pelvis Stat Cat Scan 06/10/25 21:57 Completed Medical Decision Narrative: Patient with above history and physical appears to not be confined to the hip joint itself however he does have difficulty with ambulation and normally can ambulate pretty good. Does not want to take NSAIDs with a history of chronic kidney disease had some leftover Percocet as well as gabapentin from an injury in the past that he took at home without any significant improvement. He specifically states that he does not want medication for his injury however just want some diagnostic workup. I have advised that we can get a CT scan that would work out any type of fracture dislocation malignancy large mass etc. This was performed which I personally interpreted which shows no evidence of any fracture or dislocation or significant soft tissue injury. Most likely musculoskeletal strain particularly in the SI joint region. This will be treated supportively. I have also advised that he follow-up with your primary care doctor to discuss physical therapy and possibly getting an MRI if this is not improving. Formal radiology read is pending. ct read pending - care transitioned to Dr. Moreno at 11 pm Moreno: Upon my assumption of care patient is stable and resting comfortably in bed. On my exam he has mild tenderness along the left SI area, no saddle anesthesia, no red flag symptoms for cauda equina. I agree with the assessment and plan from Dr. Atwood. Patient described to me that the pain is similar to what he previously had gone to physical therapy for on the other side and states he thinks he probably needs to do physical therapy for the left side now because he believes it really helps him. I encouraged him to do this. CT pelvis personally interpreted demonstrates no obvious osseous injury, there do appear to be degenerative changes. See radiology read for final interpretation. I discussed incidental findings with the patient. He states the renal cysts have been previously looked at. I also explained to him the small sclerotic lesions in the iliac bones and degenerative changes throughout the low back that I suspect are contributing to his presentation today. He understands all of this. I encouraged him to continue going to physical therapy and to follow-up with his primary care doctor in a few days to discuss continued physical therapy as well as MRI of the low back if his symptoms do not improve. I am not prescribing any new prescriptions or making changes to prescriptions today but encouraged him to continue taking home medications as previously prescribed. He is agreeable to this. He is appropriate for discharge at this time and comfortable with this plan. He was given return precautions for the ER. He indicated understanding to all verbal and written instructions and the patient was discharged in stable condition. Critical Care <Jese Atwood MD - Last Filed: 06/10/25 22:59> Critical Care Time Critical Care Time: No
[2025-06-10 23:08] VITALS: BP 140/77; PULSE 60; RESP 16; O2SAT 97
[2025-06-10 23:20] VITALS: BP 128/81; PULSE 63; RESP 16; TEMP 37; O2SAT 98
== END 2025-06-10 23:56 | disposition home or self-care (01) ==
PROVIDERS: Emergency Provider Student in an Organized Health Care Education/Training Program; PCP Family Medicine
DX: M25.552 Pain in left hip (principal); M46.1 Sacroiliitis, not elsewhere classified; R10.22 Pelvic and perineal pain left side; N28.1 Cyst of kidney, acquired
CPT/HCPCS: 72192; 99282; 99284

== ENCOUNTER 2025-07-24 12:00 | Outpatient (CLI) | payer MEDICARE, SELFPAY ==
[2025-07-24 15:03] LABS: INR 1.61 (0.9-1.1); Prothrombin Time 17.3 seconds (10.1-12.5)
== END 2025-07-24 23:59 | disposition home or self-care (01) ==
LOC: LAB.DROPOF 07-25 14:12
PROVIDERS: PCP Family Medicine; Visit Provider Family Medicine
DX: Z79.01 Long term (current) use of anticoagulants (principal)
CPT/HCPCS: 85610